=== PATIENT | male | born 1995 | race Caucasian/White ===

== ENCOUNTER 2024-03-30 09:42 | Emergency (ER) | payer OTHER, SELFPAY ==
--- NOTE | ~2024-03-30 | CT_ITS ---
EXAMINATION: CT abdomen pelvis w con DATE: 03/30/2024 11:40 INDICATION: Left lower quadrant pain and diarrhea TECHNIQUE: Computed tomography (CT) of the abdomen and pelvis was performed with 100 mL Omnipaque-350 intravenous contrast. Automated exposure control and iterative reconstruction technique were employe d. The dose-length product was 1390.84 mGy-cm. COMPARISON: None FINDINGS: Lung bases are clear. Heart size is normal. No pericardial or pleural effusion. 2.4 cm well-defined h ypodense lesion in segment 4A of the liver which bulges the liver capsule.. Gallbladder, spleen, panc reas, bilateral adrenal glands and kidneys are normal. There are couple diverticula at the junction o f the descending and sigmoid colon, one with surrounding inflammatory stranding and a few tiny foci o f extraluminal gas within the adjacent sigmoid mesentery consistent with acute diverticular colitis w ith microperforation. Small bowel and appendix are normal. Bladder is normal. No abscess, free into p eritoneal fluid or more remote free intraperitoneal gas. No pathologically enlarged abdominal or pelv ic lymphadenopathy. Chronic appearing mild likely physiologic anterior wedging at T11 and T12 with mi ld thoracic and lumbar spondylosis. IMPRESSION: 1. Radiographically uncomplicated sigmoid diverticulitis with microperforation but without abscess. 2. Indeterminate 2.4 cm lesion in segment 4A of the liver. Malignancy would be unlikely given patient age and in the absence of known liver disease or prior malignancy but would recommend further evalua tion with pre and postcontrast MRI. Reviewed, dictated and finalized at location A. [employer] IMPRESSION: 1. Radiographically uncomplicated sigmoid diverticulitis with microperforation but without abscess. 2. Indeterminate 2.4 cm lesion in segment 4A of the liver. Malignancy would be unlikely given patient age and in the absence of known liver disease or prior m alignancy but would recommend further evaluation with pre and postcontrast MRI.
[2024-03-30 09:49] VITALS: BP 147/95; PULSE 107; RESP 18; TEMP 36.7; O2SAT 100
--- NOTE | 2024-03-30 10:35 | ED.ABDPAIN ---
HPI - Abdominal Pain General Chief Complaint: Abdominal Pain Stated Complaint: abdominal pain Time Seen by Provider: 03/30/24 10:02 History of Present Illness HPI narrative: 28-year-old male presenting with abdominal pain. States for the last several days he has had left lower abdominal pain associated with diarrhea no nausea. He went to urgent care today who advised that he come to the ER for a CT scan. No further complaints. Related Data Allergies Allergy/AdvReac Type Severity Reaction Status Date / Time No Known Allergies Allergy Unknown Verified 03/30/24 16:09 Review of Systems Review of Systems: All systems reviewed & are unremarkable except as noted in HPI and below Exam Narrative: GENERAL: Well-appearing, well-nourished, and in no acute distress. HEAD: Normocephalic, atraumatic. EYES: PERRLA and EOMI. ENT: Mucous membranes moist. NECK: Supple. CHEST: Clear to auscultation. No respiratory distress. HEART: Regular rate and rhythm ABDOMEN: Soft, + left lower quadrant tenderness without guarding or rebound EXTREMITIES: Normal range of motion SKIN: Warm, dry, no rash. NEURO: Alert and oriented x3. PSYCH: Normal mood and affect. Course Vital Signs Vital signs: Vital Signs Temperature 98.0 F 03/30/24 09:49 Pulse Rate 107 H 03/30/24 09:49 Respiratory Rate 18 03/30/24 09:49 Blood Pressure 147/95 H 03/30/24 09:49 Pulse Oximetry 100 03/30/24 09:49 Oxygen Delivery Room Air 03/30/24 09:49 Temperature 98.1 F 03/30/24 16:38 Pulse Rate 91 03/30/24 11:56 Respiratory Rate 20 03/30/24 11:56 Blood Pressure 129/83 03/30/24 11:56 Pulse Oximetry 97 03/30/24 11:56 Oxygen Delivery Room Air 03/30/24 09:49 MDM - Abdominal Pain MDM Narrative Medical decision making narrative: 28-year-old male presenting with abdominal pain. Vitals are stable. Exam remarkable for the above. Blood work with a white count of 11.6. CT abdomen pelvis shows diverticulitis with microperforation and no abscess. Patient looks very well and his only complaint really is some mild nausea. He would prefer discharge which I think is reasonable. I spoke with General surgery who recommends Flagyl and Augmentin with very strict return precautions. Patient needs to follow-up with their clinic closely. He will also require a colonoscopy in the future. Patient will be given a dose of IV Rocephin and Flagyl and p.o. challenge. Patient tolerating p.o. intake. He continues to feel well and states that his pain has actually improved. Will start him on Flagyl and Augmentin and advised close follow-up with General surgery strict return precautions were given. Patient and his fiancee are agreeable with this plan. Discharged in stable condition. Differential Diagnosis Differential diagnosis: Likely abdominal pain, acute appendicitis, constipation and diverticulitis Medical Records Attestation: I reviewed the patient's medical records. Lab Data Attestation: I reviewed the patient's lab results. 03/30/24 10:56 03/30/24 10:56 Labs: Lab Results 03/30/24 03/30/24 Range/Units 10:56 10:56 WBC 11.6 H (4.5-10.0) K/mm3 RBC 5.26 (4.6-6.20) M/mm3 Hgb 16.1 (14.0-18.0) g/dL Hct 45.6 (42.0-52.0) % MCV 86.7 (80-100) fl MCH 30.6 (26-34) pg MCHC 35.3 (32-36) g/dl RDW 12.1 (11.5-14.5) % Plt Count 268 (150-375) k/mm3 MPV 10.0 (7.4-10.4) fl Immature Gran % (Auto) 0.3 (0-0.5) % Neut % (Auto) 85.7 H (45.5-73.1) % Lymph % (Auto) 6.6 L (18.3-44.2) % [place] % (Auto) 7.0 (2.6-8.5) % Eos % (Auto) 0.2 (0-4.4) % Baso % (Auto) 0.2 (0.2-1.2) % Lymph # (Auto) 0.76 L (0.9-3.2) K/mm3 [place] # (Auto) 0.8 H (0.1-0.6) K/mm3 Eos # (Auto) 0.0 (0-0.3) K/mm3 Baso # (Auto) 0.0 (0.0-0.1) K/mm3 Abs Immat Gran (auto) 0.04 H (0.00-0.031) K/mm3 Absolute Neuts (auto) 10.0 H (1.3-6.7) K/mm3 Absolute Nucleated RBC 0.000 (0.0-0.012) K/mm3 Nucleated RBC % 0.0 (0.0-0.2) % Sodium 135 L (137-145) mmol/L Potassium 4.1 (3.4-5.0) mmol/L Chloride 99 (98-107) mmol/L Carbon Dioxide 28 (22-30) mmol/L Anion Gap 8 (4-12) mmol/L BUN 19 (9-20) mg/dL Creatinine 0.90 (0.7-1.3) mg/dL Estim Creat Clear Calc 150 ml/min Estimated GFR > 60 (59 - ) Glucose 100 (65-110) mg/dL Calcium 8.9 (8.4-10.2) mg/dL Total Bilirubin 0.6 (0.2-1.3) mg/dL AST 33 (17-59) U/L ALT 44 (6-50) U/L Alkaline Phosphatase 58 (38-126) U/L Total Protein 8.0 (6.3-8.2) g/dL Albumin 4.7 (3.5-5.1) g/dL Lipase 42 Cancelled (23-300) U/L Urine Color Dark yellow (Yellow) Urine Appearance Clear (Clear) Urine pH 5.5 (5.0-9.0) Ur Specific [place] 1.032 (1.001-1.035) Urine Protein 1+ H (Negative) mg/dL Urine Glucose (UA) Negative (Negative) mg/dL Urine Ketones Trace H (Negative) mg/dL Ur Blood (Man) Negative (Negative) Urine Nitrate Negative (Negative) Urine Bilirubin Negative (Negative) Urine Urobilinogen 0.2 (<2.0) mg/dL Add Ur Microanalysis Reviewed Leukocyte Esterase Rfl Negative (Negative) AIDA/UL Urine RBC 0-2 (0-2) /hpf Urine WBC 0-5 (0-3) /hpf Ur Squamous Epith Cells None seen (Few) /hpf Urine Bacteria None seen /hpf Urine Casts 3-5 Imaging Data Radiologist's impression: ITS Impressions Abdomen/Pelvis CT 03/30/24 11:41 IMPRESSION: 1. Radiographically uncomplicated sigmoid diverticulitis with microperforation but without abscess. 2. Indeterminate 2.4 cm lesion in segment 4A of the liver. Malignancy would be unlikely given patient age and in the absence of known liver disease or prior malignancy but would recommend further evaluation with pre and postcontrast MRI. Critical Care Time Critical Care Time Critical Care Time: No Discharge Plan Discharge Clinical Impression: Diverticulitis of intestine with perforation without abscess or bleeding Patient Disposition: Home, Self-Care Condition: Stable Instructions: Antibiotic Form, Diverticulitis (ED), Diverticulitis Diet (ED) Additional Instructions: The CT scan shows diverticulitis with a microperforation. We have started you on 2 different antibiotics. Please complete these as prescribed. Follow-up closely with General surgery at the number below. If any of your symptoms worsen or other concerning symptoms arise, please return immediately to the ER. Patient Language: Mozamb[place] Prescriptions: New amoxicillin-pot clavulanate 875-125 mg tablet 1 tablet PO Q8H 10 Days Qty: 30 0RF metronidazole 500 mg tablet 500 mg PO Q12H 10 Days Qty: 20 0RF Follow-up/Referrals: Dr. Edgar Lloyd [Other] PHYSICIAN,[employer] [Non-Staff] - Stand Alone Forms: Work/School Release IP
[2024-03-30 11:04] LABS: Basophils Percent Auto 0.2 % (0.2-1.2); Eosinophils Percent Auto 0.2 % (0-4.4); Hematocrit 45.6 % (42.0-52.0); Hemoglobin 16.1 g/dL (14.0-18.0); Immature Granulocyte Absolute 0.04 K/mm3 (0.00-0.031); Immature Granulocyte Percent A 0.3 % (0-0.5); Lymphocytes Absolute Auto 0.76 K/mm3 (0.9-3.2); Lymphocytes Percent Auto 6.6 % (18.3-44.2); Mean Corpuscular HGB Conc 35.3 g/dl (32-36); Mean Corpuscular Hemoglobin 30.6 pg (26-34); Mean Corpuscular Volume 86.7 fl (80-100); Monocytes Absolute Auto 0.8 K/mm3 (0.1-0.6); Neutrophils Percent Auto 85.7 % (45.5-73.1); Platelet Count Result 268 k/mm3 (150-375); Red Blood Count 5.26 M/mm3 (4.6-6.20); Red Cell Distribution Width 12.1 % (11.5-14.5); White Blood Count 11.6 K/mm3 (4.5-10.0)
[2024-03-30 11:14] LABS: Alanine Aminotransferase 44 U/L (6-50); Albumin Level 4.7 g/dL (3.5-5.1); Alkaline Phosphatase 58 U/L (38-126); Anion Gap 8 mmol/L (4-12); Aspartate Amino Transferase 33 U/L (17-59); Bilirubin,Total 0.6 mg/dL (0.2-1.3); Blood Urea Nitrogen 19 mg/dL (9-20); Calcium 8.9 mg/dL (8.4-10.2); Carbon Dioxide 28 mmol/L (22-30); Chloride 99 mmol/L (98-107); Estimated CRCL calculation 150 ml/min; Estimated Glomerular Filt Rate > 60; Glucose 100 mg/dL (65-110); Lipase 42 U/L (23-300); Potassium 4.1 mmol/L (3.4-5.0); Sodium 135 mmol/L (137-145)
[2024-03-30 11:18] LABS: Add Urine Microscopic? YES; Appearance Urine Clear (Clear); Bacteria Urine None Seen /hpf; Bilirubin Urine Negative (Negative); Blood Urine Negative (Negative); Color Urine Dark Yellow (Yellow); Glucose Urine UA Negative (Negative); Ketones Urine Trace mg/dL (Negative); Leukocyte Esterase Ur Negative LEU/UL (Negative); Need Manual Microscopic Reviewed; Nitrate Urine Negative (Negative); Protein Urine 1+ mg/dL (Negative); RBC Urine 0-2 /hpf (0-2); Specific Grav Ur 1.032 (1.001-1.035); Squamous Epithelial Cell Urine None Seen /hpf (Few); Urobilinogen Urine 0.2 mg/dL (<2.0); WBC Urine 0-5 /hpf (0-3); pH Urine 5.5 (5.0-9.0)
[2024-03-30 11:56] VITALS: BP 129/83; PULSE 91; RESP 20; TEMP 36.7; O2SAT 97
[2024-03-30] MEDS: cefTRIAXone 2 GM/NS 100 ML 2 GM/100 ML BAG IVPB (13:42)
[2024-03-30] MEDS: ONDANSETRON INJ 4 MG/2 ML VIAL IV PUSH (13:47)
[2024-03-30] MEDS: metroNIDAZOLE 500 MG/ISO 100ML 500 MG/100 ML BAG 100 MG IVPB (15:10)
[2024-03-30 16:38] VITALS: TEMP 36.7
--- OUTSIDE RECORDS SUMMARY | 2024-04-03 02:18 | XMS_ITS | Patient Health Summary ---
Author Organization [facility] [employer] Address [address] [place] [address] Care Team Providers Care Assembling Inspector Name Role Phone Kimberly Dillon MD Primary Care Provider Note from [facility],non-owned Affiliates and Associated Physician Practices is amultiple site organization consisting of ambulatory clinics and hospital sitesin [place], [place], [place] and [place]. This disclosure is being madepursuant to the Care Everywhere program and may not contain all information available regarding this patient. Last updated 18.[facility] [employer] Allergies No known active allergies Medications * Be aware that medications may not be up to date on this document. Alwaysverify current medications with the patient. * acetaminophen (TYLENOL) 160 MG/5ML SOLN solution(Started 06/09/2014) Take 15.65 mL by mouth every 4 hours as needed for Fever or Pain. * ibuprofen (ADVIL; MOTRIN) 100 MG/5ML SUSP suspension(Started 06/12/2014) Take 15 mL by mouth every 6 hours as needed for Pain or Fever. May start using ibuprofen (ADVIL/MOTRIN) 3 days after surgery. * Cholecalciferol 1000 UNITS TABS(Started 09/19/2014) Take 1 Tab by mouth once daily. 3 refills left Active Problems Problem Noted Date Diagnosed Date Hypertrophy of tonsils with hypertrophy of adeno ids 06/09/2014 Obstructive sleep apnea 06/09/2014 Nail bed injury 02/11/2014 Ankle fracture 05/12/2012 Immunizations * TDAP (7yrs+)(Given 02/11/2014) Social History Tobacco Use Types Packs/Day Years Used Date Smoking Tobacco: Never Smokeless Tobacco: Never Alcohol Use Standard Drinks/Week Comments No 0 (1 standard drink = 0.6 oz pur e alcohol) Sex and Gender Information Value Date Recorded Sex Assigned at Not on file Gender Identity Not on file Sexual Orientation Not on file Last Filed Vital Signs Vital Sign Reading Time Taken Comments Blood Pressure 140/90 09/12/2014 3:31 PM CDT Pulse 80 06/09/2014 2:30 PM BICYCLE REPAIRMAN Temperature 36.6 ??C (97.9 ??F) 06/09/2014 1:30 PM CS T Respiratory Rate 16 06/09/2014 2:30 PM BICYCLE REPAIRMAN Oxygen Saturation 100% 06/09/2014 2:30 PM BICYCLE REPAIRMAN Inhaled Oxygen Concentration - - Weight 117.8 kg (259 lb 12.8 oz) 09/12/2014 3:31 PM CDT Height 180 cm (5' 10.87 ) 09/12/2014 3:31 PM CDT Body Mass Index 36.37 09/12/2014 3:31 PM CDT Medical Devices Implanted Type Area Peoplesoft Administrator Device Identifier Shelf Expiration Date Model / Serial / Lot Scrw Selftap Hd 2.7mm 3.5mm X 16.0mm Implanted:Qty: 2 on 05/16/2012 by Sophia Hutchison MD at [facility] Right: Ankle [employer] [id number] / / Scrw Selftap Hd 2.7mm 3.5mm X 18.0mm Implanted:Qty: 2 on 05/16/2012 by Sophia Hutchison MD at [facility] Right: Ankle [employer] [id number] / / Scrw Selftap Hd 2.7mm 3.5mm X 28.0mm Implanted:Qty: 1 on 05/16/2012 by Sophia Hutchison MD at [facility] Right: Ankle [employer] [id number] / / Scrw Harsh Selftap Sm Hex 2.7mm X 14mm Implanted:Qty: 1 on 05/16/2012 by Sophia Hutchison MD at [facility] Right: Ankle [employer] [id number] / / Scrw Harsh Selftap Sm Hex 2.7mm X 16mm Implanted:Qty: 1 on 05/16/2012 by Sophia Hutchison MD at [facility] Right: Ankle [employer] [id number] / / Scrw Harsh Selftap Sm Hex 2.7mm X 18mm Implanted:Qty: 1 on 05/16/2012 by Sophia Hutchison MD at [facility] Right: Ankle [employer] [id number] / / Plate Fib Dist Lat Cesia R 4hole 80mm Implanted:Qty: 1 on 05/16/2012 by Sophia Hutchison MD at [facility] Right: Ankle [employer] [id number] / / Explanted Type Area Peoplesoft Administrator Device Identifier Shelf Expiration Date Model / Serial / Lot Scrw Selftap Hd 2.7mm 3.5mm X 14.0mm Explanted:Qty: 1 on 05/16/2012 by Sophia Hutchison MD at [facility] Right: Ankle [employer] [id number] / / Procedures * VITAMIN D 25-HYDROXY(Performed 09/12/2014) Performed for Sleep disturbance * C-REACTIVE PROTEIN(Performed 09/12/2014) Performed for Sleep disturbance * IRON + TIBC PANEL(Performed 09/12/2014) Performed for Other disorders of iron metabolism * FERRITIN(Performed 09/12/2014) Performed for Other disorders of iron metabolism * TONSILLECTOMY AND ADENOIDECTOMY(Performed 06/09/2014) Performed for Hypertrophy of tonsil with adenoids, Obstructive sleep apnea (adult) (pediatric) * PATHOLOGY TISSUE EXAM (STL)(Performed 06/09/2014) * FERRITIN(Performed 05/15/2014) Performed for Restless legs syndrome (RLS) * XR ANKLE RIGHT 3VW OR MORE(Performed 06/15/2012) Performed for Ankle fracture * XR ANKLE RIGHT 2VW(Performed 05/25/2012) Performed for Ankle fracture * OPEN REDUCTION INTERNAL FIXATION FRACTURE ANKLE BIMALLEOLAR(Performed 05/16/2012) Performed for RIGHT ANKLE FRACTURE, SYNDEMOSIS INJURY * XR ANKLE RIGHT 3VW OR MORE(Performed 05/16/2012) Performed for Ankle fracture * IP CONSULT TO PEDIATRIC ORTHOPEDICS(Performed 05/13/2012) * ED ORTHOPEDIC INJURY TREATMENT(Performed 05/13/2012) * XR ANKLE RIGHT 3VW OR MORE(Performed 05/12/2012) Performed for Injury, other and unspecified, knee, leg, ankle, and foot * XR ANKLE RIGHT 3VW OR MORE(Performed 05/12/2012) Performed for Injury, other and unspecified, knee, leg, ankle, and foot * US SCROTUM W DOPPLER(Performed 04/28/2009) Results * C-REACTIVE PROTEIN (09/12/2014 4:08 PM CDT) [facility] C-Reactive Protein <0.20 <=0.50 mg/dL 09/12/2014 4:38 PM CDT [facility] Blood BLOOD SPECIMEN / Unknown Lab Venipuncture / Unknown 09/12/2014 4:08 PM CDT 09/12/2014 4:15 PM CDT Nadine Arredondo APRN-QUICK SKETCH ARTIST LAB - CHEMISTR Y ORDERABLES Performing Organization Address [facility] de Phone Number [facility] [address] [place] [id number] * (ABNORMAL) VITAMIN D (25-HYDROXY) (09/12/2014 4:08 PM CDT) [facility] Vitamin D, 25 Hydroxy 18.03(L) 30 - 100 ng/mL 09/12/2014 6:58 PM CDT [facility] Blood BLOOD SPECIMEN / Unknown Lab Venipuncture / Unknown 09/12/2014 4:08 PM CDT 09/12/2014 4:16 PM CDT Narrative [facility] - 09/12/2014 6:58 PM CDT Vitamin D Status: ?Deficiency ? <20 ? ng/mL ?Insufficiency ?? 20-30 ??ng/mL ?Sufficiency ? 30-100 ng/mL ?Toxicity ? >100 ?ng/mL Nadine Simon Arnulfo ROUTE SALES TRAINEE-QUICK SKETCH ARTIST LAB - CHEMISTR Y ORDERABLES [facility] [address] [place] [address] * (ABNORMAL) IRON + TIBC PANEL (09/12/2014 4:08 PM CDT) Iron 178(H) 50 - 170 ug/dL 09/15/2014 1:24 AM CDT [employer] ([facility]) Comment: REFERENCE INTERVAL: Iron, Serum or Plasma Access complete set of age- and/or gender-specific reference intervals for this test in the [facility] Test Directory ([employer]). TIBC 376 240 - 450 ug/dL 09/15/2014 1:24 AM CDT [employer] ([facility]) Comment: REFERENCE INTERVAL: Iron Binding Capacity Total Access complete set of age- and/or gender-specific reference intervals for this test in the [facility] Test Directory ([employer]). Transferrin Saturation % 47 20 - 50 %sat 09/15/2014 1:24 AM CDT [employer] ([facility]) Blood specimen (specimen) BLOOD SPECIMEN / Unknown Lab Venipuncture / Unknown 09/12/2014 4:08 PM CDT 09/12/2014 4:16 PM CDT Nadine Arredondo ROUTE SALES TRAINEE-QUICK SKETCH ARTIST LAB - CHEMISTR Y ORDERABLES [facility] [employer] ([facility]) [address] * (ABNORMAL) FERRITIN (09/12/2014 4:08 PM CDT) Only the most recent of2 resultswithin the time period is included. Ferritin 267(H) 20 - 250 ng/mL 09/12/2014 4:39 PM CDT [facility] Blood BLOOD SPECIMEN / Unknown Lab Venipuncture / Unknown 09/12/2014 4:08 PM CDT 09/12/2014 4:15 PM CDT Nadine Arredondo ROUTE SALES TRAINEE-QUICK SKETCH ARTIST LAB - CHEMISTR Y ORDERABLES [facility] [place] [address] * GROSS + MICRO EXAM (STL) (06/09/2014 12:22 PM BICYCLE REPAIRMAN) Case Report Surgical Pathology Report ? Case: [id number] ? Authorizing Provider: ??Krunal Bridges MD ?Collected: ? 06/09/2014 12:22 PM ? Ordering Location: ? [facility] ? Received: ?06/09/2014 01:54 PM ? Pathologist: ? Daniel Rice MD ? Specimen: ?Tonsil(s) ? 06/10/2014 4:16 PM BICYCLE REPAIRMAN [facility] Final Diagnosis TONSILS, TONSILLECTOMY: -TONSILLAR HYPERPLASIA -SULFUR GRANULES PRESENT 06/10/2014 4:16 PM BICYCLE REPAIRMAN [facility] Clinical History The patient is a 18-year-old boy with adenotonsillar hypertrophy and obstructive sleep apnea. 06/10/2014 4:16 PM [facility] Gross Description Submitted fresh in one container for gross and microscopic examination labeled with the patient's name, Antony Benedict, and tonsils, are two egg-shaped, pink-patterson palatine tonsils measuring 3.2 x 2.3 x 1.5 cm and 3.2 x 2.5 x 2.0 cm, weighing 4 grams and 5 grams. On cut surface, the tonsils have a cerebriform yellow-pattersno appearance. A branch customer service representative section of each tonsil is submitted in cassettes A1 and A2. (MR/preet) 06/10/2014 4:16 PM [facility] Microscopic Description 2 H&E. Sections of the tonsils show tonsillar squamous mucosa with underlying lymphoid tissue. Intraepithelial lymphocytes (M cells) are noted. The lymphoid tissue is composed of variable sized germinal center surrounded by intact mantle zone sulfur granules (actinomcyes) are noted. (NM/scs) 06/10/2014 4:16 PM [facility] Disclaimer The performance characteristics of all immunohistochemical and indirect immunofluorescence stains (if any) cited in this report were determined by the [facility] in compliance with CLIA `88 regulations. Some of these tests rely on the use of analyte-specific reagents and are subject to specific labeling requirements by the FDA. Such tests were developed by the [facility] and have not been cleared or approved by the FDA. The FDA has determined that such clearance or approval is not necessary. These tests are used for clinical purposes and should not be regarded as investigational or for research. This case has been personally reviewed and interpreted by the attending (teaching) pathologist. 06/10/2014 4:16 PM [facility] Pathology/Cytolo gy SPECIMEN FROM TONSIL / Unknown 06/09/2014 12:22 PM BICYCLE REPAIRMAN 06/09/2014 1:54 PM BICYCLE REPAIRMAN Comment:[phone] Krunal Bridges MD LAB - PATHOLOGY/CYTO LOGY ORDERABLES [facility] [address] [place] [address] * XR ANKLE 3+ VW RIGHT (06/15/2012 9:07 AM BICYCLE REPAIRMAN) Only the most recent of4 resultswithin the time period is included. Anatomical Region Laterality Modality Lower Extremity Radiographic Kira ging 06/15/2012 9:26 AM BICYCLE REPAIRMAN Impressions 06/15/2012 9:26 AM BICYCLE REPAIRMAN 1. Healing distal fibular fracture. 2. Unchanged posterior tibial a avulsion. Narrative 06/15/2012 9:26 AM BICYCLE REPAIRMAN Right ankle, 3 views 06/15/2012 Fixation plate and screw is present in the distal fibula. The avulsed bone fragment of the posterior aspect of the tibia demonstrates minimal healing. The cast has been removed. Procedure Note Tom Boykin MD - 06/15/2012 Right ankle, 3 views 06/15/2012 Fixation plate and screw is present in the distal fibula. The avulsed bone fragment of the posterior aspect of the tibia demonstrates minimal healing. The cast has been removed. IMPRESSION 1. Healing distal fibular fracture. 2. Unchanged posterior tibial a avulsion. Zackery Giles MD DIAGNOSTIC IMAGING ORDERABLES * XR ANKLE 2 VW RIGHT (05/25/2012 8:46 AM BICYCLE REPAIRMAN) Anatomical Region Laterality Modality Lower Extremity Radiographic Kira ging 05/25/2012 11:1 1 AM BICYCLE REPAIRMAN Impressions 05/25/2012 11:11 AM BICYCLE REPAIRMAN Interval casting of distal fibular fracture. Narrative 05/25/2012 11:11 AM BICYCLE REPAIRMAN Right ankle series, 2 views 05/25/2012 Comparison is made to the portable intraoperative study on May 16, 2012. Since that study, the distal right fibular fracture has been casted. Fixation plate and surgical screws remain in place the fibular fracture site. There is no new osseous injury visible through cast material. Procedure Note Tom Boykin MD - 05/25/2012 Right ankle series, 2 views 05/25/2012 Comparison is made to the portable intraoperative study on May 16, 2012. Since that study, the distal right fibular fracture has been casted. Fixation plate and surgical screws remain in place the fibular fracture site. There is no new osseous injury visible through cast material. IMPRESSION Interval casting of distal fibular fracture. Sophia Hutchison MD DIAGNOSTIC IMAGING O RDERABLES * IP CONSULT TO PEDIATRIC ORTHOPEDICS (05/13/2012 9:11 PM BICYCLE REPAIRMAN) Anna Lobo MD INPATIENT CONSULT OR DERABLES * ED ORTHOPEDIC INJURY TREATMENT (05/13/2012 2:28 AM BICYCLE REPAIRMAN) Narrative Benji Nobles MD - 05/13/2012 2:28 AM BICYCLE REPAIRMAN Benji Nobles MD ? 05/13/2012 ??2:28 AM Provider contact with the patient: 05/13/2012 ?02:27 Antony Myles Benedict [id number] [facility] History Chief Complaint Patient presents with ? ? Lower Extremity Problem ??wrestling injury to right foot. PT did not hear a pop but did feel a couple pops. Mother gave 800mg Ibuprofen 2hrs ago. ?? I have read the resident/PROFESSIONAL BUILDER history. ??Unless appended by me below, I agree with findings as documented. HPI Review of Systems Review of Systems BP 156/74 Pulse 94 Temp 97.2 ??F Resp 21 Wt 96.208 kg (212 lb 1.6 oz) SpO2 98% Physical Exam I have reviewed the resident/PROFESSIONAL BUILDER physical exam. Unless appended by me below, I agree with the PE as documented. Physical Exam Procedures Orthopedic Injury Reduction/Treatment Performed by: BENJI NOBLES Authorized by: BENJI NOBLES Comments: I was present for the honeycutt portions of the procedure of orthopedic closed reduction and splinting done by ortho resident. See resident note for details. Progress Notes ED Course Medical Decision Making I have personally seen and examined this patient. I have fully participated in the care of this patient. I have reviewed all pertinent clinical information available to me during this encounter, including history, physical exam and plan. I have reviewed nursing notes, available labs and radiographic studies. Clinical Impression Final diagnoses: Right fibular fracture Procedure Note Benji Nobles MD - 05/13/2012 2:27 AM CST Provider contact with the patient: 05/13/2012 02:27 Antony Benedict [id number] [facility] History Chief Complaint Patient presents with ? ? Lower Extremity Problem wrestling injury to right foot. PT did not hear a pop but did feel acouple pops. Mother gave 800mg Ibuprofen 2hrs ago. I have read the resident/PROFESSIONAL BUILDER history. Unless appended by me below, I agreewith findings as documented. HPI Review of Systems Review of Systems BP 156/74 Pulse 94 Temp 97.2 ??F Resp 21 Wt 96.208 kg (212 lb 1.6oz) SpO2 98% Physical Exam I have reviewed the resident/PROFESSIONAL BUILDER physical exam. Unless appended by mebelow, I agree with the PE as documented. Physical Exam Procedures Orthopedic Injury Reduction/Treatment Performed by: BENJI NOBLES Authorized by: BENJI NOBLES Comments: I was present for the honeycutt portions of the procedure oforthopedic closed reduction and splinting done by ortho resident. Seeresident note for details. Progress Notes ED Course Medical Decision Making I have personally seen and examined this patient. I have fullyparticipated in the care of this patient. I have reviewed all pertinentclinical information available to me during this encounter, includinghistory, physical exam and plan. I have reviewed nursing notes, availablelabs and radiographic studies. Clinical Impression Final diagnoses: Right fibular fracture Benji Nobles MD PROCEDURE/MINOR SURG ICAL ORDERABLES * US SCROTUM WITH DOPPLER (04/28/2009 1:15 PM BICYCLE REPAIRMAN) Anatomical Region Laterality Modality Pelvis Other 04/28/2009 1:15 PM BICYCLE REPAIRMAN Narrative 05/02/2009 9:53 AM BICYCLE REPAIRMAN ??Study Date ??Accession # ? Procedure Code ?Procedure ??04/28/2009 ?? [id number] ? [id number] ? US SCROTUM WITH DOPPLER ??Reason for Study ??TESTICULAR PAIN Exam- Scrotal sonogram Date- ??Apr 28, 2009 1-43-00 PM Right testis- ?3.8 x 1.5 x 2.3 cm = 6.98 cc Left testis- ?3.8 x 1.5 x 2.5 cm = 7.13 cc Both testes are descended into the scrotal sac. They are normal in size, contour, and echogenicity. Doppler exam shows normal low resistance arterial waveforms. ??Diagnosis- ??Normal testicular sonogram. ??Awais Han MD ??Films Reviewed with- ??Dictated on- ?04/28/2009 ?? 1-52-30PM ??Interpreted by- Zahida Morrissey Karen ??Assisted by- ?Zahida Han Jason ??Transcribed by- PowerScribe ? Reading Radiologist- HETAL MORRISSEY MD ? Releasing Radiologist- ??Hetal Morrissey MD ? Released Date Time- 05/02/09 0956 ? Poll Clerk- Autumn Campos ? ADM- JOSE GUERRA V ? ATT- REAGAN GUERRAND V ORD- JOSE GUERRA V ? CON- PCP- RIK CARD ? SCP- Procedure Note Hetal Morrissey - 05/02/2009 Study Date Accession # Procedure Code Procedure 04/28/2009 [id number] SCROTUM WITH DOPPLER Reason for Study TESTICULAR PAIN Exam- Scrotal sonogram Date- Apr 28, 2009 1-43-00 PM Right testis- 3.8 x 1.5 x 2.3 cm = 6.98 cc Left testis- 3.8 x 1.5 x 2.5 cm = 7.13 cc Both testes are descended into the scrotal sac. They are normal in size, contour, and echogenicity. Doppler exam shows normal low resistance arterial waveforms. Diagnosis- Normal testicular sonogram. Awais Han MD Films Reviewed with- Dictated on- 04/28/2009 1-52-30PM Interpreted by- Zahida Morrissey Karen Assisted by- Zahida Han Jason Transcribed by- PowerScribe Reading Radiologist- HETAL MORRISSEY MD Releasing Radiologist- Hetal Morrissey MD Released Date Time- 05/02/09 0956 Poll Clerk- Autumn Campos ADM- JOSE GUERRA V ATT- AMI,JOSE V ORD- PALNATA,JOSE Gabriel CON- PCP- RIK CARD SCP- Jose Guerra MD ORDERABLES Care Teams Assembling Inspector Relationship Specialty Start Date End Date Kimberly Dillon MD [address] [place] [address] PCP - General 08/16/21
--- OUTSIDE RECORDS SUMMARY | 2024-04-03 02:18 | XMS_ITS | Clinical Summary ---
Author Organization [facility] [employer] Address [address] [place] [address] Care Team Providers Care College Scouting Coordinator Name Role Phone Kimberly Dillon MD Primary Care Provider Source Comments [facility] [employer],non-owned Affiliates and Associated Physician Practices is amultiple site organization consisting of ambulatory clinics and hospital sitesin [place], [place], [place] and [place]. This disclosure is being madepursuant to the Care Everywhere program and may not contain all informatio navailable regarding this patient. Last updated 18.[facility] [employer] Allergies No known active allergies Medications * Be aware that medications may not be up to date on this document. Alwaysverify current medications with the patient. Medication Sig Dispensed Refills Start Date End Date Status acetaminophen (TYLENOL) 160 MG/5ML SOLN solution Take 15.65 mL by mouth every 4 hours as needed for Fever or Pain. 473 mL 0 06/09/2014 Active ibuprofen (ADVIL; MOTRIN) 100 MG/5ML SUSP suspension Take 15 mL by mouth every 6 hours as needed for Pain or Fever. May start using ibuprofen (ADVIL/MOTRIN) 3 days after surgery. 473 mL 0 06/12/2014 Active Cholecalciferol 1000 UNITS TABS Take 1 Tab by mouth once daily. 30 Tab 3 09/19/2014 Active Active Problems Problem Noted Date Diagnosed Date Hypertrophy of tonsils with hypertrophy of adeno ids 06/09/2014 Overview (01/15/2015): Obstructive sleep apnea 06/09/2014 Overview (01/15/2015): Nail bed injury 02/11/2014 Ankle fracture 05/12/2012 Immunizations Name Administration Dates Next Due TDAP (7yrs+) 02/11/2014 Family History Medical History Relation Name Comments Sleep Disorder-RLS Maternal Grandmother Sleep Disorder-RLS Mother ADHD Neg Hx Anesthesia Reaction Neg Hx Nocturnal enuresis Neg Hx Sleep Apnea Neg Hx Relation Name Status Comments Maternal Grandmother Mother Social History Tobacco Use Types Packs/Day Years [...] PM CDT Pulse 80 06/09/2014 2:30 PM WIRE STITCHER MACHINE Temperature 36.6 ??C (97.9 ??F) 06/09/2014 1:30 PM CS T Respiratory Rate 16 06/09/2014 2:30 PM WIRE STITCHER MACHINE Oxygen Saturation 100% 06/09/2014 2:30 PM WIRE STITCHER MACHINE Inhaled Oxygen Concentration - - Weight 117.8 kg (259 lb 12.8 oz) 09/12/2014 3:31 PM CDT Height 180 cm (5' 10.87 ) 09/12/2014 3:31 PM CDT Body Mass Index 36.37 09/12/2014 3:31 PM CDT Plan of Treatment Health Maintenance Due Date Last Done Comments HIV SCREENING 08/13/2011 HEPATITIS C SCREENING 08/08/2014 HEPATITIS B VACCINE (1 of 3 - 19+ 3-dose series) 08/13/2015 DEPRESSION SCREENING 04/17/2023 COVID-19 VACCINE (2023-2 5 season) 2023 INFLUENZA VACCINE (#1) 2023 DTAP/TDAP/TD VACCINES (2 - T d or Tdap) 02/12/2024 02/11/2014 ZOSTER VACCINE (1 of 2) 2046 HIB VACCINE Aged Out No longer eligi ble based on patient's age to complete this topic HPV VACCINE Aged Out No longer eligi ble based on patient's age to complete this topic MENINGOCOCCAL VACCINE Aged Out No dank kelley eligible based on patient's age to complete this topic PNEUMOCOCCAL VACCINE Aged Out No long er eligible based on patient's age to complete this topic Medical Devices Implanted Type Area Floor Installation Mechanic Device Identifier Shelf Expiration Date Model / Serial / Lot Scrw Selftap Hd 2.7mm 3.5mm X 16.0mm Implanted:Qty: 2 on 05/16/2012 by Sophia Hutchison MD at [facility] Right: Ankle [employer] [id number] / / Scrw Selftap Hd 2.7mm 3.5mm X 18.0mm Implanted:Qty: 2 on 05/16/2012 by Sophia Hutchison MD at [facility] Right: [employer] [id number] / / Scrw Selftap Hd 2.7mm 3.5mm X 28.0mm Implanted:Qty: 1 on 05/16/2012 by Sophia Hutchison MD at [facility] Right: Ankle [employer] [id number] / / Scrw Harsh Selftap Sm Hex 2.7mm X 14mm Implanted:Qty: 1 on 05/16/2012 by Sophia Hutchison MD at [facility] Right: Ank[employer] [id number] / / Scrw Harsh Selftap Sm Hex 2.7mm X 16mm Implanted:Qty: 1 on 05/16/2012 by Sophia Hutchison MD at [facility] Right: Ankle [employer] [id number] / / Scrw Harsh Selftap Sm Hex 2.7mm X 18mm Implanted:Qty: 1 on 05/16/2012 by Sophia Hutchison MD at [facility] Right: Ank[employer] [id number] / / Plate Fib Dist Lat Cesia R 4hole 80mm Implanted:Qty: 1 on 05/16/2012 by Sophia Hutchison MD at [facility] Right: [employer] [id number] / / Explanted Type Area Floor Installation Mechanic Device Identifier Shelf Expiration Date Model / Serial / Lot Scrw Selftap Hd 2.7mm 3.5mm X 14.0mm Explanted:Qty: 1 on 05/16/2012 by Sophia Hutchison MD at [facility] Right: [employer] [id number] / / Care Teams College Scouting Coordinator Relationship Specialty Start Date End Date Kimberly Dillon MD [address] [place] [id number] PCP - General 08/16/21
--- OUTSIDE RECORDS SUMMARY | 2024-04-03 02:18 | XMS_ITS | Encounter Summary ---
Author Organization [facility] Address [address] [facility] [place] [address] Care Team Providers Care Agricultural Engineering Technicians Name Role Phone Moises Diaz MD Primary Care Provider Unavail able Encounter Details Date Type Department Care Team (Latest Contact Info) Description 09/12/2014 4:08 PM CDT - 09/12/2014 11:59 PM CDT Hospital Encounter [facility] - [facility] [address] [place] [address] Nadine Arredondo, TREASURY SPECIALIST-OWNER/PHOTOGRAPHER [address] [place] [address] Discharge Disposition: Home or Self Care Social History Tobacco Use Types Packs/Day Years Used Date Smoking Tobacco: Never Smokeless Tobacco: Never Alcohol Use Standard Drinks/Week Comments No 0 (1 standard drink = 0.6 oz pur e alcohol) Sex and Gender Information Value Date Recorded Sex Assigned at Not on file Gender Identity Not on file Sexual Orientation Not on file documented as of this encounter Functional Status Functional Status Response Date of Assess ment Is person deaf or have serious hearing difficult y? No 06/09/2014 Is person blind or have serious difficulty seein g? No 06/09/2014 Does person have serious dif ficulty walking/climbing stairs? No 06/09/2014 Does person have difficulty dressing/bathing? No 06/09/2014 Does person have difficulty doing errands alone? No 06/09/2014 Cognitive Status Response Date of Assessm ent Does person have difficulty concentrating/remembering/making decisions? No 06/09/2014 documented as of this encounter Medications at Time of Discharge Medication Sig Dispensed Refills Start Date End Date acetaminophen (TYLENOL) 160 MG/5ML SOLN solution Take 15.65 mL by mouth every 4 hours as needed for Fever or Pain. 473 mL 0 06/09/2014 ibuprofen (ADVIL; MOTRIN) 100 MG/5ML SUSP suspension Take 15 mL by mouth every 6 hours as needed for Pain or Fever. May start using ibuprofen (ADVIL/MOTRIN) 3 days after surgery. 473 mL 0 06/12/2014 documented as of this encounter Plan of Treatment Not on file documented as of this encounter Procedures Procedure Name Priority Date/Time Associated Diagnosis Comments C-REACTIVE PROTEIN Routine 09/12/2014 4: 08 PM CDT Sleep disturbance VITAMIN D 25-HYDROXY Routine 09/12/2014 4:08 PM CDT Sleep disturbance IRON + TIBC PANEL Routine 09/12/2014 4:0 8 PM CDT Other disorders of iron metabolism FERRITIN Routine 09/12/2014 4:08 PM CDT Other disorders of iron metabolism documented in this encounter Results * (ABNORMAL) VITAMIN D (25-HYDROXY) (09/12/2014 4:08 PM CDT) Vitamin D, 25 Hydroxy 18.03(L) 30 - 100 ng/mL 09/12/2014 6:58 PM CDT [facility] Blood BLOOD SPECIMEN / Unknown Lab Venipuncture / Unknown 09/12/2014 4:08 PM CDT 09/12/2014 4:16 PM CDT Narrative [facility] - 09/12/2014 6:58 PM CDT Vitamin D Status: ?Deficiency ? <20 ? ng/mL ?Insufficiency ?? 20-30 ??ng/mL ?Sufficiency ? 30-100 ng/mL ?Toxicity ? >100 ?ng/mL Nadine Simon Arnulfo TREASURY SPECIALIST-OWNER/PHOTOGRAPHER LAB - CHEMISTR Y ORDERABLES Performing Organization Address City/[facility]/ZIP Co de Phone Number [facility] [address] [place] [address] * C-REACTIVE PROTEIN (09/12/2014 4:08 PM CDT) C-Reactive Protein <0.20 <=0.50 mg/dL 09/12/2014 4:38 PM CDT [facility] Blood BLOOD SPECIMEN / Unknown Lab Venipuncture / Unknown 09/12/2014 4:08 PM CDT 09/12/2014 4:15 PM CDT Nadine Simon Arnulfo TREASURY SPECIALIST-OWNER/PHOTOGRAPHER LAB - CHEMISTR Y ORDERABLES Performing Organization Address [facility] Co de Phone Number [facility] [address] [place] [phone] * (ABNORMAL) IRON + TIBC PANEL (09/12/2014 4:08 PM CDT) Iron 178(H) 50 - 170 ug/dL 09/15/2014 1:24 AM CDT [facility]) Comment: REFERENCE INTERVAL: Iron, Serum or Plasma Access complete set of age- and/or gender-specific reference intervals for this test in the [facility] Test Directory ([facility]). TIBC 376 240 - 450 ug/dL 09/15/2014 1:24 AM CDT [facility]) Comment: REFERENCE INTERVAL: Iron Binding Capacity Total Access complete set of age- and/or gender-specific reference intervals for this test in the [facility] Test Directory ([facility]). Transferrin Saturation % 47 20 - 50 %sat 09/15/2014 1:24 AM CDT [facility]) Blood specimen (specimen) BLOOD SPECIMEN / Unknown Lab Venipuncture / Unknown 09/12/2014 4:08 PM CDT 09/12/2014 4:16 PM CDT Nadine Arredondo TREASURY SPECIALIST-OWNER/PHOTOGRAPHER LAB - CHEMISTR Y ORDERABLES [facility] ([facility]) [address] [place] [address], [facility] * (ABNORMAL) FERRITIN (09/12/2014 4:08 PM CDT) Ferritin 267(H) 20 - 250 ng/mL 09/12/2014 4:39 PM CDT [facility] Blood BLOOD SPECIMEN / Unknown Lab Venipuncture / Unknown 09/12/2014 4:08 PM CDT 09/12/2014 4:15 PM CDT Nadine Alfred Arredondo TREASURY SPECIALIST-OWNER/PHOTOGRAPHER LAB - CHEMISTR Y ORDERABLES [facility] [address] [place] [address] documented in this encounter Visit Diagnoses Diagnosis Other disorders of iron metabolism Sleep disturbance Sleep disturbance, unspecified documented in this encounter Care Teams Agricultural Engineering Technicians Relationship Specialty Start Date End Date Moises Diaz MD PCP - General 04/28/09 08/15/21 documented as of this encounter
--- OUTSIDE RECORDS SUMMARY | 2024-04-03 02:18 | XMS_ITS | Encounter Summary ---
Author Organization [facility] Health Address [address] [facility] [place] [address] Care Team Providers Care Manager Bridge Name Role Phone Moises Diaz MD Primary Care Provider Unavail able Encounter Details Date Type Department Care Team (Late st Contact Info) Description 09/19/2014 Orders Only [facility] - Sleep [address] [place] [address] Carmen Omalley RN Social History Tobacco Use Types Packs/Day Years [...] No 06/09/2014 documented as of this encounter Plan of Treatment Not on file documented as of this encounter Visit Diagnoses Not on filedocumented in this encounter Care Teams Manager Bridge Relationship Specialty Start Date End Date Moises Diaz MD PCP - General 04/28/09 08/15/21 documented as of this encounter
--- OUTSIDE RECORDS SUMMARY | 2024-04-03 02:18 | XMS_ITS | Referral Summary ---
Author Organization [facility] Address [address] [facility] [place] [address] Care Team Providers Care Swiss Type Screw Machine Operator Name Role Phone Kimberly Dillon MD Primary Care Provider [phone] Source Comments [facility],non-owned Affiliates and Associated Physician Practices is amultiple site organization consisting of ambulatory clinics and hospital sitesin [place], [place], [place] and [place]. This disclosure is being madepursuant to the Care Everywhere program and may not contain all information available regarding this patient. Last updated 18.[facility] Allergies No known active allergies Medications * [...] Administration Dates Next Due TDAP (7yrs+) 02/11/2014 Social History Tobacco Use Types Packs/Day Years [...] PM CDT Pulse 80 06/09/2014 2:30 PM SENIOR BOILER OPERATOR Temperature 36.6 ??C (97.9 ??F) 06/09/2014 1:30 PM CS T Respiratory Rate 16 06/09/2014 2:30 PM SENIOR BOILER OPERATOR Oxygen Saturation 100% 06/09/2014 2:30 PM SENIOR BOILER OPERATOR Inhaled Oxygen Concentration - - Weight 117.8 kg (259 lb 12.8 oz) 09/12/2014 3:31 PM CDT Height 180 cm (5' 10.87 ) 09/12/2014 3:31 PM CDT Body Mass Index 36.37 09/12/2014 3:31 PM CDT Functional Status Functional Status Response Date of [...] person have difficulty concentrating/remembering/making decisions? No 06/09/2014 Plan of Treatment Not on file Medical Devices Implanted Type Area Gas Engine Performance Engineer Device Identifier Shelf Expiration Date Model / Serial / Lot Scrw Selftap Hd 2.7mm 3.5mm X 16.0mm Implanted:Qty: 2 on 05/16/2012 by Sophia Hutchison MD at [facility] Right: [employer] [id number] / / Scrw Selftap Hd 2.7mm 3.5mm X 18.0mm Implanted:Qty: 2 on 05/16/2012 by Sophia Hutchison MD at [facility] Right: [employer] [id number] / / Scrw Selftap Hd 2.7mm 3.5mm X 28.0mm Implanted:Qty: 1 on 05/16/2012 by Sophia Hutchison MD at [facility] Right: [employer] [id number] / / Scrw Harsh Selftap Sm Hex 2.7mm X 14mm Implanted:Qty: 1 on 05/16/2012 by Sophia Hutchison MD at [facility] Right: [employer] [id number] / / Scrw Harsh Selftap Sm Hex 2.7mm X 16mm Implanted:Qty: 1 on 05/16/2012 by Sophia Hutchison MD at [facility] Right: [employer] [id number] / / Scrw Harsh Selftap Sm Hex 2.7mm X 18mm Implanted:Qty: 1 on 05/16/2012 by Sophia Hutchison MD at [facility] Right: Ank[employer] [id number] / / Plate Fib Dist Lat Cesia R 4hole 80mm Implanted:Qty: 1 on 05/16/2012 by Sophia Hutchison MD at [facility] Right: Ank[employer] [id number] / / Explanted Type Area Gas Engine Performance Engineer Device Identifier Shelf Expiration Date Model / Serial / Lot Scrw Selftap Hd 2.7mm 3.5mm X 14.0mm Explanted:Qty: 1 on 05/16/2012 by Sophia Hutchison MD at [facility] Right: Ank[employer] [id number] / / Care Teams Swiss Type Screw Machine Operator Relationship Specialty Start Date End Date Kimberly Dillon MD [address] [place] [id number] PCP - General 08/16/21
--- OUTSIDE RECORDS SUMMARY | 2024-04-03 02:19 | XMS_ITS | Encounter Summary ---
Author Organization [facility] Address [address] [facility] [place] [address] Care Team Providers Care Outreach Liaison Name Role Phone Moises Diaz MD Primary Care Provider Unavail able Reason for Visit * Auth/Cert - Closed Specialty Diagnoses / Procedures Referred By Antony dasilva Referred To Contact Diagnoses Hypertrophy of tonsil with adenoids Obstructive sleep apnea (adult) (pediatric) Procedures TONSILLECTOMY AND ADENOIDECTOMY Referral ID Status Reason Start Date Expiration Date Visits Re quested Visits Authorized [id number] Closed 1 1 Encounter Details Date Type Department Care Team (Late st Contact Info) Description 06/09/2014 11:50 AM FILEMAKER DEVELOPER Anesthesia Event [facility] - Periop [address] [place] [address]. [place] [address] Rosa Jimenez MD [address] [place] [address] Jasmine Dunn, RN [address] [place] [phone] Anesthesia Record Procedure Summary Procedure Name Responsible Anesthesiologist Anesthesia Start Time Anesthesia Stop Time TONSILLECTOMY AND ADENOIDECTOMY (Throat) Rosa Jimenez MD 06/09/14 1150 06/09/14 1248 Events Date Time Event Comment 06/09/2014 1150 An Start Boone Rudd present for case 1150 An Start Data 1155 PT Reassessment Patient and Vital Signs reassessed prior to induction. 1158 An Induction Patient to OR, monitors placed. Patient verification for Anesthesia. Preoxygenated, IV induction. Eyes taped. 1202 An Intubation 1242 Extubation Extubated awake in OR. Patient spontaneously ventilating, adequate strength demonstrated. Pharynx gently suctioned, cuff down. Resumption adequate respirations after extubation. Vomited after extubation, pharynx suctioned, patient sitting up. Diphenhydramine given. 1246 an stop data 1246 Elect Sign The providers l isted as staff are the responsible providers for the case. 1246 ANPTO2 Patient transpo rted to PACU with O2 and pulse ox, spontaneously ventilating. Full report given to RN. 1248 An Stop 1251 Meds Name Total dexamethasone (DECADRON) 4 mg/mL injecti on 8 mg ondansetron (ZOFRAN) 2mg/mL injection 4 mg fentaNYL (SUBLIMAZE) 50 mcg/ml 125 mcg propofol (DIPRIVAN) 10 mg/mL 350 mg glycopyrrolate (ROBINUL) 0.2 mg/ml injec tion 0.6 mg neostigmine 1 mg/ml injection 3 mg lidocaine (XYLOCAINE MPF) 2% injection 5 0 mg vecuronium (NORCURON) 10 mg injection 4 mg diphenhydrAMINE (BENADRYL) 50mg/ml injec tion 15 mg isolyte-S pH 7.4 infusion 800 mL * Agents Name Insp. N2O Exp. Sevoflurane Insp. Sevoflurane * Blood No blood administrations on file. Lines, Drains, and Airways Type Details Placement Removal Peripheral IV Date: 06/09/14; Time : 1130; Orientation: Left 06/09/14 1130 by Sunita Crum Anes Asst 06/09/14 1425 by Nuris Dodge RN ETT Date: 06/09/14; Time : 1202; Placed By: boone ibarra; Vent: 2-person mask; Induction: Standard IV; Blade Type: Anne; Blade Size: 3; Laryngoscopy View: Grade 1 (full cords); Intubation Adjuncts: Stylet; Tube: Christiane tube; Placement: Oral; Tube Type: Cuffed-inflated; Tube Size(mm): 8 MM; Depth of Insertion: 21 CM; Measured From: teeth; Cuff Infated: Air; Cuff Pressure(cm H2O): 20 cm H2O; Cuff Vol(mL): 8 mL; Verified By: Direct visualization, Bilateral breath sounds, Chest Auscultation, CO2 Monitor 06/09/14 1202 by Martine Simon Anes Asst 06/09/14 1242 by Sunita Crum Anes Asst RETIRED Procedural Site 06/09/14; 1208; Mid; Tonsil beds; 06/09/14; 205706/09/14 120 by Autumn Fernando RN 06/09/142057 by I Like My Waitress, Auto Release documented in this encounter Social History Tobacco Use Types Packs/Day Years [...] No 06/09/2014 documented as of this encounter Progress Notes * Rosa Jimenez MD - 06/09/2014 1:49 PM CST ANESTHESIA POSTPROCEDURE EVALUATION Antony Benedict is a 18 y.o. male Temp: 36.6 ??C Pulse: 92 Resp: 18 BP: 133/85 mmHg SpO2: 100 % Pain Rating Score #1: 2 Anesthesia Type: general Mental status: neurologic status has returned to expected level of consciousness. Level of consciousness: awake No numbness, tingling or visual disturbances present. General appearance: well-appearing Respiratory function: natural airway. Cardiac: stable Pain: comfortable/acceptable PONV: None Postop hydration: adequate. Patient may be released from anesthesia care. A postop evaluation was performed on this patient with the following assessment: no apparent anesthesia complications MAKER DEVELOPER documented in this encounter Consult Notes * Mandeep Taylor DO - 06/09/2014 11:01 AM CST Pre-anesthesia Evaluation Procedure(s) (LRB): TONSILLECTOMY AND ADENOIDECTOMY (N/A) Vital Signs: Temp: 36.4 ??C (06/09 1038) BMI: Estimated body mass index is 35.7 kg/(m^2) as calculated from the following: Height as of this encounter: 1.79 m (5' 10.47 ). Weight as of this encounter: 114.4 kg (252 lb 3.3 oz). History: Past Medical History Diagnosis Date ??? Blocked tear duct ??? Ankle fracture, right broke while wrestling ??? Nail bed injury 02/11/2014 ??? Complication of anesthesia difficulty breathing, vomited blood Past Surgical History Procedure Laterality Date ??? Tympanostomy ??? Pr tear duct system surg unlisted ??? Open reduction, ankle 05/16/2012 Right; OPEN REDUCTION INTERNAL FIXATION FRACTURE ANKLE BIMALLEOLAR reports that he has never smoked. He has never used smokeless tobacco. He reports that he does not drink alcohol or use illicit drugs. Allergies: has No Known Allergies. Medications: No prescriptions prior to admission No current facility-administered medications on file prior to encounter. No current outpatient prescriptions on file prior to encounter. Physical Exam: NPO status: no solids since midnight, no liquids within 2 hours Oriented to person, place and time Airway: II Neck ROM: full Dental exam findings: normal/ok Pulmonary exam: breath sounds CTA Heart sounds: S1 S2 Anesthesia complications Postop nausea and vomiting Positive for snoring Plan for Anesthesia: ASA Score: 2. Anesthesia plan: general Planned method of induction: intravenous Anesthesia plan, risks and benefits discussed with patient and mother Anesthesia consent: obtained Plan accepted yes MAKER DEVELOPER documented in this encounter Plan of Treatment Not on file documented as of this encounter Visit Diagnoses Not on filedocumented in this encounter Administered Medications Inactive Administered Medications - up to 3 most recent administrations Medication Order MAR Action Action Date Dose Rate Site dexamethasone (DECADRON) injection PRN, Nausea/Vomiting, Starting on 06/09/14 at 1206, Until Mon06/09/14 at 1254, Anesthesia Intra-op $ Given 06/09/2014 12:06 PM FILEMAKER DEVELOPER 8 mg diphenhydrAMINE (BENADRYL) injection PRN, Itching, Starting on Mon06/09/14 at 1242, Until Mon06/09/14 at 1254, Anesthesia Intra-op $ Given 06/09/2014 12:42 PM FILEMAKER DEVELOPER 15 mg fentaNYL (SUBLIMAZE) injection PRN, Starting on Mon06/09/14 at 1201, Until Mon06/09/14 at 1254, Anesthesia Intra-op $ Given 06/09/2014 12:46 PM FILEMAKER DEVELOPER 25 mcg $ Given 06/09/2014 11:58 AM FILEMAKER DEVELOPER 100 mcg glycopyrrolate (ROBINUL) injection PRN, Starting on Mon06/09/14 at 1231, Until Mon06/09/14 at 1254, Anesthesia Intra-op $ Given 06/09/2014 12:31 PM FILEMAKER DEVELOPER 0.6 mg isolyte-S pH 7.4 infusion CONTINUOUS PRN, Starting on Mon06/09/14 at 1155, Until Mon06/09/14 at 1254, Anesthesia Intra-op $ New Bag/Syringe 06/09/2014 12:19 PM FILEMAKER DEVELOPER $ New Bag/Syringe 06/09/2014 11:55 AM FILEMAKER DEVELOPER lidocaine (XYLOCAINE MPF) 2 % injection PRN, Starting on Mon06/09/14 at 1158, Until Mon06/09/14 at 1254, Anesthesia Intra-op $ Given 06/09/2014 11:58 AM FILEMAKER DEVELOPER 50 mg neostigmine (PROSTIGMIN/BLOXIVERZ) injection PRN, Starting on Mon06/09/14 at 1231, Until Mon06/09/14 at 1254, Anesthesia Intra-op $ Given 06/09/2014 12:31 PM FILEMAKER DEVELOPER 3 mg ondansetron (ZOFRAN) injection PRN, Nausea/Vomiting, Starting on Mon06/09/14 at 1206, Until Mon06/09/14 at 1254, Anesthesia Intra-op $ Given 06/09/2014 12:06 PM FILEMAKER DEVELOPER 4 mg propofol (DIPRIVAN) 10 mg/ml injection PRN, Sedation, Starting on Mon06/09/14 at 1158, Until Mon06/09/14 at 1254, Anesthesia Intra-op $ Given 06/09/2014 12:01 PM FILEMAKER DEVELOPER 100 mg $ Given 06/09/2014 11:59 AM FILEMAKER DEVELOPER 50 mg $ Given 06/09/2014 11:58 AM FILEMAKER DEVELOPER 200 mg vecuronium (NORCURON) injection PRN, Starting on Mon06/09/14 at 1159, Until Mon06/09/14 at 1254, Anesthesia Intra-op $ Given 06/09/2014 11:59 AM FILEMAKER DEVELOPER 4 mg documented in this encounter Care Teams Outreach Liaison Relationship Specialty Start Date End Date Moises Diaz MD PCP - General 04/28/09 08/15/21 documented as of this encounter
--- OUTSIDE RECORDS SUMMARY | 2024-04-03 02:19 | XMS_ITS | Encounter Summary ---
Author Organization [facility] Address [address] [facility] [place] [address] Care Team Providers Care Track Dresser Name Role Phone Moises Diaz MD Primary Care Provider Unavail able Encounter Details Date Type Department Care Team (Latest Contact Info) Description 05/25/2012 8:42 AM OILER BANDER - 05/25/2012 11:59 PM OILER BANDER Hospital Encounter [facility] Pediatrics - Radiology [address] [place] [address] Discharge Disposition: Home or Self Care Social History Tobacco Use Types Packs/Day Years Used Date Smoking Tobacco: Never Assessed Smokeless Tobacco: Never Sex and Gender Information Value Date Recorded Sex Assigned at Not on file Gender Identity Not on file Sexual Orientation Not on file documented as of this encounter Medications at Time of Discharge Medication Sig Dispensed Refills Start Date End Date docusate sodium (COLACE) 50 MG capsule Take 1 Cap by mouth 2 times daily. 60 Cap 0 05/16/2012 06/15/2012 hydrocodone-acetaminophen (NORCO) 5-325 MG tablet Take 2 Tabs by mouth every 4 hours as needed for Pain. 60 Tab 0 05/16/2012 06/15/2012 ibuprofen (MOTRIN) 200 MG tablet Take 3 Tabs by mouth every 6 hours as needed for Pain. 0 05/16/2012 06/15/2012 documented as of this encounter Plan of Treatment Not on file documented as of this encounter Procedures Procedure Name Priority Date/Time Associated Diagnosis Comments XR ANKLE RIGHT 2VW Routine 05/25/2012 8: 46 AM OILER BANDER Ankle fracture documented in this encounter Results * XR ANKLE 2 VW RIGHT (05/25/2012 8:46 AM OILER BANDER) Anatomical Region Laterality Modality Lower Extremity Radiographic Kira ging 05/25/2012 11:1 1 AM OILER BANDER Impressions 05/25/2012 11:11 AM OILER BANDER Interval casting of distal fibular fracture. Narrative 05/25/2012 11:11 AM OILER BANDER Right ankle series, 2 views 05/25/2012 Comparison [...] Sophia Hutchison MD DIAGNOSTIC IMAGING O RDERABLES documented in this encounter Visit Diagnoses Diagnosis Other aftercare involving internal fixation device documented in this encounter Care Teams Track Dresser Relationship Specialty Start Date End Date Moises Diaz MD PCP - General 04/28/09 08/15/21 documented as of this encounter
--- OUTSIDE RECORDS SUMMARY | 2024-04-03 02:19 | XMS_ITS | Encounter Summary ---
Author Organization [facility] Address [address] [place] [address] Care Team Providers Care Vice President [employer] Name Role Phone Moises Diaz MD Primary Care Provider Unavail able Reason for Visit * Auth/Cert - Closed Specialty Diagnoses / Procedures Referred By Antony t Referred To Contact Diagnoses Hypertrophy of tonsil with adenoids Obstructive sleep apnea (adult) (pediatric) Procedures TONSILLECTOMY AND ADENOIDECTOMY Referral ID Status Reason Start Date Expiration Date Visits Re quested Visits Authorized [id number] Closed 1 1 Encounter Details Date Type Department Care Team (Late st Contact Info) Description 06/09/2014 12:10 PM PLANT CHIEF - 06/09/2014 1:05 PM PLANT CHIEF Surgery [facility] - Periop [address] [place] [address] Kyle Cardenas MD [address] [place] [phone] TONSILLECTOMY AND ADENOIDECTOMY Surgery Details Date/Time Status Location OR Service Patient Class Case Class Case Type Trauma Case? 06/09/2014 12:10 PM Posted [facility] MAIN OR 03 ENT Surgery Day Care Elective > 5 days Panel 1 Procedure LRB Anes Op Region Wound Class Comments TONSILLECTOMY AND ADENOIDECTOMY N/A General Throat Clean Contaminated Surgeon Surgeon Role Service Panel Kyle Cardenas MD Primary ENT 1 Krunal Bridges MD Resident - Assisting ENT 1 documented in this encounter Social History Tobacco Use Types Packs/Day Years Used Date Smoking Tobacco: Never Smokeless Tobacco: Never Alcohol Use Standard Drinks/Week Comments No 0 (1 standard drink = 0.6 oz pur e alcohol) Sex and Gender Information Value Date Recorded Sex Assigned at Not on file Gender Identity Not on file Sexual Orientation Not on file documented as of this encounter Last Filed Vital Signs Vital Sign Reading Time Taken Comments Blood Pressure 133/85 06/09/2014 1:30 PM PLANT CHIEF Pulse 80 06/09/2014 2:30 PM PLANT CHIEF Temperature 36.6 ??C (97.9 ??F) 06/09/2014 1:30 PM CS T Respiratory Rate 16 06/09/2014 2:30 PM PLANT CHIEF Oxygen Saturation 100% 06/09/2014 2:30 PM PLANT CHIEF Inhaled Oxygen Concentration - - Weight 114.4 kg (252 lb 3.3 oz) 015 10:38 AM PLANT CHIEF Height 179 cm (5' 10.47 ) 06/09/2014 10 :38 AM PLANT CHIEF Body Mass Index 35.7 06/09/2014 10:38 AM PLANT CHIEF Body Mass Index Percentile 98.47% 06/09 10:38 AM PLANT CHIEF Growth Chart: [facility] (Boys, 2-2 0 Years) documented in this encounter Functional Status Functional Status Response [...] No 06/09/2014 documented as of this encounter Discharge Summaries * Krunal Bridges MD - 06/09/2014 10:37 AM CST Images from the original note were not included. Attending Physician: Kyle Cardenas MD Office 06/09/2014 10:38 AM ENT SURGERY DISCHARGE SUMMARY Patient ID: Name: Antony eBnedict MR#: [id number] Date of : 1995 Age: 18 y.o. Discharge Date: 06/09/2014 Discharge Diagnosis: adenotonsillar hypertrophy and Clinical sleep apnea Procedure: adenotonsillectomy Discharge Condition: Stable Discharge Procedure Orders Why you were hospitalized Order Specific Question Answer Comments Your discharge diagnosis is MERLENE (obstructive sleep apnea) [835450] Soft diet -- Antony will need a soft or liquid diet for a few days due to swelling or tissue irritation. -- Increase fluid intake as his discomfort eases. -- A regular diet may be resumed as soon as he can tolerate it. Return to work/school Antony may return to school 1 week from today. -- Activity limits include: No gym or physical activity for next 2 weeks Apply ice --Apply ice to procedure area, if Antony is in pain. Post-anesthesia instructions Antony has just had a procedure that required sedation, and should not be left unattended today, since there is a higher risk of falling after having anesthesia. Even though Antony may be awake and alertwhen he leaves the hospital, the effects of the sedation will most likely be present for at least 4- 6 hours. A quiet day is recommended. Antony should not drive a vehicle, operate farm equipment or heavy machinery, or use the stove to cook for the next 24 hours. When to go to the Emergency Room Go to the nearest Emergency Room for any of the following:?? -- a fever higher than 102F?? -- for pain that gets worse or does not get better after taking pain medication(s) as directed?? -- bright red bleeding that lasts more than 3 minutes?? -- if Antony has a hard time breathing, or is taking fast, shallow breaths?? -- if Antony is making a high-pitched, harsh sound when he takes a breath?? -- fingernails, lips, or tongue/gums look blue?? -- if you can see Antony's abdomen and rib cage muscles move inward when he takes a breath?? -- if Antony is exhaused, or is not as alert?? -- if Antony has constant vomiting, or cannot eat or drink When to call provider -- Bad breath may occur for up to 2 weeks after surgery, and is not a cause for concern. -- Ear pain is common after surgery, and comes from the throat -- Call ENT if you have questions or concerns, or for any of the following issues: [phone] and ask for ENT Follow up with provider Order Specific Question Answer Comments Follow Up Instructions: As needed Krunal Bridges MD Electronically signed by Kyle Cardenas 06/09/2014 12:42 PM PLANT CHIEF documented in this encounter Discharge Instructions * Discharge Instructions* Nuris Dodge RN - 06/09/2014 2:37 PM PLANT CHIEF Hydrocodone-acetaminophen (LORTAB) was given at 2:20 pm and should be given again at 6:20 pm. Remove scopolamine patch from behind right ear tomorrow if you are not having nausea or Monday if you have nausea on Monday. T CHIEF documented in this encounter Medications at Time of Discharge [...] days after surgery. 473 mL 0 06/12/2014 hydrocodone-acetaminoph en 7.5-325 MG/15ML solution Take 10 mL by mouth every 4 hours as needed for Pain. 473 mL 0 06/09/2014 09/12/2014 documented as of this encounter H&P Notes * Krunal Bridges MD - 06/09/2014 10:32 AM CST Images from the original note were not included. Attending Physician: Kyle Cardenas MD Office 06/09/2014 10:32 AM Otolaryngology Short Stay Form Patient name: Antony Benedict Date of : 1995 Today's Date: 06/09/2014 HPI: Antony Benedict is a 18 y.o. male with adenotonsillar hypertrophy and Clinical sleep apnea here for adenotonsillectomy REVIEW OF SYMPTOMS: Within normal limits except as above MEDICATIONS: No current facility-administered medications on file prior to encounter. No current outpatient prescriptions on file prior to encounter. ALLERGIES: No Known Allergies IMMUNIZATIONS: UTD DEVELOPMENTAL HISTORY: Age appropriate PREVIOUS SERIOUS ILLNESS/SURGERY: Past Surgical History Procedure Laterality Date ??? Tympanostomy ??? Pr tear duct system surg unlisted ??? Open reduction, ankle 05/16/2012 Right; OPEN REDUCTION INTERNAL FIXATION FRACTURE ANKLE BIMALLEOLAR PREVIOUS CHILDHOOD ILLNESS: Past Medical History Diagnosis Date ??? Blocked tear duct ??? Ankle fracture, right broke while wrestling ??? Complication of anesthesia difficulty breathing, vomited blood ??? Nail bed injury 02/11/2014 PERINENT FAMILY / SOCIAL HISTORY: Family History Problem Relation Age of Onset ??? Anesthesia Reaction Neg Hx PHYSICAL EXAM: There were no vitals taken for this visit. GEN: NAD HEAD: NCAT EYES: EOMI EARS: deferred NOSE: patent THROAT: clear NECK: supple HEART: regular rate and rhythm LUNGS: clear to auscultation ABDOMEN: soft, no tenderness EXTREMITIES: no clubbing, cyanosis or edema NEURO: no focal findings or movement disorder noted SKIN: wnl ASSESMENT: Antony Benedict is a 18 y.o. male with adenotonsillar hypertrophy and Clinical sleep apnea PLAN: -adenotonsillectomy -The risks, benefits, and alternatives of the proposed treatments were discussed. All questions were answered. The family made an informed decision to proceed. Krunal Bridges MD 06/09/2014 10:33 AM T CHIEF documented in this encounter OR Notes * Operative - Kyle Cardenas - 06/09/2014 12:31 PM CST Patient name: Antony Benedict Date of : 1995 Date of Procedure: 06/09/2014 Pre-Op Diagnosis: Adenotonsillar hypertrophy; Sleep disordered breathing Post-Op Diagnosis: Same Procedure: Tonsillectomy & adenoidectomy Surgeon: Kyle Cardenas MD Resident: Krunal Bridges MD Anesthesia: General endotracheal Indications for procedure: Antony Benedict is a 18 y.o. male with a history of adenotonsillar hypertrophy. The patient presents today for adenotonsillectomy. Risks & benefits were discussed with the parents who agree to proceed. Details of Procedure: After appropriate informed consent was obtained, the patient was taken to the operating room and placed in a supine position on the table. General anesthesia was then induced. A McIvor mouth gag was placed in the patient's mouth and opened to reveal tonsils which were 3+ in size. The palate was checked by palpation and visualization and noted to have no submucous cleft. The tonsils were grasped with a curved Allis clamp and coblation at settings of 7 and 3 were used to dissect them out from thetonsillar fossa. A red rubber catheter was then placed through each nostril and around the soft palate so as to retract it anteriorly. A mirror was used to visualize the adenoids which were noted to be 1+ in size. These were then fully ablated to the choana using coblation at settings of 9 and 3. The red rubber catheters were then removed and the mouth gag closed for 30 seconds and reopened to assess for bleeding. No further bleeding was noted. The patient was then allowed to awaken whereupon she was extubated & taken to recovery in stable condition. Dr. Kyle Cardenas MD was present for the entirety of this case. Estimated Blood Loss: Minimal Complications: None Condition: Stable Dispo: Home Medications: 1. Lortab or Tylenol every 4 hours as needed for pain T CHIEF documented in this encounter Plan of Treatment Not on file documented as of this encounter Procedures Procedure Name Priority Date/Time Associated Diagnosis Comments TONSILLECTOMY AND ADENOIDECTOMY 06/09/2014 8:10 PM PLANT CHIEF Hypertrophy of tonsil with adenoids Obstructive sleep apnea (adult) (pediatric) PATHOLOGY TISSUE EXAM (STL) STAT 06/09/2014 12:22 PM PLANT CHIEF documented in this encounter Results * GROSS + MICRO EXAM (STL) (06/09/2014 12:22 PM PLANT CHIEF) Case Report Surgical Pathology Report ? Case: [id number] ? Authorizing Provider: ??Krunal Bridges MD ?Collected: ? 06/09/2014 12:22 PM ? Ordering Location: ? [facility] ? Received: ?06/09/2014 01:54 PM ? Pathologist: ? Daniel Rice MD ? Specimen: ?Tonsil(s) ? 06/10/2014 4:[address] [facility] Final Diagnosis TONSILS, TONSILLECTOMY: -TONSILLAR HYPERPLASIA -SULFUR GRANULES PRESENT 06/10/2014 4:[address] [facility] Clinical History The patient is a 18-year-old boy with adenotonsillar hypertrophy and obstructive sleep apnea. 06/10/2014 4:[address] [facility] Gross Description Submitted fresh in one container for gross and microscopic examination labeled with the patient's name, Antony Benedict, and tonsils, are two egg-shaped, pink-patterson palatine tonsils measuring 3.2 x 2.3 x 1.5 cm and 3.2 x 2.5 x 2.0 cm, weighing 4 grams and 5 grams. On cut surface, the tonsils have a cerebriform yellow-patterson appearance. A used equipment sales representative section of each tonsil is submitted in cassettes A1 and A2. (MR/preet) 06/10/2014 4:[address] [facility] Microscopic Description 2 H&E. Sections of the tonsils show tonsillar squamous mucosa with underlying lymphoid tissue. Intraepithelial lymphocytes (M cells) are noted. The lymphoid tissue is composed of variable sized germinal center surrounded by intact mantle zone sulfur granules (actinomcyes) are noted. (NM/scs) 06/10/2014 4:16 PM PLANT CHIEF [facility] Disclaimer The performance characteristics of all immunohistochemical and indirect immunofluorescence stains (if any) cited in this report were determined by the [facility] of [facility] in compliance with CLIA `88 regulations. Some of these tests rely on the use of analyte-specific reagents and are subject to specific labeling requirements by the FDA. Such tests were developed by the [facility] of [facility] and have not been cleared or approved by the FDA. The FDA has determined that such clearance or approval is not necessary. These tests are used for clinical purposes and should not be regarded as investigational or for research. This case has been personally reviewed and interpreted by the attending (teaching) pathologist. 06/10/2014 4:[address] [facility] Pathology/Cytolo gy SPECIMEN FROM TONSIL / Unknown 06/09/2014 12:22 PM PLANT CHIEF 06/09/2014 1:54 PM [facility] Comment:[phone] Krunal Bridges MD LAB - PATHOLOGY/CYTO LOGY ORDERABLES Performing Organization Address City/State/[facility] Co de Phone Number [facility] [address] [place] [address] documented in this encounter Visit Diagnoses Diagnosis Hypertrophy of tonsil with adenoids Obstructive sleep apnea (adult) (pediatric) Hypertrophy of tonsil with adenoids Obstructive sleep apnea (adult) (pediatric) documented in this encounter Admitting Diagnoses Diagnosis Hypertrophy of tonsil with adenoids Obstructive sleep apnea (adult) (pediatric) documented in this encounter Administered Medications Inactive Administered Medications - up to 3 most recent administrations Medication Order MAR Action Action Date Dose Rate Site 0.9% nacl irrigation solution PRN, Starting on Mon06/09/14 at 1208, Until Mon06/09/14 at 1255, Intra-op $ Given 06/09/2014 12:08 PM PLANT CHIEF 500 mL fentaNYL (SUBLIMAZE) injection 25 mcg 25 mcg, Intravenous, POST-OP MULTIPLE, Starting on Mon06/09/14 at 1254, Until Mon06/09/14 at 1558, May give every 5 minutes. Max dose of 100 mcg. May refer to any of the 3 pain scales noted on the PACU record. May repeat dose in PACU. DO NOT EXCEED 2 mcg/kg/hr. High Risk, High Alert Medication: Must doucment double check on IV MAR Flowsheet., PACU $ Given 06/09/2014 1:05 PM PLANT CHIEF 25 mcg hydrocodone-acetamin ophen 7.5-325 MG/15ML solution 10 mL 10 mL, Oral, EVERY 4 HOURS PRN, Moderate Pain, Starting on Mon06/09/14 at 1254, Until Mon06/09/14 at 1558, Post-op $ Given 06/09/2014 2:20 PM PLANT CHIEF 10 mL isolyte-S pH 7.4 infusion 150 mL/hr, Intravenous, POST-OP CONTINUOUS, Starting on Mon06/09/14 at 1300, Until Mon06/09/14 at 1558, PACU Current Rate 06/09/2014 12:52 PM PLANT CHIEF 150 mL/hr 150 mL/hr scopolamine (TRANSDERM-SCOP) 1.5 MG patch 1.5 mg 1.5 mg, Administer over 72 Hours, PRE-OP ONCE, 1 dose, On Mon06/09/14 at 1130, Apply patch behind the ear, do not cut patch, only 1 patch should be worn at a time and remove old patch before applying new patch.This patch may contain metal and is not compatible with MRI. Notify radiology of patch location upon arrival to MRI. $ Applied 06/09/2014 11:23 AM PLANT CHIEF 1.5 mg Behind Right Ear documented in this encounter Active and Recently Administered Medications Times are shown in PLANT CHIEF. Scheduled Medication Order 06/07/2014 06/08/2014 06/09/2014 fentaNYL (SUBLIMAZE) injection 25 mcg (CANCELED) 25 mcg, Intravenous, POST-OP MULTIPLE, Starting on Mon06/09/14 at 1254, Until Mon06/09/14 at 1558, May give every 5 minutes. Max dose of 100 mcg. May refer to any of the 3 pain scales noted on the PACU record. May repeat dose in PACU. DO NOT EXCEED 2 mcg/kg/hr. High Risk, High Alert Medication: Must doucment double check on IV MAR Flowsheet., PACU 1305 ($ Given - Prov ider: Cherelle Oh RN) scopolamine (TRANSDERM-SCOP) 1.5 MG patch 1.5 mg (CANCELED) 1.5 mg, Administer over 72 Hours, PRE-OP ONCE, 1 dose, On Mon06/09/14 at 1130, Apply patch behind the ear, do not cut patch, only 1 patch should be worn at a time and remove old patch before applying new patch.This patch may contain metal and is not compatible with MRI. Notify radiology of patch location upon arrival to MRI. 1123 ($ Applied - Pr ovider: Yulisa Silveira, MANUELA) Continuous Medication Order 06/07/2014 06/08/2014 06/09/2014 isolyte-S pH 7.4 infusion (CANCELED) 150 mL/hr, Intravenous, POST-OP CONTINUOUS, Starting on Mon06/09/14 at 1300, Until Mon06/09/14 at 1558, PACU 1252 (Current Rate - Provider: Cherelle Oh RN)1300 (Due)1424 (Stopped - Provider: Nuris Dodge, MANUELA) PRN Medication Order 06/07/2014 06/08/2014 06/09/2014 0.9% nacl irrigation solution (CANCELED) PRN, Starting on Mon06/09/14 at 1208, Until Mon06/09/14 at 1255, Intra-op 1208 ($ Given - Prov ider: Krunal Bridges MD) hydrocodone-acetaminophen 7.5-325 MG/15ML solution 10 mL (CANCELED) 10 mL, Oral, EVERY 4 HOURS PRN, Moderate Pain, Starting on Mon06/09/14 at 1254, Until Mon06/09/14 at 1558, Post-op 1420 ($ Given - Prov ider: Nuris Dodge, MANUELA) documented in this encounter Care Teams Vice President [employer] Relationship Specialty Start Date End Date Moises Diaz MD PCP - General 04/28/09 08/15/21 documented as of this encounter
--- OUTSIDE RECORDS SUMMARY | 2024-04-03 02:19 | XMS_ITS | Encounter Summary ---
Author Organization [facility] Address [address] [place] [address] Care Team Providers Care Commercial Diver Name Role Phone Moises Diaz MD Primary Care Provider Unavail able Reason for Visit * Reason Comments Injury Finger got finger caught in feed grinder in shop class. Pt has evulsion of nailbed and finger tip. proximal to nailbed. NV intact. Right hand guazed at this time. Encounter Details Date Type Department Care Team (Late st Contact Info) Description 02/11/2014 10:49 AM CDT - 02/11/2014 3:35 PM [place] [address] Antoinette Phillips DO [address] [place] [address] Laceration of finger, initial encounter Discharge Disposition: Home or Self Care Social History Tobacco Use Types Packs/Day Years Used Date Smoking Tobacco: Never Assessed Smokeless Tobacco: Never Sex and Gender Information Value Date Recorded Sex Assigned at Not on file Gender Identity Not on file Sexual Orientation Not on file documented as of this encounter Last Filed Vital Signs Vital Sign Reading Time Taken Comments Blood Pressure 133/78 02/11/2014 3:02 PM CDT Pulse 72 02/11/2014 3:02 PM CDT Temperature 36.6 ??C (97.8 ??F) 02/11/2014 3:02 PM CD T Respiratory Rate 16 02/11/2014 3:02 PM CDT Oxygen Saturation - - Inhaled Oxygen Concentration - - Weight 113.8 kg (250 lb 14.1 oz) 2013 12:07 PM CDT Height - - Body Mass Index - - documented in this encounter Discharge Instructions * Discharge Instructions* Antoinette Phillips DO - 02/11/2014 3:28 PM CDT Given 800mg of ibuprofen every 6 hours for the next 2 days Use the norco every 6 hours as needed for pain not controlled by the Ibuprofen Given the keflex as prescribed. Finger Avulsion When the tip of the finger is lost, a new nail may grow back if part of the fingernail is left. Thenew nail may be deformed. If just the tip of the finger is lost, no repair may be needed unless there is bone showing. If bone is showing, your caregiver may need to remove the protruding bone and put on a bandage. Your caregiver will do what is best for you. Most of the time when a fingertip is lost, the end will gradually grow back on and look fairly normal, but it may remain sensitive to pressure and temperature extremes for a long time. HOME CARE INSTRUCTIONS ?? Keep your hand elevated above your heart to relieve pain and swelling. ?? Keep your dressing dry and clean. ?? Change your bandage in 24 hours or as directed. ?? Only take lkyx-juf-gawfdbm or prescription medicines for pain, discomfort, or fever as directed by your caregiver. ?? See your caregiver as needed for problems. SEEK MEDICAL CARE IF: ?? You have increased pain, swelling, drainage, or bleeding. ?? You have a fever. ?? You have swelling that spreads from your finger and into your hand. Make sure to check to see if you need a tetanus booster. Document Released: 06/12/2002 Document Revised: 10/02/2012 Document Reviewed: 05/07/2009 ExitCare?? Patient Information ??2014 [employer]. documented in this encounter Medications at Time of Discharge Medication Sig Dispensed Refills Start Date End Date cephALEXin (KEFLEX) 500 MG capsule Take 1 Cap by mouth 3 times daily for 7 days. 21 Cap 0 02/11/2014 02/18/2014 hydrocodone-acetaminophen (NORCO) 5-325 MG tablet Take 1-2 Tabs by mouth every 6 hours as needed for Pain. 20 Tab 0 02/11/2014 05/02/2014 ibuprofen (MOTRIN) 800 MG tablet Take 1 Tab by mouth every 6 hours as needed for Pain. 30 Tab 0 02/11/2014 05/02/2014 documented as of this encounter Consult Notes * Horacio Singh MD - 02/11/2014 1:30 PM CDT PEDIATRIC ORTHOPAEDIC SURGERY Consultation NAME: Antony Benedict DATE OF SERVICE: 02/11/2014 DATE: 1995 PCP: Moises Diaz Chief Complaint Patient presents with ??? Injury Finger got finger caught in feed grinder in shop class. Pt has evulsion of nailbed and finger tip. proximal to nailbed. NV intact. Right hand guazed at this time. SUBJECTIVE: Antony presents for a New Patient evaluation. Antony Benedict is a right hand dominant 18 y.o. male who presents with complaint of right middle finger accident. At 0830 he got it caught in the feed grinder in shop class. Pain: stable, bpst-jo-hkswpjuc joint symptoms intermittently, reasonably well controlled by PRN meds Neurological complaints: no Vascular complaints: none Associated symptoms: none Previous workup: radiographs HISTORY: He was full term . There were not problems with the or delivery. IMMUNIZATIONS: Immunization status: up to date and documented. PAST MEDICAL HISTORY: has a past medical history of Blocked tear duct; Ankle fracture, right; and Complication of anesthesia. He also has no past medical history of Acute upper respiratory infectionsof unspecified site. PAST SURGICAL HISTORY: has past surgical history that includes tympanostomy; tear duct system surg unlisted; and open reduction, ankle (05/16/2012). MEDICATIONS: Current facility-administered medications:Tdap (nobtbuz-jgevhxtdwb-yfvln pertussis) (ADACEL) (10y-64y) injection 0.5 mL, 0.5 mL, Intramuscular, Once, Antoinette Phillips, DO; lidocaine (XYLOCAINE) 1 % injection, , Infiltration, Once, Horacio Singh MD; lidocaine (XYLOCAINE) 1% injection ADS Med, , , , No current outpatient prescriptions on file. ALLERGIES: Review of patient's allergies indicates no known allergies. SOCIAL HISTORY: Antony lives with his mother only. Antony does attend school, high school. Antony is involved in no extracurricular activities. FAMILY HISTORY: Family history is negative for genetic conditions affecting children. REVIEW OF SYSTEMS: History obtained from the patient. A 12 point ROS was obtained and all others were negative except what is listed in the HPI. PHYSICAL EXAMINATION:BP 134/86 Pulse 72 Temp(Src) 97.8 ??F Resp 16 Wt 113.8 kg (250 lb 14.1oz) General appearance: He has good head control, Orientation: alert, cooperative, no distress, Mood&affect: both mood and affect are normal Chest: regular rate and rhythm, no rubs, murmurs, or gallops. Pulmonary: bilaterally clear to auscultation. Abdomen: soft, non-tender, bowel sounds present Spine: exam not performed Extremities: Bilateral upper extremity Skin - No rashes or abnormal dyspigmentation Inspection - Entire nail over dorsal aspect of right middle finger is gone. Bone is not appreciated, but nail bed has been destroyed. There is a 1 cm triangular laceration proximal to the nail bed. Some nail remains at the ulnar border of the nail fold. Tenderness - present distally on dorsal right middle finger Joint effusion - absent Range of motion - full range of motion, including flexion & extension of right middle finger Stability - stable Bilateral lower extremity Skin - No rashes or abnormal dyspigmentation Inspection - No swelling, erythema, deformity, atrophy or hypertrophy noted Tenderness - absent Joint effusion - absent Range of motion - full range of motion Stability - stable Neuro: Strength - normal throughout upper and lower extremities Sensation - normal all four extremities Tone - Muscle tone normal Reflexes - not tested Gait: patient in bed RADIOLOGY: outside films reviewed Right Middle finger - no acute fractures or osseous defects noted ASSESSMENT: Injury of nailbed, right middle finger PLAN: 1. Questions solicited and answered. Patient and his mother notified that nail will likely heal/regenerate abnormally. 2. Patient discussed with hand resident & senior resident. 3. Finger was washed out with sterile saline, and aluminum foil was inserted under nail folds and secured with chromic 5-0. Proximal laceration was approximated using chromic 5-0 also. 4. Patient voiced understanding to info/instructions given. 5. Medications Prescribed: none 6. Activity Restrictions: no PE, no team sports and no collision sports 7. Weightbearing status: NWB right upper extremity 8. Follow up: in 2 week(s) with Dr. Hills ?? With PA - No ?? X-Rays - No K HANDLER documented in this encounter ED Notes * Cherelle Carson RN - 02/11/2014 1:06 PM CDT Plastics, Dr. Singh to room to see this pt * Antoinette Phillips DO - 02/11/2014 1:05 PM CDT EMERGENCY DEPARTMENT 02/11/2014 Dear Doctor, We had the pleasure of caring for your patient, Antony Benedict in our emergency department on 02/11/2014. A note from the provider(s) who cared for your patient is attached. Should you wish to access any laboratory results, please call . Should you wish to access any radiology results, please call , option 3. In addition, you can access patient information 24 hours a day, from any computer, through [employer], the online version of our electronic medical record. If you would like to use this service, please call Nessa Chisholm, Connectivity Coordinator, at . We appreciate the opportunity to care for your patients. If you would like additional information, please call the emergency department directly at . Sincerely, Antoinette Phillips DO Division of Emergency Medicine [facility], [place] [facility] [place] Provider contact with the patient: 02/11/2014 13:05 Antony Benedict [id number] [facility] EMERGENCY DEPARTMENT History Chief Complaint Patient presents with ??? Injury Finger got finger caught in feed grinder in shop class. Pt has evulsion of nailbed and finger tip. proximal to nailbed. NV intact. Right hand guazed at this time. HPI Comments: CC: Finger injury Injury occurred this morning at 0830 Caught R middle finger in feed grinder at shop class Sustained injury of nail bed with loss of nail Taken to OSH ED and referred here for further management. Tetanus status unknown by pt and mother Past Medical History Diagnosis Date ??? Blocked tear duct ??? Ankle fracture, right broke while wrestling ??? Complication of anesthesia difficulty breathing, vomited blood Past Surgical History Procedure Laterality Date ??? Tympanostomy ??? Pr tear duct system surg unlisted ??? Open reduction, ankle 05/16/2012 Right; OPEN REDUCTION INTERNAL FIXATION FRACTURE ANKLE BIMALLEOLAR History Social History ??? Marital Status: Single Spouse Name: N/A Number of Children: N/A ??? Years of Education: N/A Occupational History ??? Not on file. Social History Main Topics ??? Smoking status: Not on file ??? Smokeless tobacco: Never Used ??? Alcohol Use: Not on file ??? Drug Use: Not on file ??? Sexual Activity: Not on file Other Topics Concern ??? Not on file Social History Narrative Medications No current outpatient prescriptions on file. Review of Systems Review of Systems Skin: Positive for wound. Nail bed injury/laceration to R middle finger BP 134/86 Pulse 72 Temp(Src) 97.8 ??F Resp 16 Wt 113.8 kg (250 lb 14.1 oz) Physical Exam Physical Exam Constitutional: He appears well-developed and well-nourished. No distress. HENT: Head: Normocephalic. Cardiovascular: Normal rate. Pulmonary/Chest: Effort normal. Musculoskeletal: R middle finger with nail missing, entire nail bed macerated with 1cm laceration below cuticle area. Small amount of BRB oozing for the laceration Neurological: He is alert. Skin: Skin is warm and dry. Procedures Laceration repair performed by orthopedic surgery resident, Dr Singh Please see his procedure note for details Pt tolerated well with no immediate complications I was present for honeycutt portions of the procedure Procedures ECG Interpretation ECG Interpretation Lab/SPO2 Interpretation Progress Notes ED Course Orthopedics consulted and repaired laceration in ED See consult notes and procedure notes for thesedetails X-ray of R hand obtained at OSH reviewed, no fracture noted Given Tetanus booster while in ED Discharged home -Rx Keflex x 7days -Rx ibuprofen 800mg scheduled every 6 hours for the next 48 hours, then may dose every 6 hours prn pain -Rx [place] q 4 hours prn for pain not controlled by ibuprofen -f/u with orthopedic hand clinic in 2 weeks, call orthopedic clinic in interim with any problems/concerns Medical Decision Making I have reviewed the: Nursing Notes, Vitals and Outside Records. I have interpreted the following results: X-Ray. I have discussed the case with Orthopedics and Family/Caregiver. Clinical Impression 1. R Middle finger nail bed laceration 2. R middle finger crush injury K HANDLER * Cherelle Carson, MANUELA - 02/11/2014 12:[address] Phillips to room to see this pt * Hetal Churchill RN - 02/11/2014 11:00 AM CDT Nurse report per Yaquelin Lyons rn--18yo with finger nailbed injury at school today. Bleeding controlled. Wrapped --NS wet to dry drsg. Received zofran and norco. 98.2 70 150/98 98% documented in this encounter Plan of Treatment Not on file documented as of this encounter Visit Diagnoses Diagnosis Laceration of finger, initial encounter Nail bed injury Injury, other and unspecified, finger documented in this encounter Active and Recently Administered Medications Care Teams Commercial Diver Relationship Specialty Start Date End Date Moises Diaz MD PCP - General 04/28/09 08/15/21 documented as of this encounter
--- OUTSIDE RECORDS SUMMARY | 2024-04-03 02:19 | XMS_ITS | Encounter Summary ---
Author Organization [facility] Address [address] [place] [address] Care Team Providers Care Pulp Roller Name Role Phone Moises Diaz MD Primary Care Provider Unavail able Reason for Visit * Reason Comments Sleep Problem MERLENE, no sleep study, T&A June 09, leg pains Encounter Details Date Type Department Care Team (Latest Contact Info) Description 05/22/2014 2:15 PM COMPLEX MANAGER - 05/22/2014 11:59 PM COMPLEX MANAGER Hospital Encounter [facility] Pediatrics - Sleep [address] [place] [id number] Nadine Arredondo, LEVEE SUPERINTENDENT-POWDER MILL OPERATOR [address] [place] [address] Discharge Disposition: Home or Self Care Social [...] Sign Reading Time Taken Comments Blood Pressure - - Pulse - - Temperature - - Respiratory Rate - - Oxygen Saturation - - Inhaled Oxygen Concentration - - Weight 116.5 kg (256 lb 12. 8 oz) 05/22/2014 2:41 PM COMPLEX MANAGER Height 182.9 cm (6') 05/22/2014 2:41 PM COMPLEX MANAGER Body Mass Index 34.83 05/22/2014 2:41 PM COMPLEX MANAGER Body Mass Index Percentile 98.16% 05/22/2014 2:4 1 PM COMPLEX MANAGER Growth Chart: CDC (Boys, 2-2 0 Years) documented in this encounter Discharge Instructions * Patient Instructions* Carmen Omalley RN - 05/22/2014 3:36 PM COMPLEX MANAGER 1. Surgery as scheduled. 2. Call us in about 3 weeks after surgery to let us know how things are going. 3. Please call our nurse's line with any questions. ([phone]) LEX MANAGER documented in this encounter Medications at Time [...] 06/09/2014 09/12/2014 documented as of this encounter Progress Notes * Nadine Arredondo APRN-CNP - 05/22/2014 1:34 PM CST Chief Complaint Patient presents with ??? Sleep Problem MERLENE, no sleep study, T&A June 09, leg pains HPI: Antony Benedict is a 18 y.o. male who presents to the Pediatric Sleep Disorders Clinic at [facility] on 05/22/14 for evaluation of snoring. He was accompanied by his mother who assisted in providing the history. Antony has snored nightly for the past 10 years. Snoring can be heard outside of his room with the door closed. Pauses in breathing, gasping, choking, diaphoresis, and mouth breathing have been noted during sleep. He is difficult to awaken in the morning and is sleepy throughout the day. He does occasionally fall asleep at school. No previous polysomnogram. He is scheduled for tonsillectomy this month. There are no leg pains, urges to move, or other strange sensation. He does complain of frequent nocturnal leg cramps. He recently had a serum ferritin drawn. Result was >200. He was not ill at time of lab work. There are no sleep terrors, nightmares, sleep talking or sleep walking. During the week, Antony goes to bed at 10:30 PM and wakes up at 7 AM. On weekends, He goes to bed between 11 PM-1 AM and wakes up at 10 AM. Sleep latency is less than 30 mintues. He does not take naps.Bedtime routine includes dinner, homework, TV, shower and lights out. He sleeps in his own room, inhis own bed. There is a night light on. There is a television in the room. He drinks 1-4 caffeinated beverages per day. Last caffeine consumption at 6 PM. Review of Systems: Psychological ROS: negative Ophthalmic ROS: negative ENT ROS: negative Allergy and Immunology ROS: negative Respiratory ROS: negative Cardiovascular ROS: negative Gastrointestinal ROS: negative Urinary ROS: negative Musculoskeletal ROS: positive for - leg cramps Neurological ROS: positive for - headaches Dermatological ROS: negative Philadelphia Sleepiness Scale: Sitting and Reading high chance of dozing Watching TV high chance of dozing Sitting, inactive in a public place high chance of dozing Car passenger for an hour slight chance of dozing Lying down to rest in afternoon moderate chance of dozing Sitting and Talking would never doze Sitting Quietly after lunch slight chance of dozing While playing a video game would never doze Total Dozing Score 13 Past Surgical History Procedure Laterality Date ??? Tympanostomy ??? Pr tear duct system surg unlisted ??? Open reduction, ankle 05/16/2012 Right; OPEN REDUCTION INTERNAL FIXATION FRACTURE ANKLE BIMALLEOLAR Past Medical History Diagnosis Date ??? Blocked tear duct ??? Ankle fracture, right broke while wrestling ??? Complication of anesthesia difficulty breathing, vomited blood ??? Nail bed injury 02/11/2014 FAMILY HISTORY OF SLEEP DISORDERS: none SOCIAL HISTORY: Antony lives at home with mother. There is passive smoke exposure. Mother smokes inside the home. He is in the 12th grade and receives A/B/C grades. he does not get in trouble at school. No Known Allergies No current [facility]-ordered outpatient prescriptions on file. No current Epic-ordered facility-administered medications on file. Recent Labs Component Name 05/15/14 1542 FERRITIN 215 Exam: Height: 182.9 cm (6') Weight: 116.484 kg (256 lb 12.8 oz) Vitals: 05/22/14 1441 Weight: 116.484 kg (256 lb 12.8 oz) Constitutional: no retractions or cyanosis Head and Face: no lesions or masses; facies symmetrical Eyes: sclera and conjunctiva clear, EOMI and PERRLA, lids normal Ears: Inspection: normal pinnae shape and position Nasal: normal external nose, mucous membranes and septum Oral Cavity: moist mucous membranes; and tongue size High arched hard palate Throat: tonsil 2+ Mallampati 3 Neck: supple without tenderness or crepitus; no palpable adenopathy Respiration: unlabored breathing Skin: skin healthy Impression/Plan: 1. Probable Obstructive Sleep Apnea: I reviewed the diagnosis, etiology and treatment of MERLENE at length with mother. He will proceed with tonsillectomy as scheduled and f/u in sleep clinic in 12 weeks. Mother will call a few weeks after surgery with update and we will likely schedule a split night p olysomnogram at that time. 2. Sleep related leg cramps: We discussed the importance of proper hydration. Vitamin E and quininehave also been effective for some, but no pharmacologic approach has been found to be successful for all. Antony denies any leg pains typical for RLS and with a serum ferritin of >200 in the absenceof illness, suspicion for RLS is very low. Patient Instructions 1. Surgery as scheduled. 2. Call us in about 3 weeks after surgery to let us know how things are going. 3. Please call our nurse's line with any questions. ([phone]) Thank you for allowing me to participate in the care of your patient. Please call me with any questions at [phone]. SAMARIA [facility] LEX MANAGER documented in this encounter Plan of Treatment Not on file documented as of this encounter Visit Diagnoses Not on filedocumented in this encounter Care Teams Pulp Roller Relationship Specialty Start Date End Date Moises Diaz MD PCP - General 04/28/09 08/15/21 documented as of this encounter
--- OUTSIDE RECORDS SUMMARY | 2024-04-03 02:19 | XMS_ITS | Encounter Summary ---
Author Organization [facility] Address [address] [place] [address] Care Team Providers Care Sleeping Car Porter Name Role Phone Moises Diaz MD Primary Care Provider Unavail able Reason for Visit * Reason Comments Lower Extremity Problem wrestling injury to right foot. PT did not hear a pop but did feel a couple pops. Mother gave 800mg Ibuprofen 2hrs ago. Encounter Details Date Type Department Care Team (Late st Contact Info) Description 05/12/2012 4:11 PM FELT STRIP FINISHER - 05/12/2012 8:46 PM FELT STRIP FINISHER Emergency ER at [address] [address] Anna Lobo MD Need Information Jorge Nobles MD No Updated information Right fibular fracture Discharge Disposition: Home or Self Care Social History Tobacco Use Types Packs/Day Years Used Date Smoking Tobacco: Never Assessed Sex and Gender Information Value Date Recorded Sex Assigned at Not on file Gender Identity Not on file Sexual Orientation Not on file documented as of this encounter Last Filed Vital Signs Vital Sign Reading Time Taken Comments Blood Pressure 156/74 05/12/2012 8:32 PM FELT STRIP FINISHER Pulse 94 05/12/2012 8:32 PM FELT STRIP FINISHER Temperature 36.2 ??C (97.2 ??F) 05/12/2012 4 :16 PM FELT STRIP FINISHER Respiratory Rate 21 05/12/2012 8:32 PM FELT STRIP FINISHER Oxygen Saturation 98% 05/12/2012 8:3 2 PM FELT STRIP FINISHER Inhaled Oxygen Concentration - - Weight 96.2 kg (212 lb 1.6 oz) 05/12/2012 4:16 PM FELT STRIP FINISHER PT is rhonda carter in this morning Height - - Body Mass Index - - documented in this encounter Discharge Instructions * Discharge Instructions* Brooke Nuñez MD - 05/12/2012 8:13 PM FELT STRIP FINISHER Images from the original note were not included. Please call next week and f/u with Orthopedics as instructed. Use lortab as needed for pain. Fibular Fracture, Ankle, Adult, Treated with or without Immobilization You have a fracture (break) of your fibula. This is the bone in your lower leg located on the outside of the leg. These fractures are easily diagnosed with x-rays. TREATMENT You have a simple fracture of the part of the fibula which is located between the knee and ankle. This bone usually will heal without problems and can often be treated without casting or splinting. This means the fracture will heal well during normal use and daily activities without being held in place. Sometimes a cast or splint is placed on these fractures if it is needed for comfort or if the bones are badly out of place. HOME CARE INSTRUCTIONS ?? Apply ice to the injury for 15 to 20 minutes, 3 to 4 times per day while awake, for 2 days. Put the ice in a plastic bag and place a thin towel between the bag of ice and your leg. This helps keepswelling down. ?? Use crutches as directed. Resume walking without crutches as directed by your caregiver or when comfortable doing so. ?? Only take [id number] or prescription medicines for pain, discomfort, or fever as directed by your caregiver. ?? Keep appointments for follow up x-rays if these are required. ?? If you have a removable splint or boot, do not remove the boot unless directed by your caregiver. ?? Warning: Do not drive a car or operate a motor vehicle until your caregiver specifically tells you it is safe to do so. SEEK MEDICAL CARE IF: ?? You have continued severe pain or more swelling ?? The medications do not control the pain. ?? Your skin or nails below the injury turn blue or clements or feel cold or numb. ?? You develop severe pain in the leg or foot. MAKE SURE YOU: ?? Understand these instructions. ?? Will watch your condition. ?? Will get help right away if you are not doing well or get worse. Document Released: 04/03/2006 Document Revised: 12/14/2011 Document Reviewed: 11/07/2008 ExitCare?? Patient Information ??2011 [employer].Fibular Fracture, Ankle, Adult, Treated with orwithout Immobilization You have a fracture (break) of your fibula. This is the bone in your lower leg located on the outside of the leg. These fractures are easily diagnosed with x-rays. TREATMENT You have a simple fracture of the part of the fibula which is located between the knee and ankle. This bone usually will heal without problems and can often be treated without casting or splinting. This means the fracture will heal well during normal use and daily activities without being held in place. Sometimes a cast or splint is placed on these fractures if it is needed for comfort or if the bones are badly out of place. HOME CARE INSTRUCTIONS ?? Apply ice to the injury for 15 to 20 minutes, 3 to 4 times per day while awake, for 2 days. Put the ice in a plastic bag and place a thin towel between the bag of ice and your leg. This helps keepswelling down. ?? Use crutches as directed. Resume walking without crutches as directed by your caregiver or when comfortable doing so. ?? Only take [id number] or prescription medicines for pain, discomfort, or fever as directed by your caregiver. ?? Keep appointments for follow up x-rays if these are required. ?? If you have a removable splint or boot, do not remove the boot unless directed by your caregiver. ?? Warning: Do not drive a car or operate a motor vehicle until your caregiver specifically tells you it is safe to do so. SEEK MEDICAL CARE IF: ?? You have continued severe pain or more swelling ?? The medications do not control the pain. ?? Your skin or nails below the injury turn blue or clements or feel cold or numb. ?? You develop severe pain in the leg or foot. MAKE SURE YOU: ?? Understand these instructions. ?? Will watch your condition. ?? Will get help right away if you are not doing well or get worse. Document Released: 04/03/2006 Document Revised: 12/14/2011 Document Reviewed: 11/07/2008 [facility]?? Patient Information ??2011 [employer]. STRIP FINISHER * Discharge Instructions* Document, Scanned - 06/11/2012 11:00 AM FELT STRIP FINISHER STRIP FINISHER documented in this encounter Medications at Time of Discharge Medication Sig Dispensed Refills Start Date End Date hydrocodone-acetaminophen 5-500 MG tablet Take 1-2 Tabs by mouth every 6 hours as needed for Pain. 15 Tab 0 05/12/2012 05/16/2012 documented as of this encounter Procedure Notes * Max Weiner MD - 05/12/2012 6:38 PM CST PROCEDURAL SEDATION NOTE Evaluated By: Max Weiner MD, 05/12/2012 Antony Benedict is a 16 y.o. male who is scheduled today for fracture reduction and splinting with procedural sedation. There is no problem list on file for this patient. No past medical history on file. Past Surgical History Procedure Date ??? Tympanostomy ??? Pr tear duct system surg unlisted Allergies Review of patient's allergies indicates no known allergies. Meds Current Facility-Administered Medications Medication Dose Route Frequency Provider Last Rate Last Dose ??? ketamine (KETALAR) injection 100 mg 100 mg Intravenous Once Brooke Nuñez MD ??? 0.9% NaCl infusion ADS Med No current outpatient prescriptions on file. ASA Class: No underlying medical problems Likelihood of discomfort: High Ability to remain immobile: Poor Anticipated level of sedation: Deep Physical Exam Vital signs reviewed. Mouth- oropharynx clear Cardio- RRR without murmur Resp- good aeration, clear to ascultation Sedation/Procedure Start Time: 1843 Stop Time: 1917 This sedation was personally performed by me. I was present throughout the entire procedure. Max Weiner MD Color: Blue Credentialed through:: 10/14/12 Max Weiner M.D., Ph.D. Stiff Leg Derrick Operator of Pediatrics Division of Pediatric Emergency Medicine Department of Pediatrics, [facility] STRIP FINISHER documented in this encounter Consult Notes * Rakesh Oro DO - 05/12/2012 7:18 PM CSTAssociated Order(s): IP CONSULT TO PEDIATRIC ORTHOPEDICS Orthopaedic Surgery Consult Note Chief Complaint Patient presents with ??? Lower Extremity Problem wrestling injury to right foot. PT did not hear a pop but did feel a couple pops. Mother gave 800mgIbuprofen 2hrs ago. Subjective: Antony Benedict is a 16 y.o. 8 m.o. male who presents for evaluation of his right ankle injury. he isaccompanied by his mother. 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 He states this injury occurred at about 1:30pm today when wrestling. He states his weight was over his dorsiflexed ankle when another player's force caused him to twist upon his planted ankle. He reports hearing and feeling two distinct pops. He immediately had intense pain, swelling, and inability to bear weight. There is nosymptoms of numbness, tingling, loss of color to toes/foot, or open lesions. He has never injured this ankle before. He occasionally has right knee pains, but none currently. He states to be otherwise healthy. IMMUNIZATIONS: Immunization status: stated as current, but no records available. No past medical history on file. Past Surgical History Procedure Date ??? Tympanostomy ??? Pr tear duct system surg unlisted Current facility-administered medications:ketamine (KETALAR) injection 100 mg, 100 mg, Intravenous,Once, Brooke Nuñez MD, 25 mg at 05/12/12 1858; 0.9% NaCl infusion ADS Med, , , , No current outpatient prescriptions on file. Allergies as of 05/12/2012 ??? (No Known Allergies) No family history on file. History Substance Use Topics ??? Smoking status: Not on file ??? Smokeless tobacco: Not on file ??? Alcohol Use: Patient lives with he parents. he is high school. Review of Systems: History obtained from mother and the patient. A 12 point ROS was obtained and was negative except for that listed above. Physical Exam: BP 155/81 Pulse 97 Temp 97.2 ??F Resp 20 Wt 96.208 kg (212 lb 1.6 oz) General appearance: alert, cooperative, no distress, oriented to person, place, and time; Lungs: breath sounds normal and symmetric; no rales or wheezes Heart: regular rhythm Abdomen: soft without mass, non-tender, with normal bowel sounds Spine: spine normal, symmetric Extremities: Upper extremity exam shows normal and symmetric movement, normal range of motion, no joint swelling. Lower Extremity: Right ankle: exam shows right ankle is diffusely swollen over the medial and lateral malleoli. There is specific and exquisite tenderness over the distal fibula bone prominence and the soft tissues overlying the deltoid ligament. There is no blistering or ecchymosis at this point. There is no open lesions. Range of motion is limited in all respects secondary to pain. The dorsalispedis pulse is +2/4. The posterior tibial pulse is not palpable through the soft tissue swelling. There is brisk capillary refill (<2 seconds) in all toes. Neuro: normal throughout axial and appendicular musculature Radiology: AP, lateral, and oblique x-rays of the right ankle reveal an oblique fracture of the distal fibula that is displaced 4 to 5 millimeters posteriorly and posteriorly angulated about 20 degrees. There is also a small avulsion fracture of the posterior malleolus noted. Additionally, there is distinct widening of the medial clear space between the talar dome and the medial malleolus of about 5 to 6 millimeters. Labs: No results found for this or any previous visit (from the past 12 hour(s)). Assessment: 1. Right ankle fracture: supination-external rotation, stage IV type injury Plan: 1. Questions solicited and answered. 2. Patient voiced understanding to info/instructions given. 3. Treatment options discussed including initial closed reduction and splinting in the emergency room tonight, followed by surgical intervention to further stabilize this injury pattern 4. The risks and benefits of surgery have been discussed and the patient and family are understanding of the need for surgery. 5. The family and patient have been informed that they will be contacted by phone in regard to scheduling surgery, likely next week. 6. The patient tolerated the closed reduction and splinting well. 7. Cast/splint care principles discussed. 8. Fracture care principles discussed. 9. Radiology studies and anatomy of the pre and post reduction ankle x-rays were reviewed. 10. Continue use of assistive device (crutches) is required 11. Ice and elevation until surgery was discussed as a critical point in care to reduce swelling prior to surgery. 12. Athletic/sports restriction discussed - NO PE/Sports 13. Weight bearing restriction: NWB STRIP FINISHER documented in this encounter OR Notes * Operative - Rakesh Oro DO - 05/12/2012 8:12 PM CST Patient Name: Antony Benedict Date of Procedure: 05-12-2012 PROCEDURE:?? Closed reduction and splinting of right ankle fractures. PERMIT:?? The procedure and its risks and benefits were discussed at length with the patient and His parents.?? Consent was obtained. INDICATION:?? Malaligned fracture of right ankle, including distal fibular fracture and deltoid ligament disruption PHYSICIAN:?? Rakesh Oro DO DESCRIPTION:?? The patient was positioned supine on the hospital stretcher. The emergency physicianassisted by providing conscious sedation and monitoring. Once sedation had time to take effect, thefracture was critically assessed under bedside fluoroscopy. The fracture was then manipulated and plaster splint was applied, using padding underneath and foreign over wrap. Fluoroscopic guidance was used during the procedure to aid in assessing the adequacy of reduction. Post reduction x-rays were obtained. BLOOD LOSS:?? None COMPLICATIONS:?? None DISPOSITION:?? Patient alert, oriented, and resting.?? Capillary refill distal to the splint is less than two seconds.?? Sensation intact distal to splint.?? Patient denies any numbness or tingling. Post-reduction x-rays demonstrated improved fracture and ankle reduction. STRIP FINISHER documented in this encounter ED Notes * Jorge Nobles MD - 05/13/2012 2:27 AM CSTAssociated Order(s): ED ORTHOPEDIC INJURY REDUCTION/TREATMENT Provider contact with the patient: 05/13/2012 02:27 Antony Benedict [id number] [facility] EMERGENCY DEPT History Chief Complaint Patient presents with ??? Lower Extremity Problem wrestling injury to right foot. PT did not hear a pop but did feel a couple pops. Mother gave 800mgIbuprofen 2hrs ago. I have read the resident/SHUTTLELESS LOOM WEAVER history. Unless appended by me below, I agree with findings as documented. HPI Review of Systems Review of Systems BP 156/74 Pulse 94 Temp 97.2 ??F Resp 21 Wt 96.208 kg (212 lb 1.6 oz) SpO2 98% Physical Exam I have reviewed the resident/SHUTTLELESS LOOM WEAVER physical exam. Unless appended by me below, I agree with the PE as documented. Physical Exam Procedures Orthopedic Injury Reduction/Treatment Performed by: JORGE NOBLES Authorized by: JORGE NOBLES Comments: I was present for the [...] Clinical Impression Final diagnoses: Right fibular fracture STRIP FINISHER * Sharon Teixeira RN - 05/12/2012 8:43 PM CST Pt has eaten and kept down a sandwich, chips and two apple juices. Pt is alert and oriented, able to follow directions and denies any abd discomfort. Pt sat up slowly on the side of the bed and then was able to stand on one foot to balance and pull up his pants. Pt denies any dizziness or discomfort during this time. Pt ambulating well on crutches. Pt accompanied home by his girlfriend and mother. Mother and pt verbalize understanding of discharge instructions. STRIP FINISHER * Azeb Barrios RN - 05/12/2012 8:01 PM CST Drank 2 boxes of AJ without complaint of nausea. STRIP FINISHER * Azeb Barrios RN - 05/12/2012 7:47 PM CST CR RLE <2secs STRIP FINISHER * Azeb Barrios RN - 05/12/2012 7:42 PM CST Given apple juice to drink. A+OX 4 STRIP FINISHER * Azeb Barrios RN - 05/12/2012 7:30 PM CST Oxygen removed. Maintaining O2 sats at 97-98% on RA. STRIP FINISHER * Jorge Nobles MD - 05/12/2012 6:23 PM CST 6:23 PM patient has fibula fracture, awaiting ortho reduction Plan for sedation under splinting. 8PM child woke up from sedation and tolerated PO. Ortho suggests post reduction films acceptable, adv to FU with Ortho in clinic STRIP FINISHER * Anna Lobo MD - 05/12/2012 4:54 PM CST Provider contact with the patient: 05/12/2012 16:54 Antony Bueno Jak [id number] [facility] EMERGENCY DEPT History Chief Complaint Patient presents with ??? Lower Extremity Problem wrestling injury to right foot. PT did not hear a pop but did feel a couple pops. Mother gave 800mgIbuprofen 2hrs ago. I have read the resident/SHUTTLELESS LOOM WEAVER history. Unless appended by me below, I agree with findings as documented. HPI Comments: 16 year old who today was wrestling in a competition and sustained a inversion of hisrt leg and felt a pop of the rt ankle and now swollen no other injuries no intercurrent illness NPO since 3 PM PMH none MEDS none ALL none HOSP none SURG none IMM UTD Review of Systems Review of Systems Musculoskeletal: Positive for joint swelling. All other systems reviewed and are negative. BP 120/70 Pulse 78 Temp 97.2 ??F Resp 16 Wt 96.208 kg (212 lb 1.6 oz) Physical Exam I have reviewed the resident/SHUTTLELESS LOOM WEAVER physical exam. Unless appended by me below, I agree with the PE as documented. Physical Exam Nursing note reviewed. Constitutional: He appears well-developed and well-nourished. No distress. HENT: Head: Normocephalic and atraumatic. Right Ear: External ear normal. Left Ear: External ear normal. Nose: Nose normal. Mouth/Throat: Oropharynx is clear and moist. No oropharyngeal exudate. Eyes: Conjunctivae and EOM are normal. Pupils are equal, round, and reactive to light. Right eye exhibits no discharge. Left eye exhibits no discharge. No scleral icterus. Neck: Normal range of motion. Neck supple. No JVD present. No tracheal deviation present. No thyromegaly present. Cardiovascular: Normal rate, normal heart sounds and intact distal pulses. Exam reveals no gallop and no friction rub. No murmur heard. Pulmonary/Chest: Effort normal and breath sounds normal. No stridor. No respiratory distress. He has no wheezes. He has no rales. He exhibits no tenderness. Abdominal: Soft. Bowel sounds are normal. He exhibits no distension. There is no tenderness. There is no rebound and no guarding. Musculoskeletal: RT ankle swollen without bruising skin intact Toes warm and well perfused and mobile Post tib and dorsalis pedis pulses strong Sensory intact Motor intact but painful unable to bear wt. Lymphadenopathy: He has no cervical adenopathy. Neurological: No cranial nerve deficit. He exhibits normal muscle tone. Coordination normal. Skin: Skin is warm. No rash noted. He is not diaphoretic. No erythema. No pallor. Procedures Procedures Progress Notes ED Course Care transferred to Dr Nobles Medical Decision Making I have reviewed the: Nursing Notes and Vitals. I have interpreted the following results: X-Ray (distal fibula fx adn avuslions fx of tibia). I have discussed the case with Orthopedics (Pt evaluted by Ortho and will undergo reduction of fibular fracture placement in a splint for surgery in AM ). 16 year old who sustained a fracture of distal fibula and tibia on rt during wrestling match PT require conscious sedation for reduction and splint placemat and will be admitted for OR in am for definitive repair. I have personally seen and examined this patient. I have fully participated in the care of this patient. I have reviewed all pertinent clinical information available to me during this encounter, including history, physical exam and plan. I have reviewed nursing notes, available labs and radiographic studies. Clinical Impression Fibula fracture Tibial fracture STRIP FINISHER * Star Galeas DO - 05/12/2012 4:30 PM CST Images from the original note were not included. EMERGENCY DEPARTMENT 05/12/[address] Moises Diaz We had the pleasure of caring for your patient, Antony Benedict in our emergency department on 05/12/2012. A note from the provider(s) who cared for your patient is attached. Should you wish to access any laboratory results, please call . Should you wish to access any radiology results, please call , option 3. In addition, you can access patient information 24 hours a day, from any computer, through [employer], the online version of our electronic medical record. If you would like to use this service, please call Nessa Chisholm, Connectivity Coordinator, at . We appreciate the opportunity to care for your patients. If you would like additional information, please call the emergency department directly at . Sincerely, Star Galeas DO Division of Emergency Medicine [facility], [place] [facility] [place] EMERGENCY DEPARTMENT Provider contact with the patient: 05/12/2012 16:31 Antony Benedict [id number] [facility] EMERGENCY DEPT History Chief Complaint Patient presents with ??? Lower Extremity Problem wrestling injury to right foot. PT did not hear a pop but did feel a couple pops. Mother gave 800mgIbuprofen 2hrs ago. HPI Comments: 16 y/o otherwise healthy male presents with right ankle pain. At about 2 pm pt was wrestling in a competition, while wrestling his competitor rolled over his ankle causing an inversion ankle injury. Pt felt a pop, and immediate pain immediately, large fast effusion. denies dislocation. Took 800 mg ibuprofen, and placed ice on injury. Never injured ankle before. Un able to bear weight. No PMH NKDA NO PSH Current IMM No past medical history on file. Past Surgical History Procedure Date ??? Tympanostomy ??? Pr tear duct system surg unlisted History Social History ??? Marital Status: Single Spouse Name: N/A Number of Children: N/A ??? Years of Education: N/A Occupational History ??? Not on file. Social History Main Topics ??? Smoking status: Not on file ??? Smokeless tobacco: Not on file ??? Alcohol Use: ??? Drug Use: ??? Sexually Active: Not on file Other Topics Concern ??? Not on file Social History Narrative ??? No narrative on file Medications No current outpatient prescriptions on file. Review of Systems Review of Systems Constitutional: Negative. Negative for fever, chills and fatigue. HENT: Negative. Negative for ear pain, nosebleeds, congestion, sore throat, rhinorrhea, sneezing, neck stiffness and tinnitus. Eyes: Negative for pain and discharge. Respiratory: Negative. Negative for apnea, cough, choking, shortness of breath and wheezing. Cardiovascular: Negative. Negative for chest pain and palpitations. Gastrointestinal: Negative. Negative for nausea, abdominal pain, diarrhea, constipation and abdominal distention. Genitourinary: Negative for flank pain, decreased urine volume, enuresis and difficulty urinating. Musculoskeletal: Positive for joint swelling and gait problem. Right ankle pain, lateral and medial, swelling Skin: Negative for color change, pallor, rash and wound. Neurological: Negative for dizziness, syncope, speech difficulty, numbness and headaches. Hematological: Negative. Psychiatric/Behavioral: Negative. Negative for confusion, dysphoric mood and agitation. The patientis not hyperactive. BP 120/70 Pulse 78 Temp 97.2 ??F Resp 16 Wt 96.208 kg (212 lb 1.6 oz) Physical Exam Physical Exam Constitutional: He is oriented to person, place, and time. He appears well- developed and well-nourished. No distress. HENT: Head: Normocephalic and atraumatic. Right Ear: External ear normal. Left Ear: External ear normal. Nose: Nose normal. Mouth/Throat: Oropharynx is clear and moist. No oropharyngeal exudate. Eyes: Conjunctivae and EOM are normal. Pupils are equal, round, and reactive to light. Right eye exhibits no discharge. Left eye exhibits no discharge. No scleral icterus. Neck: Normal range of motion. Neck supple. No thyromegaly present. Cardiovascular: Normal rate, regular rhythm, normal heart sounds and intact distal pulses. Exam reveals no friction rub. No murmur heard. Pulmonary/Chest: Effort normal and breath sounds normal. No stridor. No respiratory distress. He has no wheezes. He has no rales. He exhibits no tenderness. Abdominal: Soft. He exhibits no distension. There is no tenderness. There is no rebound and no guarding. Musculoskeletal: He exhibits edema and tenderness. Right ankle, large effusion both medial and lateral. TTP over medial and lateral malleolus. Neurovascularly intact distal. EHL/FHL intact. Pain with inversion stress/anterior drawer. Neurological: He is alert and oriented to person, place, and time. No cranial nerve deficit. Skin: Skin is warm and dry. No rash noted. He is not diaphoretic. No erythema. No pallor. Procedures Procedures Lab/SPO2 Interpretation Progress Notes ED Course Pending XR ankle 3 views Signed out to Dr. Nuñez at shift change. Medical Decision Making Clinical Impression Final diagnoses: Injury, other and unspecified, knee, leg, ankle, and foot STRIP FINISHER documented in this encounter Miscellaneous Notes * Miscellaneous Scans - Document, Scanned - 06/11/2012 1:40 PM CST STRIP FINISHER * Miscellaneous Scans - Document, Scanned - 06/04/2012 10:25 AM CST STRIP FINISHER documented in this encounter Plan of Treatment Pending Results Name Type Priority Associated Diagnoses Date /Time [place] SURGERY LESS 60 MIN Imaging STAT Injury, other and unspecified, knee, leg, ankle, and foot 05/12/2012 7:33 PM FELT STRIP FINISHER Scheduled Orders Name Type Priority Associated Diagnoses Orde r Schedule [place] SURGERY LESS 60 MIN Imaging Routine Injury, other and unspecified, knee, leg, ankle, and foot For radiant use only for 1 Occurrences starting 05/12/2012 documented as of this encounter Procedures Procedure Name Priority Date/Time Associated Diagnosis Comments IP CONSULT TO PEDIATRIC ORTHOPEDICS Routine 05/13/2012 9:11 PM FELT STRIP FINISHER ED ORTHOPEDIC INJURY TREATMENT Routine 05/13/2012 2:28 AM FELT STRIP FINISHER XR ANKLE RIGHT 3VW OR MORE STAT 05/12/2012 7:34 PM FELT STRIP FINISHER Injury, other and unspecified, knee, leg, ankle, and foot XR ANKLE RIGHT 3VW OR MORE STAT 05/12/2012 5:26 PM FELT STRIP FINISHER Injury, other and unspecified, knee, leg, ankle, and foot documented in this encounter Results * IP CONSULT TO PEDIATRIC ORTHOPEDICS (05/13/2012 9:11 PM FELT STRIP FINISHER) Anna Lobo MD INPATIENT CONSULT OR DERABLES * ED ORTHOPEDIC INJURY TREATMENT (05/13/2012 2:28 AM FELT STRIP FINISHER) Narrative Jorge Nobles MD - 05/13/2012 2:28 AM FELT STRIP FINISHER Jorge Nobles MD ? 05/13/2012 ??2:28 AM Provider contact with the patient: 05/13/2012 ?02:27 Antony Benedict [id number] [facility] EMERGENCY DEPT History Chief Complaint Patient presents with ? ? Lower Extremity Problem ??wrestling injury to right foot. PT did not hear a pop but did feel a couple pops. Mother gave 800mg Ibuprofen 2hrs ago. ?? I have read the resident/SHUTTLELESS LOOM WEAVER history. ??Unless appended by me below, I agree with findings as documented. HPI Review of Systems Review of Systems BP 156/74 Pulse 94 Temp 97.2 ??F Resp 21 Wt 96.208 kg (212 lb 1.6 oz) SpO2 98% Physical Exam I have reviewed the resident/SHUTTLELESS LOOM WEAVER physical exam. Unless appended by me below, I agree with the PE as documented. Physical Exam Procedures Orthopedic Injury Reduction/Treatment Performed by: JORGE NOBLES Authorized by: JORGE NOBLES Comments: I was present for the [...] Final diagnoses: Right fibular fracture Procedure Note Jorge Nobles MD - 05/13/2012 2:27 AM CST Provider contact with the patient: 05/13/2012 02:27 Antony Benedict [id number] [facility] EMERGENCY DEPT History Chief Complaint Patient presents with ? ? Lower Extremity Problem wrestling injury to right foot. PT did not hear a pop but did feel acouple pops. Mother gave 800mg Ibuprofen 2hrs ago. I have read the resident/SHUTTLELESS LOOM WEAVER history. Unless appended by me below, I agreewith findings as documented. HPI Review of Systems Review of Systems BP 156/74 Pulse 94 Temp 97.2 ??F Resp 21 Wt 96.208 kg (212 lb 1.6oz) SpO2 98% Physical Exam I have reviewed the resident/SHUTTLELESS LOOM WEAVER physical exam. Unless appended by mebelow, I agree with the PE as documented. Physical Exam Procedures Orthopedic Injury Reduction/Treatment Performed by: JORGE NOBLES Authorized by: JORGE NOBLES Comments: I was present for the [...] Clinical Impression Final diagnoses: Right fibular fracture Jorge Nobles MD PROCEDURE/MINOR SURG ICAL ORDERABLES * XR ANKLE 3+ VW RIGHT (05/12/2012 7:34 PM FELT STRIP FINISHER) Anatomical Region Laterality Modality Lower Extremity Radiographic Kira ging 05/13/2012 8:42 AM FELT STRIP FINISHER Impressions 05/13/2012 8:42 AM FELT STRIP FINISHER Casted ankle fracture Narrative 05/13/2012 8:42 AM FELT STRIP FINISHER EXAMINATION: RIGHT XR ANKLE 3+ VW RIGHT*[id number] ??dated May 12, 2012 07:34:15 PM. HISTORY: ??Injury, other and unspecified, knee, leg, ankle, and foot . FINDINGS: AP, lateral, and mortise views of the left ankle in plaster were obtained. Comparison is made to the earlier examination of 1727. The fibular and tibial fractures are fixed in near-anatomic alignment with cast material drain, and detail. ?? No soft tissue swelling or radiopaque foreign bodies are noted. ??No other imaging abnormality is appreciated. Procedure Note Jermain Britt - 05/13/2012 EXAMINATION: RIGHT XR ANKLE 3+ VW RIGHT*[id number] dated May 12, 2012 07:34:15 PM. HISTORY: Injury, other and unspecified, knee, leg, ankle, and foot . FINDINGS: AP, lateral, and mortise views of the left ankle in plaster were obtained. Comparison is made to the earlier examination of 1727. The fibular and tibial fractures are fixed in near-anatomic alignment with cast material drain, and detail. No soft tissue swelling or radiopaque foreign bodies are noted. No other imaging abnormality is appreciated. IMPRESSION Casted ankle fracture Rakesh Oro DO DIAGNOSTIC IMAGING ORDERABLES * XR ANKLE 3+ VW RIGHT (05/12/2012 5:26 PM FELT STRIP FINISHER) Anatomical Region Laterality Modality Lower Extremity Radiographic Kira ging 05/13/2012 8:33 AM FELT STRIP FINISHER Impressions 05/13/2012 8:33 AM FELT STRIP FINISHER Oblique fibular fracture with posterior malleoli are avulsion as described above. Narrative 05/13/2012 8:33 AM FELT STRIP FINISHER EXAMINATION: RIGHT XR ANKLE 3+ VW RIGHT*[id number] ??dated May 12, 2012 05:26:32 PM. HISTORY: ??Injury, other and unspecified, knee, leg, ankle, and foot . FINDINGS: AP lateral and mortise views the right ankle were obtained. No prior examinations are available for comparison. The bone mineralization is normal. There is an oblique distal fibular fracture in a posterior malleoli avulsion identified. Moderate soft tissue swelling is seen. ??No other imaging abnormality is appreciated. Procedure Note Jermain Britt - 05/13/2012 EXAMINATION: RIGHT XR ANKLE 3+ VW RIGHT*[id number] dated May 12, 2012 05:26:32 PM. HISTORY: Injury, other and unspecified, knee, leg, ankle, and foot . FINDINGS: AP lateral and mortise views the right ankle were obtained. No prior examinations are available for comparison. The bone mineralization is normal. There is an oblique distal fibular fracture in a posterior malleoli avulsion identified. Moderate soft tissue swelling is seen. No other imaging abnormality is appreciated. IMPRESSION Oblique fibular fracture with posterior malleoli are avulsion as described above. Star Galeas DO DIAGNOSTIC IMAGI NG ORDERABLES documented in this encounter Visit Diagnoses Diagnosis Injury, other and unspecified, knee, leg, ankle, and foot Right fibular fracture Closed fracture of unspecified part of fibula Swelling of limb Ankle fracture Unspecified closed fracture of ankle documented in this encounter Administered Medications Inactive Administered Medications - up to 3 most recent administrations Medication Order MAR Action Action Date Dose Rate Site ketamine (KETALAR) injection 100 mg 100 mg, Intravenous, ONCE, 1 dose, On 05/12/12 at 1815, High Risk, High Alert Medication: Must document double check on IV MAR flowsheet. $ Given 05/12/2012 6:58 PM FELT STRIP FINISHER 25 mg $ Given 05/12/2012 6:48 PM FELT STRIP FINISHER 25 mg $ Given 05/12/2012 6:44 PM FELT STRIP FINISHER 50 mg documented in this encounter Active and Recently Administered Medications Times are shown in FELT STRIP FINISHER. Scheduled Medication Order 05/10/2012 05/11/2012 05/12/2012 ketamine (KETALAR) injection 100 mg (COMPLETED) 100 mg, Intravenous, ONCE, 1 dose, On 05/12/12 at 1815, High Risk, High Alert Medication: Must document double check on IV MAR flowsheet. 1844 ($ Given - Prov ider: Sharon Teixeira RN)1848 ($ Given - Provider: Sharon Teixeira RN - Comment: titration per Dr. Weiner)1858 ($ Given - Provider: Sharon Teixeira RN - Comment: Titration per dr. weiner) documented in this encounter Care Teams Sleeping Car Porter Relationship Specialty Start Date End Date Moises Diaz MD PCP - General 04/28/09 08/15/21 documented as of this encounter
--- OUTSIDE RECORDS SUMMARY | 2024-04-03 02:19 | XMS_ITS | Encounter Summary ---
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 Name Role Phone Moises Diaz MD Primary Care Provider Unavail able Reason for Visit * Auth/Cert - Closed Specialty Diagnoses / Procedures Referred By Antony t Referred To Contact Diagnoses Hypertrophy of tonsil with adenoids Obstructive sleep apnea (adult) (pediatric) Procedures TONSILLECTOMY AND ADENOIDECTOMY Referral ID Status Reason Start Date Expiration Date Visits Re quested Visits Authorized [id number] Closed 1 1 Encounter Details Date Type Department Care Team (Latest Contact Info) Description 06/09/2014 10:26 AM BRAND AMBASSADOR PROMOTIONAL MODEL - 06/09/2014 2:57 PM BRAND AMBASSADOR PROMOTIONAL MODEL Hospital Encounter [facility] - Intraop [address] [place] [address] Kyle Cardenas MD [address] [place] [address] Surgery General Discharge Disposition: Home or Self Care Social [...] Comments Blood Pressure 133/85 06/09/2014 1:30 PM BRAND AMBASSADOR PROMOTIONAL MODEL Pulse 80 06/09/2014 2:30 PM BRAND AMBASSADOR PROMOTIONAL MODEL Temperature 36.6 ??C (97.9 ??F) 06/09/2014 1:30 PM CS T Respiratory Rate 16 06/09/2014 2:30 PM BRAND AMBASSADOR PROMOTIONAL MODEL Oxygen Saturation 100% 06/09/2014 2:30 PM BRAND AMBASSADOR PROMOTIONAL MODEL Inhaled Oxygen Concentration - - Weight 114.4 kg (252 lb 3.3 oz) 015 10:38 AM BRAND AMBASSADOR PROMOTIONAL MODEL Height 179 cm (5' 10.47 ) 06/09/2014 10 :38 AM BRAND AMBASSADOR PROMOTIONAL MODEL Body Mass Index 35.7 06/09/2014 10:38 AM BRAND AMBASSADOR PROMOTIONAL MODEL Body Mass Index Percentile 98.47% 06/09 10:38 AM BRAND AMBASSADOR PROMOTIONAL MODEL Growth Chart: [facility] (Boys, 2-2 0 Years) documented in this [...] SURGERY DISCHARGE SUMMARY Patient ID: Name: Antony Benedict MR#: [id number] Date of : 1995 Age: 18 y.o. Discharge Date: 06/09/2014 Discharge Diagnosis: adenotonsillar hypertrophy and Clinical sleep apnea Procedure: adenotonsillectomy Discharge Condition: Stable Discharge Procedure Orders Why you were hospitalized Order Specific Question Answer Comments Your discharge diagnosis is MERLENE (obstructive sleep apnea) [[id number]] Soft diet -- Antony will need a [...] or for any of the following issues: [phone] and ask for ENT Follow up with provider Order Specific Question Answer Comments Follow Up Instructions: As needed Krunal Bridges MD D AMBASSADOR PROMOTIONAL MODEL documented in this encounter Discharge Instructions * Discharge Instructions* Nuris Dodge RN - 06/09/2014 2:37 PM BRAND AMBASSADOR PROMOTIONAL MODEL Hydrocodone-acetaminophen (LORTAB) was given at 2:20 pm and should be given again at 6:20 pm. Remove scopolamine patch from behind right ear tomorrow if you are not having nausea or Monday if you have nausea on Monday. D AMBASSADOR PROMOTIONAL MODEL documented in this encounter Medications at Time [...] proceed. Krunal Bridges MD 06/09/2014 10:33 AM D AMBASSADOR PROMOTIONAL MODEL documented in this encounter OR Notes * [...] every 4 hours as needed for pain D AMBASSADOR PROMOTIONAL MODEL documented in this encounter Plan of Treatment Not on file documented as of this encounter Procedures Procedure Name Priority Date/Time Associated Diagnosis Comments TONSILLECTOMY AND ADENOIDECTOMY 06/09/2014 8:10 PM BRAND AMBASSADOR PROMOTIONAL MODEL Hypertrophy of tonsil with adenoids Obstructive sleep apnea (adult) (pediatric) PATHOLOGY TISSUE EXAM (STL) STAT 06/09/2014 12:22 PM BRAND AMBASSADOR PROMOTIONAL MODEL documented in this encounter Results * GROSS + MICRO EXAM (STL) (06/09/2014 12:22 PM BRAND AMBASSADOR PROMOTIONAL MODEL) Case Report Surgical Pathology Report ? Case: [id number] ? Authorizing Provider: ??Krunal Bridges MD ?Collected: [...] tonsils have a cerebriform yellow-patterson appearance. A car sales representative section of each tonsil is [...] (actinomcyes) are noted. (NM/scs) 06/10/2014 4:[address] [facility] Disclaimer The performance characteristics of all immunohistochemical and indirect immunofluorescence stains (if any) cited in this report were determined by the [facility] in compliance with CLIA `88 regulations. Some of these tests rely on the use of analyte-specific reagents and are subject to specific labeling requirements by the FDA. Such tests were developed by the [facility] and have not been cleared or approved by the FDA. The FDA has determined that such clearance or approval is not necessary. These tests are used for clinical purposes and should not be regarded as investigational or for research. This case has been personally reviewed and interpreted by the attending (teaching) pathologist. 06/10/2014 4:16 PM BRAND AMBASSADOR PROMOTIONAL MODEL [facility] Pathology/Cytolo gy SPECIMEN FROM TONSIL / Unknown 06/09/2014 12:22 PM BRAND AMBASSADOR PROMOTIONAL MODEL 06/09/2014 1:54 PM BRAND AMBASSADOR PROMOTIONAL MODEL Comment:[phone] Krunal Bridges MD LAB - PATHOLOGY/CYTO LOGY ORDERABLES Performing Organization Address City/State/[facility] Co de Phone Number [facility] [address] [place] [address] documented in this encounter Visit Diagnoses Diagnosis Hypertrophy of tonsil with adenoids Obstructive sleep apnea (adult) (pediatric) documented in this encounter Admitting Diagnoses Diagnosis Hypertrophy of tonsil with adenoids Obstructive sleep apnea (adult) (pediatric) documented in this encounter Administered Medications Inactive Administered Medications - up to 3 most recent administrations Medication Order MAR Action Action Date Dose Rate Site fentaNYL (SUBLIMAZE) injection 25 mcg 25 mcg, [...] Flowsheet., PACU $ Given 06/09/2014 1:05 PM BRAND AMBASSADOR PROMOTIONAL MODEL 25 mcg hydrocodone-acetamin ophen 7.5-325 MG/15ML solution 10 mL 10 mL, Oral, EVERY 4 HOURS PRN, Moderate Pain, Starting on Mon06/09/14 at 1254, Until Mon06/09/14 at 1558, Post-op $ Given 06/09/2014 2:20 PM BRAND AMBASSADOR PROMOTIONAL MODEL 10 mL isolyte-S pH 7.4 infusion 150 mL/hr, Intravenous, POST-OP CONTINUOUS, Starting on Mon06/09/14 at 1300, Until Mon06/09/14 at 1558, PACU Current Rate 06/09/2014 12:52 PM BRAND AMBASSADOR PROMOTIONAL MODEL 150 mL/hr 150 mL/hr scopolamine (TRANSDERM-SCOP) 1.5 [...] to MRI. $ Applied 06/09/2014 11:23 AM BRAND AMBASSADOR PROMOTIONAL MODEL 1.5 mg Behind Right Ear documented in this encounter Active and Recently Administered Medications Times are shown in BRAND AMBASSADOR PROMOTIONAL MODEL. 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
--- OUTSIDE RECORDS SUMMARY | 2024-04-03 02:19 | XMS_ITS | Encounter Summary ---
Author Organization [facility] Address [address] [facility] [place] [address] Care Team Providers Care Laboratory Cureman Name Role Phone Moises Diaz MD Primary Care Provider Unavail able Reason for Visit * Auth/Cert - Closed Specialty Diagnoses / Procedures Referred By Contac t Referred To Contact Diagnoses RIGHT ANKLE FRACTURE, SYNDEMOSIS INJURY Procedures OPEN REDUCTION INTERNAL FIXATION FRACTURE ANKLE BIMALLEOLAR Referral ID Status Reason Start Date Expiration Date Visits Re quested Visits Authorized [id number] Closed 1 1 Encounter Details Date Type Department Care Team (Late st Contact Info) Description 05/16/2012 10:05 PM CUFF MAKER Anesthesia Event [facility] - Periop [address] [place] [id number] Claudine Dumas MD [address] [place] [address] [place] [address] [place] [id number] Anesthesia Record Procedure Summary Procedure Name Responsible Anesthesiologist Anesthesia Start Time Anesthesia Stop Time OPEN REDUCTION INTERNAL FIXATION FRACTURE ANKLE BIMALLEOLAR (Right: Ankle) Claudine Dumas MD 05/16/12 1618 Events Date Time Event Comment 05/16/2012 1350 1416 An Start 1416 An Start Data 1421 An Induction 1424 An Intubation 1444 An Tourn Inflated 250mmHg 1531 An Tourn Deflated 1605 An Emergence 1606 Extubation 1609 an stop data Patient Transpo rted to PACU on O2. SpO2 monitoring. Report Given to PACU Nurse. 1618 An Stop Meds Name Total lidocaine (MPF) 2% injection 60 mg propofol (DIPRIVAN) 10 mg/mL 300 mg fentaNYL (SUBLIMAZE) 50 mcg/ml 100 mcg morphine 5 mg/ml injection (currently sh ortage issues 06/06/13) 12 mg dexamethasone (DECADRON) 4 mg/ml injecti on 4 mg ondansetron (ZOFRAN) 2mg/mL injection 8 mg ceFAZolin (Ancef) 1 g injection 2 g rocuronium 50 mg/5mL injection 70 mg ketorolac (TORADOL) 30 mg/ml injection 3 0 mg neostigmine 1 mg/ml injection 4.5 mg glycopyrrolate (ROBINUL) 0.2mg/ml inject ion 0.8 mg isolyte-S pH 7.4 infusion 1,050 mL * Agents Name Insp. N2O Exp. Sevoflurane O2 Insp. Sevoflurane * Blood No blood administrations on file. Lines, Drains, and Airways Type Details Placement Removal Peripheral IV Date: 05/16/12; Time : 1345; Orientation: Left; Placed By: Rupa PLAZA; Tolerance: Well 05/16/12 1345 by Debo King Anes Asst 05/16/12 1710 by Gretchen Lorenz RN ETT Date: 05/16/12; Time : 1424; Placed By: Rupa PLAZA; Blade Type: Anne; Blade Size: 3; Laryngoscopy View: Grade 1; Tube: Endotracheal Tube-Hi/Lo; Tube Type: Cuffed-inflated; Tube Size(mm): 7.5 MM; Depth of Insertion: 22 CM; Cuff Infated: Air; Cuff Pressure(cm H2O): 20 cm H2O; Cuff Vol(mL): 4 mL; Verified By: Chest Auscultation, CO2 Monitor 05/16/12 1424 by Claudine Dumas MD 05/16/12 1606 by Debo King Anes Asst RETIRED Procedural Site 05/16/12; 1446; Right; Ankle; 05/16/12; 2324 05/16/12 1446 by Lesly Villanueva RN 05/16/12 2324 by Generic, Auto Release documented in this encounter Social History Tobacco Use Types Packs/Day Years Used Date Smoking Tobacco: Never Assessed Smokeless Tobacco: Never Sex and Gender Information Value Date Recorded Sex Assigned at Not on file Gender Identity Not on file Sexual Orientation Not on file documented as of this encounter Progress Notes * Avni Pineda MD - 05/16/2012 4:39 PM CST ANESTHESIA POSTPROCEDURE EVALUATION Antony Benedict is a 16 y.o. male Temp: 36.8 ??C Pulse: 80 Resp: 16 BP: 129/75 mmHg Pain Rating Score #: 0 A postop evaluation was performed on this patient with the following assessment: no apparent anesthesia complications Mental status: sufficiently recovered from acute administration of anesthesia to participate in theevaluation. Level of consciousness: awake No numbness, tingling or visual disturbances present. General appearance: well-appearing Respiratory function: natural airway. Cardiac: stable Pain: comfortable/acceptable PONV: None Postop hydration: adequate. Patient may be released from anesthesia care. * No Diagnosis Codes entered * MAKER * Debo Kaiser Anes Asst - 05/16/2012 1:33 PM CST PRE-ANESTHESIA EVALUATION Procedure(s) (LRB): OPEN REDUCTION INTERNAL FIXATION FRACTURE ANKLE BIMALLEOLAR (Right) Vital Signs: Temp: [36.6 ??C] Pulse: [102] Resp: [16] BP: (148)/(80) SpO2: [97 %] BMI: Estimated Body mass index is 30.91 kg/(m^2) as calculated from the following: Height as of an earlier encounter on 05/16/12: 5' 10.276 (1.785 m). Weight as of an earlier encounter on 05/16/12: 217 lb 2.5 oz(98.5 kg). History: Past Medical History Diagnosis Date ??? Blocked tear duct ??? Ankle fracture, right broke while wrestling ??? Complication of anesthesia difficulty breathing, vomited blood Past Surgical History Procedure Date ??? Tympanostomy ??? Pr tear duct system surg unlisted Allergies: has no known allergies. Medications: No current facility-administered medications for this visit. No current outpatient prescriptions on file. Prescriptions prior to admission Medication Sig Dispense Refill ??? hydrocodone-acetaminophen 5-500 MG tablet Take 1-2 Tabs by mouth every 6 hours as needed for Pain. 15 Tab 0 Physical Exam: NPO status: Since midnight Oriented x 3 Dental exam findings: OK. Airway class: I. Pulmonary exam: clear to auscultation. Cardiovascular exam positive for: S1 S2. Alignment: symmetrical. Obesity: mildly obese. Plan for Anesthesia: ASA 2 Planned intraoperative anesthesia: general Planned postop destination: PACU Planned induction: Intravenous Anesthetic plan, risks and benefits discussed with mother and patient. Anesthesia consent: Consent for anesthesia obtained Discussed anesthesia plan with: Attending. MAKER documented in this encounter Plan of Treatment Not on file documented as of this encounter Visit Diagnoses Not on filedocumented in this encounter Administered Medications Inactive Administered Medications - up to 3 most recent administrations Medication Order MAR Action Action Date Dose Rate Site ceFAZolin (ANCEF) injection PRN, Starting on Mon05/16/12 at 1426, Until Mon05/16/12 at 1618, Intra-op $ Given 05/16/2012 2:26 PM CUFF MAKER 2 g dexamethasone (DECADRON) injection PRN, Nausea/Vomiting, Starting on Mon05/16/12 at 1425, Until Mon05/16/12 at 1618, Intra-op $ Given 05/16/2012 2:25 PM CUFF MAKER 4 mg fentaNYL (SUBLIMAZE) injection PRN, Starting on Mon05/16/12 at 1421, Until Mon05/16/12 at 1618, Intra-op $ Given 05/16/2012 2:21 PM CUFF MAKER 100 mcg glycopyrrolate (ROBINUL) injection PRN, Starting on Mon05/16/12 at 1544, Until Mon05/16/12 at 1618, Intra-op $ Given 05/16/2012 3:44 PM CUFF MAKER 0.8 mg isolyte-S pH 7.4 infusion CONTINUOUS PRN, Starting on Mon05/16/12 at 1418, Until Mon05/16/12 at 1618, Intra-op $ New Bag/Syringe 05/16/2012 4:02 PM CUFF MAKER mL $ New Bag/Syringe 05/16/2012 3:08 PM CUFF MAKER mL $ New Bag/Syringe 05/16/2012 2:18 PM CUFF MAKER mL ketorolac (TORADOL) injection PRN, Starting on Mon05/16/12 at 1540, Until Mon05/16/12 at 1618, . WASTE DISPOSAL INSTRUCTIONS: Black Bin Disposal required., Intra-op $ Given 05/16/2012 3:40 PM CUFF MAKER 30 mg lidocaine (XYLOCAINE MPF) 2 % injection PRN, Starting on Mon05/16/12 at 1421, Until Mon05/16/12 at 1618, Intra-op $ Given 05/16/2012 2:21 PM CUFF MAKER 60 mg morphine injection PRN, Starting on Mon05/16/12 at 1442, Until Mon05/16/12 at 1618, Intra-op $ Given 05/16/2012 4:01 PM CUFF MAKER 2 mg $ Given 05/16/2012 3:45 PM CUFF MAKER 3 mg $ Given 05/16/2012 3:40 PM CUFF MAKER 2 mg neostigmine (PROSTIGMIN) injection PRN, Starting on Mon05/16/12 at 1544, Until Mon05/16/12 at 1618, Intra-op $ Given 05/16/2012 3:44 PM CUFF MAKER 4.5 mg ondansetron (ZOFRAN) injection PRN, Nausea/Vomiting, Starting on Mon05/16/12 at 1540, Until Mon05/16/12 at 1618, Intra-op $ Given 05/16/2012 4:09 PM CUFF MAKER 4 mg $ Given 05/16/2012 3:40 PM CUFF MAKER 4 mg propofol (DIPRIVAN) 10 mg/ml injection PRN, Sedation, Starting on Mon05/16/12 at 1421, Until Mon05/16/12 at 1618, Intra-op $ Given 05/16/2012 3:20 PM CUFF MAKER 100 mg $ Given 05/16/2012 2:21 PM CUFF MAKER 200 mg rocuronium (ZEMURON) injection PRN, Starting on Mon05/16/12 at 1422, Until Mon05/16/12 at 1618, Intra-op $ Given 05/16/2012 3:20 PM CUFF MAKER 20 mg $ Given 05/16/2012 2:22 PM CUFF MAKER 50 mg documented in this encounter Care Teams Laboratory Cureman Relationship Specialty Start Date End Date Moises Diaz MD PCP - General 04/28/09 08/15/21 documented as of this encounter
--- OUTSIDE RECORDS SUMMARY | 2024-04-03 02:19 | XMS_ITS | Encounter Summary ---
Author Organization [facility] Address [address] [place] [address] Care Team Providers Care Egg Pasteurizer Name Role Phone Moises Diaz MD Primary Care Provider Unavail able Reason for Visit * Reason Comments Follow-up right middle finger evulsion to nail bed Encounter Details Date Type Department Care Team (Latest Contact Info) Description 02/28/2014 2:20 PM BRAND INSPECTOR - 02/28/2014 11:59 PM BRAND INSPECTOR Hospital Encounter [facility] - Orthopedics [address] [place] [address] Giuliano Hills MD [address] [place] [address] Discharge Disposition: Home or Self Care Social History Tobacco Use Types Packs/Day Years Used Date Smoking Tobacco: Never Assessed Smokeless Tobacco: Never Sex and Gender Information Value Date Recorded Sex Assigned at Not on file Gender Identity Not on file Sexual Orientation Not on file documented as of this encounter Discharge Instructions * Patient Instructions* Opal Lira MD - 02/28/2014 2:54 PM BRAND INSPECTOR Return appointment: Follow up in 6 weeks Call [phone], option 1, for return if your child has new symptoms or problems, or if you have concerns. Call [phone] for questions. Physicians orders: Soak in dial soap solution twice daily Medications prescribed: None Activity Restrictions: None School/Work Excuse: Patient had an appointment 02/28/2014 D INSPECTOR documented in this encounter Medications at Time of Discharge Medication Sig Dispensed Refills Start Date End Date hydrocodone-acetaminophen (NORCO) 5-325 MG tablet Take 1-2 Tabs by mouth every 6 hours as needed for Pain. 20 Tab 0 02/11/2014 05/02/2014 ibuprofen (MOTRIN) 800 MG tablet Take 1 Tab by mouth every 6 hours as needed for Pain. 30 Tab 0 02/11/2014 05/02/2014 documented as of this encounter Progress Notes * Opal Lira MD - 02/28/2014 3:39 PM CST PEDIATRIC ORTHOPAEDIC CLINIC NOTE NAME: Antony Benedict DATE OF SERVICE: 02/28/2014 DATE: 1995 PCP: Moises Diaz HISTORY: Antony Benedict is a 18 y.o. 6 m.o. male who presents 2 week(s) status post a right middle finger nail injury fracture. Antony Benedict was treated with nail bed repair in ED. He is here for follow up . Denies fever/chills. deneis change in sensation/tingling. MEDICATIONS: Current outpatient prescriptions:hydrocodone-acetaminophen (NORCO) 5-325 MG tablet, Take 1-2 Tabs by mouth every 6 hours as needed for Pain., Disp: 20 Tab, Rfl: 0, ; ibuprofen (MOTRIN) 800 MG tablet, Take 1 Tab by mouth every 6 hours as needed for Pain., Disp: 30 Tab, Rfl: 0, ALLERGIES: Allergies as of 02/28/2014 ??? (No Known Allergies) IMMUNIZATIONS: Immunization status: up to date and documented. PHYSICAL EXAMINATION: General appearance: alert, cooperative, no distress. He has good head control. No rashes or abnormal dyspigmentation Extremities: The uninjured left upper extremity was examined and demonstrated normal skin, normal range of motion and alignment of all joint, normal motor, sensory and vascular examination, and was without pain. It was used for comparison when examining the injured right upper extremity. General appearance: no acute distress The examination was performed out of splint/cast Skin: normal, nail bed with good granulation tissue Swelling: none Tenderness: none,. Deformity: No, ROM: normal Strength: normal Gait: normal Neurological Exam: normal Vascular Exam: normal RADIOGRAPHS: None ASSESSMENT: right middle finger nail injury PLAN: Soak in dial soap solution bid, follow up in 6 weeks. They will call in the interim with questions or concerns. D INSPECTOR documented in this encounter Plan of Treatment Not on file documented as of this encounter Visit Diagnoses Not on filedocumented in this encounter Care Teams Egg Pasteurizer Relationship Specialty Start Date End Date Moises Diaz MD PCP - General 04/28/09 08/15/21 documented as of this encounter
--- OUTSIDE RECORDS SUMMARY | 2024-04-03 02:19 | XMS_ITS | Encounter Summary ---
Author Organization [facility] Address [address] [place] [address] Care Team Providers Care Patternmaker Grader Name Role Phone Moises Diaz MD Primary Care Provider Unavail able Reason for Visit * Auth/Cert - Closed Specialty Diagnoses / Procedures Referred By Contac t Referred To Contact Diagnoses RIGHT ANKLE FRACTURE, SYNDEMOSIS INJURY Procedures OPEN REDUCTION INTERNAL FIXATION FRACTURE ANKLE BIMALLEOLAR Referral ID Status Reason Start Date Expiration Date Visits Re quested Visits Authorized [id number] Closed 1 1 Encounter Details Date Type Department Care Team (Latest Contact Info) Description 05/16/2012 11:58 AM NEUROLOGY STROKE PHYSICIAN - 05/16/2012 5:24 PM NEUROLOGY STROKE PHYSICIAN Hospital Encounter [facility] - Intraop [address] [place] [address] Moose Hutchison MD [facility] [place] [address] Surgery General Discharge Disposition: Home or Self [...] Sign Reading Time Taken Comments Blood Pressure 130/74 05/16/2012 5:00 PM NEUROLOGY STROKE PHYSICIAN Pulse 76 05/16/2012 5:22 PM NEUROLOGY STROKE PHYSICIAN Temperature 36.9 ??C (98.4 ??F) 05/16/2012 5:00 PM CS T Respiratory Rate 16 05/16/2012 5:22 PM NEUROLOGY STROKE PHYSICIAN Oxygen Saturation 97% 05/16/2012 5:00 PM NEUROLOGY STROKE PHYSICIAN Inhaled Oxygen Concentration - - Weight 98.5 kg (217 lb 2.5 oz) 05/16/19 13 12:08 PM NEUROLOGY STROKE PHYSICIAN Height 178.5 cm (5' 10.28 ) 05/16/2012 12:08 PM NEUROLOGY STROKE PHYSICIAN Body Mass Index 30.91 05/16/2012 12:08 PM NEUROLOGY STROKE PHYSICIAN Body Mass Index Percentile 97.13% 05/16 12:08 PM NEUROLOGY STROKE PHYSICIAN Growth Chart: [facility] (Boys, 2-2 0 Years) documented in this encounter Discharge Summaries * Gian Bacon MD - 05/16/2012 4:21 PM CST Physician Discharge Summary Patient Name: Tr Benedict Date of : 1995 Admit date: 05/16/2012 Discharge date: 05/16/2012 Admitting Physician: Moose Hutchison MD Attending Physician: Moose Hutchison MD Discharge Physician: Gian Bacon MD Admission Diagnosis: Right lateral malleolus fracture Past Medical History Past Medical History Diagnosis Date ??? Blocked tear duct ??? Ankle fracture, right broke while wrestling ??? Complication of anesthesia difficulty breathing, vomited blood Procedures ORIF Right lateral malleolus Consults None Condition at discharge: stable Physical exam at discharge: General: Patient awake and alert. Cooperative with examination. No acute distress Right lower extremity: Cast in place and intact without evidence of skin irritation. Toes pink and warm with brisk capillary refill in all digits. Wiggles all toes in plantar and dorsal flexion. Sensation intact to gross touch in plantar and dorsal toes. Disposition: Home Code Status At Discharge Full Code Patient Instructions Discharge Medication List As of 05/16/2012 4:21 PM START taking these medications Instructions Authorizing Provider docusate sodium 50 MG capsule Commonly known as: COLACE Take 1 Cap by mouth 2 times daily. Gian Bacon hydrocodone-acetaminophen 5-325 MG tablet Commonly known as: NORCO Take 2 Tabs by mouth every 4 hours as needed for Pain. Gian Bacon ibuprofen 200 MG tablet Commonly known as: MOTRIN Take 3 Tabs by mouth every 6 hours as needed for Pain. Gian Bacon Discharge Procedure Orders GENERAL ANESTHESIA /IV SEDATION INSTRUCTIONS For the remainder of the day, patient should relax. A feeling of dizziness, light-headedness or drowsiness is not unusual. Move cautiously, fast movements can make this feeling worse. If patient has been lying down, he/she should sit up slowly and pause briefly before standing. We strongly suggest that a responsible adult monitor the patient more closely than usual until tomorrow morning for his/her comfort and safety. CALL PHYSICIAN If unrelieved pain; excessive bleeding at surgical site; excessive redness/unusual drainage at surgical site or IV site; fever over 100 degrees under the arm or 101 degrees orally; numbness/tingling/changes in color in affected extremity; or if patient has not urinated by tonight. PATIENT TO CALL PHYSICIAN/CLINIC FOR APPOINTMENT Follow up with Dr. Baig in 2 weeks. Call [phone] to schedule your appointment NO RESTRICTIONS. ACTIVITY TOLERATED Rest today. Increase activity tomorrow as tolerated. RETURN TO SCHOOL When pain controlled off narcotic pain medication RETURN TO SPORTS/PHYSICAL EDUCATION CLASSES Do not return to physical education classes and/or sports. CAST CARE Keep cast clean and dry. Do not scratch or put anything inside the cast. May use Benadryl by mouth (available over the counter) if needed for itching per instructions on box. NO WEIGHT BEARING AT HOME ASSISTIVE DEVICES AT HOME TO INCLUDE... Order Specific Question Answer Comments Please use a Crutches ELEVATE AFFECTED EXTREMITY ... For extended intervals for the next 48 hours. PRESCRIPTIONS GIVEN TO PATIENT/FAMILY Discharge time: less than 30 minutes. CC: Moises Diaz OLOGY STROKE PHYSICIAN documented in this encounter Discharge Instructions * Discharge Instructions* Gretchen Lorenz RN - 05/16/2012 4:34 PM NEUROLOGY STROKE PHYSICIAN Discharge Instructions for: Tr Benedict Discharge Procedure Orders GENERAL ANESTHESIA /IV SEDATION INSTRUCTIONS For the remainder of the day, patient should relax. A feeling of dizziness, light-headedness or drowsiness is not unusual. Move cautiously, fast movements can make this feeling worse. If patient has been lying down, he/she should sit up slowly and pause briefly before standing. We strongly suggest that a responsible adult monitor the patient more closely than usual until tomorrow morning for his/her comfort and safety. CALL PHYSICIAN If unrelieved pain; excessive bleeding at surgical site; excessive redness/unusual drainage at surgical site or IV site; fever over 100 degrees under the arm or 101 degrees orally; numbness/tingling/changes in color in affected extremity; or if patient has not urinated by tonight. PATIENT TO CALL PHYSICIAN/CLINIC FOR APPOINTMENT Follow up with Dr. Baig in 2 weeks. Call [phone] to schedule your appointment NO RESTRICTIONS. ACTIVITY TOLERATED Rest today. Increase activity tomorrow as tolerated. RETURN TO SCHOOL When pain controlled off narcotic pain medication RETURN TO SPORTS/PHYSICAL EDUCATION CLASSES Do not return to physical education classes and/or sports. CAST CARE Keep cast clean and dry. Do not scratch or put anything inside the cast. May use Benadryl by mouth (available over the counter) if needed for itching per instructions on box. NO WEIGHT BEARING AT HOME ASSISTIVE DEVICES AT HOME TO INCLUDE... Order Specific Question Answer Comments Please use a Crutches ELEVATE AFFECTED EXTREMITY ... For extended intervals for the next 48 hours. PRESCRIPTIONS GIVEN TO PATIENT/FAMILY The following belonging have been returned to you Clothing Clothing: None Jewelry Jewelry: None Electronics Electronic Items: None Dentures Dentures/Retainers: None Vision Visual Aids: None Hearing Aids Hearing Aids: None Equipment/Assistive Devices Equipment with Patient: None Home Medications Home Medications: None Miscellaneous Belongings Miscellaneous Items: None Monetary Monetary Items: None If your child has any worsening of their condition, please phone [phone] and ask for the doctor continuous improvement facilitator for orthopedics or return to the Emergency Department. 05/16/2012 OLOGY STROKE PHYSICIAN * Discharge Instructions* Document, Scanned - 05/18/2012 7:48 AM NEUROLOGY STROKE PHYSICIAN OLOGY STROKE PHYSICIAN documented in this encounter Medications at Time [...] 05/16/2012 06/15/2012 documented as of this encounter H&P Notes * Gian Bacon MD - 05/16/2012 1:08 PM CST Orthopaedic Surgery Preoperative History and Physical Patient: Tr Benedict : 1995 PCP: Moises Diaz Date: 05/16/2012 Subjective: Tr Benedict is a 16 y.o. 9 m.o. male who presents for open reduction, internal fixation of his right ankle fracture. He is accompanied by his mother. He sustained the injury while wrestling last Monday. IMMUNIZATIONS: Immunization status: up to date and documented. PMHx: Past Medical History Diagnosis Date ??? Blocked tear duct ??? Ankle fracture, right broke while wrestling ??? Complication of anesthesia difficulty breathing, vomited blood PSHx: Past Surgical History Procedure Date ??? Tympanostomy ??? Pr tear duct system surg unlisted No current facility-administered medications for this encounter. Allergies as of 05/15/2012 ??? (No Known Allergies) Family History Problem Relation Age of Onset ??? Anesthesia Reaction Neg Hx History Substance Use Topics ??? Smoking status: Not on file ??? Smokeless tobacco: Never Used ??? Alcohol Use: Tr lives with his parents. Tr does attend school, high school. Review of Systems: History obtained from the patient. A 12 point ROS was obtained and was negative except for that listed above. Physical Exam: BP 148/80 Pulse 102 Temp 97.9 ??F Resp 16 Wt 98.5 kg (217 lb 2.5 oz) BMI 30.91 kg/m2 General appearance: alert, cooperative, no distress; Lungs:Clear to auscultation Heart: regular rate and rhythmn Abdomen: soft, not tender, normal bowel sounds Spine: not examined Extremities: Right Lower Extremity exam shows intact splint. Wiggles toes. Sensation is intact on dorsal, plantar foot. Brisk capillary refill in all toes. Neuro: normal throughout axial and appendicular musculature Radiology: Right ankle - bimalleolar equivalent ankle fracture with lateral malleolus fracture and syndesmosisinjury. Labs: No results found for this or any previous visit (from the past 12 hour(s)). Assessment: Right ankle fracture Plan: 1. Treatment options discussed including Surgical options discussed including open reduction, internal fixation right ankle. 2. Risks/benefits/alternatives were discussed with the mother. 3. Questions solicited and answered. 4. They voiced understanding to preoperative counseling. 5. mother was agreeable to proceed with this procedure. 6. Consent was obtained 7. The site was marked. 8. Plan to proceed with the above procedure. OLOGY STROKE PHYSICIAN documented in this encounter OR Notes * Operative - Moose Hutchison MD - 05/16/2012 5:24 PM CST [address] [address] [phone] OPERATIVE REPORT NAME: TR BENEDICT : 1995 UNIT #: [id number] CSN #: [id number] DATE OF OPERATION: 05/16/2012 ATTENDING SURGEON: MOOSE HUTCHISON MD PREOPERATIVE DIAGNOSIS: Right lateral malleolus fracture. POSTOPERATIVE DIAGNOSIS: Right lateral malleolus fracture. PROCEDURE: Open reduction and internal fixation of right lateral malleolus fracture using a Juan, distal fibular, 4-hole plate and a 28 mm fully threaded cortical lag screw. ATTENDING SURGEON: Moose Hutchison MD MIDDLE SCHOOL ASSISTANT PRINCIPAL: Gian Bacon MD ANESTHESIA: General. IV FLUIDS: 700 mL isolate. ESTIMATED BLOOD LOSS: Less than 5 mL. TOURNIQUET TIME: 46 minutes. COMPLICATIONS: None. SPECIMENS: None. CONDITION: Stable. INDICATIONS: Tr Benedict is a 16-year-old male who was participating in a wrestling match approximately 1 week ago when he suffered a right ankle injury. He felt a pop and had immediate pain, swelling, and inability to bear weight. He was taken to the emergency room where he was found to have a closed, right-lateral, distal fibular fracture with some widening of the ankle mortise. He was initially placed into a splint as his swelling was too great for immediate fracture management, and he was allowed to go home, rest, and comes in today for definitive management of his ankle fracture. Skin wrinkles are present. Patient's mother was informed of all the risks and benefits of surgery and informed consent was obtained. PROCEDURE: Tr was identified in the preoperative waiting area. His right ankle was marked as the operative extremity. The patient was then brought back to the operating room suite per Anesthesia and positioned on the operating room table in a supine position with all bony prominences well padded. Time-out was taken, and again his right ankle was confirmed as the operative extremity. The patient was then anesthetized and given preoperative IV antibiotics. A bump was placed under the patient's right hip and a well-padded upper thigh tourniquet was placed in the right lower extremity. The patient was then prepped and draped in normal sterile fashion. Esmarch was used to exsanguinate the leg and tourniquet was raised to 250 mmHg. A distal lateral approach to the fibula was performed through an approximately 5 cm incision. Combination sharp and dull dissection was used to dissect down to the posterolateral aspect of the distal right fibula. Tnig's were then used, after the periosteum was raised, to retract the skin in the area of the fracture. Fracture was easily located and was oblique in nature at the junction of the metaphyseal/diaphyseal junction. Irrigation is used to irrigate out the fracture site, and a combination of curette and rongeur was used to remove a small amount of interposed periosteum and clot. Once the fracture site was freshened, it was reduced using a lobster claw-type bone tenaculum. This reduction was checked on fluoroscopy in the AP and lateral plane, and then a lag screw was placed perpendicular to the fracture site. Once the lag screw was placed, tenaculum was removed and again the reduction and screw were checked on x-ray noting maintenance of anatomic reduction of the fracture fragment. Lateral plate was then chosen. A 4-hole plate was found to be appropriate and placed on the posterolateral aspect of the fibula. Proximal screw was placed first to the plate followed by the distal 3 screws in the fracture fragment. Fluoroscopy was used to check each of the screws and noted good capture and positioning of the plate. Once 3 proximal screws were placed and 3 distal screws were placed, the ankle was stressed, and the mortise was noted to be returned to its normal symmetric positioning both medially and laterally with no signs of instability. At this time, a 4th proximal screw was placed with no need for syndesmotic screw. Again, fixation was checked on AP and lateral fluoroscopic views and noted to be holding an anatomic reduction of the fracture with excellent reduction of the ankle mortise, which was stable to stress. Wound was then irrigated with copious amounts of sterile saline and closed in layered fashion using 2-0 and 3-0 undyed Vicryl followed by a subcuticular stitch with 4-0 undyed Monocryl. Half-inch Steri-Strips were used to reinforce the skin closure. The wound was anesthetized using 0.25% Marcaine with epinephrine, and a sterile gauze was placed over the wound followed by sterile Webril. The patient was then placed into a well-padded, nonweightbearing, short-leg cast with the ankle in neutral position. Tourniquet was let down at 46 minutes prior to wound closure, and hemostasis was achieved with electrocautery. The patient was awakened after the cast was placed and brought back to the postoperative unit in stable condition. I was present for all portions of this procedure. Dictated By: MOOSE HUTCHISON MD /[employer] JOB ID: [id number] OPERATIVE REPORT OLOGY STROKE PHYSICIAN documented in this encounter Miscellaneous Notes * Miscellaneous Scans - Document, Scanned - 05/18/2012 7:48 AM CST OLOGY STROKE PHYSICIAN * Miscellaneous Scans - Document, Scanned - 05/18/2012 7:48 AM CST OLOGY STROKE PHYSICIAN documented in this encounter Plan of Treatment Pending Results Name Type Priority Associated Diagnoses Date /Time [place] SURGERY 60 MIN PLUS Imaging Routine Ankle fracture 05/16/2012 3:39 PM NEUROLOGY STROKE PHYSICIAN Scheduled Orders Name Type Priority Associated Diagnoses Orde r Schedule [place] SURGERY 60 MIN PLUS Imaging Routine Ankle fracture For radiant use only for 1 Occurrences starting 05/16/2012 documented as of this encounter Procedures Procedure Name Priority Date/Time Associated Diagnosis Comments OPEN REDUCTION INTERNAL FIXATION FRACTURE ANKLE BIMALLEOLAR 05/16/2012 10:05 PM NEUROLOGY STROKE PHYSICIAN RIGHT ANKLE FRACTURE, SYNDEMOSIS INJURY Special Needs REC'D REQUEST 04/2913:00PM STARTSEE OR PLANNING SHEET; C-ARM XR ANKLE RIGHT 3VW OR MORE Routine 05/16/2012 3:39 PM NEUROLOGY STROKE PHYSICIAN Ankle fracture documented in this encounter Results * XR ANKLE 3+ VW RIGHT (05/16/2012 3:39 PM NEUROLOGY STROKE PHYSICIAN) Anatomical Region Laterality Modality Lower Extremity Radio Fluoroscop y 05/16/2012 3:46 PM NEUROLOGY STROKE PHYSICIAN Impressions 05/16/2012 3:46 PM NEUROLOGY STROKE PHYSICIAN Status post internal fixation distal fibular fracture. Narrative 05/16/2012 3:46 PM NEUROLOGY STROKE PHYSICIAN Intraoperative spot radiographs of the right ankle performed May 16, 2012. History: Distal fibular fracture. A total of 5 intraoperative spot radiographs of the right ankle were obtained. Since the preoperative films of May 12, 2012 a metallic side plate and multiple threaded screws have been placed through and along the lateral aspect of the distal fibula. Bony alignment ??appears anatomic. The small posterior avulsion fracture seen on the preoperative lateral film was not clearly identified on the spot films provided. Procedure Note Kasandra Carmichael MD - 05/16/2012 Intraoperative spot radiographs of the right ankle performed May 16, 2012. History: Distal fibular fracture. A total of 5 intraoperative spot radiographs of the right ankle were obtained. Since the preoperative films of May 12, 2012 a metallic side plate and multiple threaded screws have been placed through and along the lateral aspect of the distal fibula. Bony alignment appears anatomic. The small posterior avulsion fracture seen on the preoperative lateral film was not clearly identified on the spot films provided. IMPRESSION Status post internal fixation distal fibular fracture. Moose Hutchison MD DIAGNOSTIC IMAGING O RDERABLES documented in this encounter Visit Diagnoses Diagnosis Ankle fracture Unspecified closed fracture of ankle Encounter for removal of internal fixation device documented in this encounter Administered Medications Inactive Administered Medications - up to 3 most recent administrations Medication Order MAR Action Action Date Dose Rate Site isolyte-S pH 7.4 infusion 130 mL/hr, Intravenous, POST-OP CONTINUOUS, Starting on Mon05/16/12 at 1630, Until Mon05/16/12 at 1824, PACU Current Rate 05/16/2012 4:15 PM NEUROLOGY STROKE PHYSICIAN 130 mL/hr 130 mL/hr documented in this encounter Active and Recently Administered Medications Times are shown in NEUROLOGY STROKE PHYSICIAN. Continuous Medication Order 05/14/2012 05/15/2012 05/16/2012 isolyte-S pH 7.4 infusion (CANCELED) 130 mL/hr, Intravenous, POST-OP CONTINUOUS, Starting on Mon05/16/12 at 1630, Until Mon05/16/12 at 1824, PACU 1615 (Current Rate - Provider: Gretchen Lorenz RN) PRN Medication Order 05/14/2012 05/15/2012 05/16/2012 bupivacaine 0.25% - epinephrine 1:200,000 injection (CANCELED) PRN, Starting on Mon05/16/12 at 1546, Until Mon05/16/12 at 1618, Intra-op 1546 ($ Given - Prov ider: Gian Bacon MD) lidocaine 0.5% - epinephrine 1:200,000 injection (CANCELED) PRN, Starting on Mon05/16/12 at 1546, Until Mon05/16/12 at 1618, Intra-op 1546 ($ Given - Prov ider: Gian Bacon MD) documented in this encounter Care Teams Patternmaker Grader Relationship Specialty Start Date End Date Moises Diaz MD PCP - General 04/28/09 08/15/21 documented as of this encounter
--- OUTSIDE RECORDS SUMMARY | 2024-04-03 02:19 | XMS_ITS | Encounter Summary ---
Author Organization [facility] Address [address] [place] [address] Care Team Providers Care Carpet Tile Layer Name Role Phone Moises Diaz MD Primary Care Provider Unavail able Reason for Visit * Auth/Cert - Closed Specialty Diagnoses / Procedures Referred By Contac t Referred To Contact Diagnoses RIGHT ANKLE FRACTURE, SYNDEMOSIS INJURY Procedures OPEN REDUCTION INTERNAL FIXATION FRACTURE ANKLE BIMALLEOLAR Referral ID Status Reason Start Date Expiration Date Visits Re quested Visits Authorized [id number] Closed 1 1 Encounter Details Date Type Department Care Team (Late st Contact Info) Description 05/16/2012 2:05 PM TRAINER - 05/16/2012 4:35 PM TRAINER Surgery [facility] - Periop [address] [place] [address] Moose Hutchison MD [facility] [place] [address] OPEN REDUCTION INTERNAL FIXATION FRACTURE ANKLE BIMALLEOLAR Surgery Details Date/Time Status Location OR Service Patient Class Case Class Case Type Trauma Case? 05/16/2012 2:05 PM Posted MAIN OR 09 Orthopedics Surgery Day Care Elective > 5 days Panel 1 Procedure LRB Anes Op Region Wound Class Comments OPEN REDUCTION INTERNAL FIXATION FRACTURE ANKLE BIMALLEOLAR Right General Ankle RIGHT ANKLE ORIF & SHORT LEG CAST Surgeon Surgeon Role Service Panel Moose Hutchison MD Primary Orthopedics 1 Gian Bacon MD Resident - Assisting Orthoped ics 1 Special Needs REC'D REQUEST 04/2913:00PM STARTSEE OR PLANNING SHEET; C-ARM documented in this encounter Social History Tobacco [...] Comments Blood Pressure 130/74 05/16/2012 5:00 PM TRAINER Pulse 76 05/16/2012 5:22 PM TRAINER Temperature 36.9 ??C (98.4 ??F) 05/16/2012 5:00 PM CS T Respiratory Rate 16 05/16/2012 5:22 PM TRAINER Oxygen Saturation 97% 05/16/2012 5:00 PM TRAINER Inhaled Oxygen Concentration - - Weight 98.5 kg (217 lb 2.5 oz) 05/16/19 13 12:08 PM TRAINER Height 178.5 cm (5' 10.28 ) 05/16/2012 12:08 PM TRAINER Body Mass Index 30.91 05/16/2012 12:08 PM TRAINER Body Mass Index Percentile 97.13% 05/16 12:08 PM TRAINER Growth Chart: [facility] (Boys, 2-2 0 Years) documented in this [...] with Dr. Baig in 2 weeks. Call [phone] to schedule your appointment NO RESTRICTIONS. ACTIVITY [...] less than 30 minutes. CC: Moises Diaz NER documented in this encounter Discharge Instructions * Discharge Instructions* Gretchen Lorenz RN - 05/16/2012 4:34 PM TRAINER Discharge Instructions for: Tr Benedict Discharge Procedure [...] with Dr. Baig in 2 weeks. Call [phone] to schedule your appointment NO RESTRICTIONS. ACTIVITY [...] any worsening of their condition, please phone [phone] and ask for the doctor electronics parts sales representative for orthopedics or return to the Emergency Department. 05/16/2012 NER * Discharge Instructions* Document, Scanned - 05/18/2012 7:48 AM TRAINER NER documented in this encounter Medications at Time [...] Plan to proceed with the above procedure. NER documented in this encounter OR Notes * Operative - Moose Hutchison MD - 05/16/2012 5:24 PM CST [address] [address] [phone] OPERATIVE REPORT NAME: TR BENEDICT : 1995 UNIT #: [id number] CSN #: [id number] DATE OF OPERATION: 05/16/2012 ATTENDING SURGEON: MOOSE HUTCHISON MD PREOPERATIVE DIAGNOSIS: Right lateral malleolus fracture. POSTOPERATIVE DIAGNOSIS: Right lateral malleolus fracture. PROCEDURE: Open reduction and internal fixation of right lateral malleolus fracture using a Juan, distal fibular, 4-hole plate and a 28 mm fully threaded cortical lag screw. ATTENDING SURGEON: Moose Hutchison MD RESOURCE CONSERVATIONIST: Gian Bacon MD ANESTHESIA: General. IV FLUIDS: [...] posterolateral aspect of the distal right fibula. Ting's were then used, after the periosteum was [...] this procedure. Dictated By: MOOSE HUTCHISON MD /Amy JOB ID: [id number] OPERATIVE REPORT NER documented in this encounter Miscellaneous Notes * Miscellaneous Scans - Document, Scanned - 05/18/2012 7:48 AM CST NER * Miscellaneous Scans - Document, Scanned - 05/18/2012 7:48 AM CST NER documented in this encounter Plan of Treatment Pending Results Name Type Priority Associated Diagnoses Date /Time [place] SURGERY 60 MIN PLUS Imaging Routine Ankle fracture 05/16/2012 3:39 PM TRAINER Scheduled Orders Name Type Priority Associated Diagnoses Orde r Schedule [place] SURGERY 60 MIN PLUS Imaging Routine Ankle fracture For radiant use only for 1 Occurrences starting 05/16/2012 documented as of this encounter Procedures Procedure Name Priority Date/Time Associated Diagnosis Comments OPEN REDUCTION INTERNAL FIXATION FRACTURE ANKLE BIMALLEOLAR 05/16/2012 10:05 PM TRAINER RIGHT ANKLE FRACTURE, SYNDEMOSIS INJURY Special Needs REC'D REQUEST 04/2913:00PM STARTSEE OR PLANNING SHEET; C-ARM XR ANKLE RIGHT 3VW OR MORE Routine 05/16/2012 3:39 PM TRAINER Ankle fracture documented in this encounter Results * XR ANKLE 3+ VW RIGHT (05/16/2012 3:39 PM TRAINER) Anatomical Region Laterality Modality Lower Extremity Radio Fluoroscop y 05/16/2012 3:46 PM TRAINER Impressions 05/16/2012 3:46 PM TRAINER Status post internal fixation distal fibular fracture. Narrative 05/16/2012 3:46 PM TRAINER Intraoperative spot radiographs of the right ankle [...] RDERABLES documented in this encounter Visit Diagnoses Not on filedocumented in this encounter Administered Medications Inactive Administered Medications - up to 3 most recent administrations Medication Order MAR Action Action Date Dose Rate Site bupivacaine 0.25% - epinephrine 1:200,000 injection PRN, Starting on Mon05/16/12 at 1546, Until Mon05/16/12 at 1618, Intra-op $ Given 05/16/2012 3:46 PM TRAINER 8 mL Operative Site isolyte-S pH 7.4 infusion 130 mL/hr, Intravenous, POST-OP CONTINUOUS, Starting on Mon05/16/12 at 1630, Until Mon05/16/12 at 1824, PACU Current Rate 05/16/2012 4:15 PM TRAINER 130 mL/hr 130 mL/hr lidocaine 0.5% - epinephrine 1:200,000 injection PRN, Starting on Mon05/16/12 at 1546, Until Mon05/16/12 at 1618, Intra-op $ Given 05/16/2012 3:46 PM TRAINER 8 mL Operative Site documented in this encounter Active and Recently Administered Medications Times are shown in TRAINER. Continuous Medication Order 05/14/2012 05/15/2012 05/16/2012 isolyte-S [...] MD) documented in this encounter Care Teams Carpet Tile Layer Relationship Specialty Start Date End Date Moises Diaz MD PCP - General 04/28/09 08/15/21 documented as of this encounter
--- OUTSIDE RECORDS SUMMARY | 2024-04-03 02:19 | XMS_ITS | Encounter Summary ---
Author Organization [facility] Address [address] [facility] [address] Care Team Providers Care Inventory Coordinator Name Role Phone Moises Diaz MD Primary Care Provider Unavail able Reason for Visit * Reason Comments Injury Ankle Right ankle fx follo w up Encounter Details Date Type Department Care Team (Latest Contact Info) Description 07/20/2012 8:46 AM CDT - 07/20/2012 11:59 PM CDT Hospital Encounter [facility] Pediatrics - Orthopedics [address] [place] [address] Sophia Hutchison MD [address] [place] [address] Discharge Disposition: Home or Self Care Social History Tobacco Use Types Packs/Day Years Used Date Smoking Tobacco: Never Assessed Smokeless Tobacco: Never Sex and Gender Information Value Date Recorded Sex Assigned at Not on file Gender Identity Not on file Sexual Orientation Not on file documented as of this encounter Discharge Instructions * Patient Instructions* Sagar Gauthier PA - 07/20/2012 9:12 AM CDT ORTHOPAEDIC CLINIC DISCHARGE INSTRUCTIONS SHEET Follow Up: Please make a return appointment for 6 week(s) Physical therapy as directed with home exercise program Limit strenuous activity--no running, jumping, playground equipment, physical education activities,sports activities until 08/15/12 School excuse: 07/20/2012 If you have any questions or concerns in the interim, or if you need to schedule surgery for your child, you may contact our orthopedic office at . If you need to make a clinic appointment, please call . documented in this encounter Progress Notes * Sagar Gauthier PA - 07/20/2012 9:10 AM CDT PEDIATRIC ORTHOPAEDIC CLINIC NOTE NAME: Antony Benedict DATE OF SERVICE: 07/20/2012 DATE: 1995 PCP: Moises Diaz Chief Complaint Patient presents with ??? Injury Ankle Right ankle fx follow up HISTORY: Antony Benedict is a 16 y.o. 11 m.o. male who presents 9 week(s) status post a right lateralmalleolus fracture. Antony Benedict was treated with ORIF and presents for follow up evaluation. The patient rates his pain as a 0 out of 10. The patient denies new onset of numbness in his lower extremities. MEDICATIONS: No current outpatient prescriptions on file. ALLERGIES: Allergies as of 07/20/2012 ??? (No Known Allergies) IMMUNIZATIONS: Immunization status: stated as current, but no records available. PHYSICAL EXAMINATION: General appearance: alert, cooperative, no distress. He has good head control. No rashes or abnormal dyspigmentation Extremities: The uninjured left lower extremity was examined and demonstrated normal skin, normal range of motion and alignment of all joint, normal motor, sensory and vascular examination, and was without pain. It was used for comparison when examining the injured right lower extremity. General appearance: no acute distress The examination was performed out of splint/cast Skin: healed incision Swelling: none Tenderness: none Deformity: No ROM: slightly decreased plantarflexion and dorsiflexion Strength: limited by stiffness Gait: Mild limp Neurological Exam: normal Vascular Exam: normal and pulse present RADIOGRAPHS: None today ASSESSMENT: right lateral malleolus fracture s/p ORIF PLAN: We recommend the patient discontinue his boot today. Fracture precautions were reviewed today. Rx given for Physical therapy. The patient will stay out of PE/sports until further notice. The patient will follow up in 6 week(s) for ROM check. No x-rays will be needed at that time unless clinically indicated. They will call in the interim with questions or concerns. documented in this encounter Plan of Treatment Not on file documented as of this encounter Visit Diagnoses Diagnosis Ankle fracture Unspecified closed fracture of ankle documented in this encounter Care Teams Inventory Coordinator Relationship Specialty Start Date End Date Moises Diaz MD PCP - General 04/28/09 08/15/21 documented as of this encounter
--- OUTSIDE RECORDS SUMMARY | 2024-04-03 02:19 | XMS_ITS | Encounter Summary ---
Author Organization [facility] Address [address] [place] [address] Care Team Providers Care Refining Supervisor Name Role Phone Moises Diaz MD Primary Care Provider Unavail able Reason for Visit * Reason Comments Follow-up some days sleep good and some days don't Encounter Details Date Type Department Care Team (Latest Contact Info) Description 09/12/2014 3:15 PM CDT - 09/12/2014 4:07 PM CDT Hospital Encounter [facility] Pediatrics - Sleep [address] [place] [address] Nadine Arredondo, COMMERCIAL SINGER-DOOR TECHNICIAN [address] [place] [address] Discharge Disposition: Home or Self Care Social [...] Pressure 140/90 09/12/2014 3:31 PM CDT Pulse - - Temperature - - Respiratory Rate - - Oxygen Saturation - - Inhaled Oxygen Concentration - - Weight 117.8 kg (259 lb 12. 8 oz) 09/12/2014 3:31 PM CDT Height 180 cm (5' 10.87 ) 09/12/2014 3:31 PM CDT Body Mass Index 36.37 09/12/2014 3:31 PM CDT Body Mass Index Percentile 98.61% 09/12/2014 3:3 1 PM CDT Growth Chart: [facility] (Boys, 2-2 0 Years) documented in [...] 06/09/2014 documented as of this encounter Discharge Instructions * Patient Instructions* Nadine Arredondo APRN-CNP - 09/12/2014 3:57 PM CDT 1. Labs today 2. See Cherelle lacey for Cognitive Behavioral Therapy. Please call [phone] to schedule an appointment 3. Possible sleep study Please call our nurse's line with any questions. ([phone]) documented in this encounter Medications at Time [...] 0 06/12/2014 documented as of this encounter Progress Notes * Nadine Arredondo APRN-CNP - 09/12/2014 3:40 PM CDT Chief Complaint Patient presents with ??? Follow-up some days sleep good and some days don't HPI: Antony Benedict is a 19 y.o. male who presents to the Pediatric Sleep Disorders Clinic at [facility] on 09/12/2014 for follow up of Obstructive Sleep Apnea and Restless Leg Syndrome. Antony was accompanied by his mother who assisted in providing the history. Adenotonsillectomy done on 05/2014. Bed partner denies any snoring. There are no pauses in breathing, gasping, choking, or pauses in breathing. He continues to complain of feeling tired at rise time. He reports that he cannot stop thinking on some nights. Antony denies any leg pains, urges to move, or other strange sensations. Recall ferritin of > 200 at last visit. Bed partner describes him as very restless. Sleep Schedule: Weekday Bedtime: 10:00PM Amount of Time to Fall Asleep: 20 minutes-2 hours Awakenings at Night: none Weekday Wake Time: 9:00AM Weekend Bedtime: 10:00PM Weekend Wake Time: 5:30AM Naps: rare Bedtime Routine: dinner, TV, bath/shower, brush teeth and lights out Sleep Location: in their own room and in their own bed I reviewed his past medical, past surgical, social, and family history with no new updates since I last saw him. Current outpatient prescriptions: acetaminophen (TYLENOL) 160 MG/5ML SOLN solution, Take 15.65 mL by mouth every 4 hours as needed for Fever or Pain., Disp: 473 mL, Rfl: 0; ibuprofen (ADVIL; MOTRIN) 100 MG/5ML SUSP suspension, Take 15 mL by mouth every 6 hours as needed for Pain or Fever. May startusing ibuprofen (ADVIL/MOTRIN) 3 days after surgery., Disp: 473 mL, Rfl: 0 No Known Allergies Exam: Vitals: 09/12/14 1531 BP: 140/90 Weight: 117.845 kg (259 lb 12.8 oz) @Height@ Body mass index is 36.37 kg/(m^2). General: alert, oriented, well appearing child Respiratory: Clear to auscultation bilaterally, normal effort CV: RRR, no murmurs, no gallops, no rubs Head and Face: no lesions, symmetrical, no facial erythema skin breakdown Eyes: extraocular muscles intact Ears: inspection: normal pinnae shape and position Nasal: normal nasal turbinates, no rhinorrehea and non-deviated septum Oral Cavity: normal bite, high arched hard palate, normal lying soft palate, normal size tongue andno scalloping of tongue, normal uvula Throat: tonsil absent Mallampati score 3 Chin/Neck: supple without tenderness or crepitus, no palpable adenopathy. Skin: no dry skin on legs Neuro: normal sensation, 5/5 strength in upper and lower extremities. Recent Labs Component Name 05/15/14 1542 FERRITIN 215 Impression/Plan: 1. Obstructive Sleep Apnea: No reported snoring or other sleep disordered breathing s/p adenotonsillectomy. Antony does not wish undergo repeat sleep study at this point. He is aware that this may be necessary in the future. 2. Psychophysiological Insomnia: I discussed the diagnosis, etiology, and treatment of Psychophysiological insomnia at length with Antony and his mother. Antony has learned associations marked by an overconcern about the ability to fall asleep as evidenced by not being able to turn brain off . A referral was given for Antony to see psychology for Cognitive Behavioral Therapy. 3. Restless Legs Syndrome: I reviewed the diagnosis, etiology and treatment of RLS at length with mother and Antony. Antony remains very restless. Restless legs syndrome is caused by a defect in the dopamine pathway, either with decreased production, incorrect production, or failed transport across theblood-brain barrier. Iron is a necessary cofactor for dopamine production. Ferritin, Iron,TIBC and CRP checked today. Will start ferrous sulfate for ferritin <70. We discussed starting Gabapentin for high ferritin. The below plan was given to the parent. Patient Instructions 1. Labs today 2. See Cherelle lacey for Cognitive Behavioral Therapy. Please call [phone] to schedule an appointment 3. Possible sleep study Please call our nurse's line with any questions. ([phone]) Thank you for allowing me to participate in the care of your patient. Please call us with any questions at [phone]. STEVEN Figueroa documented in this encounter Plan of Treatment Not on file documented as of this encounter Results * (ABNORMAL) VITAMIN D (25-HYDROXY) (09/12/2014 4:08 PM CDT) Vitamin D, 25 Hydroxy 18.03(L) 30 - 100 ng/mL 09/12/2014 6:58 PM CDT [facility] Blood BLOOD SPECIMEN / Unknown Lab Venipuncture / Unknown 09/12/2014 4:08 PM CDT 09/12/2014 4:16 PM CDT Narrative [facility] - 09/12/2014 6:58 PM CDT Vitamin D Status: ?Deficiency ? <20 ? ng/mL ?Insufficiency ?? 20-30 ??ng/mL ?Sufficiency ? 30-100 ng/mL ?Toxicity ? >100 ?ng/mL Nadine Arredondo COMMERCIAL SINGER-DOOR TECHNICIAN LAB - CHEMISTR Y ORDERABLES Performing Organization Address [facility] de Phone Number [facility] [address] [place] [address] * C-REACTIVE PROTEIN (09/12/2014 4:08 PM CDT) Pathologist [facility] C-Reactive Protein <0.20 <=0.50 mg/dL 09/12/2014 4:38 PM CDT [facility] Blood BLOOD SPECIMEN / Unknown Lab Venipuncture / Unknown 09/12/2014 4:08 PM CDT 09/12/2014 4:15 PM CDT Nadine Alfred Arredondo COMMERCIAL SINGER-DOOR TECHNICIAN LAB - CHEMISTR Y ORDERABLES Performing Organization Address [facility] Co de Phone Number [facility] [address] [place] [phone] * (ABNORMAL) IRON + TIBC PANEL (09/12/2014 4:08 PM CDT) Iron 178(H) 50 - 170 ug/dL 09/15/2014 1:24 AM CDT [facility] [employer] ([facility]) Comment: REFERENCE INTERVAL: Iron, Serum or Plasma Access complete set of age- and/or gender-specific reference intervals for this test in the [facility] Laboratory Test Directory ([employer]). TIBC 376 240 - 450 ug/dL 09/15/2014 1:24 AM CDT [employer] ([facility]) Comment: REFERENCE INTERVAL: Iron Binding Capacity Total Access complete set of age- and/or gender-specific reference intervals for this test in the [facility] Laboratory Test Directory ([employer]). Transferrin Saturation % 47 20 - 50 %sat 09/15/2014 1:24 AM CDT [employer] ([facility]) Blood specimen (specimen) BLOOD SPECIMEN / Unknown Lab Venipuncture / Unknown 09/12/2014 4:08 PM CDT 09/12/2014 4:16 PM CDT Nadine Arredondo APRN-DOOR TECHNICIAN LAB - CHEMISTR Y ORDERABLES [employer] [facility]) [address] * (ABNORMAL) FERRITIN (09/12/2014 4:08 PM CDT) Ferritin 267(H) 20 - 250 ng/mL 09/12/2014 4:39 PM CDT [facility] Blood BLOOD SPECIMEN / Unknown Lab Venipuncture / Unknown 09/12/2014 4:08 PM CDT 09/12/2014 4:15 PM CDT Nadine Arredondo APRN-DOOR TECHNICIAN LAB - CHEMISTR Y ORDERABLES [facility] [address] [place] [address] documented in this encounter Visit Diagnoses Diagnosis Psychophysiological insomnia- Primary Persistent disorder of initiating or maintaining sleep Sleep disturbance Sleep disturbance, unspecified Other disorders of iron metabolism documented in this encounter Care Teams Refining Supervisor Relationship Specialty Start Date End Date Moises Diaz MD PCP - General 04/28/09 08/15/21 documented as of this encounter
--- OUTSIDE RECORDS SUMMARY | 2024-04-03 02:19 | XMS_ITS | Encounter Summary ---
Author Organization [facility] Address [address] [place] [address] Care Team Providers Care Package Dye Stand Loader Name Role Phone Moises Diaz MD Primary Care Provider Unavail able Reason for Visit * Reason Comments Injury Ankle right Encounter Details Date Type Department Care Team (Latest Contact Info) Description 05/25/2012 8:34 AM BOILER HOUSE MECHANIC - 05/25/2012 8:41 AM BOILER HOUSE MECHANIC Hospital Encounter [facility] Pediatrics - Orthopedics [address] [place] [id number] Sophia Hutchison MD [address] [place] [id number] Discharge Disposition: Home or Self Care Social History Tobacco Use Types Packs/Day Years Used Date Smoking Tobacco: Never Assessed Smokeless Tobacco: Never Sex and Gender Information Value Date Recorded Sex Assigned at Not on file Gender Identity Not on file Sexual Orientation Not on file documented as of this encounter Discharge Instructions * Patient Instructions* Rakesh Oro DO - 05/25/2012 9:38 AM BOILER HOUSE MECHANIC ORTHOPAEDIC CLINIC DISCHARGE INSTRUCTIONS SHEET DIAGNOSIS: 1. Ankle fracture XR ANKLE 2 VW RIGHT, XR ANKLE 2 VW RIGHT Follow Up: ?? Please make a return appointment for 3 week(s) - With PA - No, In Sophia Hutchison MD's parallel clinic - No ?? X-Rays - Yes - right Ankle out of cast ?? If you cannot keep an appointment, please call and notify Activity Restrictions/Excuses: ?? Gym/Sports - Not allowed to participate ?? Excused from School on 05/25/2012 Medications prescribed: ?? Over the counter medication may be used per instructions. Physicians orders: ?? Imagine studies - none. ?? Physical therapy - No ?? Labs - none. ?? Consult - none. To make an appointment, please call . For cerebral palsy appointments, please call ext. [phone]. For scoliosis appointments, please call ext. 1. For Neurofibromatosis clinic appointments, please call . For Spina Bifida clinic appointments. If you havea question for the orthopaedic nurse, call [phone], ext. [phone]. To schedule the surgery discussed with the doctor during your child's office visit, call Nuris at [phone], ext. [phone]. After visit summary completed by Rakesh Oro DO. ER HOUSE MECHANIC documented in this encounter Medications at Time [...] 05/16/2012 06/15/2012 documented as of this encounter Progress Notes * Sophia Hutchison MD - 05/27/2012 3:48 PM CST PEDIATRIC ORTHOPAEDIC CLINIC NOTE NAME: Antony Benedict DATE OF SERVICE: 05/25/2012 DATE: 1995 PCP: Moises Diaz Chief Complaint Patient presents with ??? Injury Ankle right HISTORY: Antony Benedict is a 16 y.o. 9 m.o. male who presents 2 week(s) status post a right ankle fracture. Antony Benedict has been treated with open reduction and internal fixation 9 days ago and presents for follow up evaluation. The patient rates his pain as a 0 out of 10. The patient denies new onset of numbness in his lower extremities. MEDICATIONS: Current outpatient prescriptions:hydrocodone-acetaminophen (NORCO) 5-325 MG tablet, Take 2 Tabs by mouth every 4 hours as needed for Pain., Disp: 60 Tab, Rfl: 0; docusate sodium (COLACE)50 MG capsule, Take 1 Cap by mouth 2 times daily., Disp: 60 Cap, Rfl: 0; ibuprofen (MOTRIN) 200 MG tablet, Take 3 Tabs by mouth every 6 hours as needed for Pain., Disp: , Rfl: 0 ALLERGIES: Allergies as of 05/25/2012 ??? (No Known Allergies) IMMUNIZATIONS: Immunization status: stated as current, but no records available. PHYSICAL EXAMINATION: General appearance: alert, cooperative, no distress. He has good head control. No rashes or abnormal dyspigmentation Lungs: exam not performed Heart: exam not performed Abdomen: exam not performed Spine: spine normal, symmetric Extremities: The uninjured left lower extremity was examined and demonstrated normal skin, normal range of motion and alignment of all joint, normal motor, sensory and vascular examination, and was without pain. It was used for comparison when examining the injured right lower extremity. General appearance: no acute distress The examination was performed in splint/cast Skin: normal Swelling: none Tenderness: none. Deformity: No ROM: In cast, but toes normal motion distally Strength: normal Gait: non-weight bearing in cast today Neurological Exam: normal Vascular Exam: normal RADIOGRAPHS: AP, lateral, and mortise X-rays of the right ankle show stable lateral malleolus fracture with well aligned implants (plate and screws) ASSESSMENT: right lateral malleolus ankle fracture PLAN: We recommend the patient continue short leg cast wear. Fracture precautions were reviewed today. The patient will stay out of PE/sports until further notice. Patient's weight bearing status will be non-weightbearing. The patient will follow up in 3 week(s) and get AP, lateral, and mortise X-rays of the right ankle out of the cast. They will call in the interim with questions or concerns. I have personally seen and evaluated the above patient with the resident. I have discussed the results of the physical exam and all studies with the patient and family. I developed the above plan of care and discussed it with the patient. I have revised the above note and agree with the resident's assessment and plan of care. HISTORY: Antony M Jak is a 17 y.o. male who presents for 2 week post op f/u of right ankle fracture. EXAM: Antony Benedict is alert. Cast is in good condition. Toes are warm and pink, with normal sensation and motion. Patient deniesnew pain, fevers or chills ASSESSMENT: 1. Ankle fracture (824.8) XR ANKLE 2 VW RIGHT, XR ANKLE 2 VW RIGHT PLAN: 1. Treatment options discussed include: ?? Continue non-weightbearing right lower extremity ?? observation 2. Medications Prescribed: ?? Tylenol ?? NSAID ?? Over the counter medication may be used per instructions. 3. Follow up: Please make a return appointment for 3 week(s) with x-rays out of cast. documented in this encounter Plan of Treatment Not on file documented as of this encounter Procedures Procedure Name Priority Date/Time Associated Diagnosis Comments XR ANKLE RIGHT 2VW Routine 05/25/2012 8: 46 AM BOILER HOUSE MECHANIC Ankle fracture documented in this encounter Results * XR ANKLE 2 VW RIGHT (05/25/2012 8:46 AM BOILER HOUSE MECHANIC) Anatomical Region Laterality Modality Lower Extremity Radiographic Kira ging 05/25/2012 11:1 1 AM BOILER HOUSE MECHANIC Impressions 05/25/2012 11:11 AM BOILER HOUSE MECHANIC Interval casting of distal fibular fracture. Narrative 05/25/2012 11:11 AM BOILER HOUSE MECHANIC Right ankle series, 2 views 05/25/2012 Comparison [...] Ankle fracture Unspecified closed fracture of ankle Other aftercare involving internal fixation device documented in this encounter Care Teams Package Dye Stand Loader Relationship Specialty Start Date End Date Moises Diaz MD PCP - General 04/28/09 08/15/21 documented as of this encounter
--- OUTSIDE RECORDS SUMMARY | 2024-04-03 02:19 | XMS_ITS | Encounter Summary ---
Author Organization [facility] Address [address] [place] [address] Care Team Providers Care [employer] Sports Coach Name Role Phone Moises Diaz MD Primary Care Provider Unavail able Reason for Visit * Reason Comments Follow-up right ankle fx Encounter Details Date Type Department Care Team (Latest Contact Info) Description 06/15/2012 8:15 AM PERCH MENDER - 06/15/2012 9:01 AM PERCH MENDER Hospital Encounter [facility] Pediatrics - Orthopedics [address] [place] [id number] Sophia Hutchison MD [address] [place] [phone] Discharge Disposition: Home or Self Care Social History Tobacco Use Types Packs/Day Years Used Date Smoking Tobacco: Never Assessed Smokeless Tobacco: Never Sex and Gender Information Value Date Recorded Sex Assigned at Not on file Gender Identity Not on file Sexual Orientation Not on file documented as of this encounter Discharge Instructions * Patient Instructions* Rakesh Oro DO - 06/15/2012 9:30 AM PERCH MENDER ORTHOPAEDIC CLINIC DISCHARGE INSTRUCTIONS SHEET DIAGNOSIS: 1. Ankle fracture XR ANKLE 3+ VW RIGHT, XR ANKLE 3+ VW RIGHT Follow Up: ?? Please make a return appointment for 4 week(s) - With PA - No ?? X-Rays - No - none ?? If you cannot keep an appointment, please call and notify Activity Restrictions/Excuses: ?? Excused from School on 06/15/2012 ?? You may bear weight as tolerated ?? You should wear boot at this time. You should wear it to bed for the first 7 days, then only during the day. You may remove boot for showers. You should use the crutches for the next 1 to 2 weeks as needed for additional support, then you may stop using crutches when ready. ?? No PE or sports ?? You should come out of the boot for home range of ankle motion as discussed in the office today Medications prescribed: ?? Over the counter medication [...] havea question for the orthopaedic nurse, call [phone], ext. [phone]. To schedule the surgery discussed with the doctor during your child's office visit, call Nuris at [phone], ext. 1. After visit summary completed by Rakesh Oro DO. H MENDER documented in this encounter Progress Notes * Sophia Hutchison MD - 06/15/2012 5:04 PM CST PEDIATRIC ORTHOPAEDIC CLINIC NOTE NAME: Antony Benedict DATE OF SERVICE: 06/15/2012 DATE: 1995 PCP: Moises Diaz Chief Complaint Patient presents with ??? Follow-up right ankle fx HISTORY: Antony Benedict is a 16 y.o. 10 m.o. male who presents 5 week(s) status post a right ankle fracture. Antony Benedict has been treated with open reduction and internal fixation and presents for follow up evaluation. The patient rates his pain as a 0 out of 10. The patient denies new onset of numbness in his lower extremities. MEDICATIONS: None ALLERGIES: Allergies as of 06/15/2012 ??? (No Known Allergies) IMMUNIZATIONS: Immunization status: [...] The examination was performed in splint/cast Skin: incision is healing appropriately with some mild superficial skin maceration along the incisional margins Swelling: none Tenderness: minimal about the lateral ankle and incision Deformity: No ROM: Mildly limited per stiffness after cast removal Strength: No deficits Gait: Not assessed today, out of cast and will go into boot Neurological Exam: normal Vascular Exam: normal RADIOGRAPHS: AP, lateral, and mortise X-rays of the right ankle reviewed with the attending in clinic today shows stable lateral malleolus fracture with well aligned implants (plate and screws) and bony healing across the fracture ASSESSMENT: right lateral malleolus ankle fracture, status post ORIF PLAN: We recommend the patient discontinue short leg cast wear. Antony will be placed into walking boot today and may begin weightbearing as tolerated. Antony was instructed he should wear the boot 24 hours/day, including to bed, for the first 7 days, and then only during the day. He was instructed he should come out of the boot daily for ankle range of motion exercises at home. He was instructed to use the crutches for 1 to 2 more weeks as needed for additional support. Fracture precautions were reviewed today. The patient will stay out of PE/sports until further notice. The patient will followup in 4 weeks. No x-rays will be needed at that time. They will call in the interim with questions or concerns. Attending Note: I have personally seen and evaluated the above patient with the resident. I have discussed the results of the physical exam and all studies with the patient and family. I developed the above plan of care and discussed it with the patient. I agree with the resident's assessment and plan of care. I have reviewed the above note and I have edited it. * Azeb Perales A - 06/15/2012 3:13 PM CST Removed SLC Right side today. Skin dry and intact H MENDER documented in this encounter Plan of Treatment Not on file documented as of this encounter Procedures Procedure Name Priority Date/Time Associated Diagnosis Comments XR ANKLE RIGHT 3VW OR MORE Routine 06/15/2012 9:07 AM PERCH MENDER Ankle fracture documented in this encounter Results * XR ANKLE 3+ VW RIGHT (06/15/2012 9:07 AM PERCH MENDER) Anatomical Region Laterality Modality Lower Extremity Radiographic Kira ging 06/15/2012 9:26 AM PERCH MENDER Impressions 06/15/2012 9:26 AM PERCH MENDER 1. Healing distal fibular fracture. 2. Unchanged posterior tibial a avulsion. Narrative 06/15/2012 9:26 AM PERCH MENDER Right ankle, 3 views 06/15/2012 Fixation plate [...] avulsion. Zackery Giles MD DIAGNOSTIC IMAGING ORDERABLES documented in this encounter Visit Diagnoses Diagnosis Ankle fracture Unspecified closed fracture of ankle Aftercare for healing traumatic fracture of lower leg documented in this encounter Care Teams [employer] Sports Coach Relationship Specialty Start Date End Date Moises Diaz MD PCP - General 04/28/09 08/15/21 documented as of this encounter
--- OUTSIDE RECORDS SUMMARY | 2024-04-03 02:19 | XMS_ITS | Encounter Summary ---
Author Organization [facility] Address [address] [place] [address]. [place] [address] [place] [address] Care Team Providers Care Neck Band Setter Name Role Phone Unavailable Primary Care Provider Unavailabl e Encounter Details Date Type Department Care Team (Late st Contact Info) Description 02/11/2014 Abstract [facility] Emergency Room [address] [place], [place] [id number] Autumn France, FABRICATION WELDER [address] [address] Social History Tobacco Use Types Packs/Day Years Used Date Smoking Tobacco: Never Assessed Sex and Gender Information Value Date Recorded Sex Assigned at Not on file Legal Sex Male 6:43 PM CDT Gender Identity Not on file Sexual Orientation Not on file documented as of this encounter Plan of Treatment Not on file documented as of this encounter Visit Diagnoses Diagnosis Open wound of finger Open wound of finger(s) , without mention of complication documented in this encounter
--- OUTSIDE RECORDS SUMMARY | 2024-04-03 02:19 | XMS_ITS | Encounter Summary ---
Author Organization [facility] Address [address] [place] [address] Care Team Providers Care Infrastructure Consultant Name Role Phone Moises Diaz MD Primary Care Provider Unavail able Encounter Details Date Type Department Care Team (Latest Contact Info) Description 05/15/2014 3:19 PM DEVELOPMENTAL SPECIALIST - 05/15/2014 11:59 PM DEVELOPMENTAL SPECIALIST Hospital Encounter [facility] - Laboratory [address] [place] [address] Eula Reeder APRN-[address] [address] Discharge Disposition: Home or Self Care Social [...] Procedure Name Priority Date/Time Associated Diagnosis Comments FERRITIN Routine 05/15/2014 3:42 PM DEVELOPMENTAL SPECIALIST Restless legs syndrome (RLS) documented in this encounter Results * FERRITIN (05/15/2014 3:42 PM DEVELOPMENTAL SPECIALIST) Ferritin 215 20 - 250 ng/mL 05/15/2014 4:40 PM DEVELOPMENTAL SPECIALIST [facility] Blood BLOOD SPECIMEN / Unknown Lab Venipuncture / Unknown 05/15/2014 3:42 PM DEVELOPMENTAL SPECIALIST 05/15/2014 4:04 PM DEVELOPMENTAL SPECIALIST Eula Reeder [facility] - CHEMISTRY ORDERABLES [facility] [address] [place] [address] documented in this encounter Visit Diagnoses Diagnosis Restless legs syndrome (RLS)- Primary documented in this encounter Care Teams Infrastructure Consultant Relationship Specialty Start Date End Date Moises Diaz MD PCP - General 04/28/09 08/15/21 documented as of this encounter
--- OUTSIDE RECORDS SUMMARY | 2024-04-03 02:19 | XMS_ITS | Encounter Summary ---
Author Organization [facility] Address [address] [place] [address] Care Team Providers Care Assistant Track Coach Name Role Phone Moises Diaz MD Primary Care Provider Unavail able Reason for Visit * Reason Comments Establish Care possible enlarge ton ils, referred by sleep clinic Encounter Details Date Type Department Care Team (Latest Contact Info) Description 05/15/2014 2:45 PM IMPORT COORDINATOR - 05/15/2014 3:18 PM IMPORT COORDINATOR Hospital Encounter [facility] Pediatrics - ENT [address] [place] [id number] Em[place]iaE[place], CARTRIDGE MAKER-DRINK MIXER [address] [place] [address] Discharge Disposition: Home or Self Care Social [...] - Inhaled Oxygen Concentration - - Weight 116.2 kg (256 lb 3.2 oz) 05/15/2014 2:49 PM IMPORT COORDINATOR Height 182.8 cm (5' 11.97 ) 05/15/2014 2:[address] Body Mass Index 34.78 05/15/2014 2:49 PM IMPORT COORDINATOR Body Mass Index Percentile 98.15% 05/15/2014 2:4 9 PM IMPORT COORDINATOR Growth Chart: CDC (Boys, 2-2 0 Years) documented in this encounter Discharge Instructions * Patient Instructions* Rachel Luna RN - 05/15/2014 3:11 PM IMPORT COORDINATOR Images from the original note were not included. Your child has been scheduled for Same Day Surgery (Outpatient Surgery) A natural parent or a court appointed legal guardian MUST accompany the child DATE, TIME, & LOCATION If you know that you will not be able to keep your scheduled surgery date, please call: Monday - Monday, 9:00am - 4:00pm (or leave a voicemail message anytime 24hr a day/7-days a week) The surgery is: T&A Pre-Operative Instructions for Antony Benedict on Arrival Time: Eating/Drinking Instructions: Normal meals on until midnight. After midnight NO - FOOD/MILK OR DAIRY PRODUCTS/ORANGE JUICE/GUM/CANDY/ or TOOTHPASTE. No ibuprofen or aspirin prior to surgery. Tylenol is ok as well as any other prescribed medicationsif taken before . No vitamins/iron on day of surgery, please. Those patients havingear, nose or throat surgery NO Ibuprofen beginning 5 days before surgery and NO Aspirin products within 2 weeks of surgery. (check active ingredients on all medications.) May ONLY have WATER/APPLE JUICE/WHITE GRAPE JUICE/SPRITE OR 7-UP/PEDIALYTE from midnight until . Infants under 1 year old will have other instructions. NOTHING AT ALL AFTER! Have child take SHOWER or BATH/WASH HAIR/DRESS IN SOMETHING CLEAN AND COMFORTABLE/LOOSE FITTING/ and EASY TO GET IN AND OUT OF! Remove EARRINGS and ALL JEWELRY/FINGERNAIL KAZAKH/METAL HAIR CLIPS/BODY PIERCINGS/CONTACT LENSES before coming to the hospital. Girls who have started their menstrual cycle will need to provide a urine sample at the hospital onthe day of surgery. Bring ?? Comfort item (blanket/stuffed animal/etc.) and/or something to do before surgery starts. Nothingvaluable that can't be carried. ?? Sunglasses if you are having eye surgery. ?? Inhaler(s) if prescribed by child's doctor. Arrive on Time ?? TIME: ?? A Parent/Legal Guardian/Fire Hose Curer must accompany patient and obtain VISITOR PASS at the Information Desk. ?? Proceed to 2nd floor SURGERY REGISTRATION - must have parent/guardian PHOTO ID and patient INSURANCE CARD. ?? Only 2 adults may be with the child before and after surgery. No one under the age of 18 is allowed in the pre/post op areas. If you have not heard from anyone regarding time to arrive for surgery by 3 days before surgery - please call [facility] at [phone] or [facility] at [phone]. Monday - Monday 8:30am-7pm. If you need toarrange for medical transportation to and/or from the hospital please call the number on the back of your medical card 1 week before surgery. For arrival time at [facility], contact [facility] at the above numbers. Please check out our video [facility] on [email or web address] or scan QR code. Thank you! 04/30/13 Tonsillectomy and Adenoidectomy For Children 7 years and older Introduction Your child is going to have a T & A (Tonsillectomy & Adenoidectomy). Removal of the tonsils and/or adenoids is one of the most frequently performed throat operations. It has proven to be a safe, effective surgical method to resolve breathing obstruction, throat infections, and manage recurrent childhood ear disease. Several areas of concern are discussed here to help you and your child with this surgery. Bleeding Bleeding is rare after surgery. However,you may notice little spots of blood from the mouth or noseat times after surgery. If spotting continues after using a saline nasal spray or drinking a glass of ice water or if there is more than minor spotting proceed to the ER for evaluations Wound Care If his nose is congested or draining mucous, gently use a saline nasal spray up to 4 times a day, as needed. Pain Following T & A surgery, pain is an unpleasant side effect; it will occur in varying degrees depending upon your child. The pain your child may experience after surgery will be similar to the pain he had before surgery with throat infections. Ear pain can occur after tonsil surgery; most typically this will be noted three to five days after surgery. Although the pain is sensed in the ear, it is actually referred from the tonsil. Remember, this is normal and can be well controlled with proper administration of the prescribed medications. It has also been found that chewing gum helps to prevent this pain. Following surgery, give your child prescribed pain medication every four hours for the first 3 dayseven if he is not having pain. This offers the best continuous pain relief. After 3 days you may switch to plain Acetaminophen alternating with Ibuprofen every 3 hours for pain relief and give prescription medication as needed. Remember, though, DO NOT give your child Aspirin! This can cause bleeding. Fever Your child may have a low-grade fever after surgery. This is normal, and it can be controlled by the use of Tylenol. Call the doctor if the fever is above 102 orally (in the mouth), 101 axillary or103 rectally (in the rectum). Diet It will be very important for your child to maintain his hydration during the post -op period. Thus, he must be encouraged to drink adequate amounts. The more fluid your child drinks, the sooner his throat will return to normal. By giving the pain medicine every four hours, your child's throat will be less sore. This will make it easier for him to drink liquids. If your child is tolerating clear liquids, the diet may be advanced. Any liquid or solid food may be taken, however, hard foods such as chips, may cause pain for your child. Remember, though, the intake of fluids is critical to prevent dehydration. If the child becomes partially dehydrated, the pain will increase. Some suggestions for liquids are: fruit juice, Gatorade, milk, flat soda, jello, popsicles, ice cream, water or nutritional supplement drinks. Activity Most children will naturally restrict their activity after surgery. It is usually good to stay inside the house for a few days. He may return to school six to seven days after surgery; however, no gym or vigorous activity for 2 weeks after surgery. Bad Breath Your child may have bad breath after a T & A. The raw areas where the tonsils were will becomewhitish in color and may smell bad. As the area heals, the odor will go away. Do not have your child gargle during this time. For questions or Emergency Care: Call the office at during the week or after 5 pm and on the weekends. You may need to speak with the [id number]. RT COORDINATOR documented in this encounter Progress Notes * Eula Green, CARTRIDGE MAKER-DRINK MIXER - 05/15/2014 2:59 PM CST Chief Complaint Patient presents with ??? Establish Care possible enlarge tonils, referred by sleep clinic History of Present Illness: Antony Benedict is a 18 y.o. 9 m.o. male who present to the Pediatric Otolaryngology Clinic for evaluation of Obstructive Sleep Apnea accompanied by mother. Antony Benedict has had difficulty with sleep for 4 year(s). He has the following symptoms: snoring, witnessed apnea and awakening(s) in the nightand restless sleep. He has recurrent throat infections. He has persistent mouth breathing and/or nasal congestion. Past medical history: Past Medical History Diagnosis Date ??? Blocked tear duct ??? Ankle fracture, right broke while wrestling ??? Complication of anesthesia difficulty breathing, vomited blood ??? Nail bed injury 02/11/2014 Past Surgical History Procedure Laterality Date ??? Tympanostomy ??? Pr tear duct system surg unlisted ??? Open reduction, ankle 05/16/2012 Right; OPEN REDUCTION INTERNAL FIXATION FRACTURE ANKLE BIMALLEOLAR Immunizations: are up to date Growth and development: Age appropriate yes Social history: Lives with mother. Exposure to smoking? Yes. Antony attends school. Family history: Sleep apnea No. Obesity Yes. Bleeding disorder No. Surgical or anesthesia problems.No. Review of systems: Constitutional: child is weight appropriate Eyes: does not have double vision Ears, Nose, Mouth, Throat: no tonsillitis or strep throat; rare URI's Cardiovascular: does not have heart disease Respiratory: does not have asthma or wheezing Gastointestinal: Negative Genitourinary: negative Integumentary: has had no rash or eczema Neurological: has had no seizures; negative for ADD / ADHD Endocrine: does not have a history of thyroid problems Hematologic: does not bruise easily Medications: No current outpatient prescriptions on file. Allergies: Review of patient's allergies indicates no known allergies. Physical Exam: Height: 182.8 cm (5' 11.97 ) Weight: 116.212 kg (256 lb 3.2 oz) Body mass index is 34.78 kg/(m^2). 99%ile (Z=2.35) based on CDC 2-20 Years BMI-for-age data using vitals from 05/15/2014. Constitutional: no retractions or cyanosis Head and Face: no lesions or masses; facies symmetrical Eyes: sclera and conjunctiva clear Ears: Inspection: normal pinnae shape and position Otoscopy: External canal: normal and Tympanic membrane: Right: normal appearance and landmarks Left: normal appearance and landmarks Nasal: normal external nose, mucous membranes and septum Oral Cavity: moist mucous membranes; normal uvula, palate and tongue size Throat: tonsil asymmetric right tonsil 3+/left tonsil1+ Rincon 3 Neck: supple without tenderness or crepitus; no palpable adenopathy Cranial Nerve Exam: grossly intact; CN VII symmetrical Respiration: unlabored breathing Skin: skin healthy ASSESSMENT: 18 y.o. 9 m.o. male with: Clinically suspicious sleep apnea Tonsil/adenoid hypertrophy obesity PLAN: Adenotonsillectomy will be done as outpatient Nature risks and benefits of the procedure were discussed in detail. The family elected to meet thefirst available surgeon. Instructed family to keep sleep clinic appt. Patient reports restless sleep and Ferritin level was ordered today and can be managed by sleep clinic if ncecessary. Due to obesity and high rincon scale patient will likely still require CPAP therapy. RT COORDINATOR documented in this encounter Plan of Treatment Not on file documented as of this encounter Visit Diagnoses Diagnosis MERLENE (obstructive sleep apnea)- Primary Obstructive sleep apnea (adult) (pediatric) Restless legs syndrome (RLS) documented in this encounter Care Teams Assistant Track Coach Relationship Specialty Start Date End Date Moises Diaz MD PCP - General 04/28/09 08/15/21 documented as of this encounter
--- OUTSIDE RECORDS SUMMARY | 2024-04-03 02:19 | XMS_ITS | Encounter Summary ---
Author Organization [facility] Address [address] [place] [address] Care Team Providers Care Co Founder And Cto Name Role Phone Moises Diaz MD Primary Care Provider Unavail able Reason for Visit * Reason Comments Follow-up right middle finger injury Encounter Details Date Type Department Care Team (Latest Contact Info) Description 05/02/2014 2:36 PM ORACLE DISTRIBUTION CONSULTANT - 05/02/2014 11:59 PM ORACLE DISTRIBUTION CONSULTANT Hospital Encounter [facility] Pediatrics - Orthopedics [address] [place] [address] Giuliano Hills MD [address] [place] [address] Discharge Disposition: Home or Self Care Social [...] this encounter Discharge Instructions * Patient Instructions* Cyrus Gonzalez MD - 05/02/2014 2:58 PM ORACLE DISTRIBUTION CONSULTANT Nail bed injury Return appointment: As needed Call [phone], option 1, for return if your child has new symptoms or problems, or if you have concerns. Call [phone] for questions. Physicians orders: None Medications prescribed: none Activity Restrictions: none School/Work Excuse: Patient had an appointment 05/02/2014 LE DISTRIBUTION CONSULTANT documented in this encounter Progress Notes * Giuliano Hills MD - 05/02/2014 2:53 PM CST PEDIATRIC ORTHOPAEDIC CLINIC NOTE NAME: Antony Benedict DATE OF SERVICE: 05/02/2014 DATE: 1995 PCP: Moises Diaz HISTORY: Antony Benedict is a 18 y.o. 8 m.o. male who presents 8 week(s) status post a right middle finger nail injury fracture. Antony eBnedict was treated with nail bed repair in ED. He is here for follow up . Denies fever/chills. deneis change in sensation/tingling. He has completed course of oral antibiotics and has been doing daily soapy soaks. MEDICATIONS: No current outpatient prescriptions on file. ALLERGIES: Allergies as of 05/02/2014 ??? (No Known Allergies) IMMUNIZATIONS: Immunization status: [...] was performed out of splint/cast Skin: healed nail bed with partial nail re-growth Swelling: none Tenderness: none,. Deformity: No, ROM: normal Strength: normal Gait: normal Neurological Exam: normal Vascular Exam: normal RADIOGRAPHS: None ASSESSMENT: right middle finger nail bed injury PLAN: Protect nail as needed. Follow up PRN ORTHOPAEDIC HAND SURGERY ATTENDING NOTE I have personally seen and evaluated the above patient with the resident. I have discussed the results of the physical exam and all studies with the patient and family. I developed the above plan of care and discussed it with the patient. I have revised the above note and agree with the resident's assessment and plan of care. HISTORY: Antony Benedict is a 18 y.o. male who presents with right middle finger nail bed injury . EXAM: -General appearance: No apparent distress., A&Ox3, cooperative, no distress -Right upper extremity: Sensation: Intact. Brisk capillary refill (<2 seconds). Healing well IMAGING: none ASSESSMENT: right middle finger nail bed injury PLAN: 1. Protection 2. Fu prn LE DISTRIBUTION CONSULTANT documented in this encounter Plan of Treatment Not on file documented as of this encounter Visit Diagnoses Not on filedocumented in this encounter Care Teams Co Founder And Cto Relationship Specialty Start Date End Date Moises Diaz MD PCP - General 04/28/09 08/15/21 documented as of this encounter
--- OUTSIDE RECORDS SUMMARY | 2024-04-03 02:19 | XMS_ITS | Encounter Summary ---
Author Organization [facility] Address [address] [place] [address] Care Team Providers Care Brim Pouncing Machine Operator Name Role Phone Moises Diaz MD Primary Care Provider Unavail able Encounter Details Date Type Department Care Team (Latest Contact Info) Description 06/15/2012 9:02 AM SILK CREPE MACHINE OPERATOR - 06/15/2012 11:59 PM SILK CREPE MACHINE OPERATOR Hospital Encounter [facility] Pediatrics - Radiology [address] [place] [address] Discharge Disposition: Home or Self Care Social [...] 3VW OR MORE Routine 06/15/2012 9:07 AM SILK CREPE MACHINE OPERATOR Ankle fracture documented in this encounter Results * XR ANKLE 3+ VW RIGHT (06/15/2012 9:07 AM SILK CREPE MACHINE OPERATOR) Anatomical Region Laterality Modality Lower Extremity Radiographic Kira ging 06/15/2012 9:26 AM SILK CREPE MACHINE OPERATOR Impressions 06/15/2012 9:26 AM SILK CREPE MACHINE OPERATOR 1. Healing distal fibular fracture. 2. Unchanged posterior tibial a avulsion. Narrative 06/15/2012 9:26 AM SILK CREPE MACHINE OPERATOR Right ankle, 3 views 06/15/2012 Fixation plate [...] documented in this encounter Visit Diagnoses Diagnosis Aftercare for healing traumatic fracture of lower leg documented in this encounter Care Teams Brim Pouncing Machine Operator Relationship Specialty Start Date End Date Moises Diaz MD PCP - General 04/28/09 08/15/21 documented as of this encounter
--- OUTSIDE RECORDS SUMMARY | 2024-04-03 02:19 | XMS_ITS | Encounter Summary ---
Author Organization [facility] Address [address] [facility] [place] [address] [address] Team [address] Care Ct Tech Name Role Phone Rik Diaz MD Primary Care Provider Unavail able Encounter Details Date Type Department Care Team (Latest Contact Info) Description 04/28/2009 10:56 AM BAND SEWER - 04/28/2009 11:59 PM BAND SEWER Hospital Encounter [facility] [address] [place] [address] Darron Mueller MD [address] [place] [phone] Urology Discharge Disposition: Home or Self Care Social History Tobacco Use Types Packs/Day Years Used Date Smoking Tobacco: Never Assessed Sex and Gender Information Value Date Recorded Sex Assigned at Not on file Gender Identity Not on file Sexual Orientation Not on file documented as of this encounter Plan of Treatment Scheduled Orders Name Type Priority Associated Diagnoses Orde r Schedule US SCROTUM WITH DOPPLER Imaging Routine ONCE for 1 Occur rences starting 05/02/2009 until 05/02/2009, 1 completed documented as of this encounter Procedures Procedure Name Priority Date/Time Associated Diagnosis Comments US SCROTUM W DOPPLER Routine 04/28/2009 1:15 PM BAND SEWER documented in this encounter Results * US SCROTUM WITH DOPPLER (04/28/2009 1:15 PM BAND SEWER) Anatomical Region Laterality Modality Pelvis Other 04/28/2009 1:15 PM BAND SEWER Narrative 05/02/2009 9:53 AM BAND SEWER ??Study Date ??Accession # ? Procedure Code ?Procedure ??04/28/2009 ?? [id number] ? [id number] ? US SCROTUM WITH DOPPLER ??Reason for [...] Jason ??Transcribed by- PowerScribe ? Reading Radiologist- LUCILA MORRISSEY MD ? Releasing Radiologist- ??Lucila Morrissey MD ? Released Date Time- 05/02/09 0956 ? Building Maintenance Technician- Autumn Campos ? ADM- DARRON MUELLER V ? ATT- DARRON MUELLER V ORD- PALAGIRI,DARRON V ? CON- PCP- RIK DIAZ ? SCP- Procedure Note Lucila Morrissey - 05/02/2009 Study Date Accession # Procedure Code Procedure 04/28/2009 [id number] US SCROTUM WITH DOPPLER Reason for Study TESTICULAR PAIN Exam- Scrotal sonogram Date- Apr 28, 2009 143-00 PM Right testis- 3.8 x 1.5 x 2.3 cm = 6.98 cc Left testis- 3.8 x 1.5 x 2.5 cm = 7.13 cc Both testes are descended into the scrotal sac. They are normal in size, contour, and echogenicity. Doppler exam shows normal low resistance arterial waveforms. Diagnosis- Normal testicular sonogram. Awais Han MD Films Reviewed with- Dictated on- 04/28/2009 152-30PM Interpreted by- Zahida Morrissey Karen Assisted by- Zahida Han Jason Transcribed by- PowerScribe Reading Radiologist- LUCILA MORRISSEY MD Releasing Radiologist- Lucila Morrissey MD Released Date Time- 05/02/09 0956 Building Maintenance Technician- Autumn Campos ADM- AMIDARRON Gabriel ATT- AMIDARRON Gabriel ORD- AMI,DARRON V CON- PCP- RIK DIAZ SCP- Darron Mueller MD US ORDERABLES documented in this encounter Visit Diagnoses Not on filedocumented in this encounter Care Teams Ct Tech Relationship Specialty Start Date End Date Rik Diaz MD PCP - General 04/28/09 08/15/21 documented as of this encounter
--- OUTSIDE RECORDS SUMMARY | 2024-04-03 02:19 | XMS_ITS | Clinical Summary ---
Author Organization [facility] Address [address] [place] [address]. [place] [address] [place] [address] Care Team Providers Care Sack Sewer Name Role Phone Unavailable Primary Care Provider Unavailabl e Social History Tobacco Use Types Packs/Day Years Used Date Smoking Tobacco: Never Assessed Sex and Gender Information Value Date Recorded Sex Assigned at Not on file Legal Sex Male 6:43 PM CDT Gender Identity Not on file Sexual Orientation Not on file Plan of Treatment Health Maintenance Due Date Last Done Comments Annual Physical 08/13/1999 Hepatitis C 2014 DTaP, Tdap and Td Vaccines ( 1 - Tdap) 08/13/2015 Hepatitis B Vaccines (1 of 3 - 19+ 3-dose series) 08/13/2015 COVID-19 Vaccine (2023-2 5 season) 2023 Influenza Adult (#1) 2024 HPV Vaccines Aged Out No longer eligi ble based on patient's age to complete this topic Meningococcal Vaccine Aged Out No dank kelley eligible based on patient's age to complete this topic Pneumococcal Vaccine: Pediat rics (0 to 5 Years) and At-Risk Patients (6 to 64 Years) Aged Out No longer eligible b ased on patient's age to complete this topic RSV Immunizations Under 20 Months Aged Out No longer eligible based on patient's age to complete this topic
--- OUTSIDE RECORDS SUMMARY | 2024-04-03 02:19 | XMS_ITS | Encounter Summary ---
Author Organization [facility] Address [address] [facility] [place] [address] Care Team Providers Care Fountain Helper Name Role Phone Moises Diaz MD Primary Care Provider Unavail able Reason for Visit * Reason Comments Injury Ankle ROM check on right a nkle Encounter Details Date Type Department Care Team (Latest Contact Info) Description 08/31/2012 9:00 AM CDT - 08/31/2012 11:59 PM CDT Hospital Encounter [facility] Pediatrics - Orthopedics [address] [place] [address] Sophia Hutchison MD [address] [place] [id number] Discharge Disposition: Home or Self Care Social History Tobacco Use Types Packs/Day Years Used Date Smoking Tobacco: Never Assessed Smokeless Tobacco: Never Sex and Gender Information Value Date Recorded Sex Assigned at Not on file Gender Identity Not on file Sexual Orientation Not on file documented as of this encounter Discharge Instructions * Patient Instructions* Joo Frank MD - 08/31/2012 10:12 AM CDT Right ankle fracture Return appointment: As needed Call [phone], option 1, for return if your child has new symptoms or problems, or if you have concerns. Call [phone] for questions. Physicians orders: none Medications prescribed: none Activity Restrictions: As tolerated School/Work Excuse: Patient had an appointment 08/31/2012 documented in this encounter Progress Notes * Sophia Hutchison MD - 08/31/2012 10:57 AM CDT PEDIATRIC ORTHOPAEDIC CLINIC NOTE NAME: Sindi Benedict DATE OF SERVICE: 08/31/2012 DATE: 1995 PCP: Moises Diaz Chief Complaint Patient presents with ??? Injury Ankle ROM check on right ankle HISTORY: Sindi Benedict is a 17 y.o. 0 m.o. male who presents 15 week(s) status post a right lateralmalleolus fracture. Sindi Benedict was treated with ORIF and presents for follow up evaluation. He was last seen 6 weeks ago and had some residual weakness and stiffness to his right ankle and was sent to physical therapy. He states that in the interim he is much improved, feels well, and is withoutcomplaint. MEDICATIONS: No current outpatient prescriptions on file. ALLERGIES: Allergies as of 08/31/2012 ??? (No Known Allergies) IMMUNIZATIONS: Immunization status: [...] Swelling: none Tenderness: none Deformity: No ROM: symmetric to contralateral extremity, full Strength: 5/5 Gait: Normal Neurological Exam: normal Vascular Exam: normal and pulse present RADIOGRAPHS: None today ASSESSMENT: right lateral malleolus fracture s/p ORIF PLAN: We will release sindi to activities as tolerated. He does not need to continue with PT as he will now integrate those exercises into his normal work- out routine. They will call in the interim with questions or concerns. No follow up needed. ATTENDING ATTESTATION: I have seen and assessed the patient with the resident. I have edited the above note and agree withthe assessment and plan. documented in this encounter Plan of Treatment Not on file documented as of this encounter Visit Diagnoses Not on filedocumented in this encounter Care Teams Fountain Helper Relationship Specialty Start Date End Date Moises Diaz MD PCP - General 04/28/09 08/15/21 documented as of this encounter
--- OUTSIDE RECORDS SUMMARY | 2024-04-03 02:20 | XMS_ITS | Encounter Summary ---
Author Organization [facility] Healthcare Address [address] [place] [address] Care Team Providers Care Slurry Man Name Role Phone Beau Clinton Primary Care Provider [phone] Reason for Visit * Reason Onset Date Comments Surgical Clearance 08/14/2023 Encounter Details Date Type Department Care Team (Late st Contact Info) Description 08/14/2023 Telephone [facility] Medical Group Orthopedics and Sports Medicine [address] [place] [id number] Mya Vizcarra MA Surgical Clearance Social History Tobacco Use Types Packs/Day Years Used Date Smoking Tobacco: Former Cigarettes Passive Smoke Exposure: Current Smokeless Tobacco: Never AUDIT-C Answer Date Recorded Q1: How often do you have a drink containing alc ohol? Monthly or less 08/22/2023 Q2: How many drinks containi ng alcohol do you have on a typical day when you are drinking? 5 or 6 08/22/2023 Q3: How often do you have si x or more drinks on one occasion? Monthly 08/22/2023 Personal Safety Answer Date Recorded Have you ever been in or are you currently in a harmful physical or emotional relationship or is someone making you feel afraid or unsafe? 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 * Telephone Encounter - Julia Carrasco MA - 08/21/2023 11:00 AM CDT Called and spoke with PCP's office. Pt was seen to and brought the form. She is going to locate it and get it sent over. * Telephone Encounter - Julia Carrasco MA - 08/16/2023 11:09 AM CDT Called and spoke with PCP's office. He has an appt at 10am on 08/20 * Telephone Encounter - Julia Carrasco MA - 08/14/2023 1:14 PM CDT Noted and updated. * Telephone Encounter - Mya Vizcarra MA - 08/14/2023 9:20 AM CDT Procedure: Left knee arthroscopy medial meniscetomy DOS: 08/22/2023 Surgery Clearance Checklist: [x] PCP: [] Cardiology: [] Endocrinology: [] Pulmonology: [] Neurology: [] Other: Blood Thinner: [] Yes Name of medication: [x] No Is patient a Diabetic: [] Yes [x] No Preferred Outpatient Physical Therapy location: [facility] Reviewed with patient surgery clearance requirements that forms must be returned to our office no later than 72 hours prior to surgery. Later than 72 hours may cause patients surgery to be cancelled and/or rescheduled. Reviewed with patient that appointments with the above provider should be scheduled in a timely manner, and recommend appointments be made no later than 3 weeks prior to surgery. For Total Arthoplasty Surgery: Reviewed with patient labs to be completed prior to surgery, advisedthese must be completed no more than 30 days prior to surgery. Patient was advised to completely these early on in the 30 day window to allow time to address abnormal results if they arise. Labs are to be completed at: Medications to be discontinued prior to surgery were reviewed with patient, and hand out provided listing when to stop prior to surgery. Patient instructed to contact PCP and/or prescribing provider with questions about when to discontinue prior to surgery. For blood thinners, patient was instructed to speak with prescribing provider about when to discontinue and was advised our office needs documentation on when to stop prior to surgery. This can be completed on the form provided for the patient. Reviewed with patient use of surgical soap prior to surgery. Patient was instructed to use the evening before and the morning of surgery. Advised to not wash hair, face, genital, or rectal area. Patient expressed full understanding of the above in preparation for surgery. Patient was advised to contact our office if any questions or concerns arise prior to surgery. HAL/AMARIS Name: BHAVYA Wheeler documented in this encounter Plan of Treatment Not on file documented as of this encounter Visit Diagnoses Not on filedocumented in this encounter Care Teams Slurry Man Relationship Specialty Start Date End Date Beau Clinton PA [address] [place] [address] PCP - General Family Practice 08/14/23 documented as of this encounter
--- OUTSIDE RECORDS SUMMARY | 2024-04-03 02:20 | XMS_ITS | Referral Summary ---
Author Organization [facility] Medical Office Building B Address [address] [place] [address] Care Team Providers Care Minilab Operator Name Role Phone Beau Clinton Primary Care Provider [phone] Zarina Avalos Unavailable Allergies No known active allergies Medications lisinopriL (PRINIVIL,ZESTR [place]) 20 mg tablet Take 1 tablet (20 mg total) by mouth daily Active ascorbic acid (VITAMIN C) 500 mg tablet,chewable Take 1 tablet/chew tab (500 mg total) by mouth 2 (two) times a day 60 tablet/chew tab 4 Active aspirin 81 mg enteric coated tabletIndicatio ns:prevention of thrombosis Take 1 tablet (81 mg total) by mouth 2 (two) times a day for 14 days 28 tablet 4 Active cholecalciferol (VITAMIN D-3) 2000 unit capsule Take 1 capsule (2,000 Units total) by mouth daily 30 capsule 4 Active HYDROcodone-foreign taminophen (NORCO) 5-325 mg per tabletIndicatio ns:Pain Take 1 tablet by mouth every 6 (six) hours as needed for pain 15 tablet 4 Active Additional Information Patient not taking.Reported on 11/14/2023 ondansetron (ZOFRAN) 4 mg tabletIndicatio ns:Prevention of Post-Operative Nausea and Vomiting Take 1 tablet (4 mg total) by mouth every 6 (six) hours as needed for nausea or vomiting 20 tablet 1 4 Active Additional Information Patient not taking.Reported on 11/14/2023 senna-docusate (PERICOLACE) 8.6-50 mg 1-2 times daily as needed for constipation 30 tablet 1 Active Additional Information Patient not taking.Reported on 11/14/2023 Active Problems Problem Noted Date Diagnosed Date Tear of medial meniscus of left knee 08/14/2023 Social History Tobacco Use Types Packs/Day Years Used Date Smoking Tobacco: Former Cigarettes Passive Smoke Exposure: Current Smokeless Tobacco: Never Tobacco Cessation:Counseling Given: Yes AUDIT-C Answer Date Recorded Q1: How often do you have a drink containing alcohol? Never 10/03/2023 Q2: How many drinks containi ng alcohol do you have on a typical day when you are drinking? Patient does not drink Q3: How often do you have si x or more drinks on one occasion? Never 10/03/2023 Personal Safety Answer Date Recorded Have you ever been in or are you currently in a harmful physical or emotional relationship or is someone making you feel afraid or unsafe? 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 Gender Identity Not on file Sexual Orientation Not on file Last Filed Vital Signs Vital Sign Reading Time Taken Comments Blood Pressure 141/86 11/14/2023 10:55 AM CDT Pulse 77 11/14/2023 10:55 AM CDT Temperature 36.4 ??C (97.5 ??F) 08/22/2023 5:35 PM CD T Respiratory Rate 18 10/03/2023 2:58 PM CDT Oxygen Saturation 99% 08/22/2023 5:35 PM CDT Inhaled Oxygen Concentration - - Weight 135.2 kg (298 lb) 10/03/2023 2:58 PM CDT Height 180.3 cm (5' 11 ) 10/03/2023 2:58 PM CDT Body Mass Index 41.56 10/03/2023 2:58 PM CDT Plan of Treatment Not on file Medical Devices Implanted Type Area Hospice Case Manager Device Identifier Shelf Expiration Date Model / Serial / Lot Arthrex Inc Fiberlink Arthrex Suturetape 1.3mm Tape Suture Nonabsorbable Ar-7535 - [id number] Implanted:Qty: 1 on 08/22/2023 by Yong Sheikh MD at [facility] Left: Knee Ar[employer]rex Inc [id number] 07/15/2026 AR-7535 / / [id number] Arthrex Inc Fiberlink Arthrex Suturetape 1.3mm Tape Suture Nonabsorbable Ar-7535 - [id number] Implanted:Qty: 1 on 08/22/2023 by Yong Sheikh MD at [facility] Left: Knee Ar[employer]rex Inc [id number] 11/15/2027 AR-7535 / / [id number] Depuy Mitek Truespan Orthocord Nonabsorbable 2 Backstop Braid 24d 2-0 Simpson [id number] - [id number] Implanted:Qty: 1 on 08/22/2023 by Yong Sheikh MD at [facility] Left: Knee Depuy Mitek 02/14/2026 [id number] / / [id number] Depuy Mitek Truespan Orthocord Nonabsorbable 2 Backstop Braid 24d 2-0 Simpson [id number] - [id number] Implanted:Qty: 1 on 08/22/2023 by Yong Sheikh MD at [facility] Left: Knee Depuy Mitek 02/14/2026 [id number] / / [id number] Arthrex Inc Swivelock C 4.75mm 19.1mm Closed Eyelet Vent Simpson Suture Ar-2324bcc - [id number] Implanted:Qty: 1 on 08/22/2023 by Yong Sheikh MD at [facility] Left: Knee Arthrex Inc 03/16/2027 AR-[id number] / / [id number] Insurance [facility] Care Teams Minilab Operator Relationship Specialty Start Date End Date Beau Clinton PA [address] [place] [address] PCP - General Family Practice 08/14/23 Zarina Avalos PA [address] [facility] [address] [address] Orthopedic Surgery 08/22/23
--- OUTSIDE RECORDS SUMMARY | 2024-04-03 02:20 | XMS_ITS | Encounter Summary ---
Author Organization [facility] Healthcare Address [address] [place] [address] Care Team Providers Care County Auditor Name Role Phone Beau Clinton Primary Care Provider [phone] Reason for Referral * Diagnostic Imaging (Routine) - Closed Specialty Diagnoses / Procedures Referred By Contac t Referred To Contact Diagnoses Left knee pain, unspecified chronicity Procedures XR Knee Left 4 or More Views Yong Sheikh MD [address] [place] [address] DR ALDA Ly [address] [address] Phone: tel: fax: Referral ID Status Reason Start Date Expiration Date Visits Re quested Visits Authorized [id number] Closed 08/14/2023 09/12/2024 1 1 * Diagnostic Imaging (Routine) - Closed Specialty Diagnoses / Procedures Referred By Contac t Referred To Contact Diagnoses Left knee pain, unspecified chronicity Procedures XR Pelvis 1 or 2 Views Yong Sheikh MD [address] [place] [address] DR ALDA Ly [address] [address] Phone: tel: fax: Referral ID Status Reason Start Date Expiration Date Visits Re quested Visits Authorized [id number] Closed 08/14/2023 09/12/2024 1 1 Reason for Visit * Reason Comments Pain Encounter Details Date Type Department Care Team ([facility] st Contact Info) Description 08/14/2023 8:30 AM CDT Office Visit [facility] Medical Group Orthopedics and Sports Medicine [address] [facility] [address] [place] [address] Yong Sheikh MD [address] [place] [address] [address] LIZAMA [address] [place] [address] Other tear of medial meniscus of left knee as current injury, initial encounter (Primary Dx); Left knee pain, unspecified chronicity Social History Tobacco Use Types Packs/Day Years Used Date Smoking Tobacco: Former Cigarettes Passive Smoke Exposure: Current Smokeless Tobacco: Never Tobacco Cessation:Counseling Given: Yes AUDIT-C Answer Date Recorded Q1: How often do you have a drink containing alc ohol? Monthly or less 08/15/2023 Q2: How many drinks containi ng alcohol do you have on a typical day when you are drinking? 5 or 6 08/15/2023 Q3: How often do you have si x or more drinks on one occasion? Monthly 08/15/2023 Personal Safety Answer Date Recorded Have you ever been in or are you currently in a harmful physical or emotional relationship or is someone making you feel afraid or unsafe? 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 Gender Identity Not on file Sexual Orientation Not on file documented as of this encounter Last Filed Vital Signs Vital Sign Reading Time Taken Comments Blood Pressure 138/84 08/14/2023 8:28 AM CDT Pulse 76 08/14/2023 8:28 AM CDT Temperature - - Respiratory Rate - - Oxygen Saturation - - Inhaled Oxygen Concentration - - Weight 137.8 kg (303 lb 12.8 oz) 08/14/2023 8:28 AM CDT Height 180.3 cm (5' 11 ) 08/14/2023 8:28 AM CDT Body Mass Index 42.37 08/14/2023 8:28 AM CDT documented in this encounter Progress Notes * Yong Sheikh MD - 08/14/2023 8:30 AM CDT Images from the original note were not included. NEW PATIENT VISIT Subjective CHIEF COMPLAINT He had concerns including Pain of the Left Knee. HISTORY OF PRESENT ILLNESS Left knee pain for the past 8 months the pain is not recently gotten worse. Problem started with a jumping. His pain at times is sharp and severe varus sometimes he has no pain. Pain is better with ice. Pain is unpredictable. He is miss work because his problem. He is tried physical therapy which he has not helped his pain comes and goes recently has MRI confirming a medial meniscus tear he is here for surgical consultation Advertising Specialist completed by using M*Modal Fluency Direct speaking software, therefore, transcriptionvariances may occur. Pain Assessment Pain Assessment: No/denies pain PAST MEDCIAL HISTORY He has no past medical history on file. PAST SURGICAL HISTORY He has no past surgical history on file. MEDICATIONS He has a current medication list which includes the following prescription(s): lisinopril. ALLERGIES He has no known allergies. SOCIAL HISTORY He reports that he has quit smoking. His smoking use included cigarettes. He has been exposed to tobacco smoke. He has never used smokeless tobacco. No alcohol history on file. FAMILY HISTORY His family history is not on file. REVIEW OF SYSTEMS Review of Systems Constitutional: Negative for activity change, appetite change, chills, fever and unexpected weight change. HENT: Negative for congestion, dental problem, ear pain, hearing loss, nosebleeds, tinnitus and voice change. Eyes: Negative for pain and visual disturbance. Respiratory: Negative for apnea, cough, chest tightness and shortness of breath. Cardiovascular: Negative for chest pain, palpitations and leg swelling. Gastrointestinal: Negative for blood in stool, constipation, diarrhea, nausea and vomiting. Endocrine: Negative for cold intolerance and heat intolerance. Genitourinary: Negative for difficulty urinating, hematuria and urgency. Skin: Negative for color change, rash and wound. Allergic/Immunologic: Negative for environmental allergies. Neurological: Negative for dizziness, syncope, numbness and headaches. Hematological: Negative for adenopathy. Does not bruise/bleed easily. Psychiatric/Behavioral: Negative for confusion. The patient is not nervous/anxious and is not hyperactive. Objective PHYSICAL EXAM BP 138/84 Pulse 76 Ht 180.3 cm (5' 11 ) Wt (!) 137.8 kg (303 lb 12.8 oz) BMI 42.37 kg/m?? Right knee The patient has normal inspection, palpation, range of motion, strength, and stabilty of the right knee. Strength The patient has 5/5 strength thoughout right knee. Left knee Inspection The patient has normal inspection of the left knee. Gait: normal Palpation The tenderness is located in the medial joint line. Range of motion The patient has normal range of motion of the left knee. Stability The patient has normal AP and ML stabiltiy of the left knee. Strength The patient has 5/5 strength throughout. Neurovascular The patient has normal vascular on the left side of their body. The patient has normal sensation on the left side of their body. Special tests Marcia: medial positive REVIEW OF X-RAYS/STUDIES/LABS Assessment/Plan Antony was seen today for pain. Diagnoses and all orders for this visit: Other tear of medial meniscus of left knee as current injury, initial encounter Left knee pain, unspecified chronicity - XR Pelvis 1 or 2 Views - XR Knee Left 4 or More Views Procedures PLAN Risks and benefits of the arthroscopic knee surgery with menisectomy were discussed with the patient. These include but are not limited to bleeding infection damage to surrounding structures including ... DVT, PE, stroke, heart attack, and continued knee pain. Patient understands these risks and agreed to proceed with the surgery as described above. All questions and concerns were addressedwith the patient prior to surgical consent being established in the office today. The patient will follow up for surgery. Patient demonstrates atrophy and weakness of the lower extremity and would benefit from home E stim device. Recommend the patient to see a weight loss specialist recommend decreasing BMI below 30, recommend strength training 2-3 per week. HAL Singer MD documented in this encounter Plan of Treatment Not on file documented as of this encounter Procedures Procedure Name Priority Date/Time Associated Diagnosis Comments XR PELVIS 1 OR 2 VIEWS Schedule Routine, Read Routine (OP Routine) 08/14/2023 8:27 AM CDT Left knee pain, unspecified chronicity XR KNEE LEFT 4 OR MORE VIEWS Schedule Routine, Read Routine (OP Routine) 08/14/2023 8:27 AM CDT Left knee pain, unspecified chronicity documented in this encounter Results * XR Pelvis 1 or 2 Views (08/14/2023 8:27 AM CDT) Anatomical Region Laterality Modality Body, Pelvis N/A Digital Radiogra phy Narrative 08/14/2023 9:07 AM CDT AP pelvis shows no fracture subluxation or dislocation normal joint spaces Yong Sheikh MD IMG XR PROCEDURES Final Resu lt * XR Knee Left 4 or More Views (08/14/2023 8:27 AM CDT) Anatomical Region Laterality Modality Lower Extremities, Knee Left Digital Radiography Narrative 08/14/2023 9:07 AM CDT X-ray of the knee viewed and interpreted. ??There is no evidence of fracture, subluxation, or bony abnormality. Yong Sheikh MD IMG XR PROCEDURES Final Resu lt documented in this encounter Visit Diagnoses Diagnosis Other tear of medial meniscus of left knee as current injury, initial encounter- Primary Left knee pain, unspecified chronicity documented in this encounter Historical Medications * This list may reflect changes made after this encounter. lisinopriL (PRINIVIL,ZESTRIL ) 20 mg tablet Take 1 tablet (20 mg total) by mouth daily added in this encounter Care Teams County Auditor Relationship Specialty Start Date End Date Beau Clinton PA [address] [place] [address] PCP - General Family Practice 08/14/23 documented as of this encounter
--- OUTSIDE RECORDS SUMMARY | 2024-04-03 02:20 | XMS_ITS | Clinical Summary ---
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 Gender Identity Not on file Sexual Orientation Not on file Obstetrics History Last Filed Vital Signs Vital Sign Reading [...] 10/03/2023 2:58 PM CDT Plan of Treatment Health Maintenance Due Date Last Done Comments Depression Screening 1996 Hepatitis C Screening 1996 Regular Well Visit/Exam 18-64 2014 Influenza Vaccine (#1) 2023 8, 01/07/2013, 01/05/2012 DTaP/Tdap/Td Vaccine (9 - Td or Tdap) 03/09/2028 03/09/2018, 02/11/2014, 01/03/2011, Additional history exists Varicella Vaccines Completed 07/18/2006, 11/06/1997 HPV Vaccines Completed 07/04/2011, 02/16, 01/03/2011 Pneumococcal vaccine <65 Aged Out No longer eligible based on patient's age to complete this topic Medical Devices Implanted Type Area Microsoft Bi Architect Device Identifier Shelf Expiration Date Model / Serial / Lot Arthrex Inc Fiberlink Arthrex Suturetape 1.3mm Tape Suture Nonabsorbable Ar-7535 - [id number] Implanted:Qty: 1 on 08/22/2023 by Yong Sheikh MD at [facility] Left: Knee Ar[employer]rex Inc [id number] 07/15/2026 AR-7535 / / [id number] Ar[employer]rex Inc Fiberlink Arthrex Suturetape 1.3mm Tape Suture Nonabsorbable Ar-7535 - [id number] Implanted:Qty: 1 on 08/22/2023 by Yong Sheikh MD at [facility] Left: Knee Ar[employer]rex Inc [id number] 11/15/2027 AR-7535 / / [id number] Depuy Mitek Truespan Orthocord Nonabsorbable 2 Backstop Braid 24d 2-0 [place] [id number] - [id number] Implanted:Qty: 1 on 08/22/2023 by Yong Sheikh MD at [facility] Left: Knee Depuy Mitek 02/14/2026 [id number] / / [id number] Depuy Mitek Truespan Orthocord Nonabsorbable 2 Backstop Braid 24d 2-0 [place] [id number] - [id number] Implanted:Qty: 1 on 08/22/2023 by Yong Sheikh MD at [facility] Left: Knee Depuy Mitek 02/14/2026 [id number] / / [id number] Arthrex Inc Swivelock C 4.75mm 19.1mm Closed Eyelet Vent [place] Suture Ar-2324bcc - [id number] Implanted:Qty: 1 on 08/22/2023 by Yong Sheikh MD at [facility] Left: Knee Ar[employer]rex Inc 03/16/2027 AR-[id number] / / [id number] Insurance [facility] H[facility]/PPO Address: [address] [address] Care Teams Education And Training Manager Relationship Specialty Start Date End Date Beau Clinton PA [address] [place] [address] PCP - General Family Practice 08/14/23 Zarina Avalos PA [address] [place] [address] DR MINA [address] [place] [address] Orthopedic Surgery 08/22/23
--- OUTSIDE RECORDS SUMMARY | 2024-04-03 02:20 | XMS_ITS | Encounter Summary ---
Author Organization [facility] Healthcare Address [address] [place] [address] Care Team Providers Care Ceramic Coater Machine Name Role Phone Beau Clinton Primary Care Provider [phone] Zarina Avalos Unavailable [phone] Reason for Visit * Reason Comments Post-op Encounter Details Date Type Department Care Team (Late st Contact Info) Description 09/05/2023 1:30 PM CDT Office Visit [facility] Medical Group Orthopedics and Sports Medicine [address] [place] [address] [address], [place] [address] Zarina Avalos PA [address] [place] [address] S/P medial meniscus repair of left knee (Primary Dx); Orthopedic aftercare Social History Tobacco Use Types Packs/Day Years [...] on file 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 Gender Identity Not on file Sexual Orientation Not on file documented as of this encounter Last Filed Vital Signs Vital Sign Reading Time Taken Comments Blood Pressure 146/74 09/05/2023 1:54 PM CDT Pulse 112 09/05/2023 1:54 PM CDT Temperature - - Respiratory Rate - - Oxygen Saturation - - Inhaled Oxygen Concentration - - Weight 137.4 kg (303 lb) 09/05/2023 1:54 PM CDT Height 180.3 cm (5' 11 ) 09/05/2023 1:54 PM CDT Body Mass Index 42.26 09/05/2023 1:54 PM CDT documented in this encounter Progress Notes * Zarina Avalos PA - 09/05/2023 1:30 PM CDT Images from the original note were not included. Post-Op Visit Note HPI: Patient is 2 weeks s/p left knee arthroscopy with medial meniscus repair. Pain is well controlled. Patient currently taking tylenol PRN for pain. Patient is participating in outpatient physical therapy which is going well. He has been compliant with brace and toe touch weightbearing. States his PT is requesting we refax postoperative protocol for her to review. Vital signs: BP 146/74 Pulse 112 Ht 180.3 cm (5' 11 ) Wt (!) 137.4 kg (303 lb) BMI 42.26 kg/m?? Exam: Well approximated healing post operative incision. No erythema, draining, or signs of infection present. Neurovascular status is intact. No effusion or pitting edema. No evidence of hematoma AROM: 0-80 Patient is able to perform an active SLR without difficulty. No signs of DVT present bilaterally. Assessment: Diagnosis Plan 1. S/P medial meniscus repair of left knee 2. Orthopedic aftercare Plan: Incision care was reviewed. Reviewed and discussed physical therapy notes with the patient; will resend protocol to PT for patient Discussed continued post op expectations and recovery. Continue toe touch weight bearing Adjusted brace to 90 degrees Patient may follow up in 4 weeks to reassess All questions were answered appropriately. Patient was advised to contact clinic with any questionsor concerns. Patient verbalized full understanding and is agreeable with this treatment plan. There may be grammatical errors in this note due to use of voice recognition software. documented in this encounter Plan of Treatment Not on file documented as of this encounter Visit Diagnoses Diagnosis S/P medial meniscus repair of left knee- Primary Orthopedic aftercare Unspecified orthopedic aftercare documented in this encounter Care Teams Ceramic Coater Machine Relationship Specialty Start Date End Date Beau Clinton PA [address] [place] [address] PCP - General Family Practice 08/14/23 Zarina Avalos PA [address] [facility] [address] [place] [address] [place] [id number] Orthopedic Surgery 08/22/23 documented as of this encounter
--- OUTSIDE RECORDS SUMMARY | 2024-04-03 02:20 | XMS_ITS | Encounter Summary ---
Author Organization [facility] Healthcare Address [address] [place] [address] Care Team Providers Care Manager Respiratory Care Name Role Phone Beau Clinton Primary Care Provider [phone] Zarina Avalos Unavailable [phone] Reason for Visit * Auth/Cert (Routine) Specialty Diagnoses / Procedures Referred By Antony t Referred To Contact Diagnoses Other tear of medial meniscus of left knee, unspecified whether old or current tear, initial encounter Other tear of medial meniscus of left knee, unspecified whether old or current tear, initial encounter [S83.242A] Procedures UT ARTHRS KNE SURG W/MENISCECTOMY MED/LAT W/SHVG Left knee arthroscopy, medial meniscectomy including any meniscal shavings-arthroscopy equipment and ezy wrap Referral ID Status Reason Start Date Expiration Date Visits Re quested Visits Authorized [id number] 1 1 Encounter Details Date Type Department Care Team (Late st Contact Info) Description 08/22/2023 2:06 PM CDT Anesthesia Event [facility] Operating Room [address] [place] [address] [place] [address] [facility] [address] [place] [address] Anesthesia Record Procedure Summary Procedure Name Responsible Anesthesiologist Anesthesia Start Time Anesthesia Stop Time Left knee arthroscopy with medial meniscus repair (Left: Knee) Harrison Callahan MD 08/22/23 1406 08/22/23 1557 Events Date Time Event Comment 08/22/2023 1137 1406 In Room 1406 An Start 1406 An Start Data 1409 An Induction The patient was reevaluated immediately before moderate or deep sedation use and before anesthesia induction. 1410 An Intubation 1410 Anesthesia Ready 1446 Proc Start 1447 Incision Start 1545 An Extubation 1548 Quick Note Placed on 6L/mi n oxygen via simple facemask for rest of case unless otherwise noted in subsequent Q-notes. Disregard any other intraoperative oxygen administration beyond this point that may have been auto-populated unless otherwise noted in subsequent Q-notes. 1550 Proc Fin 1551 an stop data 1552 Out of Room 1557 Handoff to RN I completed my handoff to the receiving nurse during which we: 1. Patient identified 2. Responsible provider identified 3. Pertinent medical history reviewed 4. Procedure type and surgical course discussed 5. Intraoperative anesthetic management and any significant issues discussed 6. Expectations and concerns for postop period discussed 7. Questions solicited from receiving nurse 8. Patient disposition at the time of handoff: No value filed. 1557 An Stop Meds Name Total propofol 300 mg lidocaine 2 % PF 100 mg dexAMETHasone 4 mg/mL 4 mg ketamine 10 mg/mL - 5 mL 50 mg dexmedeTOMIDine infusion 40 mcg ceFAZolin (ANCEF) 1 gram/10 mL in steril e water (premix) 3,000 mg 3,000 mg ondansetron 4 mg phenylephrine 0.5 mg/5 mL (100 mcg/mL) v ial 800 mcg Lactated Ringer's (LR) infusion 1,600 mL * Agents Name O2 N2O Air Sevoflurane Inspired Sevoflurane * Blood No blood administrations on file. Lines, Drains, and Airways Type Details Placement Removal Peripheral IV Placement Date: 08/22/23; Placement Time: 112; Catheter Size: 20 G; Orientation: Posterior, Right; Location: Hand; Removal Date: 08/22/23; Removal Time: 17308/22/23 1123 by Danny Riggs RN 08/22/23 173 by Clarita Escobedo, MANUELA Supraglottic Airway Placement Date: 08/22/23; Placement Time: 1416 (created via procedure documentation); Mask Ventilation: 0; Size: 5; Insertion Attempts: 1; Comments: Smooth atraumatic placement.; Removal Date: 08/22/23; Removal Time: 15408/22/23 1417 by Avery Vaughan CRNA 08/22/23 1545 by Avery Vaughan CRNA RETIRED Surgical Site 08/22/23; 1430; Le ft; Knee; 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, Removed/Completed by [facility] with LDA Utility); 1213 (Retired LDA, Removed/Completed by [facility] with LDA Utility) 08/22/23 1430 by Sunita Mays RN 03/19/24 1213 by Discharge Provider, Automatic documented in this encounter Social History Tobacco [...] on file 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 Gender Identity Not on file Sexual Orientation Not on file documented as of this encounter OR Notes * Anesthesia Postprocedure Evaluation - Harrison Callahan MD - 08/22/2023 5:03 PM CDT Patient: Antony Benedict Procedure Summary Date: 08/22/23 [facility] / [facility] [address] [place] [address] OPERATING ROOM Anesthesia Start: 1406 Anesthesia Stop: 1557 Procedure: Left knee arthroscopy with medial meniscus repair (Left: Knee) Diagnosis: Other tear of medial meniscus of left knee, unspecified whether old or current tear, initial encounter (Other tear of medial meniscus of left knee, unspecified whether old or current tear, initial encounter [S83.242A]) Providers: Yong Sheikh MD Responsible Provider: Harrison Callahan MD Anesthesia Type: general ASA Status: 3 Anesthesia Type: general Last vitals BP 152/95 Pulse 74 Temp 36.2 ??C (97.2 ??F) (Temporal) Resp 26 SpO2 97% Anesthesia Post Evaluation Patient location during evaluation: PACU Patient participation: complete - patient participated Level of consciousness: fully awake Pain score: 0 Pain management: adequate Airway patency: adequate Evidence of recall: no Cardiovascular status: acceptable Respiratory status: acceptable Hydration status: acceptable Pt is: normothermic Nausea/Vomiting status: none No notable events documented. * Anesthesia Procedure Notes - Avery Vaughan CRNA - 08/22/2023 2:17 PM CDTAssociated Order(s): Airway Airway Patient location: OR Urgency: elective Indications for airway management: anesthesia Difficult airway: no Staff: Placed by: CHECKOUT SUPERVISOR: Avery Vaughan CRNA Emergent airway documentation: Risks and benefits discussed: yes Consent obtained: yes Consent given by: patient Airway prep: Preoxygenated: yes Patient position: sniffing Mask difficulty assessment: 0 - not attempted Spontaneous ventilation during airway: absent Sedation level during airway: GA Final airway details: Final airway type: supraglottic airway Final supraglottic airway: unique SGA size: 5 Airway seal pressure: 20 cm H2O Number of attempts: 1 Additional comments: Smooth atraumatic placement. * Anesthesia Preprocedure Evaluation - Harrison Callahan MD - 08/18/2023 8:43 AM CDT Images from the original note were not included. Anesthesia Evaluation Antony Benedict is a 28 y.o. male Left knee arthroscopy, medial meniscectomy including any meniscal shavings- arthroscopy equipment and ezy wrap (Left: Knee) Pre-Op Diagnosis Codes: * Other tear of medial meniscus of left knee, unspecified whether old or current tear, initial encounter [S83.242A] HISTORY Past Medical History Information obtained from: patient and chart. Information obtained during: In Person Cardiovascular + Hypertension Respiratory Sleep apnea: snores. Hepatic / Heme Hepatic/Heme system: negative Gastrointestinal GI system: negative Renal / Renal/ system: negative Musculoskeletal/Pain Musculoskeletal/Pain system: negative Endocrine / Other + Obesity (BMI >30)- morbid obesity (BMI>40). Functional Capacity Functional capacity: 6-10 METs Patient Active Problem List Diagnosis Date Noted Tear of medial meniscus of left knee 08/14/2023 Past Medical History: Diagnosis Date Hypertension History reviewed. No pertinent surgical history. No Known Allergies Taking? Last Dose Start Date End Date Provider lisinopriL (PRINIVIL,ZESTRIL) 20 mg tablet -- -- -- Provider, MD Radha No current facility-administered medications for this encounter. Current Outpatient Medications: lisinopriL (PRINIVIL,ZESTRIL) 20 mg tablet Social History Tobacco Use Smoking Status Former Types: Cigarettes Passive exposure: Current Smokeless Tobacco Never Alcohol Use: Alcohol Misuse (08/15/2023) AUDIT-C Frequency of Alcohol Consumption: Monthly or less Average Number of Drinks: 5 or 6 Frequency of Binge Drinking: Monthly Substance and Sexual Activity Drug Use Not on file History reviewed. No pertinent family history. There were no vitals filed for this visit. PT: No results found for requested labs within last 30 days. INR: No results found for requested labs within last 30 days. APTT: No results found for requested labs within last 30 days. Hgb A1C: No results found for requested labs within last 30 days. CBC RBC: No results found for requested labs within last 30 days. RDW: No results found for requested labs within last 30 days. MCHC: No results found for requested labs within last 30 days. MCH: No results found for requested labs within last 30 days. MCV: No results found for requested labs within last 30 days. Hct: No results found for requested labs within last 30 days. Hgb: No results found for requested labs within last 30 days. WBC: No results found for requested labs within last 30 days. MPV: No results found for requested labs within last 30 days. Platelets: No results found for requested labs within last 30 days. RDW CV: No results found for requested labs within last 30 days. RDW Sd: No results found for requested labs within last 30 days. BMP Glucose: No results found for requested labs within last 30 days. Calcium: No results found for requested labs within last 30 days. Sodium: No results found for requested labs within last 30 days. Potassium: No results found for requested labs within last 30 days. CO2: No results found for requested labs within last 30 days. Chloride: No results found for requested labs within last 30 days. BUN: No results found for requested labs within last 30 days. Creatinine: No results found for requested labs within last 30 days. STOP-Bang Total Score: 6 DOS Physical Exam Medical history, medications, and allergies reviewed. Attestation: I endorse the findings of the anesthesia pre-evaluation assessment dated: 08/22/2023. Airway Exam: Mallampati: III Cervical ROM: FROM TM distance: >4 Cardiovascular Exam: Rate: regular Rhythm: regular Pulmonary Exam: LCTA, bilat EENT Exam: trachea midline Dental Exam: Appears intact Skin Exam: Skin is warm. Current state: Patient's current state is cooperative. Anesthesia Plan ASA 3 My patient is approved for the Anesthesia Controlled Medication protocol when under care of a CHECKOUT SUPERVISOR Planned anesthesia: General Team communication plan: LMA Induction: Induction: intravenous. Postoperative Plan: Postoperative administration opioids intended. No postoperative mechanical ventilation intended. Patient's planned disposition post procedure is Outpatient. Informed Consent: Discussed plan with attending and CHECKOUT SUPERVISOR. Anesthesia plan and risks discussed with patient. Consent and Attending signature: I and/or my designee have discussed the anesthesia plan, benefits, possible alternatives, parental presence at time of induction (if indicated), and clinically relevant risks that may include dental injury, unintentional awareness, and/or other complications. The patient and/or parent/legal guardian understand, and agree to proceed. All questions answered. documented in this encounter Plan of Treatment Not on file documented as of this encounter Procedures Procedure Name Priority Date/Time Associated Diagnosis Comments UT AN ELECTIVE SUPRAGLOTTIC AIRWAY Routine 08/22/2023 2:17 PM CDT documented in this encounter Results * UT AN ELECTIVE SUPRAGLOTTIC AIRWAY (08/22/2023 2:17 PM CDT) Narrative Avery Vaughan CRNA - 08/22/2023 2:17 PM CDT Avery Vaughan CRNA ? 08/22/2023 ??2:17 PM Airway Patient location: OR Urgency: elective Indications for airway management: anesthesia Difficult airway: no Staff: Placed by: CHECKOUT SUPERVISOR: Avery Vaughan CRNA Emergent airway documentation: Risks and benefits discussed: yes Consent obtained: yes Consent given by: patient Airway prep: Preoxygenated: yes Patient position: sniffing Mask difficulty assessment: 0 - not attempted Spontaneous ventilation during airway: absent Sedation level during airway: GA Final airway details: Final airway type: supraglottic airway Final supraglottic airway: unique SGA size: 5 Airway seal pressure: 20 cm H2O Number of attempts: 1 Additional comments: Smooth atraumatic placement. us Harrison Callahan MD ANESTHESIA ORDERABLES Maki l Result documented in this encounter Visit Diagnoses Not on filedocumented in this encounter Administered Medications Inactive Administered Medications - up to 3 most recent administrations Medication Order MAR Action Action Date Dose Rate Site ceFAZolin (ANCEF) 1 gram/10 mL in sterile water (premix) 3,000 mg 3,000 mg, intravenous, at 600 mL/hr, Administer over 3 Minutes, Once, On Mon08/22/23 at 1145, For 1 dose, Pre-Op, Administer within 60 minutes of incision. Dose adjusted per surgical prophylaxis protocol for patients 120 kg or greater, give 3000 mg upon induction. Weight= 137.8 kg, Indications: Prophylaxis, SurgicalIndications:Prophylaxis, Surgical Given 08/22/2023 2:17 PM CDT 3,000 mg dexAMETHasone (DECADRON) 4 mg/mL injection intravenous, Administer over 2 Minutes, As needed, Starting on Mon08/22/23 at 1409, Anesthesia Intra-op Given 08/22/2023 2:09 PM CDT 4 mg dexmedeTOMIDine in 0.9% sodium chloride (PRECEDEX) 200 mcg/50 mL (4 mcg/mL) infusion (premix) intravenous, As needed, Starting on Mon08/22/23 at 1406, Anesthesia Intra-op Given 08/22/2023 2:15 PM CDT 4 mcg Given 08/22/2023 2:14 PM CDT 4 mcg Given 08/22/2023 2:13 PM CDT 4 mcg ketamine (KETALAR) 50 mg/5 mL (10 mg/mL) in sodium chloride 0.9% (premix) intravenous, As needed, Starting on Mon08/22/23 at 1409, Anesthesia Intra-op Given 08/22/2023 2:45 PM CDT 20 mg Given 08/22/2023 2:09 PM CDT 30 mg Lactated Ringer's (LR) infusion 30 mL/hr, intravenous, Continuous, Starting on Mon08/22/23 at 1145, Pre-Op New Bag 08/22/2023 2:40 PM CDT Rate/Dose Verify 08/22/2023 2:06 PM CDT 30 mL/h r New Bag 08/22/2023 11:32 AM CDT 30 mL/hr 30 mL/hr lidocaine (PF) (XYLOCAINE) 20 mg/mL (2 %) preservative free injection intravenous, As needed, Starting on Mon08/22/23 at 1409, Anesthesia Intra-op Given 08/22/2023 2:09 PM CDT 100 mg ondansetron (ZOFRAN) injection intravenous, Administer over 2 Minutes, As needed, Starting on Mon08/22/23 at 1422, Anesthesia Intra-op Given 08/22/2023 2:22 PM CDT 4 mg phenylephrine (BIORPHEN) 0.5 mg/5 mL (100 mcg/mL) injection intravenous, As needed, Starting on Mon08/22/23 at 1437, Anesthesia Intra-op Given 08/22/2023 3:34 PM CDT 100 mcg Given 08/22/2023 3:29 PM CDT 100 mcg Given 08/22/2023 3:27 PM CDT 100 mcg propofoL (DIPRIVAN) 10 mg/mL IV intravenous, As needed, Starting on Mon08/22/23 at 1409, Anesthesia Intra-op New Bag 08/22/2023 2:09 PM CDT 300 mg documented in this encounter Care Teams Manager Respiratory Care Relationship Specialty Start Date End Date Beau Clinton PA [address] [place] [address] PCP - General Family Practice 08/14/23 Zarina Avalos PA [address] [facility] [place] [address] Orthopedic Surgery 08/22/23 documented as of this encounter
--- OUTSIDE RECORDS SUMMARY | 2024-04-03 02:20 | XMS_ITS | Encounter Summary ---
Author Organization [facility] Healthcare Address [address] [place] [address] Care Team Providers Care Garbage Truck Helper Name Role Phone Beau Clinton Primary Care Provider Reason for Visit * Diagnostic Imaging (Routine) - Closed Specialty Diagnoses / Procedures Referred By Contac t Referred To Contact Diagnoses Left knee pain, unspecified chronicity Procedures XR Pelvis 1 or 2 Views Yong Sheikh MD [address] [place] [address] [address] Phone: tel: fax: Referral ID Status Reason Start Date Expiration Date Visits Re quested Visits Authorized [id number] Closed 08/14/2023 09/12/2024 1 1 Encounter Details Date Type Department Care Team (Latest Contact Info) Description 08/14/2023 7:38 AM CDT - 08/14/2023 11:59 PM CDT Hospital Encounter [facility] Medical Group Orthopedics and Sports Medicine [address] [place] [address] [address], [place] [address] Discharge Disposition: Discharge to home or self care Social History Tobacco Use Types Packs/Day Years [...] on file 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 Gender Identity Not on file Sexual Orientation Not on file documented as of this encounter Medications at Time of Discharge lisinopriL (PRINIVIL,ZESTRI L) 20 mg tablet Take 1 tablet (20 mg total) by mouth daily ascorbic acid (VITAMIN C) 500 mg tablet,chewable Take 1 tablet/chew tab (500 mg total) by mouth 2 (two) times a day 60 tablet/chew tab 08/22/2023 aspirin 81 mg enteric coated tabletIndication s:prevention of thrombosis Take 1 tablet (81 mg total) by mouth 2 (two) times a day for 14 days 28 tablet 08/22/2023 cholecalciferol (VITAMIN D-3) 2000 unit capsule Take 1 capsule (2,000 Units total) by mouth daily 30 capsule 08/22/2023 HYDROcodone-acet aminophen (NORCO) 5-325 mg per tabletIndication s:Pain Take 1 tablet by mouth every 6 (six) hours as needed for pain 15 tablet 08/22/2023 ondansetron (ZOFRAN) 4 mg tabletIndication s:Prevention of Post-Operative Nausea and Vomiting Take 1 tablet (4 mg total) by mouth every 6 (six) hours as needed for nausea or vomiting 20 tablet 1 08/22/2023 senna-docusate (PERICOLACE) 8.6-50 mg 1-2 times daily as needed for constipation 30 tablet 1 08/22/2023 documented as of this encounter Discharge Disposition Disposition Code Departure Means Destination Discharge to home or self care documented in this encounter Plan of Treatment [...] fracture subluxation or dislocation normal joint spaces us Yong Sheikh MD IMG XR PROCEDURES Final Resu lt documented in this encounter Visit Diagnoses Not on filedocumented in this encounter Care Teams Garbage Truck Helper Relationship Specialty Start Date End Date Beau Clinton PA [address] [place] [address] PCP - General Family Practice 08/14/23 documented as of this encounter
--- OUTSIDE RECORDS SUMMARY | 2024-04-03 02:20 | XMS_ITS | Encounter Summary ---
Author Organization [facility] Healthcare Address [facility] [place] [address] Care Team Providers Care Medical Superintendent Name Role Phone Beau Clinton Primary Care Provider [phone] Reason for Visit * Diagnostic Imaging (Routine) - Closed Specialty Diagnoses / Procedures Referred By Contac t Referred To Contact Diagnoses Left knee pain, unspecified chronicity Procedures XR Knee Left 4 or More Views Yong Sheikh MD [address] [place] [address] [address] [address] Phone: tel: fax: Referral ID Status Reason Start Date Expiration Date Visits Re quested Visits Authorized [id number] Closed 08/14/2023 09/12/2024 1 1 Encounter Details Date Type Department Care Team (Latest Contact Info) Description 08/14/2023 7:38 AM CDT - 08/14/2023 11:59 PM CDT Hospital Encounter [facility] Medical Group Orthopedics and Sports Medicine [address] [place] [phone] Discharge Disposition: Discharge to home or self [...] on file 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 ??There is no evidence of fracture, subluxation, or bony abnormality. us Yong Sheikh MD IMG XR PROCEDURES Final Resu lt documented in this encounter Visit Diagnoses Not on filedocumented in this encounter Care Teams Medical Superintendent Relationship Specialty Start Date End Date Beau Clinton PA [address] [place] [address] PCP - General Family Practice 08/14/23 documented as of this encounter
--- OUTSIDE RECORDS SUMMARY | 2024-04-03 02:20 | XMS_ITS | Encounter Summary ---
Author Organization [facility] Healthcare Address [address] [place] [address] Care Team Providers Care Ampoule Examiner Name Role Phone Beau Clinton Primary Care Provider [phone] Zarina Avalos Unavailable + [phone] Encounter Details Date Type Department Care Team (Late st Contact Info) Description 09/06/2023 Documentation [facility] Medical Group Orthopedics and Sports Medicine [address] [place] [address] [address] [place] [address] Zarina Avalos PA [address] [place] [address] [address] [place] [address] Social History Tobacco Use Types Packs/Day Years [...] on file 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 documented in this encounter Plan of Treatment Not on file documented as of this encounter Visit Diagnoses Not on filedocumented in this encounter Care Teams Ampoule Examiner Relationship Specialty Start Date End Date Beau Clinton PA [address] [place] [address] PCP - General Family Practice 08/14/23 Zarina Avalos PA [address] [place] [address] DR MINA [address] [place] [id number] Orthopedic Surgery 08/22/23 documented as of this encounter
--- OUTSIDE RECORDS SUMMARY | 2024-04-03 02:20 | XMS_ITS | Encounter Summary ---
Author Organization [facility] Healthcare Address [address] [place] [address] Care Team Providers Care Bulk Mail Clerk Name Role Phone Beau Clinton Primary Care Provider [phone] Zarina Avalos Unavailable [phone] Reason for Visit * Reason Comments Post-op Encounter Details Date Type Department Care Team (Late st Contact Info) Description 11/14/2023 11:00 AM CDT Office Visit [facility] Medical Group Orthopedics and Sports Medicine [address] [place] [address] [address] [id number] Zarina Avalos PA [address] [place] [address] S/P medial meniscus repair of left [...] on file 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 Post-Op Visit Note HPI: Patient is 12 weeks s/p left knee arthroscopy with medial meniscus repair. Pain is well controlled.Patient currently taking nothing for pain. Patient completed outpatient physical therapy in [place] and states he has transitioned to home exercise program only and working out at the gym again which he states is going well. He states he has been able to return back to leg press squatting and biking without difficulty. He would like note to return back to work if possible. Vital signs: BP 141/86 Pulse 77 Exam: Well approximated healing post operative incision. No erythema, draining, or signs of infection present. Neurovascular status is intact. No effusion or pitting edema. No evidence of hematoma AROM: 0-130 Patient is able to perform an active SLR without difficulty. No signs of DVT present bilaterally. Strength: knee extension: 5/5, knee flexion: 5/5, hip flexion: 5/5 Assessment: Diagnosis Plan 1. S/P medial meniscus repair of left knee 2. Orthopedic aftercare Plan: Incision care was reviewed. Reviewed and discussed physical therapy notes with patient and reviewed HEP Discussed continued post op expectations and recovery. Patient may follow up as needed at this time He was provided a letter to provide to his employer that he may return to work without restrictionsas of 11/24/2023 All questions were answered appropriately. Patient was [...] aftercare documented in this encounter Care Teams Bulk Mail Clerk Relationship Specialty Start Date End Date Beau Clinton PA [address] [place] [address] PCP - General Family Practice 08/14/23 Zarina Avalos PA [address] [place] [address] DR MINA [address] [place] [id number] Orthopedic Surgery 08/22/23 documented as of this encounter
--- OUTSIDE RECORDS SUMMARY | 2024-04-03 02:20 | XMS_ITS | Encounter Summary ---
Author Organization [facility] Address [address] [place] [address] Care Team Providers Care Kineseologist Name Role Phone Beau Clinton Primary Care Provider [phone] Zarina Avalos Unavailable [phone] Reason for Visit * Auth/Cert (Routine) Specialty Diagnoses / Procedures Referred By Antony t Referred To Contact Diagnoses Other tear of medial meniscus of left knee, unspecified whether old or current tear, initial encounter Other tear of medial meniscus of left knee, unspecified whether old or current tear, initial encounter [S83.242A] Procedures IN [facility] KNE SURG W/MENISCECTOMY MED/LAT W/SHVG Left knee arthroscopy, medial meniscectomy including any meniscal shavings-arthroscopy equipment and ezy wrap Referral ID Status Reason Start Date Expiration Date Visits Re quested Visits Authorized [id number] 1 1 Encounter Details Date Type Department Care Team (Latest Contact Info) Description 08/22/2023 10:45 AM CDT - 08/22/2023 5:47 PM CDT Hospital Encounter [facility] Operating Room [address] [place] [address] Yong Sheikh MD [address] [facility] [address] [place] [address] Other tear of medial meniscus of left knee as current injury, initial encounter (Primary Dx); Other tear of medial meniscus of left knee as current injury, initial encounter Discharge Disposition: Discharge to home or self [...] on file 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 * General Anesthesia (Discharge Care) (Estonian) * Ascorbic Acid (Vitamin C) (By mouth) (Estonian) * Aspirin (By mouth) (Estonian) * Vitamin D (By mouth) (Estonian) * Hydrocodone/Acetaminophen (By mouth) (Estonian) * Ondansetron (By mouth, Into the mouth) (Estonian) * Senna (By mouth) (Estonian) * Crutch Instructions (Discharge Care) (Estonian) documented in this encounter Medications at Time [...] 1 08/22/2023 documented as of this encounter Ordered Prescriptions Prescription Sig Dispense Quantity Refills Last Filled Start Date End Date senna-docusate (PERICOLACE) 8.6-50 mg 1-2 times daily as needed for constipation 30 tablet 1 08/22/2023 ondansetron (ZOFRAN) 4 mg tabletIndications :Prevention of Post-Operative Nausea and Vomiting Take 1 tablet (4 mg total) by mouth every 6 (six) hours as needed for nausea or vomiting 20 tablet 1 08/22/2023 HYDROcodone-aceta minophen (NORCO) 5-325 mg per tabletIndications :Pain Take 1 tablet by mouth every 6 (six) hours as needed for pain 15 tablet 08/22/2023 cholecalciferol (VITAMIN D-3) 2000 unit capsule Take 1 capsule (2,000 Units total) by mouth daily 30 capsule 08/22/2023 aspirin 81 mg enteric coated tabletIndications :prevention of thrombosis Take 1 tablet (81 mg total) by mouth 2 (two) times a day for 14 days 28 tablet 08/22/2023 ascorbic acid (VITAMIN C) 500 mg tablet,chewable Take 1 tablet/chew tab (500 mg total) by mouth 2 (two) times a day 60 tablet/chew tab 08/22/2023 documented in this encounter Discharge Disposition Disposition Code Departure Means Destination Comment s Discharge to home or self care documented in this encounter Progress Notes * Dustin Lipscomb, PT - 08/22/2023 5:47 PM CDT Physical Therapy 08/22/23 1708 General Chart Reviewed Yes Session Type Evaluation PT Received On 08/22/23 Safe Environment Arm band checked;Patient found sitting in chair;Gait belt utilized for all out of bed mobility Subjective Agreeable to Therapy Family/Caregiver Present Yes Physical Therapy-Patient Goal return home after surgery Precautions Precautions Fall risk Weight Bearing Restrictions Yes RUE Weight Bearing TT Braces/Orthoses Hinge brace (locked in neutral) Home Living Type of Home House Home Layout One level;Basement Home Access Stairs to enter with rails Entrance Stairs-Rails Both Entrance Stairs-Number of Steps 4 Home Mobility Equipment-Available None Home Mobility Equipment-Currently Using None Prior Function Level of [place] Independent with ADLs;Independent functional transfers;Independent with ambulation Lives With Significant other Receives Help From Spouse/Significant other;Neighbor;Friend(s) Driving Yes Prior Function Comments uncertain how meniscus tore believes due to wear and tear Pain Assessment Pain Assessment No/denies pain Cognition Orientation Oriented X4 (person, place, time, situation) Balance Balance (static sit/stand indep) Transfer 1 Transfer From 1 Sit;Chair with arms Transfer Type 1 To and from Transfer to 1 Stand (x2) Technique 1 Sit to stand;Stand to sit Transfer Device 1 Crutches Transfer Level of Assistance 1 Standby Assist;Minimal verbal cues Trials/Comments 1 vc for sequencing and placement of crutches and hands Ambulation 1 Distance (ft) 1 75' NWB (pt preferred to do NWB opposed to TTWB) Surface 1 Level tile Device 1 Crutches Assistance 1 Standby Assist Gait: Requires verbal cues to 1 Use assistive device safely;Follow precautions/weight bearing status;Utilize appropriate gait sequencing Quality of Gait 1 2 point gt pattern Stairs Stairs Yes Stairs Number of Stairs 1 3 Rails 1 Bilateral Device 1 No device Assistance 1 Independent Stairs: Requires assist with 1 Appropriate sequencing RLE Assessment RLE Assessment WFL LLE Assessment LLE Assessment (NT pt in hinge brace locked in full extension) Assessment Prognosis Good Problem List Gait deviations;Decreased mobility Plan Plan Discharge Recommendation/Plan PT Recommendation/Plan Home with intermittent assist PT Frequency during current admission One time visit (Discharge from this service) (post-op gt training) Treatment/Interventions during current admission Functional transfer training;Gait training;Stair training PT Equipment Recommended Crutches (order rec'd, crutches fit to pt, pt/fiance educated in regards to care and use of crutches) PT Evaluation Complete Yes * [facility] 11[facility]39 AM CDT Antimicrobial Stewardship Team Note Renal Dose Adjustment This patient has been assessed by the Antimicrobial Stewardship Team and meets P&T-approved criteria for renal dose adjustment of antimicrobial therapy. Administer within 60 minutes of incision. Dose adjusted per surgical prophylaxis protocol for patients 120 kg or greater, give 3000 mg upon induction. Weight= 137.8 kg No results found for: CREATININE , BUNSER CrCl cannot be calculated (No successful lab value found.). No intake/output data recorded. No results found for: WBC Temp Readings from Last 3 Encounters: No data found for Temp For questions please contact: Wade Schofield [facility] Pharmacy department [phone] documented in this encounter H&P Notes * Yong Sheikh MD - 08/22/2023 11:19 AM CDT I have reviewed the H&P, examined the patient, and endorse the findings as written. Plan of Care : Based on the above findings, I consider Antony Benedict to be an acceptable risk for :Procedure(s): Left knee arthroscopy, medial meniscectomy including any meniscal shavings- arthroscopy equipment and ezy wrap Source Note - Yong Sheikh MD - 08/14/2023 8:30 AM [...] tear he is here for surgical consultation Skin Grader completed by using M*Modal Fluency Direct speaking [...] HAL Singer MD documented in this encounter Miscellaneous Notes * Op Note - Yong Sheikh MD - 08/22/2023 2:47 PM CDT Images from the original note were not included. Operative Report SURGEON: Yong Sheikh MD Endoscopy Support Specialist: Sunita Mays RN Physician Machine Clipper: Sagar Calvert PA Scrub: Jenny Turner ST RNFA: Elena Pittman RN SURGICAL TEAM: Surgeons and Role: * Yong Sheikh MD - Primary DATE OF SURGERY : 08/22/2023 PREOPERATIVE DIAGNOSIS: See preoperative H and P POSTOPERATIVE DIAGNOSIS: Post-op Diagnosis * Other tear of medial meniscus of left knee, unspecified whether old or current tear, initial encounter [I55.543A] Posterior horn medial meniscus tear, root tear medial meniscus PROCEDURE: Left knee arthroscopy with medial meniscus repair (L) ANESTHESIA: General IMPLANTS: Implant Name Type Inv. Item Serial No. Mission Assessment Specialist Lot No. LRB No. Used Action [employer] Fiberlink Arthrex Suturetape 1.3mm Tape Suture Nonabsorbable AR-7535 - [id number] [employer] Fiberlink Arthrex Suturetape 1.3mm Tape Suture Nonabsorbable AR-7535 [employer] [id number] Implanted [employer] Fiberlink Arthrex Suturetape 1.3mm Tape Suture Nonabsorbable AR-7535 - [id number] [employer] Fiberlink Arthrex Suturetape 1.3mm Tape Suture Nonabsorbable AR-7535 [employer] Inc [id number] Left 1 Implanted DEPUY MITEK TRUESPAN ORTHOCORD NONABSORBABLE 2 BACKSTOP BRAID 24D 2-0 ANCHOR [id number] - [id number] DEPUY MITEK TRUESPAN ORTHOCORD NONABSORBABLE 2 BACKSTOP BRAID 24D 2-0 ANCHOR [id number] Depuy Mitek [id number] Left 1 Implanted DEPUY MITEK TRUESPAN ORTHOCORD NONABSORBABLE 2 BACKSTOP BRAID 24D 2-0 ANCHOR [id number] - [id number] DEPUY MITEK TRUESPAN ORTHOCORD NONABSORBABLE 2 BACKSTOP BRAID 24D 2-0 ANCHOR [id number] Depuy Mitek [id number] Left 1 Implanted [employer] Swivelock C 4.75mm 19.1mm Closed Eyelet Vent Spangler Suture AR- [id number] - [id number] [employer] Swivelock C 4.75mm 19.1mm Closed Eyelet Vent Spangler Suture [id number] [employer] [id number] Left 1 Implanted Estimated Blood Loss: 5 mL Operation in detail: The patient was seen in the preop holding area where consent was reviewed and signed. The left kneewas initialed. The patient was taken to the operating the transfered safely to the operative table.Once in the operative suite the patient was anesthetized by Anesthesia. Once under anesthesia, the left knee was prepped and draped sterilely. Injected medial lateral portals with lidocaine with epi. I performed a diagnostic arthroscopy through a anterolateral portal . Using outside in technique a medial portals placed. Upon entering the joint, I evaluated the articular cartilage and the meniscus with the following findings: Patella: normal cartilage Trochlea: normal cartilage Medial femoral condyle: chondrosis (Grade 1) Medial tibial plateau: chondrosis (Grade 1) Lateral femoral condyle: normal cartilage Lateral tibial plateau: normal cartilage Loose body: none Pie crusted the MCL to access the medial meniscus The medial meniscus was posterior horn tear. With root tear. Medial portal was enlarged. Passport cannulas placed debrided the fat pad. Placed a vertical mattress stitch and oblique mattress stitch in the posterior horn tear. Placed a fiber link suture using the meniscal scorpion into the root tear. Placed a drill guide drilled with a 3 5 drill FlipCutter flipped to a 6 reverse reamed approximately 2 mm removing cartilage and a mm of bone. Shaver was used to remove any cartilage and bony debris.fiber stick pulled the fiber stick through shuttled the meniscus root FiberLink suture placed tension on the suture confirmed appropriate reduction of the meniscus root drilled the tibia tapped the tibia scope back in the knee confirming the root was reduced a 4.75 SwiveLock was then used to complete the meniscus root repair. The lateral meniscus was normal I then drained the arthroscopy fluid of the knee joint. The portal sites were closed. Dry sterile dressings were applied in standard fashion. Needle count sponge counts instrument counts were correctin the case. The patient was awakened transfer safely off the operating table and taken to the postanesthesia care unit in stable condition. Compression dressing was placed knee brace was placed set 0-60 locked in full extension. Patient will follow meniscus repair protocol Complications: None Condition on Discharge from the operating room was stable Yong Sheikh MD Date: 08/22/2023 Time: 4:17 PM Skin Grader completed by using M*Modal Fluency Direct speaking software, therefore, transcriptionvariances may occur. * Perioperative Nursing Note - Pepper Charles RN - 08/15/2023 1:27 PM CDT MERLENE letter faxed to Dr Clinton and instructions placed in chart. * Pre-Procedure Instructions - Pepper Charles RN - 08/15/2023 12:03 PM CDT We are pleased that you and your doctor have chosen [facility] for your surgery. We hope that the following information will help make your visit a pleasant one. Surgery Date: 08/22/2023 We will call after 3pm on August 20 with time to arrive. Before your surgery: Notify your doctor of ANY change in your health such as a cold, sore throat, fever, any infection or a change in the problem for which you are having your surgery. Follow any instructions given to you by your doctor or surgeon. One week before surgery STOP taking: All herbal supplements Aspirin (not ordered by your doctor) Aleve, Advil, Motrin, Ibuprofen, or other similar medications (Tylenol is okay). 24 hours before your surgery: No smoking or alcoholic drinks. Night before your surgery: Do not eat or drink anything after midnight. Follow surgeon's instructions for anti-bacterial shower night before and morning of surgery. Day of surgery: Do not swallow any water when you brush your teeth. ONLY take these pills with a tiny sip of water. lisinopril Use no make-up, nail yoruba, lotions, oils or powders on your skin. Wear comfortable clothes that will not be tight in the area of your surgery. Leave all valuables and jewelry (including all body piercing jewelry) at home. Please bring your a photo ID and insurance cards with you. Check in at the Surgery Desk. After your Outpatient Surgery: You must have a responsible adult to drive you home, you will not be allowed to drive or take a cabhome. We recommend you have someone stay with you for 24 hours after your surgery. Questions or concerns: If you have any questions or concerns regarding your procedure, contact your surgeon as soon as possible. If you have questions regarding your Pre-Admission Testing, please call us. We can be reached at the number posted at the top of the page. documented in this encounter Plan of Treatment Not on file documented as of this encounter Procedures Procedure Name Priority Date/Time Associated Diagnosis Comments ARTHROSCOPY KNEE 08/22/2023 1:51 PM CDT Other tear of medial meniscus of left knee, unspecified whether old or current tear, initial encounter documented in this encounter Visit Diagnoses Diagnosis Tear of medial meniscus of left knee- Primary Other tear of medial meniscus of left knee as current injury, initial encounter documented in this encounter Admitting Diagnoses Diagnosis Tear of medial meniscus of left knee documented in this encounter Administered Medications Inactive Administered Medications - up to 3 most recent administrations Medication Order MAR Action Action Date Dose Rate Site acetaminophen (TYLENOL) tablet 1,000 mg 1,000 mg, oral, Once, On Mon08/22/23 at 1145, For 1 dose, Pre-Op, Indications: Pre-Emptive AnalgesiaIndications:Pre-Emptiv e Analgesia Given 08/22/2023 11:31 AM CDT 1,000 mg Lactated Ringer's (LR) infusion 30 mL/hr, intravenous, Continuous, Starting on Mon08/22/23 at 1145, Pre-Op New Bag 08/22/2023 2:40 PM CDT Rate/Dose Verify 08/22/2023 2:06 PM CDT 30 mL/h r New Bag 08/22/2023 11:32 AM CDT 30 mL/hr 30 mL/hr scopolamine patch 72 hour 1 patch 1 patch, transdermal, Administer over 72 Hours, Once, On Mon08/22/23 at 1215, For 1 dose, Pre-Op Medication Applied 08/22/2023 11:39 AM CDT 1 patch Behind Left Ear documented in this encounter Active and Recently Administered Medications Times are shown in CDT. Scheduled Medication Order 08/20/2023 08/21/2023 08/22/2023 acetaminophen (TYLENOL) tablet 1,000 mg (COMPLETED) 1,000 mg, oral, Once, On Mon08/22/23 at 1145, For 1 dose, Pre-Op, Indications: Pre-Emptive Analgesia 1131 (Given - Provid er: Danny Riggs RN) ceFAZolin (ANCEF) 1 gram/10 mL in sterile water (premix) 3,000 mg (COMPLETED) 3,000 mg, intravenous, at 600 mL/hr, Administer over 3 Minutes, Once, On Mon08/22/23 at 1145, For 1 dose, Pre-Op, Administer within 60 minutes of incision. Dose adjusted per surgical prophylaxis protocol for patients 120 kg or greater, give 3000 mg upon induction. Weight= 137.8 kg, Indications: Prophylaxis, Surgical 1417 (Given - Provid er: Avery Vaughan CRNA) scopolamine patch 72 hour 1 patch 1 patch, transdermal, Administer over 72 Hours, Once, On Mon08/22/23 at 1215, For 1 dose, Pre-Op 1139 (Medication Susi lied - Provider: Danny Riggs RN)1747 (Due: Medication Removed - Provider: Automatic Discharge Provider - Comment: Time automatically adjusted from order being discontinued) Continuous Medication Order 08/20/2023 08/21/2023 08/22/2023 Lactated Ringer's (LR) infusion 30 mL/hr, intravenous, Continuous, Starting on Mon08/22/23 at 1145, Pre-Op 1132 (New Bag - Prov ider: Danny Riggs RN)1406 (Rate/Dose Verify - Provider: Avery Vuaghan CRNA)1439 (Paused - Provider: Avery Vaughan CRNA - Comment: Switch to gravity)1440 (New Bag - Provider: Avery Vaughan CRNA)1539 (Anesthesia Volume Adjustment - Provider: Avery Vaughan CRNA)2147 (Due: Stopped) PRN Medication Order 08/20/2023 08/21/2023 08/22/2023 Lactated Ringer's (LR) irrigation (CANCELED) As needed, Starting on Mon08/22/23 at 1445, Intra-Op 1445 (Given - Provid er: Yong Sheikh MD)1450 (Given - Provider: Yong Sheikh MD)1518 (Given - Provider: Yong Sheikh MD) lidocaine EPINEPHrine (XYLOCAINE with EPI) 0.5 %-1:200,000 injection (CANCELED) As needed, Starting on Mon08/22/23 at 1447, Intra-Op, Indications: Administration of Local Anesthesia 1447 (Given - Provid er: Yong Sheikh MD) documented in this encounter Orders Medications Ordered That Lenny ht Not Have Been Administered Count Last Ordered Date First Ordered Date ceFAZolin (ANCEF) 1 gram/10 mL in sterile water (premix) 3,000 mg 1 08/22/2023 fentaNYL (SUBLIMAZE) preserv ative free injection 25 mcg 1 08/22/2023 Lactated Ringer's (LR) irrigation 1 024 lidocaine EPINEPHrine (XYLOC YUE with EPI) 0.5 %-1:200,000 injection 1 08/22/2023 naloxone (NARCAN) 0.4 mg/mL injection 0.04-0.4 mg 1 08/22/2023 ondansetron (ZOFRAN) injection 4 mg 1 08/21 Diet Count Last Ordered Date First Orde red Date ADULT DISCHARGE DIET 1 08/22/2023 Nursing Count Last Ordered Date First Orde red Date DISCHARGE ACTIVITY 5 08/22/2023 DISCHARGE CALL PROVIDER 5 08/22/2023 DISCHARGE DRESSING 1 08/22/2023 DISCHARGE INSTRUCTIONS 1 08/22/2023 FOLLOW UP WITH ESTABLISHED PROVIDER 1 08/21 Discharge Count Last Ordered Date First Orde red Date DISCHARGE PATIENT 1 08/22/2023 documented in this encounter Care Teams Kineseologist Relationship Specialty Start Date End Date Beau Clinton PA [address] [place] [address] PCP - General Family Practice 08/14/23 Zarina Avalos PA [address] [place] [address] [address] Orthopedic Surgery 08/22/23 documented as of this encounter
--- OUTSIDE RECORDS SUMMARY | 2024-04-03 02:20 | XMS_ITS | Data Portability ---
[facility] Organization [facility] Address [address] [place] [address] Care Team Providers Care Commercial Correspondent Name Role Phone JACKIE CLINTON Primary Care Provider [phone] Assessment No assessment recorded. Plan of Treatment Reminders Order Date Submit Date Provider Last Modified By Organization Details Last Modified Time Details Appointments None recorded. Lab CBC 2023 024 [facility], [address] [facility], [place], [address], 4 09:13:51 CMP, serum or plasma 2023 024 [facility], [address] [facility], [place], [address], 4 09:13:49 lipid panel, serum 2023 024 [facility], [address] [facility], [place], [address], 4 09:13:48 HbA1c (hemoglobi n A1c), blood 2023 024 [facility], [address] [facility], [place], [address], 4 09:13:51 Referral physical therapist referral 2023 024 [facility], [address] [place] [address], [address], 4 14:23:37 Procedures None recorded. Surgeries None recorded. Imaging None recorded. Medication Orders naproxen 500 mg tablet 2022 023 [id number], [address], [id number], 4 09:56:44 naproxen 500 mg tablet 2023 024 [place], [address] [place], [place], [id number], 4 09:57:02 lisinopril 20 mg tablet 2023 024 [place] [facility], [address] [place], [place], [id number], 4 11:29:57 lisinopril 20 mg tablet 2023 024 [place] [id number], [address] [place], [place], [id number], 4 10:57:30 Patient TargetsNo targets recorded. Patient Instructions Encounter Date Encounter Id Patient Instructions Last Modified By Organization Details Last Modified Time 09/29/2022 [id number] A healthy lifestyle: care instructions jnanney Not available 09/29/2022 11:34:31 01/17/2023 [id number] A healthy lifestyle: care instructions jnanney Not available 01/17/2023 11:19:34 08/21/2023 [id number] A healthy lifestyle: care instructions jnanney Not available 08/21/2023 10:57:02 learning about high blood pressure jnanney Not available 08/21/2023 10:57:02 11/27/2023 [id number] A healthy lifestyle: care instructions jnanney Not available 11/27/2023 10:14:22 learning about high blood pressure jnanney Not available 11/27/2023 10:14:22 Reason for Referral Physical Therapist Referral for Pain of left knee joint Referring Physician: Jackie Clinton, Family Medicine, Encounter Date: 05/02/2023 Results Created Date Observation Date Name Description Value Unit Range Abnormal Flag Note LastModifiedBy Organization Detail LastModifiedTime 11/27/1911/28/2023 LIPID PANEL cholesterol, total 164 mg/dL 100-19 9 Not Available [address], [address], 11/28/2023 09:13:48 11/27/1911/28/2023 LIPID PANEL triglyceride s 230 mg/dL 0-149 above high normal Not Available [address], [address], 11/28/2023 09:13:48 11/27/1911/28/2023 LIPID PANEL HDL cholesterol 37 mg/dL >39 below low normal Not Available [address], [address], 11/28/2023 09:13:48 11/27/1911/28/2023 LIPID PANEL VLDL cholesterol karan 39 mg/dL 5-40 Not Available [address], [address], 11/28/2023 09:13:48 11/27/1911/28/2023 LIPID PANEL LDL chol calc (nih) 88 mg/dL 0-99 Not Available [address], [address], 11/28/2023 09:13:48 11/27/1911/28/2023 COMP. METAB OLIC PANEL (14) glucose 106 mg/dL 70-99 above high normal Not Available [address], [address], 11/28/2023 09:13:49 11/27/19 24 11/28/2023 COMP. METAB OLIC PANEL (14) BUN 15 mg/dL 6-20 Not Available [address] [place], [address], 11/28/2023 09:13:49 11/27/19 24 11/28/2023 COMP. METAB OLIC PANEL (14) creatinine 1.04 mg/dL 0.76-1 .27 Not Available [address], [address], 11/28/2023 09:13:49 11/27/19 24 11/28/2023 COMP. METAB OLIC PANEL (14) eGFR 101 mL/mi n/1.7 3 >59 Not Available [address], [address], 11/28/2023 09:13:49 11/27/19 24 11/28/2023 COMP. METAB OLIC PANEL (14) BUN/creatini ne ratio 14 9-20 Not Available [address], [address], 11/28/2023 09:13:49 11/27/19 24 11/28/2023 COMP. METAB OLIC PANEL (14) sodium 136 mmol/ L 134-14 4 Not Available [address], [address], 11/28/2023 09:13:49 11/27/19 24 11/28/2023 COMP. METAB OLIC PANEL (14) potassium 4.4 mmol/ L 3.5-5. 2 Not Available [address], [address], 11/28/2023 09:13:49 11/27/1911/28/2023 COMP. METAB OLIC PANEL (14) chloride 100 mmol/ L 96-106 Not Available [address], [address], 11/28/2023 09:13:49 11/27/19 24 11/28/2023 COMP. METAB OLIC PANEL (14) carbon dioxide, total 23 mmol/ L 20-29 Not Available [address], [address], 11/28/2023 09:13:49 11/27/1911/28/2023 COMP. METAB OLIC PANEL (14) calcium 9.6 mg/dL 8.7-10 .2 Not Available [address], [address], 11/28/2023 09:13:49 11/27/1911/28/2023 COMP. METAB OLIC PANEL (14) protein, total 7.5 g/dL 6.0-8. 5 Not Available [address], [address], 11/28/2023 09:13:49 11/27/1911/28/2023 COMP. METAB OLIC PANEL (14) albumin 4.9 g/dL 4.3-5. 2 Not Available [address], [address], 11/28/2023 09:13:49 11/27/1911/28/2023 COMP. METAB OLIC PANEL (14) globulin, total 2.6 g/dL 1.5-4. 5 Not Available [address], [address], 11/28/2023 09:13:49 11/27/1911/28/2023 COMP. METAB OLIC PANEL (14) bilirubin, total 0.6 mg/dL 0.0-1. 2 Not Available [address], [address], 11/28/2023 09:13:49 11/27/19 24 11/28/2023 COMP. METAB OLIC PANEL (14) alkaline phosphatase 63 IU/L 44-121 Not Available [facility] [address], [address], 11/28/2023 09:13:49 11/27/1911/28/2023 COMP. METAB OLIC PANEL (14) AST (SGOT) 42 IU/L 0-40 above high normal Not Available [address], [address], 11/28/2023 09:13:49 11/27/1911/28/2023 COMP. METAB OLIC PANEL (14) ALT (SGPT) 66 IU/L 0-44 above high normal Not Available [address], [address], 11/28/2023 09:13:49 11/27/1911/28/2023 CARDI OVASC ULAR REPOR T interpretati on Note Suppl abigail amanda is avail able. Not Available [address], [address], 11/28/2023 09:13:50 11/27/1911/28/2023 CARDI OVASC ULAR REPOR T pdf . Not Available [address], [address], 11/28/2023 09:13:50 11/27/1911/28/2023 HEMOG LOBIN A1C hemoglobin A1C 5.7 % 4.8-5. 6 above high normal Predi abete s: 5.7 - 6.4 Diabe isabel: >6.4 Glyce caitlyn contr ol for adult s with diabe isabel: <7.0 Not Available [address], [address], 11/28/2023 09:13:51 11/27/19 24 11/28/2023 CBC, PLATE LET, NO DIFFE RENTI AL WBC 6.5 x10e3 /uL 3.4-10 .8 Not Available [facility] [address], [address], 11/28/2023 09:13:51 11/27/1911/28/2023 CBC, PLATE LET, NO DIFFE RENTI AL RBC 5.13 x10e6 /uL 4.14-5 .80 Not Available [facility] & [address], [address], 11/28/2023 09:13:51 11/27/1911/28/2023 CBC, PLATE LET, NO DIFFE RENTI AL hemoglobin 15.8 g/dL 13.0-1 7.7 Not Available [facility] & [address], [address], 11/28/2023 09:13:51 11/27/1911/28/2023 CBC, PLATE LET, NO DIFFE RENTI AL hematocrit 48.1 % 37.5-5 1.0 Not Available [facility] & [address], [address], 11/28/2023 09:13:51 11/27/1911/28/2023 CBC, PLATE LET, NO DIFFE RENTI AL MCV 94 fL 79-97 Not Available [facility] & [address], [address], 11/28/2023 09:13:51 11/27/1911/28/2023 CBC, PLATE LET, NO DIFFE RENTI AL MCH 30.8 pg 26.6-3 3.0 Not Available [facility] & [address], [address], 11/28/2023 09:13:51 11/27/1911/28/2023 CBC, PLATE LET, NO DIFFE RENTI AL MCHC 32.8 g/dL 31.5-3 5.7 Not Available [facility] & [address], [address], 11/28/2023 09:13:51 11/27/19 24 11/28/2023 CBC, PLATE LET, NO DIFFE RENTI AL RDW 12.5 % 11.6-1 5.4 Not Available [facility] [address] [place], [address], 11/28/2023 09:13:51 11/27/19 24 11/28/2023 CBC, PLATE LET, NO DIFFE RENTI AL platelets 326 x10e3 /uL 150-45 0 Not Available [facility] [address] [place], [address], 11/28/2023 09:13:51 06/14/19 24 06/14/2023 MRI, knee, w/o contr ast No observ [facility]ion [facility] [address], [place], [address], 06/16/2023 12:35:46 03/30/20 24 03/30/2024 CT, abdom en + pelvi s, w/ contr ast No observ ation record ed. [facility] [address], [place], [address], 04/01/2024 08:47:48 Result Notes None recorded. Problems No Known Problems Procedures Surgical History Date Name Laterality Status Provider Name and Address Organization Details Recorded Time 08/16/19 24 meniscal reattachment completed Lurdes Dave [place] - [facility] 11/27/2023 09:58:27 07/26/19 13 procedure on ankle completed HAL Valadez - [facility] 07/21/2022 10:01:59 tonsillectomy completed Marcela Urbina MA [place] - [facility] 07/21/2022 10:02:09 Removal of adenoids completed Marcela Urbina MA [place] - [facility] 07/21/2022 10:02:15 Imaging Results Imaging Date Name Status LastModified by [facility] Details LastModified Time 06/14/2023 MRI, knee, w/o contrast completed [facility] [address], [place], [address], 06/16/2023 12:35:46 03/30/2024 CT, abdomen + pelvis, w/ contrast completed [facility] [address], [place], [address], 04/01/2024 08:47:48 Procedure Notes None recorded. Medical Equipment None Reported. Allergies No known drug allergies Medications Name Sig Start Date Stop Date Status Note LastModified by Organization Details LastModified Time d3 super strength 50 mcg (1999 ut) caps 11/26 completed Not Available Not Available Not Available gnp vitamin c 500 mg chew 11/26 completed Not Available Not Available Not Available hydrocodone 5 mg-acetaminop hen 325 mg tablet 11/26 completed Not Available Not Available Not Available lisinopril 20 mg tablet TAKE 1 TABLET BY MOUTH EVERY DAY 2023 active Not Available Not Available Not Avai lable ondansetron HCl 4 mg tablet 11/26 completed Not Available Not Available Not Available aspirin 81 mg tablet,delaye d release 11/26 completed Not Available Not Available Not Available naproxen 500 mg tablet Take 1 tablet twice a day by oral route for 30 days. 11/26 completed Not Available Not Available Not Available Stimulant Laxative Plus 8.6 mg-50 mg tablet 11/26 completed Not Available Not Available Not Available Vitals Date Recorded Body height Body mass index (BMI) Body weight Respiratory rate Body temperature Oxygen saturation Oxygen saturation in Arterial blood by Pulse oximetry Heart rate Systolic blood pressure Diastolic blood pressure Provider Name and Address Organization Details Last Updated DateTime 3 177.8 cm 42.8 kg/m2 951016. 88 g 16 /min 98.2 [degF] 97 % 97 % 78 /min 128 mm[Hg] 81 mm[Hg] Keila Daniels MA [place] - [facility] 3 11:15:34 Date Recorded Body height Body mass index (BMI) Body weight Respiratory rate Oxygen saturation Oxygen saturation in Arterial blood by Pulse oximetry Heart rate Systolic blood pressure Diastolic blood pressure Provider Name and Address Organization Details Last Updated DateTime 3 177.8 cm 43.4 kg/m2 749183 g 18 /min 96 % 96 % 79 /min 123 mm[Hg] 84 mm[Hg] Sussy Arzate MA [facility] 3 10:56:54 Date Recorded Body height Body mass index (BMI) Body weight Oxygen saturation Oxygen saturation in Arterial blood by Pulse oximetry Heart rate Systolic blood pressure Diastolic blood pressure Provider Name and Address Organization Details Last Updated DateTime 4 177.8 cm 42.3 kg/m2 169740. 75 g 99 % 99 % 88 /min 129 mm[Hg] 78 mm[Hg] Sussy Arzate MA [facility] 4 11:13:46 Date Recorded Body height Body mass index (BMI) Body weight Oxygen saturation Oxygen saturation in Arterial blood by Pulse oximetry Heart rate Provider Name and Address Organization Details Last Updated DateTime 4 177.8 cm 43.3 kg/m2 452766. 1 g 97 % 97 % 78 /min Sussy Arzate MA [facility] 4 10:43:56 Date Recorded Systolic blood pressure Diastolic blood pressure Provider Name and Address Organization Details Last Updated DateTime 08/21/2023 140 mm[Hg] 78 mm[Hg] Jackie Clinton PA-C Attn: [facility]ing[address] [place], [address], [facility] 08/21/2023 10:56:44 Date Recorded Body height Body mass index (BMI) Body weight Oxygen saturation Oxygen saturation in Arterial blood by Pulse oximetry Heart rate Provider Name and Address Organization Details Last Updated DateTime 4 177.8 cm 43.3 kg/m2 049520. 9 g 98 % 98 % 74 /min Lurdes Dave MA [facility] 4 10:00:24 Date Recorded Systolic blood pressure Diastolic blood pressure Provider Name and Address Organization Details Last Updated DateTime 11/27/2023 130 mm[Hg] 78 mm[Hg] Jackie Clinton PA-C Attn: Accounting[address] [place], [address], [facility] 11/27/2023 10:12:46 Social History Question Answer Notes LastModified by Organizat ion Details LastModified Time Tobacco Smoking Status Former Smoker Lurdes Dave MA [facility], [place] - [facility] 11/27/2023 09:57:36 What Is Your Level Of Alcohol Consumption? Occasional Rarely Information not available 11/27/2023 Are You Blind Or Do You Have Difficulty Seeing? No Information not available 07/21/2022 What Is Your Level Of Caffeine Consumption? Occasional Information not available 07/21/2022 Are You Currently Employed? Yes Information not available 07/21/2022 Are You Deaf Or Do You Have Serious Difficulty Hearing? No Information not available 07/21/2022 What Type Of Diet Are You Following? REGULAR Information not available 07/21/2022 What Is Your Occupation? [employer] Information not available 07/21/2022 What Was The Date Of Your Most Recent Tobacco Screening? 11/27/2023 Information not available 11/27/2023 What Is Your Relationship Status? Single Information not available 07/21/2022 Do You Use Your Seat Belt Or Car Seat Routinely? Yes Information not available 07/21/2022 Do You Have Smoke And Carbon Monoxide Detectors In Your Home? Yes Information not available 07/21/2022 Are You Passively Exposed To Smoke? Yes Information not available 07/21/2022 Do You Feel Stressed (tense, Restless, Nervous, Or Anxious, Or Unable To Sleep At Night)? [id number] Information not available 07/21/2022 Do You Use Any Illicit Or Recreational Drugs? No Information not available 07/21/2022 Has Tobacco Cessation Counseling Been Provided? No Information not available 07/21/2022 Do You Or Have You Ever Used Any Other Forms Of Tobacco Or Nicotine? No Information not available 07/21/2022 Sex: Male Functional Status Question Answer Note LastModified by Organization D etails LastModified Time Are you able to care for yourself? Yes Information not available 07/21/2022 What is your exercise level? Moderate [email or web address] Information not available 07/21/2022 Mental Status None recorded. Family History Relationship Description Onset Age of this Age Resolved Age Notes LastModified by Organization Details LastModified Time Maternal Grandfather Diabetes mellitus [email or web address] Not available 09:59:55 Maternal Grandfather Heart disease [email or web address] Not available 10:00:09 Medical History Condition Response Coronary Artery Disease N Other N Atrial Fibrillation N High Blood Pressure Y Thyroid Problems N Kidney or Bladder Problems N Depression N COPD N Blood Clots N GI Problems N Have you had a mammogram in the last yea r? N Skin Problems N Eating Disorder N Anemia N Heart Attack ([place]) N Diabetes N Anxiety Disorder N Muscle, Joint, or Bone Problems N Seizures/Epilepsy N Have you had a colonoscopy in the last 1 0 years? N Arthritis N Acid Reflux (GERD) N Cancer N Stroke N Allergies N Asthma N Have you had a PSA blood test in the las t year? N ADHD N Substance Abuse N High Cholesterol N Hepatitis N Liver Disease N Schizophrenia N Headaches N Osteoporosis N Heart Failure N Immunizations Vaccine Type Date Status Note Provider Nam e and Address Organization Details Recorded Time Hib, unspecified formulation 8 completed HAL [place], [place] - [facility] 01/17/2023 09:49:04 IPV 2 [place] [facility] 01/17/2023 09:49:04 Influenza, MDCK, quadrivalent, preservative 8 [place] [facility] 01/17/2023 09:49:04 MMR 2 [place] [facility] 01/17/2023 09:49:05 MMR 8 [place] [facility] 01/17/2023 09:49:05 Tdap 1 [place] [facility] 01/17/2023 09:49:05 Tdap 8 [place] [facility] 01/17/2023 09:49:05 varicella 7 thomas Dave, [place], [place] [facility] 01/17/2023 09:49:05 varicella 8 completed [place] [facility] 01/17/2023 09:49:05 Hep B, unspecified formulation 7 completed [place] [facility] 01/17/2023 09:49:05 OPV 8 completed Lurdes Dave [place], [place] [facility] 01/17/2023 09:49:05 OPV 7 completed [place] [facility] 01/17/2023 09:49:05 OPV 7 completed [place] [facility] 01/17/2023 09:49:05 DTP-Hib 8 completed HLA [place] [facility] 01/17/2023 09:49:05 DTP-Hib 7 completed [place] [facility] 01/17/2023 09:49:05 DTP-Hib 7 [place] [facility] 01/17/2023 09:49:05 Influenza, split virus, trivalent, PF 3 completed [place] [facility] 01/17/2023 09:49:05 influenza, split (incl. purified surface antigen) 2 completed [place] [facility] 01/17/2023 09:49:05 HPV, quadrivalent 2 completed [place] [facility] 01/17/2023 09:49:05 HPV, quadrivalent 1 [place] [facility] 01/17/2023 09:49:05 HPV, quadrivalent 1 [place] [facility] 01/17/2023 09:49:05 Hep B, adolescent or pediatric 8 completed [place] [facility] 01/17/2023 09:49:05 Hep B, adolescent or pediatric 7 completed [place] [facility] 01/17/2023 09:49:05 meningococcal MCV4P 1 completed [place] [facility] 01/17/2023 09:49:05 DTaP, unspecified formulation 9 completed [place] [facility] 01/17/2023 09:49:05 DTaP, unspecified formulation 2 completed [place] [facility] 01/17/2023 09:49:05 Hep A, unspecified formulation 5 completed [place] [facility] 01/17/2023 09:49:05 Hep A, unspecified formulation 5 completed [place] [facility] 01/17/2023 09:49:05 Past Encounters Encounter ID Performer Location Encounter Start Date Encounter Closed Date Diagnosis/Indication Diagnosis SNOMED-CT Code Diagnosis ICD10 Code [id number] Jackie Clinton PA-C [facility] [address] [place] [address] 07/21/2022 09:44:01 07/22/2022 10:38:47 Essential hypertension 30003125 I10 Overweight 097338812 E66 .3 [id number] Jackie Clinton PA-C [facility] [address] [place] [address] 09/29/2022 10:55:58 10/04/2022 12:42:33 Adult health examination 936972065 Z00.00 Overweight 360067288 E66 .3 [id number] Jackie Clinton PA-C [facility] [address] [place] [address] 01/17/2023 10:45:35 01/23/2023 15:06:40 Bilateral carpal tunnel syndrome 2203736424 8387210 G56.03 Overweight 065777769 E66 .3 Pain of le ft knee joint 4581310830 37898 M25.073 [id number] Jackie Clinton PA-C [facility] [address] [place] [address] 05/02/2023 10:58:48 05/03/2023 10:10:19 Essential hypertension 70435043 I10 Pain of le ft knee joint 6532232863 98107 M25.739 [id number] Jackie Clinton PA-C [facility] [address] [place] [address] 08/21/2023 10:32:34 08/23/2023 13:05:37 Pain of left knee joint 7963204225 60922 M25.562 Essential hypertension 52306146 I10 Overweight 253495079 E66 .[id number] Clinton PA-C [facility] [address] [place] [address] 11/27/2023 09:45:16 12/04/2023 10:19:57 Essential hypertension 10414046 I10 Overweight 174508450 E66 .3 Health Concerns Section Related Observation LastModified by Organization Detai ls LastModified Time None Recorded Concern Status LastModified by Organization Details LastModified Time None Recorded Advance Directives Directive None Recorded Payers Encounter Date Sequence Insurance Name Policy Number Policy Cook Covered Member ID Cook Member ID Guarantor Name 09/29/2022 1 UMR [id number] Antony Jak [id number] Antony Jak 01/17/2023 1 UMR [id number] Antony Jak [id number] Antony Jak 05/02/2023 1 UMR [id number] Antony Jak [id number] Antony Jak 08/21/2023 1 UMR [id number] Antony Jak [id number] Antony Jak 11/27/2023 1 UMR [id number] Antony Jak [id number] Antony Jak Notes Date Note Type Note Provider Name and Address Organization Details Recorded Time 09/29/2022 text/html wellness phys... 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, [place], [address], [facility] 01/17/2023 11:20:13 05/02/2023 text/html needs refills an d left knee pain...has started a new diet wants feedback...had left knee xray in urgent care ....standing up the knee has sharp pains and wont move... Jackie Clinton PA-C Attn: Accounting, [address] [facility], [place], [address], [facility] 05/02/2023 11:30:20 08/21/2023 text/html left meniscus te ar needs surgery clearance...all is well Jackie Clinton PA-C Attn: Accounting, [address] [facility], [place], [address], [facility] 08/21/2023 10:58:16 11/27/2023 text/html refill for bp meds..work physical..things are well...says at his other provider things are perfect for bp...will recheck this morning...back to the gym after knee surg Jackie Clinton PA-C Attn: Accounting, [address] [facility], [place], [address], [facility] 11/27/2023 10:16:31
--- OUTSIDE RECORDS SUMMARY | 2024-04-03 02:20 | XMS_ITS | Encounter Summary ---
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 Gender Identity Not on file Sexual Orientation Not on file documented as of this encounter Progress Notes * Eduarda Adler MA - 10/03/2023 3:15 PM CDT error documented in this encounter Plan of Treatment Not on file documented as of this encounter Visit Diagnoses Not on filedocumented in this encounter Care Teams Inclusion Special Educator Relationship Specialty Start Date End Date Beau Clinton PA [address] [place] [address] PCP - General Family Practice 08/14/23 Zarina Avalos PA [address] [place] [address] DR MINA [address] [place] [address] Orthopedic Surgery 08/22/23 documented as of this encounter
--- OUTSIDE RECORDS SUMMARY | 2024-04-03 02:20 | XMS_ITS | Encounter Summary ---
Author Organization [facility] Healthcare Address [address] [place] [address] Care Team Providers Care Head Of Science Name Role Phone Beau Clinton Primary Care Provider [phone] Zarina Avalos Unavailable + [phone] Reason for Visit * Reason Comments Post-op Patient been wearing the left knee braces for 6 weeks.Patient is doing physical therapy is going good.Patient has no pain today Encounter Details Date Type Department Care Team (Late st Contact Info) Description 10/03/2023 3:00 PM CDT Office Visit [facility] Orthopedics and Sports Medicine [address] [place] [phone] Zarina Avalos PA [address] [place] [address] [address] [place] [address] S/P medial meniscus repair of left knee [...] on file 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 Gender Identity Not on file Sexual Orientation Not on file documented as of this encounter Last Filed Vital Signs Vital Sign Reading Time Taken Comments Blood Pressure 118/78 10/03/2023 2:58 PM CDT Pulse 72 10/03/2023 2:58 PM CDT Temperature - - Respiratory Rate 18 10/03/2023 2:58 PM CDT Oxygen Saturation - - Inhaled Oxygen Concentration - - Weight 135.2 kg (298 lb) 10/03/2023 2:58 PM CDT Height 180.3 cm (5' 11 ) 10/03/2023 2:58 PM CDT Body Mass Index 41.56 10/03/2023 2:58 PM CDT documented in this encounter Progress Notes * Zarina Avalos PA - 10/03/2023 3:00 PM CDT Images from the original note were not included. Post-Op Visit Note HPI: Patient is 6 weeks s/p left knee arthroscopy with medial meniscus repair. Pain is well controlled. Patient currently taking tylenol PRN for pain. Patient is participating in outpatient physical therapy in [place] which is going well. He has been working on progressing his weight-bearing with full range of motion in his brace as per postoperative protocol and this is going well. States that his PT wanted to wait until his evaluation today to determine if we could discontinue his brace. Vital signs: BP 118/78 (BP Location: Right arm, Patient Position: Sitting) Pulse 72 Resp 18 Ht 180.3 cm (5' 11 ) Wt 135.2 kg (298 lb) BMI 41.56 kg/m?? Exam: Well approximated healing post operative incision. No erythema, draining, or signs of infection present. Neurovascular status is intact. No effusion or pitting edema. No evidence of hematoma AROM: 0-120 Patient is able to perform an active SLR without difficulty. No signs of DVT present bilaterally. Good gait observed without brace and good quad control noted on exam Strength: knee extension: 5/5, knee flexion: 5/5, hip flexion: 5/5 Assessment: Diagnosis Plan 1. S/P medial meniscus repair of left knee 2. Orthopedic aftercare Plan: Incision care was reviewed. Reviewed and discussed physical therapy with patient; reached out to PT to request updated PT notesfor review Discussed continued post op expectations and recovery. 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 All questions were answered appropriately. Patient was [...] aftercare documented in this encounter Care Teams Head Of Science Relationship Specialty Start Date End Date Beau Clinton PA [address] [place] [address] PCP - General Family Practice 08/14/23 Zarina Avalos PA [address] [place] [address] [address] Orthopedic Surgery 08/22/23 documented as of this encounter
--- OUTSIDE RECORDS SUMMARY | 2024-04-03 02:20 | XMS_ITS | Encounter Summary ---
Author Organization [facility] Healthcare Address [address] [place] [address] Care Team Providers Care Ice Cream Dipper Name Role Phone Beau Clinton Primary Care Provider [phone] Zarina Avalos Unavailable + [phone] Encounter Details Date Type Department Care Team (Late st Contact Info) Description 09/12/[address] 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 This was re-faxed to [phone] documented in this encounter Plan of Treatment Not on file documented as of this encounter Visit Diagnoses Not on filedocumented in this encounter Care Teams Ice Cream Dipper Relationship Specialty Start Date End Date Beau Clinton PA [address] [place] [address] PCP - General Family Practice 08/14/23 Zarina Avalos PA [address] [place] [address] DR MINA [address] [place] [id number] Orthopedic Surgery 08/22/23 documented as of this encounter
--- OUTSIDE RECORDS SUMMARY | 2024-04-03 02:20 | XMS_ITS | Encounter Summary ---
Author Organization [facility] Healthcare Address [address] [place] [address] Care Team Providers Care Sheet Metal Engineer Name Role Phone Beau Clinton Primary Care Provider [phone] Zarina Avalos Unavailable + [phone] Reason for Visit * Auth/Cert (Routine) Specialty Diagnoses / Procedures Referred By Antony t Referred To Contact Diagnoses Other tear of medial meniscus of left knee, unspecified whether old or current tear, initial encounter Other tear of medial meniscus of left knee, unspecified whether old or current tear, initial encounter [S83.242A] Procedures CA ARTHRS KNE SURG W/MENISCECTOMY MED/LAT W/SHVG Left knee arthroscopy, medial meniscectomy including any meniscal shavings-arthroscopy equipment and ezy wrap Referral ID Status Reason Start Date Expiration Date Visits Re quested Visits Authorized [id number] 1 1 Encounter Details Date Type Department Care Team (Late st Contact Info) Description 08/22/2023 1:15 PM CDT - 08/22/2023 2:30 PM CDT Surgery [facility] Operating Room [address] [place] [address] Yong Sheikh MD [address] [place] [address] [address]ZAMA [address] [place] [address] Left knee arthroscopy with medial meniscus repair Surgery Details Date/Time Status Location OR Service Patient Class Case Class Case Type Trauma Case? 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 * General Anesthesia (Discharge Care) (Bel[place]ian) * Ascorbic Acid (Vitamin C) (By mouth) ([place]ian) * Aspirin (By mouth) ([place]ian) * Vitamin D (By mouth) ([place]ian) * Hydrocodone/Acetaminophen (By mouth) ([place]ian) * Ondansetron (By mouth, Into the mouth) ([place]ian) * Senna (By mouth) ([place]ian) * Crutch Instructions (Discharge Care) ([place]ian) documented in this encounter Medications at Time [...] 08/22/2023 5:47 PM CDT Physical Therapy 08/22/23 1704 General Chart Reviewed Yes Session Type Evaluation [...] Equipment-Currently Using None Prior Function Level of [place] Independent with ADLs;Independent functional transfers;Independent with ambulation [...] of crutches) PT Evaluation Complete Yes * [facility] - 08/21/2023 11:39 AM CDT Antimicrobial Stewardship [...] Temp For questions please contact: [facility] department [phone] Electronically signed by [facility] at 08/21/2023 11:39 AM CDT documented in this encounter H&P Notes * Ynog Sheikh MD - 08/22/2023 11:19 AM CDT [...] tear he is here for surgical consultation Boy'S Adviser completed by using M*Modal Fluency Direct speaking [...] included. Operative Report SURGEON: Yong Sheikh MD Mva Operator: Sunita Mays RN Physician Unit Aid: Sagar Calvert PA Scrub: Jenny Turner [employer]: Elena Pittman RN SURGICAL TEAM: Surgeons and Role: * Yong Sheikh MD - Primary DATE OF SURGERY : 08/22/2023 PREOPERATIVE DIAGNOSIS: See preoperative H and P POSTOPERATIVE DIAGNOSIS: Post-op Diagnosis * Other tear of medial meniscus of left knee, unspecified whether old or current tear, initial encounter [E45.451A] Posterior horn medial meniscus tear, root tear medial meniscus PROCEDURE: Left knee arthroscopy with medial meniscus repair (L) ANESTHESIA: General IMPLANTS: Implant Name Type Inv. Item Serial No. Door Liner Lot No. LRB No. Used Action [employer] Fiberlink Arthrex Suturetape 1.3mm Tape Suture Nonabsorbable AR-7535 - [id number] [employer] Fiberlink Arthrex Suturetape 1.3mm Tape Suture Nonabsorbable AR-7535 [employer] Inc [id number] Implanted [employer] Fiberlink Arthrex Suturetape 1.3mm Tape Suture Nonabsorbable AR-7535 - [id number] [employer] Fiberlink Arthrex Suturetape 1.3mm Tape Suture Nonabsorbable AR-7535 [employer] Inc [id number] Left 1 Implanted DEPUY MITEK TRUESPAN ORTHOCORD NONABSORBABLE 2 BACKSTOP BRAID 24D 2-0 ANCHOR [id number] - [id number] DEPUY MITEK TRUESPAN ORTHOCORD NONABSORBABLE 2 BACKSTOP BRAID 24D 2-0 ANCHOR [id number] Depuy Mitek [id number] Left 1 Implanted DEPUY MITEK TRUESPAN ORTHOCORD NONABSORBABLE 2 BACKSTOP BRAID 24D 2-0 ANCHOR [id number] - [id number] DEPUY MITEK TRUESPAN ORTHOCORD NONABSORBABLE 2 BACKSTOP BRAID 24D 2-0 ANCHOR [id number] Depuy Mitek [id number] Left 1 Implanted [employer] Swivelock C 4.75mm 19.1mm Closed Eyelet Vent [place] Suture [place]- [id number] - [id number] [employer] Swivelock C 4.75mm 19.1mm Closed Eyelet Vent [place] Suture [id number] [employer] Inc [id number] Left 1 Implanted Estimated Blood Loss: 5 [...] Sheikh MD Date: 08/22/2023 Time: 4:17 PM Boy'S Adviser completed by using M*Modal Fluency Direct speaking software, therefore, transcriptionvariances may occur. * Perioperative Nursing Note - Pepper Cahrles RN - 08/15/2023 1:27 PM CDT MERLENE letter faxed to Dr Clinton and instructions placed in chart. * Pre-Procedure Instructions - Pepper Charles RN - 08/15/2023 12:03 PM CDT We are pleased that you and your doctor have chosen [facility] for your surgery. We hope [...] of water. lisinopril Use no make-up, nail chinese, lotions, oils or powders on your skin. [...] left knee as current injury, initial encounter Other tear of medial meniscus of left knee, unspecified whether old or current tear, initial encounter documented in this encounter Admitting [...] 11:32 AM CDT 30 mL/hr 30 mL/hr Lactated Ringer's (LR) irrigation As needed, Starting on Mon08/22/23 at 1445, Intra-Op Given 08/22/2023 3:18 PM CDT 3,000 mL Surgical Site Given 08/22/2023 2:50 PM CDT 3,000 mL Lemus rgical Site Given 08/22/2023 2:45 PM CDT 3,000 mL Lemus rgical Site lidocaine EPINEPHrine (XYLOCAINE with EPI) 0.5 %-1:200,000 injection As needed, Starting on Mon08/22/23 at 1447, Intra-Op, Indications: Administration of Local AnesthesiaIndications:Admi nistration of Local Anesthesia Given 08/22/2023 2:47 PM CDT 25 mL Surgical Site scopolamine patch 72 hour 1 patch 1 [...] Riggs RN)1406 (Rate/Dose Verify - Provider: Avery Vaughan CRNA)1439 (Paused - Provider: Avery Vaughan CRNA [...] ative free injection 25 mcg 1 08/22/2023 naloxone (NARCAN) 0.4 mg/mL injection [...] 08/22/2023 documented in this encounter Care Teams Sheet Metal Engineer Relationship Specialty Start Date End Date Beau Clinton PA [address] [place] [place] [id number] PCP - General Family Practice 08/14/23 Zarina Avalos PA [address] [facility] [place] [address] Orthopedic Surgery 08/22/23 documented as of this encounter
--- OUTSIDE RECORDS SUMMARY | 2024-04-03 02:20 | XMS_ITS | Encounter Summary ---
Author Organization [facility] Healthcare Address [address] [place] [address] Care Team Providers Care Associate Software Application Engineer Name Role Phone Beau Clinton Primary Care Provider [phone] Zarina Avalos Unavailable + [phone] Reason for Visit * Reason Onset Date Comments Post-Op Call 08/23/2023 Encounter Details Date Type Department Care Team (Late st Contact Info) Description 08/23/2023 Telephone [facility] Orthopedic and Sports Medicine [address] [place] [phone] Mya Vizcarra MA Post-Op Call Social History Tobacco Use Types Packs/Day Years [...] on file 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 Patient has no questions or concerns at this time and was advised to call if any arise. Post op appointment reviewed with patient. documented in this encounter Plan of Treatment Not on file documented as of this encounter Visit Diagnoses Not on filedocumented in this encounter Care Teams Associate Software Application Engineer Relationship Specialty Start Date End Date Beau Clinton PA [address] [place] [address] PCP - General Family Practice 08/14/23 Zarina Avalos PA [address] [place] [address] DR MINA [address] [place] [id number] Orthopedic Surgery 08/22/23 documented as of this encounter
--- OUTSIDE RECORDS SUMMARY | 2024-04-03 02:20 | XMS_ITS | Encounter Summary ---
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 [place] [facility] there number [phone] and pressoption 2 and got the voicemail letting them know we need his pt office vists and left them are fax machine number [phone]. documented in this encounter Plan of Treatment Not on file documented as of this encounter Visit Diagnoses Not on filedocumented in this encounter Care Teams Interface Designer Relationship Specialty Start Date End Date Beau Clinton PA [address] [place] [address] PCP - General Family Practice 08/14/23 Zarina Avalos PA [address] [place] [address] DR MINA [address] [place] [id number] Orthopedic Surgery 08/22/23 documented as of this encounter
--- OUTSIDE RECORDS SUMMARY | 2024-04-03 02:20 | XMS_ITS | Encounter Summary ---
Author Organization [facility] Care Team Providers Care Health Services Administrator Name Role Phone Unavailable Primary Care Provider Unavailabl e Encounter Details Date Type Department Care Team (Latest Contact Info) Description 12/08/2009 6:22 PM CDT - 12/08/2009 11:59 PM CDT Hospital Encounter [facility] Concussion with no loss of consciousness; Striking against or struck accidentally by object in sports with subsequent fall; Place of occurrence, place for recreation and sport; Activities involving [place] tackle football Social History Tobacco Use Types Packs/Day Years Used Date Smoking Tobacco: Never Assessed Sex and Gender Information Value Date Recorded Sex Assigned at Not on file 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
--- OUTSIDE RECORDS SUMMARY | 2024-04-03 02:20 | XMS_ITS | Encounter Summary ---
Author Organization [facility] Healthcare Address [address] [place] [address] Care Team Providers Care Live Hanger Name Role Phone Beau Clinton Primary Care Provider [phone] Zarina Avalos Unavailable [phone] Reason for Referral * Consultation (Routine) - Closed Specialty Diagnoses / Procedures Referred By Contac t Referred To Contact Physical Therapy Diagnoses S/P arthroscopy of left knee Sagar Calvert PA [address] [place] [address] [place] [address] Phone: tel: fax: [address] [address] Phone: tel: fax: Referral ID Status Reason Start Date Expiration Date V isits Requested Visits Authorized [id number] Closed Specialty Services Required 08/23/2023 09/21/2024 18 18 Question Answer PTRFR PT Evaluate and Treat Therapy options discussed with patient? Yes Location provided for therapy services is: Patient requested/Patient preferred Please select the performing region: External Order [171] To loc/pos [facility] [[id number]] # of visits: 18 Comments MENISCUS REPAIR REHABILITATION PROTOCOL Surgery Date: 08/22/23 Please evaluate and treat according to the following protocol: Frequency: 2-3x/week Duration: 6 weeks Please call patient to schedule first post-op appointment for 5-7 days after surgery. ADDITIONAL INSTRUCTIONS: Evaluate/treat per meniscus repair protocol with following parameters: Week 0-2: -ROM 0-60 degrees -Brace locked in extension for ambulation; may unlock brace when sitting -TTWB with use of crutches-gait training -May bear weight on the leg when standing stationary and brace is locked. -Remove brace when performing RICE (provided leg is extended) and for daily hygiene. -NWB/table strengthening exercises for LE/core as appropriate ?? Continue SLRs in brace, quad isometrics, ankle pumps ?? Flexion exercises seated AAROM ?? Hamstring and calf stretching ?? Hip and core strengthening -Patellar mobilization Weeks 2-4 -same as weeks 0-2, with advancement of ROM 0-90 degrees ?? Continue SLRs in brace, quad isometrics, ankle pumps ?? Flexion exercises seated AAROM ?? Hamstring and calf stretching ?? Hip and core strengthening ?? Theraband TKE in standing with crutch assistance Weeks 4-6 -advance ROM 0-120 degrees -Progressive WB with ambulation over 2 weeks with use of crutches and brace locked in full extension. May d/c ambulatory aid at 6 weeks post if adequate gait. -start WB exercises as appropriate, once FWB ?? Calf raises ?? Mini squats ?? Bilateral leg press (0-90)-LIGHT weight ?? Regular stationary bike if flexion > 115? SLR in all planes Weeks 6-12 -advance ROM as tolerated -may unlock brace with ambulation, if quad control appropriate -may d/c brace once gait is adequate/normalized -continue to advance WB exercises ?? Mini-squats and weight shifts ?? Isotonic leg press (0?? - 90??) ?? 4-8 inch step ups ?? 4-8 in step down starting week 8-9 ?? Regular stationary bike if flexion > 115? Side steps with exercise bands -Retro treadmill progressive inclines -Stairmaster machine/bike with resistance (stationary)-starting week 9 Weeks 12+ post op -advance strength and balance ?? Plyometric leg press ?? Jump downs (double stance landing) ?? Progress to light running program and light sport specific drills if: ?? Quad strength > 75% contralateral side ?? Active ROM 0?? - > 125? Functional hop test > 70% contralateral side ?? Swelling < 1cm at joint line ?? No pain ?? Demonstrates good control on step down -Initiate/progerssion of sports-specific exercises in anticipation of return to play at 4-6 months post op -Single leg leg press test -Single leg hop test (hops per 30 seconds) -Single leg bounding test (if adequate/appropriate strength has been demonstrated with above two tests) Criteria for return to sports: ?? Full active ROM ?? Quadriceps > 90% contralateral side ?? Satisfactory clinical exam ?? Functional hop test > 90% contralateral side ?? 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 * Telephone Encounter - Sagar Calvert PA - 08/22/2023 4:03 PM CDT Please update PT order to meniscal repair. MENISCUS REPAIR REHABILITATION PROTOCOL Surgery Date: 08/22/23 Please evaluate and treat according to the following protocol: Frequency: 2-3x/week Duration: 6 weeks Please call patient to schedule first post-op appointment for 5-7 days after surgery. ADDITIONAL INSTRUCTIONS: Evaluate/treat per meniscus repair protocol with following parameters: Week 0-2: -ROM 0-60 degrees -Brace locked in extension for ambulation; may unlock brace when sitting -TTWB with use of crutches-gait training -May bear weight on the leg when standing stationary and brace is locked. -Remove brace when performing RICE (provided leg is extended) and for daily hygiene. -NWB/table strengthening exercises for LE/core as appropriate Continue SLRs in brace, quad isometrics, ankle pumps Flexion exercises seated AAROM Hamstring and calf stretching Hip and core strengthening -Patellar mobilization Weeks 2-4 -same as weeks 0-2, with advancement of ROM 0-90 degrees Continue SLRs in brace, quad isometrics, ankle pumps Flexion exercises seated AAROM Hamstring and calf stretching Hip and core strengthening Theraband TKE in standing with crutch assistance Weeks 4-6 -advance ROM 0-120 degrees -Progressive WB with ambulation over 2 weeks with use of crutches and brace locked in full extension. May d/c ambulatory aid at 6 weeks post if adequate gait. -start WB exercises as appropriate, once FWB Calf raises Mini squats Bilateral leg press (0-90)-LIGHT weight Regular stationary bike if flexion > 115?? SLR in all planes Weeks 6-12 -advance ROM as tolerated -may unlock brace with ambulation, if quad control appropriate -may d/c brace once gait is adequate/normalized -continue to advance WB exercises Mini-squats and weight shifts Isotonic leg press (0?? - 90??) 4-8 inch step ups 4-8 in step down starting week 8-9 Regular stationary bike if flexion > 115?? Side steps with exercise bands -Retro treadmill progressive inclines -Stairmaster machine/bike with resistance (stationary)-starting week 9 Weeks 12+ post op -advance strength and balance Plyometric leg press Jump downs (double stance landing) Progress to light running program and light sport specific drills if: Quad strength > 75% contralateral side Active ROM 0?? - > 125?? Functional hop test > 70% contralateral side Swelling < 1cm at joint line No pain Demonstrates good control on step down -Initiate/progerssion of sports-specific exercises in anticipation of return to play at 4-6 months post op -Single leg leg press test -Single leg hop test (hops per 30 seconds) -Single leg bounding test (if adequate/appropriate strength has been demonstrated with above two tests) Criteria for return to sports: Full active ROM Quadriceps > 90% contralateral side Satisfactory clinical exam Functional hop test > 90% contralateral side Completion of ACL running program documented in this encounter Plan of Treatment Scheduled Referrals Name Type Priority Associated Diagnoses Orde r Schedule Ambulatory referral order to Physical Therapy - Outpatient Referral Routine S/P arthroscopy of left knee Expected: 09/06/2023 (Approximate), Expires: 08/22/2024 documented as of this encounter Visit Diagnoses Diagnosis S/P arthroscopy of left knee- Primary Other postprocedural status documented in this encounter Care Teams Live Hanger Relationship Specialty Start Date End Date Beau Clinton PA [address] [place] [address] PCP - General Family Practice 08/14/23 Zarina Avalos PA [address] [place] [address] [place] [address] Orthopedic Surgery 08/22/23 documented as of this encounter
--- OUTSIDE RECORDS SUMMARY | 2024-04-03 02:20 | XMS_ITS | Encounter Summary ---
Author Organization [facility] Healthcare Address [address] [place] [address] Care Team Providers Care J2Ee Android Developer Name Role Phone Beau Clinton Primary Care Provider [phone] Reason for Referral * Consultation (Routine) - Closed Specialty Diagnoses / Procedures Referred By Contac t Referred To Contact Physical Therapy Diagnoses S/P left knee arthroscopy Yong Sheikh MD [address] [place] [address] [place] [address] Phone: tel: fax: [place] [address] Phone: tel: fax: Referral ID Status Reason Start Date Expiration Date V isits Requested Visits Authorized [id number] Closed Specialty Services Required 08/15/2023 09/13/2024 18 18 Question Answer PTRFR PT Evaluate and Treat Therapy options discussed with patient? Yes Location provided for therapy services is: Patient requested/Patient preferred Please select the performing region: External Order [171] To loc/pos [facility] [[id number]] # of visits: 18 Comments Eval and treat s/p left Knee Medial Meniscectomy DOS: 08/22/23 2-3 time per week for 4-6 weeks Please contact patient to schedule first post-op appointment for 5-7 days after surgery Encounter Details Date Type Department Care Team (Late st Contact Info) Description 08/15/2023 Orders Only [facility] Medical Group Orthopedic and Sports Medicine [address] [place] [phone] Yong Sheikh MD [address] [place] [address] [address] [address] S/P left knee arthroscopy (Primary Dx) Social History Tobacco Use Types Packs/Day Years [...] on file 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 Gender Identity Not on file Sexual Orientation Not on file documented as of this encounter Plan of Treatment Scheduled Referrals Name Type Priority Associated Diagnoses Orde r Schedule Ambulatory referral order to Physical Therapy - Outpatient Referral Routine S/P left knee arthroscopy Expected: 08/29/2023 (Approximate), Expires: 08/14/2024 documented as of this encounter Visit Diagnoses Diagnosis S/P left knee arthroscopy- Primary documented in this encounter Care Teams J2Ee Android Developer Relationship Specialty Start Date End Date Beau Clinton PA [address] [place] [address] PCP - General Family Practice 08/14/23 documented as of this encounter
--- OUTSIDE RECORDS SUMMARY | 2024-04-03 06:37 | XMS_ITS | Referral Summary ---
Author Organization [facility] Address [address] [place] [address] Care Team Providers Care Roustabout Crew Leader Name Role Phone Kimberly Dillon MD Primary Care Provider [phone] Source Comments [facility],non-owned Affiliates and Associated Physician Practices is amultiple site organization consisting of ambulatory clinics and hospital sitesin [place], [place], [place] and [place]. This disclosure is being madepursuant to the Care Everywhere program and may not contain all information available regarding this patient. Last updated 18.[facility] Allergies No known active allergies Medications * [...] PM CDT Pulse 80 06/09/2014 2:30 PM CRT Temperature 36.6 ??C (97.9 ??F) 06/09/2014 1:30 PM CS T Respiratory Rate 16 06/09/2014 2:30 PM CRT Oxygen Saturation 100% 06/09/2014 2:30 PM CRT Inhaled Oxygen Concentration - - Weight 117.8 [...] on file Medical Devices Implanted Type Area Commercial Energy Auditor Device Identifier Shelf Expiration Date Model / Serial / Lot Scrw Selftap Hd 2.7mm 3.5mm X 16.0mm Implanted:Qty: 2 on 05/16/2012 by Sophia Hutchison MD at [facility] Right: [employer] [id number] / / Scrw Selftap Hd 2.7mm 3.5mm X 18.0mm Implanted:Qty: 2 on 05/16/2012 by Sophia Hutchison MD at [facility] Right: [employer] [id number] / / Scrw Selftap Hd 2.7mm 3.5mm X 28.0mm Implanted:Qty: 1 on 05/16/2012 by Sophia Hutchison MD at [facility] Right: [employer] [id number] / / Scrw Harsh Selftap Sm Hex 2.7mm X 14mm Implanted:Qty: 1 on 05/16/2012 by Sophia Hutchison MD at [facility] Right: [employer] [id number] / / Scrw Harsh Selftap Sm Hex 2.7mm X 16mm Implanted:Qty: 1 on 05/16/2012 by Sophia Hutchison MD at [facility] Right: [employer] [id number] / / Scrw Harsh Selftap Sm Hex 2.7mm X 18mm Implanted:Qty: 1 on 05/16/2012 by Sophia Hutchison MD at [facility] Right: [employer] [id number] / / Plate Fib Dist Lat Cesia R 4hole 80mm Implanted:Qty: 1 on 05/16/2012 by Sophia Hutchison MD at [facility] Right: [employer] [id number] / / Explanted Type Area Commercial Energy Auditor Device Identifier Shelf Expiration Date Model / Serial / Lot Scrw Selftap Hd 2.7mm 3.5mm X 14.0mm Explanted:Qty: 1 on 05/16/2012 by Sophia Hutchison MD at [facility] Right: [employer] [id number] / / Care Teams Roustabout Crew Leader Relationship Specialty Start Date End Date Kimberly Dillon MD [address] [place] [address] PCP - General 08/16/21
--- OUTSIDE RECORDS SUMMARY | 2024-04-03 06:37 | XMS_ITS | Clinical Summary ---
Author Organization [facility] Address [address] [place] [address] Care Team Providers Care Under Seal Operator Name Role Phone Kimberly Dillon MD Primary Care Provider [phone] Source Comments [facility],non-owned Affiliates and Associated Physician Practices is amultiple site organization consisting of ambulatory clinics and hospital sitesin [place], [place], [place] and [place]. This disclosure is being madepursuant to the Care Everywhere program and may not contain all informatio navailable regarding this patient. Last updated 18.[facility] Allergies No known active allergies Medications * [...] PM CDT Pulse 80 06/09/2014 2:30 PM SPECIAL POLICE OFFICER Temperature 36.6 ??C (97.9 ??F) 06/09/2014 1:30 PM CS T Respiratory Rate 16 06/09/2014 2:30 PM SPECIAL POLICE OFFICER Oxygen Saturation 100% 06/09/2014 2:30 PM SPECIAL POLICE OFFICER Inhaled Oxygen Concentration - - Weight 117.8 [...] this topic Medical Devices Implanted Type Area Corduroy Cutter Operator Device Identifier Shelf Expiration Date Model / Serial / Lot Scrw Selftap Hd 2.7mm 3.5mm X 16.0mm Implanted:Qty: 2 on 05/16/2012 by Sophia Hutchison MD at [facility] Right: [employer] [id number] / / Scrw Selftap Hd 2.7mm 3.5mm X 18.0mm Implanted:Qty: 2 on 05/16/2012 by Sophia Hutchison MD at [facility] Right: [employer] [id number] / / Scrw Selftap Hd 2.7mm 3.5mm X 28.0mm Implanted:Qty: 1 on 05/16/2012 by Sophia Hutchison MD at [facility] Right: [employer] [id number] / / Scrw Harsh Selftap Sm Hex 2.7mm X 14mm Implanted:Qty: 1 on 05/16/2012 by Sophia Hutchison MD at [facility] Right: [employer] [id number] / / Scrw Harsh Selftap Sm Hex 2.7mm X 16mm Implanted:Qty: 1 on 05/16/2012 by Sophia Hutchison MD at [facility] Right: [employer] [id number] / / Scrw Harsh Selftap Sm Hex 2.7mm X 18mm Implanted:Qty: 1 on 05/16/2012 by Sophia Hutchison MD at [facility] Right: [employer] [id number] / / Plate Fib Dist Lat Cesia R 4hole 80mm Implanted:Qty: 1 on 05/16/2012 by Sophia Hutchison MD at [facility] Right: [employer] [id number] / / Explanted Type Area Corduroy Cutter Operator Device Identifier Shelf Expiration Date Model / Serial / Lot Scrw Selftap Hd 2.7mm 3.5mm X 14.0mm Explanted:Qty: 1 on 05/16/2012 by Sophia Hutchison MD at [facility] Right: [employer] [id number] / / Care Teams Under Seal Operator Relationship Specialty Start Date End Date Kimberly Dillon MD [address] [place] [id number] PCP - General 08/16/21
--- OUTSIDE RECORDS SUMMARY | 2024-04-03 06:38 | XMS_ITS | Encounter Summary ---
Author Organization [facility] Address [address] [place] [address] Care Team Providers Care Bench Assembler Name Role Phone Moises Diaz MD Primary Care Provider Unavail able Reason for Visit * Auth/Cert - Closed Specialty Diagnoses / Procedures Referred By Antony t Referred To Contact Diagnoses Hypertrophy of tonsil with adenoids Obstructive sleep apnea (adult) (pediatric) Procedures TONSILLECTOMY AND ADENOIDECTOMY Referral ID Status Reason Start Date Expiration Date Visits Re quested Visits Authorized [id number] Closed 1 1 Encounter Details Date Type Department Care Team (Latest Contact Info) Description 06/09/2014 10:26 AM PLATE CONDITIONER - 06/09/2014 2:57 PM PLATE CONDITIONER Hospital Encounter [facility] - Intraop [address] [place] [address] Kyle Cardenas MD [address] [place] [address] Surgery General Discharge Disposition: Home or Self [...] Comments Blood Pressure 133/85 06/09/2014 1:30 PM PLATE CONDITIONER Pulse 80 06/09/2014 2:30 PM PLATE CONDITIONER Temperature 36.6 ??C (97.9 ??F) 06/09/2014 1:30 PM CS T Respiratory Rate 16 06/09/2014 2:30 PM PLATE CONDITIONER Oxygen Saturation 100% 06/09/2014 2:30 PM PLATE CONDITIONER Inhaled Oxygen Concentration - - Weight 114.4 kg (252 lb 3.3 oz) 015 10:38 AM PLATE CONDITIONER Height 179 cm (5' 10.47 ) 06/09/2014 10 :38 AM PLATE CONDITIONER Body Mass Index 35.7 06/09/2014 10:38 AM PLATE CONDITIONER Body Mass Index Percentile 98.47% 06/09 10:38 AM PLATE CONDITIONER Growth Chart: [facility] (Boys, 2-2 0 Years) documented in [...] SUMMARY Patient ID: Name: Antony Benedict MR#: [id number] Date of : 1995 Age: 18 y.o. Discharge Date: 06/09/2014 Discharge Diagnosis: adenotonsillar hypertrophy and Clinical sleep apnea Procedure: adenotonsillectomy Discharge Condition: Stable Discharge Procedure Orders Why you were hospitalized Order Specific Question Answer Comments Your discharge diagnosis is MERLENE (obstructive sleep apnea) [277916] Soft diet -- Antony will need a [...] or for any of the following issues: [phone] and ask for ENT Follow up with provider Order Specific Question Answer Comments Follow Up Instructions: As needed Krunal Bridges MD E CONDITIONER documented in this encounter Discharge Instructions * Discharge Instructions* Nuris Dodge RN - 06/09/2014 2:37 PM PLATE CONDITIONER Hydrocodone-acetaminophen (LORTAB) was given at 2:20 pm and should be given again at 6:20 pm. Remove scopolamine patch from behind right ear tomorrow if you are not having nausea or Monday if you have nausea on Monday. E CONDITIONER documented in this encounter Medications at Time [...] proceed. Krunal Bridges MD 06/09/2014 10:33 AM E CONDITIONER documented in this encounter OR Notes * [...] every 4 hours as needed for pain E CONDITIONER documented in this encounter Plan of Treatment Not on file documented as of this encounter Procedures Procedure Name Priority Date/Time Associated Diagnosis Comments TONSILLECTOMY AND ADENOIDECTOMY 06/09/2014 8:10 PM PLATE CONDITIONER Hypertrophy of tonsil with adenoids Obstructive sleep apnea (adult) (pediatric) PATHOLOGY TISSUE EXAM (STL) STAT 06/09/2014 12:22 PM PLATE CONDITIONER documented in this encounter Results * GROSS + MICRO EXAM (STL) (06/09/2014 12:22 PM PLATE CONDITIONER) Case Report Surgical Pathology Report ? Case: [id number] ? Authorizing Provider: ??Krunal Bridges MD ?Collected: ? 06/09/2014 12:22 PM ? Ordering Location: ? [facility] ? Received: ?06/09/2014 01:54 PM ? Pathologist: ? Daniel Rice MD ? Specimen: ?Tonsil(s) ? 06/10/2014 4:16 PM [facility] Final Diagnosis TONSILS, TONSILLECTOMY: -TONSILLAR HYPERPLASIA -SULFUR GRANULES PRESENT 06/10/2014 4:16 PM [facility] Clinical History The patient is a 18-year-old boy with adenotonsillar hypertrophy and obstructive sleep apnea. 06/10/2014 4:16 PM [facility] Gross Description Submitted fresh in one container for gross and microscopic examination labeled with the patient's name, Antony Benedict, and tonsils, are two egg-shaped, pink-patterson palatine tonsils measuring 3.2 x 2.3 x 1.5 cm and 3.2 x 2.5 x 2.0 cm, weighing 4 grams and 5 grams. On cut surface, the tonsils have a cerebriform yellow-patterson appearance. A commercial pest control representative section of each tonsil is submitted in cassettes A1 and A2. (MR/preet) 06/10/2014 4:16 PM [facility] Microscopic Description 2 H&E. Sections of the tonsils show tonsillar squamous mucosa with underlying lymphoid tissue. Intraepithelial lymphocytes (M cells) are noted. The lymphoid tissue is composed of variable sized germinal center surrounded by intact mantle zone sulfur granules (actinomcyes) are noted. (NM/scs) 06/10/2014 4:16 PM [facility] Disclaimer The performance characteristics of all immunohistochemical and indirect immunofluorescence stains (if any) cited in this report were determined by the Histopathology Laboratory of [facility] in compliance with CLIA `88 regulations. Some of these tests rely on the use of analyte-specific reagents and are subject to specific labeling requirements by the FDA. Such tests were developed by the [facility] Laboratory of [facility] and have not been cleared or approved by the FDA. The FDA has determined that such clearance or approval is not necessary. These tests are used for clinical purposes and should not be regarded as investigational or for research. This case has been personally reviewed and interpreted by the attending (teaching) pathologist. 06/10/2014 4:16 PM PLATE CONDITIONER [facility] Pathology/Cytolo gy SPECIMEN FROM TONSIL / Unknown 06/09/2014 12:22 PM PLATE CONDITIONER 06/09/2014 1:54 PM PLATE CONDITIONER Comment:474.10 Krunal Bridges MD LAB - PATHOLOGY/CYTO LOGY ORDERABLES Performing Organization Address City/State/[facility] Co de Phone Number [facility] [address] [place] [address] documented in this encounter Visit Diagnoses Diagnosis [...] Flowsheet., PACU $ Given 06/09/2014 1:05 PM PLATE CONDITIONER 25 mcg hydrocodone-acetamin ophen 7.5-325 MG/15ML solution 10 mL 10 mL, Oral, EVERY 4 HOURS PRN, Moderate Pain, Starting on Mon06/09/14 at 1254, Until Mon06/09/14 at 1558, Post-op $ Given 06/09/2014 2:20 PM PLATE CONDITIONER 10 mL isolyte-S pH 7.4 infusion 150 mL/hr, Intravenous, POST-OP CONTINUOUS, Starting on Mon06/09/14 at 1300, Until Mon06/09/14 at 1558, PACU Current Rate 06/09/2014 12:52 PM PLATE CONDITIONER 150 mL/hr 150 mL/hr scopolamine (TRANSDERM-SCOP) 1.5 [...] to MRI. $ Applied 06/09/2014 11:23 AM PLATE CONDITIONER 1.5 mg Behind Right Ear documented in this encounter Active and Recently Administered Medications Times are shown in PLATE CONDITIONER. Scheduled Medication Order 06/07/2014 06/08/2014 06/09/2014 [id number] [...] MANUELA) documented in this encounter Care Teams Bench Assembler Relationship Specialty Start Date End Date Moises Diaz MD PCP - General 04/28/09 08/15/21 documented as of this encounter
--- OUTSIDE RECORDS SUMMARY | 2024-04-03 06:38 | XMS_ITS | Patient Health Summary ---
Author Organization [facility] Address [address] [place] [address] Care Team Providers Care Perishable Freight Inspector Name Role Phone Kimberly Dillon MD Primary Care Provider Note from [facility],non-owned Affiliates and Associated Physician Practices is amultiple site organization consisting of ambulatory clinics and hospital sitesin [place], [place] and [place]. This disclosure is being madepursuant to the Care Everywhere program and may not contain all information available regarding this patient. Last updated 18.[facility] Allergies No known active allergies Medications * [...] PM CDT Pulse 80 06/09/2014 2:30 PM CHILD NURSE Temperature 36.6 ??C (97.9 ??F) 06/09/2014 1:30 PM CS T Respiratory Rate 16 06/09/2014 2:30 PM CHILD NURSE Oxygen Saturation 100% 06/09/2014 2:30 PM CHILD NURSE Inhaled Oxygen Concentration - - Weight 117.8 kg (259 lb 12.8 oz) 09/12/2014 3:31 PM CDT Height 180 cm (5' 10.87 ) 09/12/2014 3:31 PM CDT Body Mass Index 36.37 09/12/2014 3:31 PM CDT Medical Devices Implanted Type Area Senior Materials Analyst Device Identifier Shelf Expiration Date Model / Serial / Lot Scrw Selftap Hd 2.7mm 3.5mm X 16.0mm Implanted:Qty: 2 on 05/16/2012 by Sophia Hutchison MD at [facility] Right: Ankle [employer] [id number] / / Scrw Selftap Hd 2.7mm 3.5mm X 18.0mm Implanted:Qty: 2 on 05/16/2012 by Sophia Hutchison MD at [facility] Right: Ankle [employer] [id number] / / Scrw Selftap Hd 2.7mm 3.5mm X 28.0mm Implanted:Qty: 1 on 05/16/2012 by Sophia Hutchison MD at [facility] Right: Ankle [employer] [id number] / / Scrw Harsh Selftap Sm Hex 2.7mm X 14mm Implanted:Qty: 1 on 05/16/2012 by Sophia Hutchison MD at [facility] Right: Ankle [employer] [id number] / / Scrw Harsh Selftap Sm Hex 2.7mm X 16mm Implanted:Qty: 1 on 05/16/2012 by Sophia Hutchison MD at [facility] Right: Ankle [employer] [id number] / / Scrw Harsh Selftap Sm Hex 2.7mm X 18mm Implanted:Qty: 1 on 05/16/2012 by Sophia Hutchison MD at [facility] Right: Ankle [employer] [id number] / / Plate Fib Dist Lat Cesia R 4hole 80mm Implanted:Qty: 1 on 05/16/2012 by Sophia Hutchison MD at [facility] Right: Ankle [employer] [id number] / / Explanted Type Area Senior Materials Analyst Device Identifier Shelf Expiration Date Model / Serial / Lot Scrw Selftap Hd 2.7mm 3.5mm X 14.0mm Explanted:Qty: 1 on 05/16/2012 by Sophia Hutchison MD at [facility] Right: Ankle [employer] [id number] / / Procedures * VITAMIN D 25-HYDROXY(Performed [...] * C-REACTIVE PROTEIN (09/12/2014 4:08 PM CDT) [facility] C-Reactive Protein <0.20 <=0.50 mg/dL 09/12/2014 4:38 PM CDT [facility] Blood BLOOD SPECIMEN / Unknown Lab Venipuncture / Unknown 09/12/2014 4:08 PM CDT 09/12/2014 4:15 PM CDT Nadine Arredondo APRN-ASSISTANT ANALYST LAB - CHEMISTR Y ORDERABLES Performing Organization Address [facility] de Phone Number [facility] [address] [place] [id number] * (ABNORMAL) VITAMIN D (25-HYDROXY) (09/12/2014 4:08 PM CDT) [facility] Vitamin D, 25 Hydroxy 18.03(L) 30 - 100 ng/mL 09/12/2014 6:58 PM CDT [facility] Blood BLOOD SPECIMEN / Unknown Lab Venipuncture / Unknown 09/12/2014 4:08 PM CDT 09/12/2014 4:16 PM CDT Narrative [facility] - 09/12/2014 6:58 PM CDT Vitamin D Status: ?Deficiency ? <20 ? ng/mL ?Insufficiency ?? 20-30 ??ng/mL ?Sufficiency ? 30-100 ng/mL ?Toxicity ? >100 ?ng/mL Nadine Simon Arnulfo PULLER THROUGH-ASSISTANT ANALYST LAB - CHEMISTR Y ORDERABLES [facility] [address] [place] [address] * (ABNORMAL) IRON + TIBC PANEL (09/12/2014 4:08 PM CDT) Iron 178(H) 50 - 170 ug/dL 09/15/2014 1:24 AM CDT [employer] ([facility]) Comment: REFERENCE INTERVAL: Iron, Serum or Plasma Access complete set of age- and/or gender-specific reference intervals for this test in the [facility] Test Directory ([employer]). TIBC 376 240 - 450 ug/dL 09/15/2014 1:24 AM CDT [employer] ([facility]) Comment: REFERENCE INTERVAL: Iron Binding Capacity Total Access complete set of age- and/or gender-specific reference intervals for this test in the [facility] Test Directory ([facility]). Transferrin Saturation % 47 20 - 50 %sat 09/15/2014 1:24 AM CDT [employer] ([facility]) Blood specimen (specimen) BLOOD SPECIMEN / Unknown Lab Venipuncture / Unknown 09/12/2014 4:08 PM CDT 09/12/2014 4:16 PM CDT Nadine Arredondo PULLER THROUGH-ASSISTANT ANALYST LAB - CHEMISTR Y ORDERABLES [facility] [employer] ([facility]) [address] * (ABNORMAL) FERRITIN (09/12/2014 4:08 PM CDT) Only the most recent of2 resultswithin the time period is included. Ferritin 267(H) 20 - 250 ng/mL 09/12/2014 4:39 PM CDT [facility] Blood BLOOD SPECIMEN / Unknown Lab Venipuncture / Unknown 09/12/2014 4:08 PM CDT 09/12/2014 4:15 PM CDT Nadine Arredondo PULLER THROUGH-ASSISTANT ANALYST LAB - CHEMISTR Y ORDERABLES [facility] [place] [address] * GROSS + MICRO EXAM (STL) (06/09/2014 12:22 PM CHILD NURSE) Case Report Surgical Pathology Report ? Case: [id number] ? Authorizing Provider: ??Krunal Bridges MD ?Collected: ? 06/09/2014 12:22 PM ? Ordering Location: ? [facility] ? Received: ?06/09/2014 01:54 PM ? Pathologist: ? Daniel Rice MD ? Specimen: ?Tonsil(s) ? 06/10/2014 4:16 PM CHILD NURSE [facility] Final Diagnosis TONSILS, TONSILLECTOMY: -TONSILLAR HYPERPLASIA -SULFUR GRANULES PRESENT 06/10/2014 4:16 PM CHILD NURSE [facility] Clinical History The patient is a 18-year-old boy with adenotonsillar hypertrophy and obstructive sleep apnea. 06/10/2014 4:16 PM [facility] Gross Description Submitted fresh in one container for gross and microscopic examination labeled with the patient's name, Antony Benedict, and tonsils, are two egg-shaped, pink-patterson palatine tonsils measuring 3.2 x 2.3 x 1.5 cm and 3.2 x 2.5 x 2.0 cm, weighing 4 grams and 5 grams. On cut surface, the tonsils have a cerebriform yellow-patterson appearance. A agency sales representative section of each tonsil is submitted in cassettes A1 and A2. (MR/preet) 06/10/2014 4:16 PM [facility] Microscopic Description 2 H&E. Sections of the tonsils show tonsillar squamous mucosa with underlying lymphoid tissue. Intraepithelial lymphocytes (M cells) are noted. The lymphoid tissue is composed of variable sized germinal center surrounded by intact mantle zone sulfur granules (actinomcyes) are noted. (NM/scs) 06/10/2014 4:16 PM [facility] Disclaimer The performance characteristics of all immunohistochemical and indirect immunofluorescence stains (if any) cited in this report were determined by the [facility] in compliance with CLIA `88 regulations. Some of these tests rely on the use of analyte-specific reagents and are subject to specific labeling requirements by the FDA. Such tests were developed by the [facility] and have not been cleared or approved by the FDA. The FDA has determined that such clearance or approval is not necessary. These tests are used for clinical purposes and should not be regarded as investigational or for research. This case has been personally reviewed and interpreted by the attending (teaching) pathologist. 06/10/2014 4:16 PM [facility] Pathology/Cytolo gy SPECIMEN FROM TONSIL / Unknown 06/09/2014 12:22 PM CHILD NURSE 06/09/2014 1:54 PM CHILD NURSE Comment:474.10 Krunal Bridges MD LAB - PATHOLOGY/CYTO LOGY ORDERABLES [facility] [address] [place] [address] * XR ANKLE 3+ VW RIGHT (06/15/2012 9:07 AM CHILD NURSE) Only the most recent of4 resultswithin the time period is included. Anatomical Region Laterality Modality Lower Extremity Radiographic Kira ging 06/15/2012 9:26 AM CHILD NURSE Impressions 06/15/2012 9:26 AM CHILD NURSE 1. Healing distal fibular fracture. 2. Unchanged posterior tibial a avulsion. Narrative 06/15/2012 9:26 AM CHILD NURSE Right ankle, 3 views 06/15/2012 Fixation plate [...] ANKLE 2 VW RIGHT (05/25/2012 8:46 AM CHILD NURSE) Anatomical Region Laterality Modality Lower Extremity Radiographic Kira ging 05/25/2012 11:1 1 AM CHILD NURSE Impressions 05/25/2012 11:11 AM CHILD NURSE Interval casting of distal fibular fracture. Narrative 05/25/2012 11:11 AM CHILD NURSE Right ankle series, 2 views 05/25/2012 Comparison [...] CONSULT TO PEDIATRIC ORTHOPEDICS (05/13/2012 9:11 PM CHILD NURSE) Anna Lobo MD INPATIENT CONSULT OR DERABLES * ED ORTHOPEDIC INJURY TREATMENT (05/13/2012 2:28 AM CHILD NURSE) Narrative Benji Nobles MD - 05/13/2012 2:28 AM CHILD NURSE Benji Nobles MD ? 05/13/2012 ??2:28 AM Provider contact with the patient: 05/13/2012 ?02:27 Antony Myles Benedict [id number] [facility] EMERGENCY DEPT History Chief Complaint Patient presents with ? ? Lower Extremity Problem ??wrestling injury to right foot. PT did not hear a pop but did feel a couple pops. Mother gave 800mg Ibuprofen 2hrs ago. ?? I have read the resident/BIN PILER history. ??Unless appended by me below, I agree with findings as documented. HPI Review of Systems Review of Systems BP 156/74 Pulse 94 Temp 97.2 ??F Resp 21 Wt 96.208 kg (212 lb 1.6 oz) SpO2 98% Physical Exam I have reviewed the resident/BIN PILER physical exam. Unless appended by me below, [...] with the patient: 05/13/2012 02:27 Antony Benedict [id number] [facility] EMERGENCY DEPT History Chief Complaint Patient presents with ? ? Lower Extremity Problem wrestling injury to right foot. PT did not hear a pop but did feel acouple pops. Mother gave 800mg Ibuprofen 2hrs ago. I have read the resident/BIN PILER history. Unless appended by me below, I agreewith findings as documented. HPI Review of Systems Review of Systems BP 156/74 Pulse 94 Temp 97.2 ??F Resp 21 Wt 96.208 kg (212 lb 1.6oz) SpO2 98% Physical Exam I have reviewed the resident/BIN PILER physical exam. Unless appended by mebelow, I [...] US SCROTUM WITH DOPPLER (04/28/2009 1:15 PM CHILD NURSE) Anatomical Region Laterality Modality Pelvis Other 04/28/2009 1:15 PM CHILD NURSE Narrative 05/02/2009 9:53 AM CHILD NURSE ??Study Date ??Accession # ? Procedure Code ?Procedure ??04/28/2009 ?? [id number] ? [id number] ? US SCROTUM WITH DOPPLER ??Reason for [...] ? Released Date Time- 05/02/09 0956 ? Machine Strap Buckler- Autumn Campos ? ADM- JOSE GUERRA V ? ATT- REAGAN GUERRAND V ORD- JOSE GUERRA V ? CON- PCP- RIK CARD ? SCP- Procedure Note Hetal Morrissey - 05/02/2009 Study Date Accession # Procedure Code Procedure 04/28/2009 [id number] SCROTUM WITH DOPPLER Reason for Study TESTICULAR [...] Morrissey MD Released Date Time- 05/02/09 0956 Machine Strap Buckler- Autumn Campos ADM- JOSE GUERRA V ATT- AMI,JOSE V ORD- PALNATA,JOSE Gabriel CON- PCP- RIK CARD SCP- Jose Guerra MD ORDERABLES Care Teams Perishable Freight Inspector Relationship Specialty Start Date End Date Kimberly Dillon MD [address] [place] [address] PCP - General 08/16/21
--- OUTSIDE RECORDS SUMMARY | 2024-04-03 06:38 | XMS_ITS | Encounter Summary ---
Author Organization [facility] Address [address] [place] [address] Care Team Providers Care Flatbed Company Driver Name Role Phone Moises Diaz MD Primary Care Provider Unavail able Reason for Visit * Reason Comments Follow-up right ankle fx Encounter Details Date Type Department Care Team (Latest Contact Info) Description 06/15/2012 8:15 AM BRANCH RENTAL MANAGER - 06/15/2012 9:01 AM BRANCH RENTAL MANAGER Hospital Encounter [facility] Pediatrics - Orthopedics [address] [place] [address] Sophia Hutchison MD [address] [place] [address] Discharge Disposition: Home or Self Care Social History Tobacco Use Types Packs/Day Years Used Date Smoking Tobacco: Never Assessed Smokeless Tobacco: Never Sex and Gender Information Value Date Recorded Sex Assigned at Not on file Gender Identity Not on file Sexual Orientation Not on file documented as of this encounter Discharge Instructions * Patient Instructions* Rakesh Oro DO - 06/15/2012 9:30 AM BRANCH RENTAL MANAGER ORTHOPAEDIC CLINIC DISCHARGE INSTRUCTIONS SHEET DIAGNOSIS: 1. [...] havea question for the orthopaedic nurse, call [phone], ext. 5. To schedule the surgery discussed with the doctor during your child's office visit, call [employer] at [phone], ext. 1. After visit summary completed by Rakesh Oro DO. CH RENTAL MANAGER documented in this encounter Progress Notes * [...] Right side today. Skin dry and intact CH RENTAL MANAGER documented in this encounter Plan of Treatment Not on file documented as of this encounter Procedures Procedure Name Priority Date/Time Associated Diagnosis Comments XR ANKLE RIGHT 3VW OR MORE Routine 06/15/2012 9:07 AM BRANCH RENTAL MANAGER Ankle fracture documented in this encounter Results * XR ANKLE 3+ VW RIGHT (06/15/2012 9:07 AM BRANCH RENTAL MANAGER) Anatomical Region Laterality Modality Lower Extremity Radiographic Kira ging 06/15/2012 9:26 AM BRANCH RENTAL MANAGER Impressions 06/15/2012 9:26 AM BRANCH RENTAL MANAGER 1. Healing distal fibular fracture. 2. Unchanged posterior tibial a avulsion. Narrative 06/15/2012 9:26 AM BRANCH RENTAL MANAGER Right ankle, 3 views 06/15/2012 Fixation plate [...] leg documented in this encounter Care Teams Flatbed Company Driver Relationship Specialty Start Date End Date Moises Diaz MD PCP - General 04/28/09 08/15/21 documented as of this encounter
--- OUTSIDE RECORDS SUMMARY | 2024-04-03 06:38 | XMS_ITS | Encounter Summary ---
Author Organization [facility] Address [address] [facility] [place] [address] Care Team Providers Care Database Admin Name Role Phone Moises Diaz MD Primary Care Provider Unavail able Reason for Visit * Reason Comments Follow-up right middle finger evulsion to nail bed Encounter Details Date Type Department Care Team (Latest Contact Info) Description 02/28/2014 2:20 PM CLINICAL NURSING PROFESSOR - 02/28/2014 11:59 PM CLINICAL NURSING PROFESSOR Hospital Encounter [facility] Pediatrics - Orthopedics [address] [place] [address] Giuliano Hills MD [address] [place] [address] Discharge Disposition: Home or Self Care Social History Tobacco Use Types Packs/Day Years Used Date Smoking Tobacco: Never Assessed Smokeless Tobacco: Never Sex and Gender Information Value Date Recorded Sex Assigned at Not on file Gender Identity Not on file Sexual Orientation Not on file documented as of this encounter Discharge Instructions * Patient Instructions* Opal Lira MD - 02/28/2014 2:54 PM CLINICAL NURSING PROFESSOR Return appointment: Follow up in 6 weeks Call [phone], option 1, for return if your child has new symptoms or problems, or if you have concerns. Call [phone] for questions. Physicians orders: Soak in dial soap solution twice daily Medications prescribed: None Activity Restrictions: None School/Work Excuse: Patient had an appointment 02/28/2014 ICAL NURSING PROFESSOR documented in this encounter Medications at Time [...] in the interim with questions or concerns. ICAL NURSING PROFESSOR documented in this encounter Plan of Treatment Not on file documented as of this encounter Visit Diagnoses Not on filedocumented in this encounter Care Teams Database Admin Relationship Specialty Start Date End Date Moises Diaz MD PCP - General 04/28/09 08/15/21 documented as of this encounter
--- OUTSIDE RECORDS SUMMARY | 2024-04-03 06:38 | XMS_ITS | Encounter Summary ---
Author Organization [facility] Address [address] [facility] [place] [address] Care Team Providers Care Bead Inspector Name Role Phone Moises Diaz MD Primary Care Provider Unavail able Encounter Details Date Type Department Care Team (Latest Contact Info) Description 06/15/2012 9:02 AM TIE MILL OPERATOR - 06/15/2012 11:59 PM TIE MILL OPERATOR Hospital Encounter [facility] Pediatrics - Radiology [address] [place] [address] Discharge Disposition: Home or Self Care Social [...] 3VW OR MORE Routine 06/15/2012 9:07 AM TIE MILL OPERATOR Ankle fracture documented in this encounter Results * XR ANKLE 3+ VW RIGHT (06/15/2012 9:07 AM TIE MILL OPERATOR) Anatomical Region Laterality Modality Lower Extremity Radiographic Kira ging 06/15/2012 9:26 AM TIE MILL OPERATOR Impressions 06/15/2012 9:26 AM TIE MILL OPERATOR 1. Healing distal fibular fracture. 2. Unchanged posterior tibial a avulsion. Narrative 06/15/2012 9:26 AM TIE MILL OPERATOR Right ankle, 3 views 06/15/2012 Fixation [...] leg documented in this encounter Care Teams Bead Inspector Relationship Specialty Start Date End Date Moises Diaz MD PCP - General 04/28/09 08/15/21 documented as of this encounter
--- OUTSIDE RECORDS SUMMARY | 2024-04-03 06:38 | XMS_ITS | Encounter Summary ---
Author Organization [facility] Address [address] [place] [address] Care Team Providers Care Personnel Director Name Role Phone Moises Diaz MD Primary Care Provider Unavail able Encounter Details Date Type Department Care Team (Latest Contact Info) Description 05/25/2012 8:42 AM REFRIGERATION UNIT REPAIRER - 05/25/2012 11:59 PM REFRIGERATION UNIT REPAIRER Hospital Encounter [facility] Pediatrics - Radiology [address] [place] [address] Discharge Disposition: Home or Self Care Social [...] RIGHT 2VW Routine 05/25/2012 8: 46 AM REFRIGERATION UNIT REPAIRER Ankle fracture documented in this encounter Results * XR ANKLE 2 VW RIGHT (05/25/2012 8:46 AM REFRIGERATION UNIT REPAIRER) Anatomical Region Laterality Modality Lower Extremity Radiographic Kira ging 05/25/2012 11:1 1 AM REFRIGERATION UNIT REPAIRER Impressions 05/25/2012 11:11 AM REFRIGERATION UNIT REPAIRER Interval casting of distal fibular fracture. Narrative 05/25/2012 11:11 AM REFRIGERATION UNIT REPAIRER Right ankle series, 2 views 05/25/2012 Comparison [...] device documented in this encounter Care Teams Personnel Director Relationship Specialty Start Date End Date Moises Diaz MD PCP - General 04/28/09 08/15/21 documented as of this encounter
--- OUTSIDE RECORDS SUMMARY | 2024-04-03 06:38 | XMS_ITS | Encounter Summary ---
Author Organization [facility] Address [address] [facility] [place] [address] Care Team Providers Care Flux Plant Operator Name Role Phone Moises Diaz MD Primary Care Provider Unavail able Encounter Details Date Type Department Care Team (Late st Contact Info) Description 09/19/2014 Orders Only [facility] Pediatrics - Sleep [address] [place] [address] Carmen Omalley RN Social History Tobacco Use [...] on filedocumented in this encounter Care Teams Flux Plant Operator Relationship Specialty Start Date End Date Moises Diaz MD PCP - General 04/28/09 08/15/21 documented as of this encounter
--- OUTSIDE RECORDS SUMMARY | 2024-04-03 06:38 | XMS_ITS | Encounter Summary ---
Author Organization [facility] Address [address] [facility] [place] [address] Care Team Providers Care [employer] Name Role Phone Moises Diaz MD Primary Care Provider Unavail able Encounter Details Date Type Department Care Team (Latest Contact Info) Description 09/12/2014 4:08 PM CDT - 09/12/2014 11:59 PM CDT Hospital Encounter [facility] Bon - Laboratory [address] [place] [address] Nadine Arredondo, WATER CONTROL STATION ENGINEER-PAPER BAG MACHINE OPERATOR [address] [place] [address] Discharge Disposition: Home or Self Care Social [...] - 100 ng/mL 09/12/2014 6:58 PM CDT [facility] Blood BLOOD SPECIMEN / Unknown Lab Venipuncture / Unknown 09/12/2014 4:08 PM CDT 09/12/2014 4:16 PM CDT Narrative [facility] - 09/12/2014 6:58 PM CDT Vitamin D Status: ?Deficiency ? <20 ? ng/mL ?Insufficiency ?? 20-30 ??ng/mL ?Sufficiency ? 30-100 ng/mL ?Toxicity ? >100 ?ng/mL Nadine Simon Arnulfo WATER CONTROL STATION ENGINEER-PAPER BAG MACHINE OPERATOR LAB - CHEMISTR Y ORDERABLES Performing Organization Address City/[facility]/ZIP Co de Phone Number [facility] [address] [place] [address] * C-REACTIVE PROTEIN (09/12/2014 4:08 PM CDT) C-Reactive Protein <0.20 <=0.50 mg/dL 09/12/2014 4:38 PM CDT [facility] Blood BLOOD SPECIMEN / Unknown Lab Venipuncture / Unknown 09/12/2014 4:08 PM CDT 09/12/2014 4:15 PM CDT Nadine Simon Arnulfo WATER CONTROL STATION ENGINEER-PAPER BAG MACHINE OPERATOR LAB - CHEMISTR Y ORDERABLES Performing Organization Address [facility] Co de Phone Number [facility] [address] [place] [phone] * (ABNORMAL) IRON + TIBC PANEL (09/12/2014 4:08 PM CDT) Iron 178(H) 50 - 170 ug/dL 09/15/2014 1:24 AM CDT [employer] [facility]) Comment: REFERENCE INTERVAL: Iron, Serum or Plasma Access complete set of age- and/or gender-specific reference intervals for this test in the [facility] Test [facility] ([employer] TIBC 376 240 - 450 ug/dL 09/15/2014 1:24 AM CDT [employer] [facility]) Comment: REFERENCE INTERVAL: Iron Binding Capacity Total Access complete set of age- and/or gender-specific reference intervals for this test in the [facility] Test [facility] ([employer] Transferrin Saturation % 47 20 - 50 %sat 09/15/2014 1:24 AM CDT [employer] ([facility]) Blood specimen (specimen) BLOOD SPECIMEN / Unknown Lab Venipuncture / Unknown 09/12/2014 4:08 PM CDT 09/12/2014 4:16 PM CDT Nadine Arredondo WATER CONTROL STATION ENGINEER-PAPER BAG MACHINE OPERATOR LAB - CHEMISTR Y ORDERABLES [facility] [employer] ([facility]) [address] [place] [address], [facility] * (ABNORMAL) FERRITIN (09/12/2014 4:08 PM CDT) Ferritin 267(H) 20 - 250 ng/mL 09/12/2014 4:39 PM CDT [facility] Blood BLOOD SPECIMEN / Unknown Lab Venipuncture / Unknown 09/12/2014 4:08 PM CDT 09/12/2014 4:15 PM CDT Nadine Alfred Arredondo WATER CONTROL STATION ENGINEER-PAPER BAG MACHINE OPERATOR LAB - CHEMISTR Y ORDERABLES [facility] [address] [place] [address] documented in this encounter Visit Diagnoses Diagnosis Other disorders of iron metabolism Sleep disturbance Sleep disturbance, unspecified documented in this encounter Care Teams [employer] Relationship Specialty Start Date End Date Moises Diaz MD PCP - General 04/28/09 08/15/21 documented as of this encounter
--- OUTSIDE RECORDS SUMMARY | 2024-04-03 06:38 | XMS_ITS | Encounter Summary ---
Author Organization [facility] Address [address] [facility] [place] [address] Care Team Providers Care Gauger Chief Name Role Phone Moises Diaz MD Primary Care Provider Unavail able Reason for Visit * Reason Comments Injury Ankle right Encounter Details Date Type Department Care Team (Latest Contact Info) Description 05/25/2012 8:34 AM PROGRAM DEVELOPMENT MANAGER - 05/25/2012 8:41 AM PROGRAM DEVELOPMENT MANAGER Hospital Encounter [facility] Pediatrics - Orthopedics [address] [place] [address] Sophia Hutchison MD [address] [place] [address] Discharge Disposition: Home or Self Care Social History Tobacco Use Types Packs/Day Years Used Date Smoking Tobacco: Never Assessed Smokeless Tobacco: Never Sex and Gender Information Value Date Recorded Sex Assigned at Not on file Gender Identity Not on file Sexual Orientation Not on file documented as of this encounter Discharge Instructions * Patient Instructions* Rakesh Oro DO - 05/25/2012 9:38 AM PROGRAM DEVELOPMENT MANAGER ORTHOPAEDIC CLINIC DISCHARGE INSTRUCTIONS SHEET DIAGNOSIS: [...] havea question for the orthopaedic nurse, call [phone], ext. [phone]. To schedule the surgery discussed with the doctor during your child's office visit, call [facility] at [phone], ext. [phone]. After visit summary completed by Rakesh Oro DO. RAM DEVELOPMENT MANAGER documented in this encounter Medications at [...] RIGHT 2VW Routine 05/25/2012 8: 46 AM PROGRAM DEVELOPMENT MANAGER Ankle fracture documented in this encounter Results * XR ANKLE 2 VW RIGHT (05/25/2012 8:46 AM PROGRAM DEVELOPMENT MANAGER) Anatomical Region Laterality Modality Lower Extremity Radiographic Kira ging 05/25/2012 11:1 1 AM PROGRAM DEVELOPMENT MANAGER Impressions 05/25/2012 11:11 AM PROGRAM DEVELOPMENT MANAGER Interval casting of distal fibular fracture. Narrative 05/25/2012 11:11 AM PROGRAM DEVELOPMENT MANAGER Right ankle series, 2 views 05/25/2012 Comparison [...] device documented in this encounter Care Teams Gauger Chief Relationship Specialty Start Date End Date Moises Diaz MD PCP - General 04/28/09 08/15/21 documented as of this encounter
--- OUTSIDE RECORDS SUMMARY | 2024-04-03 06:38 | XMS_ITS | Encounter Summary ---
Author Organization [facility] Address [address] [facility] [place] [address] Care Team Providers Care Internet Sales Manager Name Role Phone Moises Diaz MD Primary Care Provider Unavail able Reason for Visit * Auth/Cert - Closed Specialty Diagnoses / Procedures Referred By Contac t Referred To Contact Diagnoses RIGHT ANKLE FRACTURE, SYNDEMOSIS INJURY Procedures OPEN REDUCTION INTERNAL FIXATION FRACTURE ANKLE BIMALLEOLAR Referral ID Status Reason Start Date Expiration Date Visits Re quested Visits Authorized [id number] Closed 1 1 Encounter Details Date Type Department Care Team (Late st Contact Info) Description 05/16/2012 2:05 PM SPECTROGRAPH OPERATOR - 05/16/2012 4:35 PM SPECTROGRAPH OPERATOR Surgery [facility] - Periop [address] [place] [address] Moose Hutchison MD [facility] [place] [address] OPEN REDUCTION INTERNAL FIXATION FRACTURE ANKLE BIMALLEOLAR [...] Comments Blood Pressure 130/74 05/16/2012 5:00 PM SPECTROGRAPH OPERATOR Pulse 76 05/16/2012 5:22 PM SPECTROGRAPH OPERATOR Temperature 36.9 ??C (98.4 ??F) 05/16/2012 5:00 PM CS T Respiratory Rate 16 05/16/2012 5:22 PM SPECTROGRAPH OPERATOR Oxygen Saturation 97% 05/16/2012 5:00 PM SPECTROGRAPH OPERATOR Inhaled Oxygen Concentration - - Weight 98.5 kg (217 lb 2.5 oz) 05/16/19 13 12:08 PM SPECTROGRAPH OPERATOR Height 178.5 cm (5' 10.28 ) 05/16/2012 12:08 PM SPECTROGRAPH OPERATOR Body Mass Index 30.91 05/16/2012 12:08 PM SPECTROGRAPH OPERATOR Body Mass Index Percentile 97.13% 05/16 12:08 PM SPECTROGRAPH OPERATOR Growth Chart: [facility] (Boys, 2-2 0 Years) documented [...] with Dr. Baig in 2 weeks. Call [phone] to schedule your appointment NO RESTRICTIONS. ACTIVITY [...] less than 30 minutes. CC: Moises Diaz TROGRAPH OPERATOR documented in this encounter Discharge Instructions * Discharge Instructions* Gretchen Lorenz RN - 05/16/2012 4:34 PM SPECTROGRAPH OPERATOR Discharge Instructions for: Tr Benedict Discharge Procedure [...] with Dr. Baig in 2 weeks. Call [phone] to schedule your appointment NO RESTRICTIONS. ACTIVITY [...] any worsening of their condition, please phone [phone] and ask for the doctor financial solutions advisor for orthopedics or return to the Emergency Department. 05/16/2012 TROGRAPH OPERATOR * Discharge Instructions* Document, Scanned - 05/18/2012 7:48 AM SPECTROGRAPH OPERATOR TROGRAPH OPERATOR documented in this encounter Medications at Time [...] Plan to proceed with the above procedure. TROGRAPH OPERATOR documented in this encounter OR Notes * Operative - Moose Hutchison MD - 05/16/2012 5:24 PM CST [address] [address] [phone] OPERATIVE REPORT NAME: TR BENEDICT : 1995 UNIT #: [id number] CSN #: [id number] DATE OF OPERATION: 05/16/2012 ATTENDING SURGEON: MOOSE HUTCHISON MD PREOPERATIVE DIAGNOSIS: Right lateral malleolus fracture. POSTOPERATIVE DIAGNOSIS: Right lateral malleolus fracture. PROCEDURE: Open reduction and internal fixation of right lateral malleolus fracture using a Juan, distal fibular, 4-hole plate and a 28 mm fully threaded cortical lag screw. ATTENDING SURGEON: Moose Hutchison MD MOUNTAIN SERVICES MANAGER: Gian Bacon MD ANESTHESIA: General. IV FLUIDS: [...] By: MOOSE HUTCHISON MD /Amy JOB ID: [id number] OPERATIVE REPORT TROGRAPH OPERATOR documented in this encounter Miscellaneous Notes * Miscellaneous Scans - Document, Scanned - 05/18/2012 7:48 AM CST TROGRAPH OPERATOR * Miscellaneous Scans - Document, Scanned - 05/18/2012 7:48 AM CST TROGRAPH OPERATOR documented in this encounter Plan of Treatment Pending Results Name Type Priority Associated Diagnoses Date /Time [place] SURGERY 60 MIN PLUS Imaging Routine Ankle fracture 05/16/2012 3:39 PM SPECTROGRAPH OPERATOR Scheduled Orders Name Type Priority Associated Diagnoses Orde r Schedule [place] SURGERY 60 MIN PLUS Imaging Routine Ankle fracture For radiant use only for 1 Occurrences starting 05/16/2012 documented as of this encounter Procedures Procedure Name Priority Date/Time Associated Diagnosis Comments OPEN REDUCTION INTERNAL FIXATION FRACTURE ANKLE BIMALLEOLAR 05/16/2012 10:05 PM SPECTROGRAPH OPERATOR RIGHT ANKLE FRACTURE, SYNDEMOSIS INJURY Special Needs REC'D REQUEST 04/2913:00PM STARTSEE OR PLANNING SHEET; C-ARM XR ANKLE RIGHT 3VW OR MORE Routine 05/16/2012 3:39 PM SPECTROGRAPH OPERATOR Ankle fracture documented in this encounter Results * XR ANKLE 3+ VW RIGHT (05/16/2012 3:39 PM SPECTROGRAPH OPERATOR) Anatomical Region Laterality Modality Lower Extremity Radio Fluoroscop y 05/16/2012 3:46 PM SPECTROGRAPH OPERATOR Impressions 05/16/2012 3:46 PM SPECTROGRAPH OPERATOR Status post internal fixation distal fibular fracture. Narrative 05/16/2012 3:46 PM SPECTROGRAPH OPERATOR Intraoperative spot radiographs of the right ankle [...] 1618, Intra-op $ Given 05/16/2012 3:46 PM SPECTROGRAPH OPERATOR 8 mL Operative Site isolyte-S pH 7.4 infusion 130 mL/hr, Intravenous, POST-OP CONTINUOUS, Starting on Mon05/16/12 at 1630, Until Mon05/16/12 at 1824, PACU Current Rate 05/16/2012 4:15 PM SPECTROGRAPH OPERATOR 130 mL/hr 130 mL/hr lidocaine 0.5% - epinephrine 1:200,000 injection PRN, Starting on Mon05/16/12 at 1546, Until Mon05/16/12 at 1618, Intra-op $ Given 05/16/2012 3:46 PM SPECTROGRAPH OPERATOR 8 mL Operative Site documented in this encounter Active and Recently Administered Medications Times are shown in SPECTROGRAPH OPERATOR. Continuous Medication Order 05/14/2012 05/15/2012 05/16/2012 isolyte-S [...] MD) documented in this encounter Care Teams Internet Sales Manager Relationship Specialty Start Date End Date Moises Diaz MD PCP - General 04/28/09 08/15/21 documented as of this encounter
--- OUTSIDE RECORDS SUMMARY | 2024-04-03 06:38 | XMS_ITS | Encounter Summary ---
Author Organization [facility] Address [address] [facility] [place] [address] Care Team Providers Care Dry Janitor Name Role Phone Moises Diaz MD Primary Care Provider Unavail able Reason for Visit * Reason Comments Sleep Problem MERLENE, no sleep study, T&A June 09, leg pains Encounter Details Date Type Department Care Team (Latest Contact Info) Description 05/22/2014 2:15 PM DENTAL DETAIL REPRESENTATIVE - 05/22/2014 11:59 PM DENTAL DETAIL REPRESENTATIVE Hospital Encounter [facility] Pediatrics - Sleep [address] [place] [phone] Nadine Arredondo, ARMED CUSTOM PROTECTION OFFICER-PROGRAM MANAGEMENT INTERN [address] [place] [address] Discharge Disposition: Home or Self Care Social [...] lb 12. 8 oz) 05/22/2014 2:41 PM DENTAL DETAIL REPRESENTATIVE Height 182.9 cm (6') 05/22/2014 2:41 PM DENTAL DETAIL REPRESENTATIVE Body Mass Index 34.83 05/22/2014 2:41 PM DENTAL DETAIL REPRESENTATIVE Body Mass Index Percentile 98.16% 05/22/2014 2:4 1 PM DENTAL DETAIL REPRESENTATIVE Growth Chart: CDC (Boys, 2-2 0 Years) documented in this encounter Discharge Instructions * Patient Instructions* Carmen Omalley RN - 05/22/2014 3:36 PM DENTAL DETAIL REPRESENTATIVE 1. Surgery as scheduled. 2. Call us in about 3 weeks after surgery to let us know how things are going. 3. Please call our nurse's line with any questions. ([phone]) AL DETAIL REPRESENTATIVE documented in this encounter Medications at Time [...] to the Pediatric Sleep Disorders Clinic at [facility] on 05/22/14 for evaluation of snoring. He [...] positive for - headaches Dermatological ROS: negative Roosevelt Sleepiness Scale: Sitting and Reading high chance [...] at school. No Known Allergies No current [facility]-ordered outpatient prescriptions on file. No [...] call our nurse's line with any questions. ([phone]) Thank you for allowing me to participate in the care of your patient. Please call me with any questions at [phone]. SAMARIA [facility]ong [facility] AL DETAIL REPRESENTATIVE documented in this encounter Plan of Treatment Not on file documented as of this encounter Visit Diagnoses Not on filedocumented in this encounter Care Teams Dry Janitor Relationship Specialty Start Date End Date Moises Diaz MD PCP - General 04/28/09 08/15/21 documented as of this encounter
--- OUTSIDE RECORDS SUMMARY | 2024-04-03 06:38 | XMS_ITS | Encounter Summary ---
Author Organization [facility] Address [address] [place] [address]. [place] [address] [place] [address] Care Team Providers Care Unit Manager Name Role Phone Unavailable Primary Care Provider Unavailabl e Encounter Details Date Type Department Care Team (Late st Contact Info) Description 02/11/2014 Abstract [facility] Emergency Room [address] [place], [place] [id number] Autumn France, RADIO ASSEMBLER [address] [address] Social History Tobacco Use Types Packs/Day Years [...]
--- OUTSIDE RECORDS SUMMARY | 2024-04-03 06:38 | XMS_ITS | Encounter Summary ---
Author Organization [facility] Address [address] [facility] [place] [address] Care Team Providers Care Cutter Plastics Rolls Name Role Phone Rik Diaz MD Primary Care Provider Unavail able Encounter Details Date Type Department Care Team (Latest Contact Info) Description 04/28/2009 10:56 AM SANITARY AIDE - 04/28/2009 11:59 PM SANITARY AIDE Hospital Encounter [facility] [address] [place] [address] Darron Mueller MD [address] [place] [phone] Urology Discharge Disposition: Home or Self Care [...] SCROTUM W DOPPLER Routine 04/28/2009 1:15 PM SANITARY AIDE documented in this encounter Results * US SCROTUM WITH DOPPLER (04/28/2009 1:15 PM SANITARY AIDE) Anatomical Region Laterality Modality Pelvis Other 04/28/2009 1:15 PM SANITARY AIDE Narrative 05/02/2009 9:53 AM SANITARY AIDE ??Study Date ??Accession # ? Procedure Code ?Procedure ??04/28/2009 ?? [id number] ? [id number] ? US SCROTUM WITH DOPPLER ??Reason for [...] ? Released Date Time- 05/02/09 0956 ? Oxygen Equipment Technician- Autumn Campos ? ADM- DARRON MUELLER V ? ATT- DARRON MUELLER V ORD- PALAGIRI,DARRON V ? CON- PCP- RIK DIAZ ? SCP- Procedure Note Lucila Morrissey - 05/02/2009 Study Date Accession # Procedure Code Procedure 04/28/2009 [id number] US SCROTUM WITH DOPPLER Reason for Study [...] Morrissey MD Released Date Time- 05/02/09 0956 Oxygen Equipment Technician- Autumn Campos ADM- AMIDARRON Gabriel ATT- AMIDARRON Gabriel ORD- AMI,DARRON V CON- PCP- RIK DIAZ SCP- Darron Mueller MD US ORDERABLES documented in this encounter Visit Diagnoses Not on filedocumented in this encounter Care Teams Cutter Plastics Rolls Relationship Specialty Start Date End Date Rik Diaz MD PCP - General 04/28/09 08/15/21 documented as of this encounter
--- OUTSIDE RECORDS SUMMARY | 2024-04-03 06:38 | XMS_ITS | Clinical Summary ---
Author Organization [facility] Address [address] [place] [address]. [place] [address] [place] [address] Care Team Providers Care Mechanical Maintenance Technician Name Role Phone Unavailable Primary Care Provider [...]
--- OUTSIDE RECORDS SUMMARY | 2024-04-03 06:38 | XMS_ITS | Encounter Summary ---
Author Organization [facility] Address [address] [facility] [place] [address] Care Team Providers Care High School Business Teacher Name Role Phone Moises Diaz MD Primary Care Provider Unavail able Reason for Visit * Reason Comments Injury Finger got finger caught in air grinder in shop class. Pt has evulsion of nailbed and finger tip. proximal to nailbed. NV intact. Right hand guazed at this time. Encounter Details Date Type Department Care Team (Late st Contact Info) Description 02/11/2014 10:49 AM CDT - 02/11/2014 3:35 PM [place] [address] Antoinette Phillips DO [address] [place] [address] Laceration of finger, initial encounter Discharge Disposition: [...] hours or as directed. ?? Only take [id number] or prescription medicines for pain, discomfort, or [...] Document Reviewed: 05/07/2009 ExitCare?? Patient Information ??2014 [employer]. documented in this encounter Medications at Time [...] ??? Injury Finger got finger caught in air grinder in shop class. Pt has evulsion of nailbed and finger tip. proximal to nailbed. NV intact. Right hand guazed at this time. SUBJECTIVE: Antony presents for a New Patient evaluation. Antony Benedict is a right hand dominant 18 y.o. male who presents with complaint of right middle finger accident. At 0830 he got it caught in the air grinder in shop class. Pain: stable, skjm-cr-npcikfzi joint symptoms intermittently, reasonably well controlled by [...] reduction, ankle (05/16/2012). MEDICATIONS: Current facility-administered medications:Tdap (znefhgc-ithzrteqef-bfpcx pertussis) (ADACEL) (10y-64y) injection 0.5 mL, 0.5 [...] PA - No ?? X-Rays - No ATION MANAGER documented in this encounter ED Notes * [...] hours a day, from any computer, through [employer], the online version of our electronic medical record. If you would like to use this service, please call Nessa Chisholm, Connectivity Coordinator, at . We appreciate the opportunity to care for your patients. If you would like additional information, please call the emergency department directly at . Sincerely, Anotinette Phillips DO Division of Emergency Medicine [facility], [place] [facility] EMERGENCY [facility] [place]ON[facility] STANDING LEVEL I PEDIATRIC TRAUMA CENTER Provider contact with the patient: 02/11/2014 13:05 Antony Benedict [id number] [facility] EM[facility]ENC[facility] History Chief Complaint Patient presents with ??? Injury Finger got finger caught in air grinder in shop class. Pt has evulsion of nailbed and finger tip. proximal to nailbed. NV intact. Right hand guazed at this time. HPI Comments: CC: Finger injury Injury occurred this morning at 0830 Caught R middle finger in air grinder at shop class Sustained injury of [...] dose every 6 hours prn pain -Rx [place] q 4 hours prn for pain not [...] laceration 2. R middle finger crush injury ATION MANAGER * Cherelle Carson, MANUELA - 02/11/2014 12:39 [...] Active and Recently Administered Medications Care Teams High School Business Teacher Relationship Specialty Start Date End Date Moises Diaz MD PCP - General 04/28/09 08/15/21 documented as of this encounter
--- OUTSIDE RECORDS SUMMARY | 2024-04-03 06:38 | XMS_ITS | Encounter Summary ---
Author Organization [facility] Address [address] [facility] [place] [address] Care Team Providers Care Administrative Analyst Name Role Phone Moises Diaz MD Primary Care Provider Unavail able Reason for Visit * Reason Comments Establish Care possible enlarge ton ils, referred by sleep clinic Encounter Details Date Type Department Care Team (Latest Contact Info) Description 05/15/2014 2:45 PM SEISMIC PROSPECTING OBSERVER - 05/15/2014 3:18 PM SEISMIC PROSPECTING OBSERVER Hospital Encounter [facility] Pediatrics - ENT [address] [place] [address] SmoaksEula, COMMERCIAL LOAN REVIEWER-MARINE MAMMAL TRAINER [address] [place] [address] Discharge Disposition: Home or Self Care Social [...] (256 lb 3.2 oz) 05/15/2014 2:49 PM SEISMIC PROSPECTING OBSERVER Height 182.8 cm (5' 11.97 ) 05/15/2014 2:[address] Body Mass Index 34.78 05/15/2014 2:49 PM SEISMIC PROSPECTING OBSERVER Body Mass Index Percentile 98.15% 05/15/2014 2:4 9 PM SEISMIC PROSPECTING OBSERVER Growth Chart: CDC (Boys, 2-2 0 Years) documented in this encounter Discharge Instructions * Patient Instructions* Rachel Luna RN - 05/15/2014 3:11 PM SEISMIC PROSPECTING OBSERVER Images from the original note were not [...] OUT OF! Remove EARRINGS and ALL JEWELRY/FINGERNAIL ST HELENIAN/METAL HAIR CLIPS/BODY PIERCINGS/CONTACT LENSES before coming to [...] on Time ?? TIME: ?? A Parent/Legal Guardian/Collector must accompany patient and obtain VISITOR PASS [...] before surgery - please call [facility] at [phone] or [facility] at [phone]. Monday - Monday 8:30am-7pm. If you need toarrange for medical transportation to and/or from the hospital please call the number on the back of your medical card 1 week before surgery. For arrival time at [facility], contact [facility] at the above numbers. Please check out our video [facility] on [email or web address] or scan QR code. Thank you! 04/30/13 [...] You may need to speak with the [id number]. MIC PROSPECTING OBSERVER documented in this encounter Progress Notes * Eula Green, COMMERCIAL LOAN REVIEWER-MARINE MAMMAL TRAINER - 05/15/2014 2:59 PM CST Chief Complaint [...] patient will likely still require CPAP therapy. MIC PROSPECTING OBSERVER documented in this encounter Plan of Treatment Not on file documented as of this encounter Visit Diagnoses Diagnosis MERLENE (obstructive sleep apnea)- Primary Obstructive sleep apnea (adult) (pediatric) Restless legs syndrome (RLS) documented in this encounter Care Teams Administrative Analyst Relationship Specialty Start Date End Date Moises Diaz MD PCP - General 04/28/09 08/15/21 documented as of this encounter
--- OUTSIDE RECORDS SUMMARY | 2024-04-03 06:38 | XMS_ITS | Encounter Summary ---
Author Organization [facility] Address [address] [place] [address] Care Team Providers Care Supply Chain Technician Name Role Phone Moises Diaz MD Primary Care Provider Unavail able Reason for Visit * Auth/Cert - Closed Specialty Diagnoses / Procedures Referred By Antony t Referred To Contact Diagnoses Hypertrophy of tonsil with adenoids Obstructive sleep apnea (adult) (pediatric) Procedures TONSILLECTOMY AND ADENOIDECTOMY Referral ID Status Reason Start Date Expiration Date Visits Re quested Visits Authorized [id number] Closed 1 1 Encounter Details Date Type Department Care Team (Late st Contact Info) Description 06/09/2014 12:10 PM DIRECTOR PROJECT MANAGEMENT - 06/09/2014 1:05 PM DIRECTOR PROJECT MANAGEMENT Surgery [facility] - Periop [address] [place] [address] Kyle Cardenas MD [address] [place] [phone] TONSILLECTOMY AND ADENOIDECTOMY Surgery Details Date/Time Status [...] Comments Blood Pressure 133/85 06/09/2014 1:30 PM DIRECTOR PROJECT MANAGEMENT Pulse 80 06/09/2014 2:30 PM DIRECTOR PROJECT MANAGEMENT Temperature 36.6 ??C (97.9 ??F) 06/09/2014 1:30 PM CS T Respiratory Rate 16 06/09/2014 2:30 PM DIRECTOR PROJECT MANAGEMENT Oxygen Saturation 100% 06/09/2014 2:30 PM DIRECTOR PROJECT MANAGEMENT Inhaled Oxygen Concentration - - Weight 114.4 kg (252 lb 3.3 oz) 015 10:38 AM DIRECTOR PROJECT MANAGEMENT Height 179 cm (5' 10.47 ) 06/09/2014 10 :38 AM DIRECTOR PROJECT MANAGEMENT Body Mass Index 35.7 06/09/2014 10:38 AM DIRECTOR PROJECT MANAGEMENT Body Mass Index Percentile 98.47% 06/09 10:38 AM DIRECTOR PROJECT MANAGEMENT Growth Chart: [facility] (Boys, 2-2 0 Years) documented [...] SUMMARY Patient ID: Name: Antony Benedict MR#: [id number] Date of : 1995 Age: 18 y.o. Discharge Date: 06/09/2014 Discharge Diagnosis: adenotonsillar hypertrophy and Clinical sleep apnea Procedure: adenotonsillectomy Discharge Condition: Stable Discharge Procedure Orders Why you were hospitalized Order Specific Question Answer Comments Your discharge diagnosis is MERLENE (obstructive sleep apnea) [740673] Soft diet -- Antony will need a [...] or for any of the following issues: [phone] and ask for ENT Follow up with provider Order Specific Question Answer Comments Follow Up Instructions: As needed Krunal Bridges MD Electronically signed by Kyle Cardenas 06/09/2014 12:42 PM DIRECTOR PROJECT MANAGEMENT documented in this encounter Discharge Instructions * Discharge Instructions* Nuris Dodge RN - 06/09/2014 2:37 PM DIRECTOR PROJECT MANAGEMENT Hydrocodone-acetaminophen (LORTAB) was given at 2:20 pm and should be given again at 6:20 pm. Remove scopolamine patch from behind right ear tomorrow if you are not having nausea or Monday if you have nausea on Monday. CTOR PROJECT MANAGEMENT documented in this encounter Medications at Time [...] proceed. Krunal Bridges MD 06/09/2014 10:33 AM CTOR PROJECT MANAGEMENT documented in this encounter OR Notes * [...] to recovery in stable condition. Dr. Kyle Cradenas MD was present for the entirety of this case. Estimated Blood Loss: Minimal Complications: None Condition: Stable Dispo: Home Medications: 1. Lortab or Tylenol every 4 hours as needed for pain CTOR PROJECT MANAGEMENT documented in this encounter Plan of Treatment Not on file documented as of this encounter Procedures Procedure Name Priority Date/Time Associated Diagnosis Comments TONSILLECTOMY AND ADENOIDECTOMY 06/09/2014 8:10 PM DIRECTOR PROJECT MANAGEMENT Hypertrophy of tonsil with adenoids Obstructive sleep apnea (adult) (pediatric) PATHOLOGY TISSUE EXAM (STL) STAT 06/09/2014 12:22 PM DIRECTOR PROJECT MANAGEMENT documented in this encounter Results * GROSS + MICRO EXAM (STL) (06/09/2014 12:22 PM DIRECTOR PROJECT MANAGEMENT) Case Report Surgical Pathology Report ? Case: [id number] ? Authorizing Provider: ??Krunal Bridges MD ?Collected: ? 06/09/2014 12:22 PM ? Ordering Location: ? [facility] ? Received: ?06/09/2014 01:54 PM ? Pathologist: ? Daniel Rice MD ? Specimen: ?Tonsil(s) ? 06/10/2014 4:16 PM [facility] Final Diagnosis TONSILS, TONSILLECTOMY: -TONSILLAR HYPERPLASIA -SULFUR GRANULES PRESENT 06/10/2014 4:16 PM [facility] Clinical History The patient is a 18-year-old boy with adenotonsillar hypertrophy and obstructive sleep apnea. 06/10/2014 4:16 PM [facility] Gross Description Submitted fresh in one container for gross and microscopic examination labeled with the patient's name, Antony Benedict, and tonsils, are two egg-shaped, pink-patterson palatine tonsils measuring 3.2 x 2.3 x 1.5 cm and 3.2 x 2.5 x 2.0 cm, weighing 4 grams and 5 grams. On cut surface, the tonsils have a cerebriform yellow-patterson appearance. A telephone services sales representative section of each tonsil is submitted in cassettes A1 and A2. (MR/preet) 06/10/2014 4:16 PM [facility] Microscopic Description 2 H&E. Sections of the tonsils show tonsillar squamous mucosa with underlying lymphoid tissue. Intraepithelial lymphocytes (M cells) are noted. The lymphoid tissue is composed of variable sized germinal center surrounded by intact mantle zone sulfur granules (actinomcyes) are noted. (NM/scs) 06/10/2014 4:16 PM DIRECTOR PROJECT MANAGEMENT [facility] Disclaimer The performance characteristics of all immunohistochemical and indirect immunofluorescence stains (if any) cited in this report were determined by the Histopathology Laboratory of [facility] in compliance with CLIA `88 regulations. Some of these tests rely on the use of analyte-specific reagents and are subject to specific labeling requirements by the FDA. Such tests were developed by the [facility]opathology Laboratory of [facility] and have not been cleared or approved by the FDA. The FDA has determined that such clearance or approval is not necessary. These tests are used for clinical purposes and should not be regarded as investigational or for research. This case has been personally reviewed and interpreted by the attending (teaching) pathologist. 06/10/2014 4:16 PM [facility] Pathology/Cytolo gy SPECIMEN FROM TONSIL / Unknown 06/09/2014 12:22 PM DIRECTOR PROJECT MANAGEMENT 06/09/2014 1:54 PM [facility] Comment:[phone] Krunal Bridges MD LAB - PATHOLOGY/CYTO LOGY ORDERABLES Performing Organization Address City/State/[facility] Co de Phone Number [facility] [address] [place] [address] documented in this encounter Visit [...] 1255, Intra-op $ Given 06/09/2014 12:08 PM DIRECTOR PROJECT MANAGEMENT 500 mL fentaNYL (SUBLIMAZE) injection 25 mcg [...] Flowsheet., PACU $ Given 06/09/2014 1:05 PM DIRECTOR PROJECT MANAGEMENT 25 mcg hydrocodone-acetamin ophen 7.5-325 MG/15ML solution 10 mL 10 mL, Oral, EVERY 4 HOURS PRN, Moderate Pain, Starting on Mon06/09/14 at 1254, Until Mon06/09/14 at 1558, Post-op $ Given 06/09/2014 2:20 PM DIRECTOR PROJECT MANAGEMENT 10 mL isolyte-S pH 7.4 infusion 150 mL/hr, Intravenous, POST-OP CONTINUOUS, Starting on Mon06/09/14 at 1300, Until Mon06/09/14 at 1558, PACU Current Rate 06/09/2014 12:52 PM DIRECTOR PROJECT MANAGEMENT 150 mL/hr 150 mL/hr scopolamine (TRANSDERM-SCOP) 1.5 [...] to MRI. $ Applied 06/09/2014 11:23 AM DIRECTOR PROJECT MANAGEMENT 1.5 mg Behind Right Ear documented in this encounter Active and Recently Administered Medications Times are shown in DIRECTOR PROJECT MANAGEMENT. Scheduled Medication Order 06/07/2014 06/08/2014 06/09/2014 fentaNYL [...] MANUELA) documented in this encounter Care Teams Supply Chain Technician Relationship Specialty Start Date End Date Moises Diaz MD PCP - General 04/28/09 08/15/21 documented as of this encounter
--- OUTSIDE RECORDS SUMMARY | 2024-04-03 06:38 | XMS_ITS | Encounter Summary ---
Author Organization [facility] Address [address] [place] [address] Care Team Providers Care Cast Associate Name Role Phone Moises Diaz MD Primary Care Provider Unavail able Reason for Visit * Reason Comments Follow-up right middle finger injury Encounter Details Date Type Department Care Team (Latest Contact Info) Description 05/02/2014 2:36 PM ACCOUNTING TEACHER - 05/02/2014 11:59 PM ACCOUNTING TEACHER Hospital Encounter [facility] Pediatrics - Orthopedics [address] [place] [address] Giuliano Hills MD [address] [place] [address] Discharge Disposition: Home or Self Care Social [...] Cyrus Gonzalez MD - 05/02/2014 2:58 PM ACCOUNTING TEACHER Nail bed injury Return appointment: As needed Call [phone], option 1, for return if your child has new symptoms or problems, or if you have concerns. Call [phone] for questions. Physicians orders: None Medications prescribed: none Activity Restrictions: none School/Work Excuse: Patient had an appointment 05/02/2014 UNTING TEACHER documented in this encounter Progress Notes * [...] injury PLAN: 1. Protection 2. Fu prn UNTING TEACHER documented in this encounter Plan of Treatment Not on file documented as of this encounter Visit Diagnoses Not on filedocumented in this encounter Care Teams Cast Associate Relationship Specialty Start Date End Date Moises Diaz MD PCP - General 04/28/09 08/15/21 documented as of this encounter
--- OUTSIDE RECORDS SUMMARY | 2024-04-03 06:38 | XMS_ITS | Encounter Summary ---
Author Organization [facility] Address [address] [place] [address] Care Team Providers Care Take Out Waiter Name Role Phone Moises Diaz MD Primary Care Provider Unavail able Reason for Visit * Reason Comments Lower Extremity Problem wrestling injury to right foot. PT did not hear a pop but did feel a couple pops. Mother gave 800mg Ibuprofen 2hrs ago. Encounter Details Date Type Department Care Team (Late st Contact Info) Description 05/12/2012 4:11 PM LABORATORY CUREMAN - 05/12/2012 8:46 PM LABORATORY CUREMAN Emergency ER at [address] [address] Anna Lobo MD Need Information Jorge Nobles [...] Comments Blood Pressure 156/74 05/12/2012 8:32 PM LABORATORY CUREMAN Pulse 94 05/12/2012 8:32 PM LABORATORY CUREMAN Temperature 36.2 ??C (97.2 ??F) 05/12/2012 4 :16 PM LABORATORY CUREMAN Respiratory Rate 21 05/12/2012 8:32 PM LABORATORY CUREMAN Oxygen Saturation 98% 05/12/2012 8:3 2 PM LABORATORY CUREMAN Inhaled Oxygen Concentration - - Weight 96.2 kg (212 lb 1.6 oz) 05/12/2012 4:16 PM LABORATORY CUREMAN PT is rhonda carter in this morning Height - - Body Mass Index - - documented in this encounter Discharge Instructions * Discharge Instructions* Brooke Nuñez MD - 05/12/2012 8:13 PM LABORATORY CUREMAN Images from the original note were not [...] when comfortable doing so. ?? Only take rhzq-mwb-xnjcnid or prescription medicines for pain, discomfort, or [...] Document Reviewed: 11/07/2008 ExitCare?? Patient Information ??2011 [employer].Fibular Fracture, Ankle, Adult, Treated with orwithout Immobilization [...] when comfortable doing so. ?? Only take otkp-bcg-ldvmmle or prescription medicines for pain, discomfort, or [...] 04/03/2006 Document Revised: 12/14/2011 Document Reviewed: 11/07/2008 [facility]?? Patient Information ??2011 [employer]. RATORY CUREMAN * Discharge Instructions* Document, Scanned - 06/11/2012 11:00 AM LABORATORY CUREMAN RATORY CUREMAN documented in this encounter Medications at Time [...] Credentialed through:: 10/14/12 Max Weiner M.D., Ph.D. Log Processor Operator of Pediatrics Division of Pediatric Emergency Medicine Department of Pediatrics, [facility] [employer] [facility] RATORY CUREMAN documented in this encounter Consult Notes * [...] mother. 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 He states this injury occurred at about [...] NO PE/Sports 13. Weight bearing restriction: NWB RATORY CUREMAN documented in this encounter OR Notes * [...] x-rays demonstrated improved fracture and ankle reduction. RATORY CUREMAN documented in this encounter ED Notes * Jorge Nobles MD - 05/13/2012 2:27 AM CSTAssociated Order(s): ED ORTHOPEDIC INJURY REDUCTION/TREATMENT Provider contact with the patient: 05/13/2012 02:27 Antony Benedict [id number] [facility] EMERGENCY DEPT History Chief Complaint Patient presents with ??? Lower Extremity Problem wrestling injury to right foot. PT did not hear a pop but did feel a couple pops. Mother gave 800mgIbuprofen 2hrs ago. I have read the resident/BOOKING POLICE OFFICER history. Unless appended by me below, I agree with findings as documented. HPI Review of Systems Review of Systems BP 156/74 Pulse 94 Temp 97.2 ??F Resp 21 Wt 96.208 kg (212 lb 1.6 oz) SpO2 98% Physical Exam I have reviewed the resident/BOOKING POLICE OFFICER physical exam. Unless appended by me below, [...] Clinical Impression Final diagnoses: Right fibular fracture RATORY CUREMAN * Sharon Teixeira RN - 05/12/2012 8:43 [...] and pt verbalize understanding of discharge instructions. RATORY CUREMAN * Azeb Barrios RN - 05/12/2012 8:01 PM CST Drank 2 boxes of AJ without complaint of nausea. RATORY CUREMAN * Azeb Barrios RN - 05/12/2012 7:47 PM CST CR RLE <2secs RATORY CUREMAN * Azeb Barrios RN - 05/12/2012 7:42 PM CST Given apple juice to drink. A+OX 4 RATORY CUREMAN * Azeb Barrios RN - 05/12/2012 7:30 PM CST Oxygen removed. Maintaining O2 sats at 97-98% on RA. RATORY CUREMAN * Jorge Nobles MD - 05/12/2012 6:23 PM CST 6:23 PM patient has fibula fracture, awaiting ortho reduction Plan for sedation under splinting. 8PM child woke up from sedation and tolerated PO. Ortho suggests post reduction films acceptable, adv to FU with Ortho in clinic RATORY CUREMAN * Anna Lobo MD - 05/12/2012 4:54 PM CST Provider contact with the patient: 05/12/2012 16:54 Antony Bueno Jak [id number] [facility] EMERGENCY DEPT History Chief Complaint Patient presents with ??? Lower Extremity Problem wrestling injury to right foot. PT did not hear a pop but did feel a couple pops. Mother gave 800mgIbuprofen 2hrs ago. I have read the resident/BOOKING POLICE OFFICER history. Unless appended by me below, I [...] oz) Physical Exam I have reviewed the resident/BOOKING POLICE OFFICER physical exam. Unless appended by me below, [...] studies. Clinical Impression Fibula fracture Tibial fracture RATORY CUREMAN * Star Galeas DO - 05/12/2012 4:30 [...] hours a day, from any computer, through [employer], the online version of our electronic medical record. If you would like to use this service, please call Nessa Chisholm, Connectivity Coordinator, at . We appreciate the opportunity to care for your patients. If you would like additional information, please call the emergency department directly at . Sincerely, Star Galeas DO Division of Emergency Medicine [facility], MD [facility] [place] DESIGNATED EMERGENCY DEPARTMENT Provider contact with the patient: 05/12/2012 16:31 Antony Benedict [id number] [facility] EMERGENCY DEPT History Chief Complaint Patient [...] and unspecified, knee, leg, ankle, and foot RATORY CUREMAN documented in this encounter Miscellaneous Notes * Miscellaneous Scans - Document, Scanned - 06/11/2012 1:40 PM CST RATORY CUREMAN * Miscellaneous Scans - Document, Scanned - 06/04/2012 10:25 AM CST RATORY CUREMAN documented in this encounter Plan of Treatment Pending Results Name Type Priority Associated Diagnoses Date /Time [place] SURGERY LESS 60 MIN Imaging STAT Injury, other and unspecified, knee, leg, ankle, and foot 05/12/2012 7:33 PM LABORATORY CUREMAN Scheduled Orders Name Type Priority Associated Diagnoses Orde r Schedule [place] SURGERY LESS 60 MIN Imaging Routine Injury, other and unspecified, knee, leg, ankle, and foot For radiant use only for 1 Occurrences starting 05/12/2012 documented as of this encounter Procedures Procedure Name Priority Date/Time Associated Diagnosis Comments IP CONSULT TO PEDIATRIC ORTHOPEDICS Routine 05/13/2012 9:11 PM LABORATORY CUREMAN ED ORTHOPEDIC INJURY TREATMENT Routine 05/13/2012 2:28 AM LABORATORY CUREMAN XR ANKLE RIGHT 3VW OR MORE STAT 05/12/2012 7:34 PM LABORATORY CUREMAN Injury, other and unspecified, knee, leg, ankle, and foot XR ANKLE RIGHT 3VW OR MORE STAT 05/12/2012 5:26 PM LABORATORY CUREMAN Injury, other and unspecified, knee, leg, ankle, and foot documented in this encounter Results * IP CONSULT TO PEDIATRIC ORTHOPEDICS (05/13/2012 9:11 PM LABORATORY CUREMAN) Anna Lobo MD INPATIENT CONSULT OR DERABLES * ED ORTHOPEDIC INJURY TREATMENT (05/13/2012 2:28 AM LABORATORY CUREMAN) Narrative Jorge Nobles MD - 05/13/2012 2:28 AM LABORATORY CUREMAN Jorge Nobles MD ? 05/13/2012 ??2:28 AM Provider contact with the patient: 05/13/2012 ?02:27 Antony Benedict [id number] [facility] EMERGENCY DEPT History Chief Complaint Patient presents with ? ? Lower Extremity Problem ??wrestling injury to right foot. PT did not hear a pop but did feel a couple pops. Mother gave 800mg Ibuprofen 2hrs ago. ?? I have read the resident/BOOKING POLICE OFFICER history. ??Unless appended by me below, I agree with findings as documented. HPI Review of Systems Review of Systems BP 156/74 Pulse 94 Temp 97.2 ??F Resp 21 Wt 96.208 kg (212 lb 1.6 oz) SpO2 98% Physical Exam I have reviewed the resident/BOOKING POLICE OFFICER physical exam. Unless appended by me below, [...] with the patient: 05/13/2012 02:27 Antony Benedict [id number] [facility] EMERGENCY DEPT History Chief Complaint Patient presents with ? ? Lower Extremity Problem wrestling injury to right foot. PT did not hear a pop but did feel acouple pops. Mother gave 800mg Ibuprofen 2hrs ago. I have read the resident/BOOKING POLICE OFFICER history. Unless appended by me below, I agreewith findings as documented. HPI Review of Systems Review of Systems BP 156/74 Pulse 94 Temp 97.2 ??F Resp 21 Wt 96.208 kg (212 lb 1.6oz) SpO2 98% Physical Exam I have reviewed the resident/BOOKING POLICE OFFICER physical exam. Unless appended by mebelow, I [...] ANKLE 3+ VW RIGHT (05/12/2012 7:34 PM LABORATORY CUREMAN) Anatomical Region Laterality Modality Lower Extremity Radiographic Kira ging 05/13/2012 8:42 AM LABORATORY CUREMAN Impressions 05/13/2012 8:42 AM LABORATORY CUREMAN Casted ankle fracture Narrative 05/13/2012 8:42 AM LABORATORY CUREMAN EXAMINATION: RIGHT XR ANKLE 3+ VW RIGHT*[id number] ??dated May 12, 2012 07:34:15 PM. HISTORY: [...] 05/13/2012 EXAMINATION: RIGHT XR ANKLE 3+ VW RIGHT*[id number] dated May 12, 2012 07:34:15 PM. HISTORY: [...] ANKLE 3+ VW RIGHT (05/12/2012 5:26 PM LABORATORY CUREMAN) Anatomical Region Laterality Modality Lower Extremity Radiographic Kira ging 05/13/2012 8:33 AM LABORATORY CUREMAN Impressions 05/13/2012 8:33 AM LABORATORY CUREMAN Oblique fibular fracture with posterior malleoli are avulsion as described above. Narrative 05/13/2012 8:33 AM LABORATORY CUREMAN EXAMINATION: RIGHT XR ANKLE 3+ VW RIGHT*[id number] ??dated May 12, 2012 05:26:32 PM. HISTORY: [...] 05/13/2012 EXAMINATION: RIGHT XR ANKLE 3+ VW RIGHT*[id number] dated May 12, 2012 05:26:32 PM. HISTORY: [...] MAR flowsheet. $ Given 05/12/2012 6:58 PM LABORATORY CUREMAN 25 mg $ Given 05/12/2012 6:48 PM LABORATORY CUREMAN 25 mg $ Given 05/12/2012 6:44 PM LABORATORY CUREMAN 50 mg documented in this encounter Active and Recently Administered Medications Times are shown in LABORATORY CUREMAN. Scheduled Medication Order 05/10/2012 05/11/2012 05/12/2012 ketamine [...] weiner) documented in this encounter Care Teams Take Out Waiter Relationship Specialty Start Date End Date Moises Diaz MD PCP - General 04/28/09 08/15/21 documented as of this encounter
--- OUTSIDE RECORDS SUMMARY | 2024-04-03 06:38 | XMS_ITS | Encounter Summary ---
Author Organization [facility] Address [address] [address] Care Team Providers Care Tire Classifier Name Role Phone Moises Diaz MD Primary Care Provider Unavail able Reason for Visit * Reason Comments Follow-up some days sleep good and some days don't Encounter Details Date Type Department Care Team (Latest Contact Info) Description 09/12/2014 3:15 PM CDT - 09/12/2014 4:07 PM CDT Hospital Encounter [facility] Pediatrics - Sleep [address] [place] [address] Nadine Arredondo, WATCH ASSEMBLY INSTRUCTOR-ACTUARY CLERK [address] [place] [address] Discharge Disposition: Home or Self Care Social [...] 09/12/2014 3:3 1 PM CDT Growth Chart: [facility] (Boys, 2-2 0 Years) documented [...] lacey for Cognitive Behavioral Therapy. Please call [phone] to schedule an appointment 3. Possible sleep study Please call our nurse's line with any questions. ([phone]) documented in this encounter Medications at Time [...] to the Pediatric Sleep Disorders Clinic at [facility] on 09/12/2014 for follow up of Obstructive [...] lacey for Cognitive Behavioral Therapy. Please call [phone] to schedule an appointment 3. Possible sleep study Please call our nurse's line with any questions. ([phone]) Thank you for allowing me to participate in the care of your patient. Please call us with any questions at [phone]. STEVEN Figueroa documented in this encounter Plan of Treatment Not on file documented as of this encounter Results * (ABNORMAL) VITAMIN D (25-HYDROXY) (09/12/2014 4:08 PM CDT) Vitamin D, 25 Hydroxy 18.03(L) 30 - 100 ng/mL 09/12/2014 6:58 PM CDT [facility] Blood BLOOD SPECIMEN / Unknown Lab Venipuncture / Unknown 09/12/2014 4:08 PM CDT 09/12/2014 4:16 PM CDT Narrative [facility] - 09/12/2014 6:58 PM CDT Vitamin D Status: ?Deficiency ? <20 ? ng/mL ?Insufficiency ?? 20-30 ??ng/mL ?Sufficiency ? 30-100 ng/mL ?Toxicity ? >100 ?ng/mL Nadine Arredondo WATCH ASSEMBLY INSTRUCTOR-ACTUARY CLERK LAB - CHEMISTR Y ORDERABLES Performing Organization Address [facility] de Phone Number [facility] [address] [place] [address] * C-REACTIVE PROTEIN (09/12/2014 4:08 PM CDT) Pathologist [facility] C-Reactive Protein <0.20 <=0.50 mg/dL 09/12/2014 4:38 PM CDT [facility] Blood BLOOD SPECIMEN / Unknown Lab Venipuncture / Unknown 09/12/2014 4:08 PM CDT 09/12/2014 4:15 PM CDT Nadine Alfred Arredondo WATCH ASSEMBLY INSTRUCTOR-ACTUARY CLERK LAB - CHEMISTR Y ORDERABLES Performing Organization Address [facility] Co de Phone Number [facility] [address] [place] [phone] * (ABNORMAL) IRON + TIBC PANEL (09/12/2014 4:08 PM CDT) Iron 178(H) 50 - 170 ug/dL 09/15/2014 1:24 AM CDT [facility] ([facility]) Comment: REFERENCE INTERVAL: Iron, Serum or Plasma Access complete set of age- and/or gender-specific reference intervals for this test in the [facility] Test Directory ([facility]). TIBC 376 240 - 450 ug/dL 09/15/2014 1:24 AM CDT [facility] ([facility]) Comment: REFERENCE INTERVAL: Iron Binding Capacity Total Access complete set of age- and/or gender-specific reference intervals for this test in the [facility] Test Directory ([place]). Transferrin Saturation % 47 20 - 50 %sat 09/15/2014 1:24 AM CDT [facility] ([facility]) Blood specimen (specimen) BLOOD SPECIMEN / Unknown Lab Venipuncture / Unknown 09/12/2014 4:08 PM CDT 09/12/2014 4:16 PM CDT Nadine Arredondo APRN-ACTUARY CLERK LAB - CHEMISTR Y ORDERABLES [facility]) [address] * (ABNORMAL) FERRITIN (09/12/2014 4:08 PM CDT) Ferritin 267(H) 20 - 250 ng/mL 09/12/2014 4:39 PM CDT [facility] Blood BLOOD SPECIMEN / Unknown Lab Venipuncture / Unknown 09/12/2014 4:08 PM CDT 09/12/2014 4:15 PM CDT Nadine Arredondo APRN-ACTUARY CLERK LAB - CHEMISTR Y ORDERABLES [facility] [address] [place] [address] documented in this encounter Visit Diagnoses Diagnosis Psychophysiological insomnia- Primary Persistent disorder of initiating or maintaining sleep Sleep disturbance Sleep disturbance, unspecified Other disorders of iron metabolism documented in this encounter Care Teams Tire Classifier Relationship Specialty Start Date End Date Moises Diaz MD PCP - General 04/28/09 08/15/21 documented as of this encounter
--- OUTSIDE RECORDS SUMMARY | 2024-04-03 06:38 | XMS_ITS | Encounter Summary ---
Author Organization [facility] Address [address] [place] [address] Care Team Providers Care Computer Tester Name Role Phone Moises Diaz MD Primary Care Provider Unavail able Encounter Details Date Type Department Care Team (Latest Contact Info) Description 05/15/2014 3:19 PM [facility]ICAL TECHNICIANS - 05/15/2014 11:59 PM [facility]ICAL TECHNICIANS Hospital Encounter [facility] - Laboratory [address] [place] [address] Eula Reeder APRN-[address] [address] Discharge Disposition: Home or Self Care Social [...] Diagnosis Comments FERRITIN Routine 05/15/2014 3:42 PM [facility]ICAL TECHNICIANS Restless legs syndrome (RLS) documented in this encounter Results * FERRITIN (05/15/2014 3:42 PM [facility]ICAL TECHNICI[facility]) Ferritin 215 20 - 250 ng/mL 05/15/2014 4:40 PM MEDICAL TECHNICIANS [facility] Blood BLOOD SPECIMEN / Unknown Lab Venipuncture / Unknown 05/15/2014 3:42 PM [facility]ICAL TECHNICI[facility] 05/15/2014 4:04 PM [facility]NIC[facility] Eula Reeder ORACLE FINANCIALS DEVELOPER-ACTIVITIES ASSISTANT LAB - CHEMISTRY ORDERABLES [facility] [address] [place] [address] documented in this encounter Visit Diagnoses Diagnosis Restless legs syndrome (RLS)- Primary documented in this encounter Care Teams Computer Tester Relationship Specialty Start Date End Date Moises Diaz MD PCP - General 04/28/09 08/15/21 documented as of this encounter
--- OUTSIDE RECORDS SUMMARY | 2024-04-03 06:38 | XMS_ITS | Encounter Summary ---
Author Organization [facility] Address [address] [address] Care Team Providers Care Tailercpa Name Role Phone Moises Diaz MD Primary Care Provider Unavail able Reason for Visit * Auth/Cert - Closed Specialty Diagnoses / Procedures Referred By Contac t Referred To Contact Diagnoses RIGHT ANKLE FRACTURE, SYNDEMOSIS INJURY Procedures OPEN REDUCTION INTERNAL FIXATION FRACTURE ANKLE BIMALLEOLAR Referral ID Status Reason Start Date Expiration Date Visits Re quested Visits Authorized [id number] Closed 1 1 Encounter Details Date Type Department Care Team (Late st Contact Info) Description 05/16/2012 10:05 PM MAGISTERIAL DISTRICT JUDGE Anesthesia Event [facility] - Periop [address] [place] [address] Claudine Dumas MD [address] [place] [address] [place] [address] [place] [phone] Anesthesia Record Procedure Summary Procedure Name Responsible [...] care. * No Diagnosis Codes entered * STERIAL DISTRICT JUDGE * Debo Kaiser Anes Asst - 05/16/2012 [...] anesthesia obtained Discussed anesthesia plan with: Attending. STERIAL DISTRICT JUDGE documented in this encounter Plan of Treatment Not on file documented as of this encounter Visit Diagnoses Not on filedocumented in this encounter Administered Medications Inactive Administered Medications - up to 3 most recent administrations Medication Order MAR Action Action Date Dose Rate Site ceFAZolin (ANCEF) injection PRN, Starting on Mon05/16/12 at 1426, Until Mon05/16/12 at 1618, Intra-op $ Given 05/16/2012 2:26 PM MAGISTERIAL DISTRICT JUDGE 2 g dexamethasone (DECADRON) injection PRN, Nausea/Vomiting, Starting on Mon05/16/12 at 1425, Until Mon05/16/12 at 1618, Intra-op $ Given 05/16/2012 2:25 PM MAGISTERIAL DISTRICT JUDGE 4 mg fentaNYL (SUBLIMAZE) injection PRN, Starting on Mon05/16/12 at 1421, Until Mon05/16/12 at 1618, Intra-op $ Given 05/16/2012 2:21 PM MAGISTERIAL DISTRICT JUDGE 100 mcg glycopyrrolate (ROBINUL) injection PRN, Starting on Mon05/16/12 at 1544, Until Mon05/16/12 at 1618, Intra-op $ Given 05/16/2012 3:44 PM MAGISTERIAL DISTRICT JUDGE 0.8 mg isolyte-S pH 7.4 infusion CONTINUOUS PRN, Starting on Mon05/16/12 at 1418, Until Mon05/16/12 at 1618, Intra-op $ New Bag/Syringe 05/16/2012 4:02 PM MAGISTERIAL DISTRICT JUDGE mL $ New Bag/Syringe 05/16/2012 3:08 PM MAGISTERIAL DISTRICT JUDGE mL $ New Bag/Syringe 05/16/2012 2:18 PM MAGISTERIAL DISTRICT JUDGE mL ketorolac (TORADOL) injection PRN, Starting on Mon05/16/12 at 1540, Until Mon05/16/12 at 1618, . WASTE DISPOSAL INSTRUCTIONS: Black Bin Disposal required., Intra-op $ Given 05/16/2012 3:40 PM MAGISTERIAL DISTRICT JUDGE 30 mg lidocaine (XYLOCAINE MPF) 2 % injection PRN, Starting on Mon05/16/12 at 1421, Until Mon05/16/12 at 1618, Intra-op $ Given 05/16/2012 2:21 PM MAGISTERIAL DISTRICT JUDGE 60 mg morphine injection PRN, Starting on Mon05/16/12 at 1442, Until Mon05/16/12 at 1618, Intra-op $ Given 05/16/2012 4:01 PM MAGISTERIAL DISTRICT JUDGE 2 mg $ Given 05/16/2012 3:45 PM MAGISTERIAL DISTRICT JUDGE 3 mg $ Given 05/16/2012 3:40 PM MAGISTERIAL DISTRICT JUDGE 2 mg neostigmine (PROSTIGMIN) injection PRN, Starting on Mon05/16/12 at 1544, Until Mon05/16/12 at 1618, Intra-op $ Given 05/16/2012 3:44 PM MAGISTERIAL DISTRICT JUDGE 4.5 mg ondansetron (ZOFRAN) injection PRN, Nausea/Vomiting, Starting on Mon05/16/12 at 1540, Until Mon05/16/12 at 1618, Intra-op $ Given 05/16/2012 4:09 PM MAGISTERIAL DISTRICT JUDGE 4 mg $ Given 05/16/2012 3:40 PM MAGISTERIAL DISTRICT JUDGE 4 mg propofol (DIPRIVAN) 10 mg/ml injection PRN, Sedation, Starting on Mon05/16/12 at 1421, Until Mon05/16/12 at 1618, Intra-op $ Given 05/16/2012 3:20 PM MAGISTERIAL DISTRICT JUDGE 100 mg $ Given 05/16/2012 2:21 PM MAGISTERIAL DISTRICT JUDGE 200 mg rocuronium (ZEMURON) injection PRN, Starting on Mon05/16/12 at 1422, Until Mon05/16/12 at 1618, Intra-op $ Given 05/16/2012 3:20 PM MAGISTERIAL DISTRICT JUDGE 20 mg $ Given 05/16/2012 2:22 PM MAGISTERIAL DISTRICT JUDGE 50 mg documented in this encounter Care Teams Tailercpa Relationship Specialty Start Date End Date Moises Diaz MD PCP - General 04/28/09 08/15/21 documented as of this encounter
--- OUTSIDE RECORDS SUMMARY | 2024-04-03 06:38 | XMS_ITS | Encounter Summary ---
Author Organization [facility] Address [address] [place] [address] Care Team Providers Care Senior Reservoir Engineer Name Role Phone Moises Diaz MD Primary Care Provider Unavail able Reason for Visit * Auth/Cert - Closed Specialty Diagnoses / Procedures Referred By Antony dasilva Referred To Contact Diagnoses Hypertrophy of tonsil with adenoids Obstructive sleep apnea (adult) (pediatric) Procedures TONSILLECTOMY AND ADENOIDECTOMY Referral ID Status Reason Start Date Expiration Date Visits Re quested Visits Authorized [id number] Closed 1 1 Encounter Details Date Type Department Care Team (Late st Contact Info) Description 06/09/2014 11:50 AM TOOL COORDINATOR Anesthesia Event [facility] - Periop [address] [place] [address]. [place] [address] Rosa Jimenez MD [address] [place] [address] Jasmine Dunn, RN [address] [place] [phone] Anesthesia Record Procedure Summary Procedure Name Responsible [...] 120 by Autumn Fernando RN 06/09/142057 by siXis, Auto Release documented in this encounter Social [...] the following assessment: no apparent anesthesia complications COORDINATOR documented in this encounter Consult Notes * [...] mother Anesthesia consent: obtained Plan accepted yes COORDINATOR documented in this encounter Plan of [...] Anesthesia Intra-op $ Given 06/09/2014 12:06 PM TOOL COORDINATOR 8 mg diphenhydrAMINE (BENADRYL) injection PRN, Itching, Starting on Mon06/09/14 at 1242, Until Mon06/09/14 at 1254, Anesthesia Intra-op $ Given 06/09/2014 12:42 PM TOOL COORDINATOR 15 mg fentaNYL (SUBLIMAZE) injection PRN, Starting on Mon06/09/14 at 1201, Until Mon06/09/14 at 1254, Anesthesia Intra-op $ Given 06/09/2014 12:46 PM TOOL COORDINATOR 25 mcg $ Given 06/09/2014 11:58 AM TOOL COORDINATOR 100 mcg glycopyrrolate (ROBINUL) injection PRN, Starting on Mon06/09/14 at 1231, Until Mon06/09/14 at 1254, Anesthesia Intra-op $ Given 06/09/2014 12:31 PM TOOL COORDINATOR 0.6 mg isolyte-S pH 7.4 infusion CONTINUOUS PRN, Starting on Mon06/09/14 at 1155, Until Mon06/09/14 at 1254, Anesthesia Intra-op $ New Bag/Syringe 06/09/2014 12:19 PM TOOL COORDINATOR $ New Bag/Syringe 06/09/2014 11:55 AM TOOL COORDINATOR lidocaine (XYLOCAINE MPF) 2 % injection PRN, Starting on Mon06/09/14 at 1158, Until Mon06/09/14 at 1254, Anesthesia Intra-op $ Given 06/09/2014 11:58 AM TOOL COORDINATOR 50 mg neostigmine (PROSTIGMIN/BLOXIVERZ) injection PRN, Starting on Mon06/09/14 at 1231, Until Mon06/09/14 at 1254, Anesthesia Intra-op $ Given 06/09/2014 12:31 PM TOOL COORDINATOR 3 mg ondansetron (ZOFRAN) injection PRN, Nausea/Vomiting, Starting on Mon06/09/14 at 1206, Until Mon06/09/14 at 1254, Anesthesia Intra-op $ Given 06/09/2014 12:06 PM TOOL COORDINATOR 4 mg propofol (DIPRIVAN) 10 mg/ml injection PRN, Sedation, Starting on Mon06/09/14 at 1158, Until Mon06/09/14 at 1254, Anesthesia Intra-op $ Given 06/09/2014 12:01 PM TOOL COORDINATOR 100 mg $ Given 06/09/2014 11:59 AM TOOL COORDINATOR 50 mg $ Given 06/09/2014 11:58 AM TOOL COORDINATOR 200 mg vecuronium (NORCURON) injection PRN, Starting on Mon06/09/14 at 1159, Until Mon06/09/14 at 1254, Anesthesia Intra-op $ Given 06/09/2014 11:59 AM TOOL COORDINATOR 4 mg documented in this encounter Care Teams Senior Reservoir Engineer Relationship Specialty Start Date End Date Moises Diaz MD PCP - General 04/28/09 08/15/21 documented as of this encounter
--- OUTSIDE RECORDS SUMMARY | 2024-04-03 06:38 | XMS_ITS | Encounter Summary ---
Author Organization [facility] Address [address] [place] [place] [address] Care Team Providers Care Clerical Coordinator Name Role Phone Moises Diaz MD Primary Care Provider Unavail able Reason for Visit * Auth/Cert - Closed Specialty Diagnoses / Procedures Referred By Contac t Referred To Contact Diagnoses RIGHT ANKLE FRACTURE, SYNDEMOSIS INJURY Procedures OPEN REDUCTION INTERNAL FIXATION FRACTURE ANKLE BIMALLEOLAR Referral ID Status Reason Start Date Expiration Date Visits Re quested Visits Authorized [id number] Closed 1 1 Encounter Details Date Type Department Care Team (Latest Contact Info) Description 05/16/2012 11:58 AM COOPERATIVE MANAGER - 05/16/2012 5:24 PM COOPERATIVE MANAGER Hospital Encounter [facility] - Intraop [address] [place] [address] Moose Hutchison MD [facility] [place] [address] Surgery General Discharge Disposition: Home or Self [...] Comments Blood Pressure 130/74 05/16/2012 5:00 PM COOPERATIVE MANAGER Pulse 76 05/16/2012 5:22 PM COOPERATIVE MANAGER Temperature 36.9 ??C (98.4 ??F) 05/16/2012 5:00 PM CS T Respiratory Rate 16 05/16/2012 5:22 PM COOPERATIVE MANAGER Oxygen Saturation 97% 05/16/2012 5:00 PM COOPERATIVE MANAGER Inhaled Oxygen Concentration - - Weight 98.5 kg (217 lb 2.5 oz) 05/16/19 13 12:08 PM COOPERATIVE MANAGER Height 178.5 cm (5' 10.28 ) 05/16/2012 12:08 PM COOPERATIVE MANAGER Body Mass Index 30.91 05/16/2012 12:08 PM COOPERATIVE MANAGER Body Mass Index Percentile 97.13% 05/16 12:08 PM COOPERATIVE MANAGER Growth Chart: [facility] (Boys, 2-2 0 Years) documented [...] with Dr. Baig in 2 weeks. Call [phone] to schedule your appointment NO RESTRICTIONS. ACTIVITY [...] less than 30 minutes. CC: Moises Diaz ERATIVE MANAGER documented in this encounter Discharge Instructions * Discharge Instructions* Gretchen Lorenz RN - 05/16/2012 4:34 PM COOPERATIVE MANAGER Discharge Instructions for: Tr Benedict Discharge Procedure [...] with Dr. Baig in 2 weeks. Call [phone] to schedule your appointment NO RESTRICTIONS. ACTIVITY [...] any worsening of their condition, please phone [phone] and ask for the doctor operator catalyst concentration for orthopedics or return to the Emergency Department. 05/16/2012 ERATIVE MANAGER * Discharge Instructions* Document, Scanned - 05/18/2012 7:48 AM COOPERATIVE MANAGER ERATIVE MANAGER documented in this encounter Medications at [...] Plan to proceed with the above procedure. ERATIVE MANAGER documented in this encounter OR Notes * Operative - Moose Hutchison MD - 05/16/2012 5:24 PM CST [address] [address] [phone] OPERATIVE REPORT NAME: TR BENEDICT : 1995 UNIT #: [id number] CSN #: [id number] DATE OF OPERATION: 05/16/2012 ATTENDING SURGEON: MOOSE HUTCHISON MD PREOPERATIVE DIAGNOSIS: Right lateral malleolus fracture. POSTOPERATIVE DIAGNOSIS: Right lateral malleolus fracture. PROCEDURE: Open reduction and internal fixation of right lateral malleolus fracture using a Juan, distal fibular, 4-hole plate and a 28 mm fully threaded cortical lag screw. ATTENDING SURGEON: Moose Hutchison MD CLAY TEMPERER: Gian Bacon MD ANESTHESIA: General. IV FLUIDS: [...] this procedure. Dictated By: MOOSE HUTCHISON MD /[facility] JOB ID: [id number] OPERATIVE REPORT ERATIVE MANAGER documented in this encounter Miscellaneous Notes * Miscellaneous Scans - Document, Scanned - 05/18/2012 7:48 AM CST ERATIVE MANAGER * Miscellaneous Scans - Document, Scanned - 05/18/2012 7:48 AM CST ERATIVE MANAGER documented in this encounter Plan of Treatment Pending Results Name Type Priority Associated Diagnoses Date /Time [place] SURGERY 60 MIN PLUS Imaging Routine Ankle fracture 05/16/2012 3:39 PM COOPERATIVE MANAGER Scheduled Orders Name Type Priority Associated Diagnoses Orde r Schedule [place] SURGERY 60 MIN PLUS Imaging Routine Ankle fracture For radiant use only for 1 Occurrences starting 05/16/2012 documented as of this encounter Procedures Procedure Name Priority Date/Time Associated Diagnosis Comments OPEN REDUCTION INTERNAL FIXATION FRACTURE ANKLE BIMALLEOLAR 05/16/2012 10:05 PM COOPERATIVE MANAGER RIGHT ANKLE FRACTURE, SYNDEMOSIS INJURY Special Needs REC'D REQUEST 04/2913:00PM STARTSEE OR PLANNING SHEET; C-ARM XR ANKLE RIGHT 3VW OR MORE Routine 05/16/2012 3:39 PM COOPERATIVE MANAGER Ankle fracture documented in this encounter Results * XR ANKLE 3+ VW RIGHT (05/16/2012 3:39 PM COOPERATIVE MANAGER) Anatomical Region Laterality Modality Lower Extremity Radio Fluoroscop y 05/16/2012 3:46 PM COOPERATIVE MANAGER Impressions 05/16/2012 3:46 PM COOPERATIVE MANAGER Status post internal fixation distal fibular fracture. Narrative 05/16/2012 3:46 PM COOPERATIVE MANAGER Intraoperative spot radiographs of the right ankle [...] 1824, PACU Current Rate 05/16/2012 4:15 PM COOPERATIVE MANAGER 130 mL/hr 130 mL/hr documented in this encounter Active and Recently Administered Medications Times are shown in COOPERATIVE MANAGER. Continuous Medication Order 05/14/2012 05/15/2012 05/16/2012 isolyte-S [...] MD) documented in this encounter Care Teams Clerical Coordinator Relationship Specialty Start Date End Date Moises Diaz MD PCP - General 04/28/09 08/15/21 documented as of this encounter
--- OUTSIDE RECORDS SUMMARY | 2024-04-03 06:38 | XMS_ITS | Encounter Summary ---
Author Organization [facility] Address [address] [facility] [place] [address] Care Team Providers Care Flight Follower Name Role Phone Moises Diaz MD Primary Care Provider Unavail able Reason for Visit * Reason Comments Injury Ankle Right ankle fx follo w up Encounter Details Date Type Department Care Team (Latest Contact Info) Description 07/20/2012 8:46 AM CDT - 07/20/2012 11:59 PM CDT Hospital Encounter [facility] - Orthopedics [address] [place] [id number] Sophia Hutchison MD [address] [place] [id number] Discharge Disposition: Home or Self Care Social [...] ankle documented in this encounter Care Teams Flight Follower Relationship Specialty Start Date End Date Moises Diaz MD PCP - General 04/28/09 08/15/21 documented as of this encounter
--- OUTSIDE RECORDS SUMMARY | 2024-04-03 06:38 | XMS_ITS | Encounter Summary ---
Author Organization [facility] Address [address] [place] [address] Care Team Providers Care Embedded Case Manager Name Role Phone Moises Diaz MD Primary Care Provider Unavail able Reason for Visit * Reason Comments Injury Ankle ROM check on right a nkle Encounter Details Date Type Department Care Team (Latest Contact Info) Description 08/31/2012 9:00 AM CDT - 08/31/2012 11:59 PM CDT Hospital Encounter [facility] - Orthopedics [address] [place] [address] Sophia Hutchison MD [address] [place] [address] Discharge Disposition: Home or Self Care Social [...] ankle fracture Return appointment: As needed Call [phone], option 1, for return if your child has new symptoms or problems, or if you have concerns. Call [phone] for questions. Physicians orders: none Medications prescribed: [...] on filedocumented in this encounter Care Teams Embedded Case Manager Relationship Specialty Start Date End Date Moises Diaz MD PCP - General 04/28/09 08/15/21 documented as of this encounter
--- OUTSIDE RECORDS SUMMARY | 2024-04-03 06:39 | XMS_ITS | Encounter Summary ---
Author Organization [facility] Address [address] [place] [address] Care Team Providers Care Restaurant General Manager Name Role Phone Beau Clinton Primary Care Provider [phone] Zarina Avalos Unavailable + [phone] Reason for Visit * Reason Onset Date Comments Post-Op Call 08/23/2023 Encounter Details Date Type Department Care Team (Late st Contact Info) Description 08/23/2023 Telephone [facility] Orthopedic and Sports Medicine [address] [place] [phone] Mya Vizcarra MA Post-Op Call Social [...] on file Legal 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
--- OUTSIDE RECORDS SUMMARY | 2024-04-03 06:39 | XMS_ITS | Encounter Summary ---
Author Organization [facility] Address [address] [place] [address] Care Team Providers Care Pumper Gager Name Role Phone Beau Clinton Primary Care Provider [phone] Zarina Avalos Unavailable + [phone] Reason for Visit * Reason Comments Post-op Patient been wearing the left knee braces for 6 weeks.Patient is doing physical therapy is going good.Patient has no pain today Encounter Details Date Type Department Care Team (Late st Contact Info) Description 10/03/2023 3:00 PM CDT Office Visit [facility] Orthopedics and Sports Medicine [address] [place] [phone] Zarina Avalos PA [address] [place] [address] [address] [place] [address] S/P medial meniscus repair of left knee [...] on file 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 He has been [...] aftercare documented in this encounter Care Teams Pumper Gager Relationship Specialty Start Date End Date Beau Clinton PA [address] [place] [address] PCP - General Family Practice 08/14/23 Zarina Avalos PA [address] [place] [address] [address] Orthopedic Surgery 08/22/23 documented as of this encounter
--- OUTSIDE RECORDS SUMMARY | 2024-04-03 06:39 | XMS_ITS | Encounter Summary ---
Author Organization [facility] Healthcare Address [address] [place] [address] Care Team Providers Care Trap Operator Name Role Phone Beau Clinton Primary Care Provider [phone] Zarina Avalos Unavailable [phone] Reason for Visit * Reason Comments Post-op Encounter Details Date Type Department Care Team (Late st Contact Info) Description 11/14/2023 11:00 AM CDT Office Visit [facility] Medical Group Orthopedics and Sports Medicine [address] [place] [address] [address], [place] [phone] Zarina Avalos PA [address] [place] [address] S/P medial meniscus repair of left [...] on file 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 Patient completed outpatient physical therapy in [place] and states he has transitioned to home [...] aftercare documented in this encounter Care Teams Trap Operator Relationship Specialty Start Date End Date Beau Clinton PA [address] [place] [address] PCP - General Family Practice 08/14/23 Zarina Avalos PA [address] [place] [address] DR MINA [address] [place] [address] Orthopedic Surgery 08/22/23 documented as of this encounter
--- OUTSIDE RECORDS SUMMARY | 2024-04-03 06:39 | XMS_ITS | Encounter Summary ---
Author Organization [facility] Healthcare Address [address] [place] [address] Care Team Providers Care Box Toe Flanger Stitchdowns Name Role Phone Beau Clinton Primary Care Provider [phone] Zarina Avalos Unavailable + [phone] Reason for Referral * Consultation (Routine) - Closed Specialty Diagnoses / Procedures Referred By Contac t Referred To Contact Physical Therapy Diagnoses S/P arthroscopy of left knee Sagar Calvert PA [address] [place] [address] [place] [address] Phone: tel: fax: [address] [address] Phone: tel: fax: Referral ID Status Reason Start Date Expiration Date V isits Requested Visits Authorized [id number] Closed Specialty Services Required 08/23/2023 09/21/2024 18 18 Question Answer PTRFR PT Evaluate and Treat Therapy options discussed with patient? 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
--- OUTSIDE RECORDS SUMMARY | 2024-04-03 06:39 | XMS_ITS | Encounter Summary ---
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 This was re-faxed to [phone] documented in this encounter Plan of Treatment Not on file documented as of this encounter Visit Diagnoses Not on filedocumented in this encounter Care Teams Columnist Relationship Specialty Start Date End Date Beau Clinton PA [address] [place] [address] PCP - General Family Practice 08/14/23 Zarina Avalos PA [address] [place] [address] DR MINA [address] [place] [address] Orthopedic Surgery 08/22/23 documented as of this encounter
--- OUTSIDE RECORDS SUMMARY | 2024-04-03 06:39 | XMS_ITS | Clinical Summary ---
Author Organization [facility] Medical Office Building [facility] Address [address] [place] [address] Care Team Providers Care Telephone Order Clerk Room Service Name Role Phone Beau Clinton Primary Care Provider Zarina Avalos Unavailable Allergies No known active [...] on file Legal Sex Male 11:[address] COMMISSIONER Gender Identity Not on file Sexual Orientation [...] this topic Medical Devices Implanted Type Area Data Analysis Manager Device Identifier Shelf Expiration Date Model / Serial / Lot Ar[employer]rex [employer] Fiberlink Arthrex Suturetape 1.3mm Tape Suture Nonabsorbable Ar-7535 - [id number] Implanted:Qty: 1 on 08/22/2023 by Yong Sheikh MD at [facility] Left: Knee [employer] Inc [id number] 07/15/2026 AR-7535 / / [id number] Ar[employer]rex [employer] Fiberlink Arthrex Suturetape 1.3mm Tape Suture Nonabsorbable Ar-7535 - [id number] Implanted:Qty: 1 on 08/22/2023 by Yong Sheikh MD at [facility] Left: Knee [employer] Inc [id number] 11/15/2027 AR-7535 / / [id number] Depuy Mitek Truespan Orthocord Nonabsorbable 2 Backstop Braid 24d 2-0 [place] 395390 - [id number] Implanted:Qty: 1 on 08/22/2023 by Yong Sheikh MD at [facility] Left: Knee Depuy Mitek 02/14/2026 [id number] / / [id number] Depuy Mitek Truespan Orthocord Nonabsorbable 2 Backstop Braid 24d 2-0 [place] 119516 - [id number] Implanted:Qty: 1 on 08/22/2023 by Yong Sheikh MD at [facility] Left: Knee Depuy Mitek 02/14/2026 [id number] / / [id number] Ar[employer]rex Inc Swivelock C 4.75mm 19.1mm Closed Eyelet Vent [place] Suture Ar-2324bcc - [id number] Implanted:Qty: 1 on 08/22/2023 by Yong Sheikh MD at [facility] Left: Knee [employer] Inc 03/16/2027 AR-2324BCC / / [id number] Insurance [facility] H[facility]/PPO Address: [address] [address] Care Teams Telephone Order Clerk Room Service Relationship Specialty Start Date End Date Beau Clinton PA [address] [place] [address] PCP - General Family Practice 08/14/23 Zarina Avalos PA [address] [place] [address] DR MINA [address] [place] [address] Orthopedic Surgery 08/22/23
--- OUTSIDE RECORDS SUMMARY | 2024-04-03 06:39 | XMS_ITS | Referral Summary ---
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 Gender Identity Not on file Sexual Orientation [...] on file Medical Devices Implanted Type Area Meteorological Observer Device Identifier Shelf Expiration Date Model / Serial / Lot Ar[employer]rex [employer] Fiberlink Arthrex Suturetape 1.3mm Tape Suture Nonabsorbable Ar-7535 - [id number] Implanted:Qty: 1 on 08/22/2023 by Yong Sheikh MD at [facility] Left: Knee [employer]rex Inc [id number] 07/15/2026 AR-7535 / / [id number] Ar[employer]rex Inc Fiberlink Arthrex Suturetape 1.3mm Tape Suture Nonabsorbable Ar-7535 - [id number] Implanted:Qty: 1 on 08/22/2023 by Yong Sheikh MD at [facility] Left: Knee [employer]rex Inc [id number] 11/15/2027 AR-7535 / / [id number] Depuy Mitek Truespan Orthocord Nonabsorbable 2 Backstop Braid 24d 2-0 [place] 450770 - [id number] Implanted:Qty: 1 on 08/22/2023 by Yong Sheikh MD at [facility] Left: Knee Depuy Mitek 02/14/2026 [id number] / / [id number] Depuy Mitek Truespan Orthocord Nonabsorbable 2 Backstop Braid 24d 2-0 [place] 312684 - [id number] Implanted:Qty: 1 on 08/22/2023 by Yong Sheikh MD at [facility] Left: Knee Depuy Mitek 02/14/2026 [id number] / / [id number] Ar[employer]rex Inc Swivelock C 4.75mm 19.1mm Closed Eyelet Vent [place] Suture Ar-2324bcc - [id number] Implanted:Qty: 1 on 08/22/2023 by Yong Sheikh MD at [facility] Left: Knee Arthrex Inc 03/16/2027 AR-2324BCC / / [id number] Insurance [facility] Care Teams Cyber Defense Analyst Relationship Specialty Start Date End Date Beau Clinton PA [address] [place] [address] PCP - General Family Practice 08/14/23 Zarina Avalos PA 4 [facility] [address] [address] Orthopedic Surgery 08/22/23
--- OUTSIDE RECORDS SUMMARY | 2024-04-03 06:39 | XMS_ITS | Encounter Summary ---
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 documented in this encounter Plan of Treatment Not on file documented as of this encounter Visit Diagnoses Not on filedocumented in this encounter Care Teams Career Law Clerk Relationship Specialty Start Date End Date Beau Clinton PA [address] [place] [address] PCP - General Family Practice 08/14/23 Zarina Avalos PA [address] [place] [address] DR MINA [address] [place] [address] Orthopedic Surgery 08/22/23 documented as of this encounter
--- OUTSIDE RECORDS SUMMARY | 2024-04-03 06:39 | XMS_ITS | Encounter Summary ---
Author Organization [facility] Healthcare Address [address] [place] [address] Care Team Providers Care Biscuit Factory Worker Name Role Phone Beau Clinton Primary Care Provider [phone] Zarina Avalos Unavailable [phone] Reason for Visit * Reason Comments Post-op Encounter Details Date Type Department Care Team (Late st Contact Info) Description 09/05/2023 1:30 PM CDT Office Visit [facility] Medical Group Orthopedics and Sports Medicine [address] [place] [address] [address], [place] [address] Zarina Avalos PA [address] [place] [address] S/P medial meniscus repair of left [...] on file 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
--- OUTSIDE RECORDS SUMMARY | 2024-04-03 06:39 | XMS_ITS | Encounter Summary ---
Author Organization [facility] Healthcare Address [address] [place] [address] Care Team Providers Care Branch Lending Officer Name Role Phone Beau Clinton Primary Care Provider [phone] Zarina Avalos Unavailable + [phone] Encounter Details Date Type Department Care Team (Late st Contact Info) Description 09/06/2023 Documentation [facility] Medical Group Orthopedics and Sports Medicine [address] [place] [address] [address] [place] [address] Zarina Avalos PA [address] [place] [address] [address] [place] [address] Social History Tobacco Use [...] on file 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 documented in this encounter Plan of Treatment Not on file documented as of this encounter Visit Diagnoses Not on filedocumented in this encounter Care Teams Branch Lending Officer Relationship Specialty Start Date End Date Beau Clinton PA [address] [place] [address] PCP - General Family Practice 08/14/23 Zarina Avalos PA [address] [place] [address] DR IMNA [address] [place] [address] Orthopedic Surgery 08/22/23 documented as of this encounter
--- OUTSIDE RECORDS SUMMARY | 2024-04-03 06:39 | XMS_ITS | Encounter Summary ---
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 Gender Identity Not on file Sexual Orientation Not on file documented as of this encounter Progress Notes * Eduarda Adler MA - 10/03/2023 3:15 PM CDT error documented in this encounter Plan of Treatment Not on file documented as of this encounter Visit Diagnoses Not on filedocumented in this encounter Care Teams Manager Clinical Research Relationship Specialty Start Date End Date Beau Clinton PA [address] [place] [address] PCP - General Family Practice 08/14/23 Zarina Avalos PA [address] [place] [address] DR MINA [address] [place] [address] Orthopedic Surgery 08/22/23 documented as of this encounter
--- OUTSIDE RECORDS SUMMARY | 2024-04-03 06:40 | XMS_ITS | Encounter Summary ---
Author Organization [facility] Healthcare Address [address] [place] [address] Care Team Providers Care Automatic Vulcanizing Lead Operator Name Role Phone Beau Clinton Primary Care Provider [phone] Zarina Avalos Unavailable + [phone] Reason for Visit * Auth/Cert (Routine) Specialty Diagnoses / Procedures Referred By Antony t Referred To Contact Diagnoses Other tear of medial meniscus of left knee, unspecified whether old or current tear, initial encounter Other tear of medial meniscus of left knee, unspecified whether old or current tear, initial encounter [S83.242A] Procedures RI ARTHRS KNE SURG W/MENISCECTOMY MED/LAT W/SHVG Left knee arthroscopy, medial meniscectomy including any meniscal shavings-arthroscopy equipment and ezy wrap Referral ID Status Reason Start Date Expiration Date Visits Re quested Visits Authorized [id number] 1 1 Encounter Details Date Type Department Care Team (Late st Contact Info) Description 08/22/2023 2:06 PM CDT Anesthesia Event [facility] Operating Room [address] [place] [address] [place] [address] [facility] [address] [place] [address] Anesthesia Record Procedure Summary Procedure Name Responsible [...] ft; Knee; 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, 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] anesthesia Difficult airway: no Staff: Placed by: SURVEY OPERATIONS DIRECTOR: Avery Vaughan CRNA Emergent airway documentation: Risks [...] Medication protocol when under care of a SURVEY OPERATIONS DIRECTOR Planned anesthesia: General Team communication plan: LMA Induction: Induction: intravenous. Postoperative Plan: Postoperative administration opioids intended. No postoperative mechanical ventilation intended. Patient's planned disposition post procedure is Outpatient. Informed Consent: Discussed plan with attending and SURVEY OPERATIONS DIRECTOR. Anesthesia plan and risks discussed with patient. [...] Procedure Name Priority Date/Time Associated Diagnosis Comments RI AN ELECTIVE SUPRAGLOTTIC AIRWAY Routine 08/22/2023 2:17 PM CDT documented in this encounter Results * RI AN ELECTIVE SUPRAGLOTTIC AIRWAY (08/22/2023 2:17 PM CDT) Narrative Avery Vaughan CRNA - 08/22/2023 2:17 PM CDT Avery Vaughan CRNA ? 08/22/2023 ??2:17 PM Airway Patient location: OR Urgency: elective Indications for airway management: anesthesia Difficult airway: no Staff: Placed by: SURVEY OPERATIONS DIRECTOR: Avery Vaughan CRNA Emergent airway documentation: Risks [...] 1 Additional comments: Smooth atraumatic placement. us Harirson Callahan MD ANESTHESIA ORDERABLES Maki l Result [...] mg documented in this encounter Care Teams Automatic Vulcanizing Lead Operator Relationship Specialty Start Date End Date Beau Clinton PA [address] [place] [address] PCP - General Family Practice 08/14/23 Zarina Avalos PA [address] [facility] [address] Orthopedic Surgery 08/22/23 documented as of this encounter
--- OUTSIDE RECORDS SUMMARY | 2024-04-03 06:40 | XMS_ITS | Encounter Summary ---
Author Organization [facility] Healthcare Address [address] [place] [address] Care Team Providers Care Garage Door Opener Installer Name Role Phone Beau Clinton Primary Care Provider [phone] Reason for Referral * Consultation (Routine) - Closed Specialty Diagnoses / Procedures Referred By Contac t Referred To Contact Physical Therapy Diagnoses S/P left knee arthroscopy Yong Sheikh MD [address] [place] [place] [address] [place] [address] Phone: tel: fax: [place] [address] Phone: tel: fax: Referral ID Status Reason Start Date Expiration Date V isits Requested Visits Authorized [id number] Closed Specialty Services Required 08/15/2023 09/13/2024 18 18 Question Answer PTRFR PT Evaluate and Treat Therapy options discussed with patient? Yes Location provided for therapy services is: Patient requested/Patient preferred Please select the performing region: External Order [171] To loc/pos [facility] [[id number]] # of visits: 18 Comments Eval and treat s/p left Knee Medial Meniscectomy DOS: 08/22/23 2-3 time per week for 4-6 weeks Please contact patient to schedule first post-op appointment for 5-7 days after surgery Encounter Details Date Type Department Care Team (Late st Contact Info) Description 08/15/2023 Orders Only [facility] Medical Group Orthopedic and Sports Medicine [address] [place] [phone] Yong Sheikh MD [address] [place] [place] [address] [address] LIZAMA [address] [address] S/P left knee arthroscopy (Primary Dx) Social [...] on file 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
--- OUTSIDE RECORDS SUMMARY | 2024-04-03 06:40 | XMS_ITS | Encounter Summary ---
Author Organization [facility] Healthcare Address [address] [place] [address] Care Team Providers Care Regional Clinical Research Associate Name Role Phone Beau Clinton Primary Care Provider [phone] Reason for Visit * Diagnostic Imaging (Routine) - Closed Specialty Diagnoses / Procedures Referred By Contac t Referred To Contact Diagnoses Left knee pain, unspecified chronicity Procedures XR Pelvis 1 or 2 Views Yong Sheikh MD [address] [place] [address] [address] Phone: tel: fax: Referral ID Status Reason Start Date Expiration Date Visits Re quested Visits Authorized [id number] Closed 08/14/2023 09/12/2024 1 1 Encounter Details Date Type Department Care Team (Latest Contact Info) Description 08/14/2023 7:38 AM CDT - 08/14/2023 11:59 PM CDT Hospital Encounter [facility] Medical Group Orthopedics and Sports Medicine [address] [place] [address] [address], [place] [address] Discharge Disposition: Discharge to home [...] on file 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
--- OUTSIDE RECORDS SUMMARY | 2024-04-03 06:40 | XMS_ITS | Encounter Summary ---
Author Organization [facility] Healthcare Address [address] [place] [address] Care Team Providers Care Director Hr Communications Name Role Phone Beau Clinton Primary Care Provider [phone] Reason for Referral * Diagnostic Imaging (Routine) - Closed Specialty Diagnoses / Procedures Referred By Contac t Referred To Contact Diagnoses Left knee pain, unspecified chronicity Procedures XR Knee Left 4 or More Views Yong Sheikh MD [address] [place] [address] DR ALDA Ly [address] [address] Phone: tel: fax: Referral ID Status Reason Start Date Expiration Date Visits Re quested Visits Authorized [id number] Closed 08/14/2023 09/12/2024 1 1 * Diagnostic Imaging (Routine) - Closed Specialty Diagnoses / Procedures Referred By Contac t Referred To Contact Diagnoses Left knee pain, unspecified chronicity Procedures XR Pelvis 1 or 2 Views Yong Sheikh MD [address] [place] [address] DR ALDA Ly [address] [address] Phone: tel: fax: Referral ID Status Reason Start Date Expiration Date Visits Re quested Visits Authorized [id number] Closed 08/14/2023 09/12/2024 1 1 Reason for Visit * Reason Comments Pain Encounter Details Date Type Department Care Team ([facility] st Contact Info) Description 08/14/2023 8:30 AM CDT Office Visit [facility] Medical Group Orthopedics and Sports Medicine [address] [facility] [address] [place] [address] Yong Sheikh MD [address] [place] [address] [address]AMA [address] [place] [address] Other tear of medial meniscus of left [...] on file 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
--- OUTSIDE RECORDS SUMMARY | 2024-04-03 06:40 | XMS_ITS | Encounter Summary ---
Author Organization [facility] Facility Care Team Providers Care Associate Professor Of Biostatistics Name Role Phone Unavailable Primary Care Provider Unavailabl e Encounter Details Date Type Department Care Team (Latest Contact Info) Description 12/08/2009 6:22 PM CDT - 12/08/2009 11:59 PM CDT Hospital Encounter [facility] Concussion with no loss of consciousness; Striking against or struck accidentally by object in sports with subsequent fall; Place of occurrence, place for recreation and sport; Activities involving Vietnamese tackle football Social History Tobacco Use Types Packs/Day Years Used Date Smoking Tobacco: Never Assessed Sex and Gender Information Value Date Recorded Sex Assigned at Not on file 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
--- OUTSIDE RECORDS SUMMARY | 2024-04-03 06:40 | XMS_ITS | Encounter Summary ---
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
--- OUTSIDE RECORDS SUMMARY | 2024-04-03 06:40 | XMS_ITS | Encounter Summary ---
Author Organization [facility] Healthcare Address [address] [place] [address] Care Team Providers Care Community Midwife Name Role Phone Beau Clinton Primary Care Provider [phone] Zarina Avalos Unavailable [phone] Reason for Visit * Auth/Cert (Routine) Specialty Diagnoses / Procedures Referred By Antony t Referred To Contact Diagnoses Other tear of medial meniscus of left knee, unspecified whether old or current tear, initial encounter Other tear of medial meniscus of left knee, unspecified whether old or current tear, initial encounter [S83.242A] Procedures [place] ARTHRS KNE SURG W/MENISCECTOMY MED/LAT W/SHVG Left knee arthroscopy, medial meniscectomy including any meniscal shavings-arthroscopy equipment and ezy wrap Referral ID Status Reason Start Date Expiration Date Visits Re quested Visits Authorized [id number] 1 1 Encounter Details Date Type Department Care Team (Late st Contact Info) Description 08/22/2023 1:15 PM CDT - 08/22/2023 2:30 PM CDT Surgery [facility] Operating Room [address] [place] [address] Yong Sheikh MD [address] [place] [address] [address] [place] [address] Left knee arthroscopy with medial meniscus repair Surgery Details Date/Time Status Location OR Service Patient Class Case Class Case Type Trauma Case? 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 * General Anesthesia (Discharge Care) (Omani) * Ascorbic Acid (Vitamin C) (By mouth) (Omani) * Aspirin (By mouth) (Omani) * Vitamin D (By mouth) (Omani) * Hydrocodone/Acetaminophen (By mouth) (Omani) * Ondansetron (By mouth, Into the mouth) (Omani) * Senna (By mouth) (Omani) * Crutch Instructions (Discharge Care) (Omani) documented in this encounter Medications at Time [...] 08/22/2023 5:47 PM CDT Physical Therapy 08/22/23 1707 General Chart Reviewed Yes Session Type Evaluation [...] Equipment-Currently Using None Prior Function Level of [place] Independent with ADLs;Independent functional transfers;Independent with ambulation [...] crutches) PT Evaluation Complete Yes * Wade Schofield [facility] - 08/21/2023 11:39 AM CDT Antimicrobial Stewardship [...] Temp For questions please contact: Wade Schofield [facility] Pharmacy department [phone] documented in this encounter H&P Notes * [...] tear he is here for surgical consultation Baker Operator Automatic completed by using M*Modal Fluency Direct speaking [...] included. Operative Report SURGEON: Yong Sheikh MD Rail Switchman: Sunita Mays RN Physician Superintendent Logging: Sagar Calvert PA Scrub: Jenny Turner ST FOOT TENDER: Elena Pittman RN SURGICAL TEAM: Surgeons and Role: * Yong Sheikh MD - Primary DATE OF SURGERY : 08/22/2023 PREOPERATIVE DIAGNOSIS: See preoperative H and P POSTOPERATIVE DIAGNOSIS: Post-op Diagnosis * Other tear of medial meniscus of left knee, unspecified whether old or current tear, initial encounter [T05.327A] Posterior horn medial meniscus tear, root tear medial meniscus PROCEDURE: Left knee arthroscopy with medial meniscus repair (L) ANESTHESIA: General IMPLANTS: Implant Name Type Inv. Item Serial No. Trainer Lot No. LRB No. Used Action [employer] Fiberlink Arthrex Suturetape 1.3mm Tape Suture Nonabsorbable AR-7535 - [id number] [employer] Fiberlink Arthrex Suturetape 1.3mm Tape Suture Nonabsorbable AR-7535 Ar[employer] Inc [id number] Left1 Implanted [employer] Fiberlink Arthrex Suturetape 1.3mm Tape Suture Nonabsorbable AR-7535 - [id number] [employer] Fiberlink Arthrex Suturetape 1.3mm Tape Suture Nonabsorbable AR-7535 Ar[employer] Inc [id number] Left 1 Implanted DEPUY MITEK TRUESPAN ORTHOCORD NONABSORBABLE 2 BACKSTOP BRAID 24D 2-0 ANCHOR [id number] - [id number] DEPUY MITEK TRUESPAN ORTHOCORD NONABSORBABLE 2 BACKSTOP BRAID 24D 2-0 ANCHOR [id number] Depuy Mitek [id number] Left 1 Implanted DEPUY MITEK TRUESPAN ORTHOCORD NONABSORBABLE 2 BACKSTOP BRAID 24D 2-0 ANCHOR [id number] - [id number] DEPUY MITEK TRUESPAN ORTHOCORD NONABSORBABLE 2 BACKSTOP BRAID 24D 2-0 ANCHOR [id number] Depuy Mitek [id number] Left 1 Implanted [employer] Swivelock C 4.75mm 19.1mm Closed Eyelet Vent [place] Suture AR- 2324BCC - [id number] [employer] Swivelock C 4.75mm 19.1mm Closed Eyelet Vent [place] Suture AR-2324BCC [employer] [id number] Left 1 Implanted Estimated Blood Loss: 5 [...] Sheikh MD Date: 08/22/2023 Time: 4:17 PM Baker Operator Automatic completed by using M*Modal Fluency Direct speaking software, therefore, transcriptionvariances may occur. * Perioperative Nursing Note - Pepper Charles RN - 08/15/2023 1:27 PM CDT MERLENE letter faxed to Dr Clinton and instructions placed in chart. * Pre-Procedure Instructions - Pepper Charles RN - 08/15/2023 12:03 PM CDT We are pleased that you and your doctor have chosen [facility] for your surgery. We hope [...] of water. lisinopril Use no make-up, nail uruguayan, lotions, oils or powders on your skin. [...] 08/22/2023 documented in this encounter Care Teams Community Midwife Relationship Specialty Start Date End Date Beau Clinton PA [address] [place] [id number] PCP - General Family Practice 08/14/23 Zarina Avalos PA [address] [facility] [place] [address] Orthopedic Surgery 08/22/23 documented as of this encounter
--- OUTSIDE RECORDS SUMMARY | 2024-04-03 06:40 | XMS_ITS | Encounter Summary ---
Author Organization [facility] Address [address] [place] [address] Care Team Providers Care Administration Internship Name Role Phone Beau Clinton Primary Care Provider [phone] Zarina Avalos Unavailable + [phone] Reason for Visit * Auth/Cert (Routine) Specialty Diagnoses / Procedures Referred By Antony t Referred To Contact Diagnoses Other tear of medial meniscus of left knee, unspecified whether old or current tear, initial encounter Other tear of medial meniscus of left knee, unspecified whether old or current tear, initial encounter [S83.242A] Procedures [place] ARTHRS KNE SURG W/MENISCECTOMY MED/LAT W/SHVG Left knee arthroscopy, medial meniscectomy including any meniscal shavings-arthroscopy equipment and ezy wrap Referral ID Status Reason Start Date Expiration Date Visits Re quested Visits Authorized [id number] 1 1 Encounter Details Date Type Department Care Team (Latest Contact Info) Description 08/22/2023 10:45 AM CDT - 08/22/2023 5:47 PM CDT Hospital Encounter [facility] Operating Room [address] [place] [address] Yong Sheikh MD [address] [facility] [address] [place] [address] Other tear of medial meniscus of left [...] on file 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 * General Anesthesia (Discharge Care) (Zimbabwean) * Ascorbic Acid (Vitamin C) (By mouth) (Zimbabwean) * Aspirin (By mouth) (Zimbabwean) * Vitamin D (By mouth) (Zimbabwean) * Hydrocodone/Acetaminophen (By mouth) (Zimbabwean) * Ondansetron (By mouth, Into the mouth) (Zimbabwean) * Senna (By mouth) (Zimbabwean) * Crutch Instructions (Discharge Care) (Zimbabwean) documented in this encounter Medications at Time [...] Equipment-Currently Using None Prior Function Level of [place] Independent with ADLs;Independent functional transfers;Independent with ambulation [...] crutches) PT Evaluation Complete Yes * [facility] 11[facility]39 AM CDT [...] Temp For questions please contact: Wade Schofield [facility] Pharmacy department [phone] documented in this encounter H&P Notes * [...] tear he is here for surgical consultation Coloring Room Man completed by using M*Modal Fluency Direct speaking [...] included. Operative Report SURGEON: Yong Sheikh MD Repairer Art Objects: Sunita Mays RN Physician Computer Installer: Sagar Calvert PA Scrub: Jenny Turner ST RNFA: Elena Pittman RN SURGICAL TEAM: Surgeons and Role: * Yong Sheikh MD - Primary DATE OF SURGERY : 08/22/2023 PREOPERATIVE DIAGNOSIS: See preoperative H and P POSTOPERATIVE DIAGNOSIS: Post-op Diagnosis * Other tear of medial meniscus of left knee, unspecified whether old or current tear, initial encounter [G02.981A] Posterior horn medial meniscus tear, root tear medial meniscus PROCEDURE: Left knee arthroscopy with medial meniscus repair (L) ANESTHESIA: General IMPLANTS: Implant Name Type Inv. Item Serial No. Field Operations Farm Manager Lot No. LRB No. Used Action [employer] Fiberlink Arthrex Suturetape 1.3mm Tape Suture Nonabsorbable AR-7535 - [id number] [employer] Fiberlink Arthrex Suturetape 1.3mm Tape Suture Nonabsorbable AR-7535 Ar[employer]rex Inc [id number] Left1 Implanted [employer] Fiberlink Arthrex Suturetape 1.3mm Tape Suture Nonabsorbable AR-7535 - [id number] [employer] Fiberlink Arthrex Suturetape 1.3mm Tape Suture Nonabsorbable AR-7535 Ar[employer]rex Inc [id number] Left 1 Implanted DEPUY MITEK TRUESPAN ORTHOCORD NONABSORBABLE 2 BACKSTOP BRAID 24D 2-0 ANCHOR [id number] - [id number] DEPUY MITEK TRUESPAN ORTHOCORD NONABSORBABLE 2 BACKSTOP BRAID 24D 2-0 ANCHOR [id number] Depuy Mitek [id number] Left 1 Implanted DEPUY MITEK TRUESPAN ORTHOCORD NONABSORBABLE 2 BACKSTOP BRAID 24D 2-0 ANCHOR [id number] - [id number] DEPUY MITEK TRUESPAN ORTHOCORD NONABSORBABLE 2 BACKSTOP BRAID 24D 2-0 ANCHOR [id number] Depuy Mitek [id number] Left 1 Implanted [employer] Swivelock C 4.75mm 19.1mm Closed Eyelet Vent [place] Suture AR- 2324BCC - [id number] [employer] Swivelock C 4.75mm 19.1mm Closed Eyelet Vent [place] Suture AR-2324BCC Ar[employer]rex Inc [id number] Left 1 Implanted Estimated Blood Loss: 5 [...] Sheikh MD Date: 08/22/2023 Time: 4:17 PM Coloring Room Man completed by using M*Modal Fluency Direct speaking software, therefore, transcriptionvariances may occur. * Perioperative Nursing Note - Pepper Charles RN - 08/15/2023 1:27 PM CDT MERLENE letter faxed to Dr Clinton and instructions placed in chart. * Pre-Procedure Instructions - Pepper Charles RN - 08/15/2023 12:03 PM CDT We are pleased that you and your doctor have chosen [facility] for your surgery. We hope [...] of water. lisinopril Use no make-up, nail romansh, lotions, oils or powders on your skin. [...] 08/22/2023 documented in this encounter Care Teams Administration Internship Relationship Specialty Start Date End Date Beau Clinton PA [address] [place] [address] PCP - General Family Practice 08/14/23 Zarina Avalos PA [address] [place] [address] [address] Orthopedic Surgery 08/22/23 documented as of this encounter
--- OUTSIDE RECORDS SUMMARY | 2024-04-03 06:40 | XMS_ITS | Encounter Summary ---
Author Organization [facility] Healthcare Address [facility] [place] [address] Care Team Providers Care Fisher Line Name Role Phone Beau Clinton Primary Care Provider [phone] Reason for Visit * Diagnostic Imaging (Routine) - Closed Specialty Diagnoses / Procedures Referred By Contac t Referred To Contact Diagnoses Left knee pain, unspecified chronicity Procedures XR Knee Left 4 or More Views Yong Sheikh MD [address] [place] [address] [address] [address] Phone: tel: fax: Referral ID Status Reason Start Date Expiration Date Visits Re quested Visits Authorized [id number] Closed 08/14/2023 09/12/2024 1 1 Encounter Details Date Type Department Care Team (Latest Contact Info) Description 08/14/2023 7:38 AM CDT - 08/14/2023 11:59 PM CDT Hospital Encounter [facility] Medical Group Orthopedics and Sports Medicine [address] [place] [phone] Discharge Disposition: Discharge to home or self [...] on file Legal Sex Male 11:30 PM LAB ASST Gender Identity Not on file Sexual Orientation [...] on filedocumented in this encounter Care Teams Fisher Line Relationship Specialty Start Date End Date Beau Clinton PA [address] [place] [address] PCP - General Family Practice 08/14/23 documented as of this encounter
== END 2024-03-30 16:40 | disposition home or self-care (01) ==
PROVIDERS: Emergency Provider Emergency Medicine; PCP Physician Assistant
DX: K57.20 Diverticulitis of large intestine with perforation and abscess without bleeding (principal)
CPT/HCPCS: 36415; 74177; 80053; 81001; 83690; 85025; 96365; 96367; 96375; 99284; J0696; J1836; J2405; Q9967